=== PATIENT | male | born 1950 | race Caucasian/White ===

== ENCOUNTER → 2023-03-07 10:42 | Outpatient (REF) | payer MEDICARE, OTHER, SELFPAY ==
[2023-03-07 11:10] VITALS: BP 117/62; BP_SYST 74
[2023-03-07 13:12] LABS: Body Fluid Mononuclear 87.9 %; Body Fluid Polymorphonuclear 12.1 %; Body Fluid WBC 148 /CUMM
[2023-03-07 13:21] LABS: Body Fluid Second Tech AMA
== END ==
LOC: RADI 10:42
PROVIDERS: ATTENDING PHYSICIAN Internal Medicine Cardiovascular Disease; FAMILY PHYSICIAN Internal Medicine Geriatric Medicine
DX: R18.8 Other ascites (principal)
CPT/HCPCS: 49083; 87015; 87070; 87205; 89051

== ENCOUNTER → 2023-03-14 07:03 | Outpatient (REF) | payer MEDICARE, OTHER, SELFPAY ==
[2023-03-14 07:15] VITALS: BP 129/58; BP_SYST 76
[2023-03-14 07:50] VITALS: BP 127/63; BP_SYST 69
[2023-03-14 08:37] LABS: Body Fluid Polymorphonuclear 13.9 %; Body Fluid WBC 209 /CUMM
[2023-03-14 08:38] LABS: Body Fluid Mononuclear 86.1 %
[2023-03-14 08:40] LABS: Body Fluid Second Tech CF
== END ==
LOC: RADI 07:03
PROVIDERS: ATTENDING PHYSICIAN Internal Medicine Cardiovascular Disease
DX: R18.8 Other ascites (principal)
CPT/HCPCS: 49083; 89051

== ENCOUNTER → 2023-03-21 07:16 | Outpatient (REF) | payer MEDICARE, OTHER, SELFPAY ==
[2023-03-21 07:30] VITALS: BP 128/65; BP_SYST 75
[2023-03-21 08:00] VITALS: BP 117/61; BP_SYST 70
[2023-03-21 08:26] LABS: Body Fluid Mononuclear 85.9 %; Body Fluid Polymorphonuclear 14.1 %; Body Fluid WBC 241 /CUMM
[2023-03-21 08:28] LABS: Body Fluid Second Tech SS
== END ==
LOC: RADI 07:16
PROVIDERS: ATTENDING PHYSICIAN Internal Medicine Cardiovascular Disease; FAMILY PHYSICIAN Internal Medicine Geriatric Medicine
DX: R18.8 Other ascites (principal)
CPT/HCPCS: 49083; 89051

== ENCOUNTER → 2023-03-28 06:49 | Outpatient (REF) | payer MEDICARE, OTHER, SELFPAY ==
[2023-03-28 07:20] VITALS: BP 132/70; BP_SYST 82
[2023-03-28 08:25] VITALS: BP 119/70
[2023-03-28 09:07] LABS: Body Fluid Mononuclear 91.9 %; Body Fluid Polymorphonuclear 8.1 %; Body Fluid WBC 235 /CUMM
[2023-03-28 09:10] LABS: Body Fluid Second Tech SD
== END ==
LOC: RADI 06:49
PROVIDERS: ATTENDING PHYSICIAN Internal Medicine Cardiovascular Disease
DX: R18.8 Other ascites (principal)
CPT/HCPCS: 49083; 87015; 87070; 87205; 89051

== ENCOUNTER 2023-04-02 09:09 | Outpatient (RCR) | payer MEDICARE, OTHER, SELFPAY ==
[2023-03-09 09:24] VITALS: BP 122/52
[2023-03-09] MEDS: BUMEX 66 MG IV (09:31)
[2023-03-09 11:17] LABS: Blood Urea Nitrogen 55 mg/dl (9-20); Calcium 8.5 mg/dl (8.4-10.2); Carbon Dioxide 26 mmol/L (22-30); Chloride 106 mmol/L (98-107); Glucose 103 mg/dl (70-99); Magnesium 1.9 mg/dl (1.6-2.3); Sodium 135 mmol/L (135-145); eGFR 24.28
[2023-03-12 09:12] VITALS: BP 115/56
[2023-03-12] MEDS: BUMEX 66 MG IV (09:31)
[2023-03-12 11:57] LABS: Blood Urea Nitrogen 57 mg/dl (9-20); Calcium 8.9 mg/dl (8.4-10.2); Carbon Dioxide 24 mmol/L (22-30); Chloride 103 mmol/L (98-107); Glucose 118 mg/dl (70-99); Magnesium 1.8 mg/dl (1.6-2.3); Potassium 3.9 mmol/L (3.5-5.1); Sodium 137 mmol/L (135-145); eGFR 24.28
[2023-03-16] MEDS: BUMEX 66 MG IV (09:25)
[2023-03-16 09:28] VITALS: BP 103/47
[2023-03-16 10:25] VITALS: BP 115/46
[2023-03-16 11:53] LABS: TSH Reflex To Free T4 3.01 uIU/ml (0.47-4.68)
[2023-03-16 15:52] LABS: NT-proBNP 5490 pg/ml
[2023-03-19 09:14] VITALS: BP 117/53
[2023-03-19] MEDS: BUMEX 66 MG IV (09:29)
[2023-03-19 11:26] LABS: Blood Urea Nitrogen 57 mg/dl (9-20); Calcium 8.6 mg/dl (8.4-10.2); Carbon Dioxide 28 mmol/L (22-30); Chloride 105 mmol/L (98-107); Glucose 164 mg/dl (70-99); Magnesium 1.9 mg/dl (1.6-2.3); Sodium 136 mmol/L (135-145)
[2023-03-23] MEDS: BUMEX 66 MG IV (09:23)
[2023-03-23 09:41] VITALS: BP 144/61
[2023-03-23 10:31] VITALS: BP 142/62
[2023-03-23 11:09] LABS: Blood Urea Nitrogen 63 mg/dl (9-20); Carbon Dioxide 23 mmol/L (22-30); Chloride 103 mmol/L (98-107); Glucose 207 mg/dl (70-99); Magnesium 1.8 mg/dl (1.6-2.3); Potassium 4.3 mmol/L (3.5-5.1); Sodium 135 mmol/L (135-145); eGFR 25.41
[2023-03-26 09:15] VITALS: BP 117/57
[2023-03-26] MEDS: BUMEX 66 MG IV (09:33)
[2023-03-26 10:10] VITALS: BP 149/59
[2023-03-26 11:08] LABS: Blood Urea Nitrogen 61 mg/dl (9-20); Calcium 9.2 mg/dl (8.4-10.2); Carbon Dioxide 27 mmol/L (22-30); Chloride 102 mmol/L (98-107); Glucose 147 mg/dl (70-99); Magnesium 2.1 mg/dl (1.6-2.3); Potassium 3.9 mmol/L (3.5-5.1); Sodium 137 mmol/L (135-145); eGFR 23.24
[2023-03-30 09:00] VITALS: BP 115/50
[2023-03-30] MEDS: BUMEX 66 MG IV (09:19)
[2023-03-30 11:08] LABS: Blood Urea Nitrogen 57 mg/dl (9-20); Calcium 8.8 mg/dl (8.4-10.2); Carbon Dioxide 27 mmol/L (22-30); Chloride 104 mmol/L (98-107); Glucose 128 mg/dl (70-99); Potassium 3.9 mmol/L (3.5-5.1); Sodium 136 mmol/L (135-145); eGFR 25.41
[2023-04-02 09:20] VITALS: BP 119/58
[2023-04-02] MEDS: BUMEX 66 MG IV (09:29)
[2023-04-02 10:43] LABS: % Basophils 0.4 % (0-2); % Eosinophils 7.7 % (0-6); % Immature Granulocytes 0.3 % (0-0.5); % Lymphocytes 7.7 % (20.5-51.1); % Monocytes 7.8 % (1.7-9.3); % Neutrophils 76.1 % (42.2-75.2); Absolute Eosinophils 0.5 10^3/uL (0-0.7); Absolute Lymphocytes 0.5 10^3/uL (1.2-3.4); Absolute Monocytes 0.5 10^3/uL (0.1-0.6); Absolute Neutrophils 5.2 10^3/uL (1.4-6.5); Hematocrit 27.8 % (39.0-52.0); Hemoglobin 9.4 g/dL (13.0-18.0); Mean Corp Hgb Conc. 33.8 g/dL (33.0-37.0); Mean Corpuscular Hgb 29.7 pg (27.0-31.0); Mean Platelet Volume 9.9 fL (7.4-10.4); Nucleated Red Blood Cells % 0 % (-); Platelet Count 196 10^3/uL (130-400); Red Blood Cell Count 3.16 10^6/uL (4.70-6.10); Red Cell Dist. Width 17.9 % (11.5-14.5); White Blood Cell Count 6.8 10^3/uL (4.8-10.8)
[2023-04-02 11:04] LABS: Blood Urea Nitrogen 59 mg/dl (9-20); Calcium 8.9 mg/dl (8.4-10.2); Carbon Dioxide 25 mmol/L (22-30); Chloride 103 mmol/L (98-107); Glucose 126 mg/dl (70-99); Magnesium 2.1 mg/dl (1.6-2.3); Potassium 4.6 mmol/L (3.5-5.1); Sodium 134 mmol/L (135-145); eGFR 20.57
== END 2023-04-03 08:54 | disposition home or self-care (01) ==
LOC: OID 09:09
PROVIDERS: ATTENDING PHYSICIAN Internal Medicine Cardiovascular Disease; FAMILY PHYSICIAN Internal Medicine Geriatric Medicine; PRIMARYCARE PHYSICIAN Internal Medicine Cardiovascular Disease
DX: R18.8 Other ascites (principal); I50.22 Chronic systolic (congestive) heart failure; Z92.89 Personal history of other medical treatment
CPT/HCPCS: 36415; 49083; 80048; 83735; 83880; 84443; 85025; 89051; 96365

== ENCOUNTER → 2023-04-04 06:53 | Outpatient (REF) | payer MEDICARE, OTHER, SELFPAY ==
[2023-04-04 07:30] VITALS: BP 121/64; BP_SYST 89
[2023-04-04 08:10] VITALS: BP 102/60; BP_SYST 70
[2023-04-04 08:47] LABS: Body Fluid Mononuclear 87.3 %; Body Fluid Polymorphonuclear 12.7 %; Body Fluid WBC 142 /CUMM
[2023-04-04 08:49] LABS: Body Fluid Second Tech AMA
== END ==
LOC: RADI 06:53
PROVIDERS: ATTENDING PHYSICIAN Internal Medicine Cardiovascular Disease
DX: R18.8 Other ascites (principal)
CPT/HCPCS: 49083; 89051

== ENCOUNTER → 2023-04-11 07:21 | Outpatient (REF) | payer MEDICARE, OTHER, SELFPAY ==
[2023-04-11 07:50] VITALS: BP 118/69; BP_SYST 71
[2023-04-11 08:30] VITALS: BP 112/64
[2023-04-11 09:12] LABS: Body Fluid Mononuclear 92.5 %; Body Fluid Polymorphonuclear 7.5 %; Body Fluid WBC 185 /CUMM
[2023-04-11 09:14] LABS: Body Fluid Second Tech SD
== END ==
LOC: RADI 07:21
PROVIDERS: ATTENDING PHYSICIAN Internal Medicine Cardiovascular Disease; FAMILY PHYSICIAN Internal Medicine Geriatric Medicine
DX: R18.8 Other ascites (principal)
CPT/HCPCS: 49083; 87015; 87070; 87205; 89051

== ENCOUNTER → 2023-04-18 07:12 | Outpatient (REF) | payer MEDICARE, OTHER, SELFPAY ==
[2023-04-18 07:25] VITALS: BP 132/66; BP_SYST 81
[2023-04-18 09:02] LABS: Body Fluid Mononuclear 88.1 %; Body Fluid Polymorphonuclear 11.9 %; Body Fluid WBC 143 /CUMM
[2023-04-18 09:46] LABS: Body Fluid Second Tech CMB
== END ==
LOC: RADI 07:12
PROVIDERS: ATTENDING PHYSICIAN Internal Medicine Cardiovascular Disease; FAMILY PHYSICIAN Internal Medicine Geriatric Medicine
DX: R18.8 Other ascites (principal)
CPT/HCPCS: 49083; 87015; 87070; 87205; 89051

== ENCOUNTER → 2023-04-25 07:23 | Outpatient (REF) | payer MEDICARE, OTHER, SELFPAY ==
[2023-04-25 07:45] VITALS: BP 111/56; BP_SYST 83
[2023-04-25 08:51] VITALS: BP 115/59
[2023-04-25 09:12] LABS: Body Fluid Mononuclear 90.8 %; Body Fluid Polymorphonuclear 9.2 %; Body Fluid WBC 163 /CUMM
[2023-04-25 09:14] LABS: Body Fluid Second Tech HB
== END ==
LOC: RADI 07:23
PROVIDERS: ATTENDING PHYSICIAN Internal Medicine Cardiovascular Disease; FAMILY PHYSICIAN Internal Medicine Geriatric Medicine
DX: R18.8 Other ascites (principal)
CPT/HCPCS: 49083; 89051

== ENCOUNTER → 2023-05-04 08:06 | Outpatient (REF) | payer MEDICARE, OTHER, SELFPAY ==
[2023-05-04 08:10] VITALS: BP 131/71; BP_SYST 76
[2023-05-04 09:04] VITALS: BP 114/67
[2023-05-04 09:36] LABS: Body Fluid Mononuclear 92.1 %; Body Fluid Polymorphonuclear 7.9 %; Body Fluid WBC 165 /CUMM
[2023-05-04 09:45] LABS: Body Fluid Second Tech CF
== END ==
LOC: RADI 08:06
PROVIDERS: ATTENDING PHYSICIAN Internal Medicine Cardiovascular Disease
DX: R18.8 Other ascites (principal)
CPT/HCPCS: 49083; 89051

== ENCOUNTER 2023-05-04 09:07 | Outpatient (RCR) | payer MEDICARE, OTHER, SELFPAY ==
[2023-04-06 09:20] VITALS: BP 119/54
[2023-04-06] MEDS: BUMEX 66 MG IV (09:36)
[2023-04-06 11:40] LABS: Blood Urea Nitrogen 51 mg/dl (9-20); Calcium 8.6 mg/dl (8.4-10.2); Carbon Dioxide 25 mmol/L (22-30); Chloride 102 mmol/L (98-107); Glucose 138 mg/dl (70-99); Magnesium 2.2 mg/dl (1.6-2.3); Potassium 3.7 mmol/L (3.5-5.1); Sodium 134 mmol/L (135-145); eGFR 22.29
[2023-04-09 09:10] VITALS: BP 113/61
[2023-04-09] MEDS: BUMEX 66 MG IV (09:47)
[2023-04-09 12:32] LABS: Blood Urea Nitrogen 54 mg/dl (9-20); Calcium 8.7 mg/dl (8.4-10.2); Carbon Dioxide 25 mmol/L (22-30); Chloride 106 mmol/L (98-107); Glucose 126 mg/dl (70-99); Magnesium 2.2 mg/dl (1.6-2.3); Sodium 137 mmol/L (135-145); eGFR 27.97
[2023-04-13 09:31] VITALS: BP 121/55
[2023-04-13] MEDS: BUMEX 66 MG IV (09:36)
[2023-04-13 11:09] LABS: Blood Urea Nitrogen 46 mg/dl (9-20); Calcium 8.1 mg/dl (8.4-10.2); Carbon Dioxide 23 mmol/L (22-30); Chloride 106 mmol/L (98-107); Glucose 150 mg/dl (70-99); Magnesium 2.1 mg/dl (1.6-2.3); Potassium 3.9 mmol/L (3.5-5.1); Sodium 133 mmol/L (135-145); eGFR 29.43
[2023-04-16] MEDS: BUMEX 66 MG IV (09:42)
[2023-04-16 09:44] VITALS: BP 122/59
[2023-04-16 11:33] LABS: Blood Urea Nitrogen 57 mg/dl (9-20); Calcium 8.8 mg/dl (8.4-10.2); Carbon Dioxide 25 mmol/L (22-30); Chloride 106 mmol/L (98-107); Glucose 133 mg/dl (70-99); Magnesium 2.2 mg/dl (1.6-2.3); Potassium 3.8 mmol/L (3.5-5.1); Sodium 135 mmol/L (135-145); eGFR 24.28
[2023-04-20 09:18] VITALS: BP 110/62
[2023-04-20] MEDS: BUMEX 66 MG IV (09:41)
[2023-04-20 11:06] LABS: Blood Urea Nitrogen 52 mg/dl (9-20); Calcium 8.7 mg/dl (8.4-10.2); Carbon Dioxide 24 mmol/L (22-30); Chloride 102 mmol/L (98-107); Glucose 164 mg/dl (70-99); Potassium 3.8 mmol/L (3.5-5.1); Sodium 135 mmol/L (135-145); eGFR 27.97
[2023-04-23 09:19] VITALS: BP 118/61
[2023-04-23] MEDS: BUMEX 66 MG IV (09:33)
[2023-04-23 11:28] LABS: Blood Urea Nitrogen 46 mg/dl (9-20); Calcium 8.6 mg/dl (8.4-10.2); Carbon Dioxide 25 mmol/L (22-30); Chloride 104 mmol/L (98-107); Glucose 118 mg/dl (70-99); Magnesium 1.9 mg/dl (1.6-2.3); Potassium 3.9 mmol/L (3.5-5.1); Sodium 133 mmol/L (135-145); eGFR 26.63
[2023-04-27] MEDS: BUMEX 66 MG IV (09:31)
[2023-04-27 09:37] VITALS: BP 127/1
[2023-04-27 11:44] LABS: Blood Urea Nitrogen 44 mg/dl (9-20); Calcium 8.8 mg/dl (8.4-10.2); Carbon Dioxide 25 mmol/L (22-30); Chloride 106 mmol/L (98-107); Glucose 114 mg/dl (70-99); Magnesium 1.9 mg/dl (1.6-2.3); Potassium 3.8 mmol/L (3.5-5.1); Sodium 136 mmol/L (135-145); eGFR 25.41
[2023-04-30] MEDS: BUMEX 66 MG IV (09:42)
[2023-04-30 09:50] VITALS: BP 122/65
[2023-04-30 11:39] LABS: % Basophils 0.7 % (0-2); % Eosinophils 5.9 % (0-6); % Immature Granulocytes 0.3 % (0-0.5); % Lymphocytes 8.3 % (20.5-51.1); % Monocytes 8.8 % (1.7-9.3); Absolute Eosinophils 0.4 10^3/uL (0-0.7); Absolute Lymphocytes 0.5 10^3/uL (1.2-3.4); Absolute Monocytes 0.5 10^3/uL (0.1-0.6); Absolute Neutrophils 4.5 10^3/uL (1.4-6.5); Hemoglobin 10.1 g/dL (13.0-18.0); Mean Corp Hgb Conc. 32.6 g/dL (33.0-37.0); Mean Corpuscular Hgb 29.4 pg (27.0-31.0); Mean Corpuscular Volume 90.4 fL (80.0-94.0); Mean Platelet Volume 9.6 fL (7.4-10.4); Nucleated Red Blood Cells % 0 % (-); Platelet Count 212 10^3/uL (130-400); Red Blood Cell Count 3.43 10^6/uL (4.70-6.10); Red Cell Dist. Width 16.9 % (11.5-14.5); White Blood Cell Count 5.9 10^3/uL (4.8-10.8)
[2023-04-30 11:49] LABS: Blood Urea Nitrogen 42 mg/dl (9-20); Calcium 9.4 mg/dl (8.4-10.2); Carbon Dioxide 25 mmol/L (22-30); Chloride 106 mmol/L (98-107); Glucose 110 mg/dl (70-99); Magnesium 1.8 mg/dl (1.6-2.3); Potassium 4.2 mmol/L (3.5-5.1); Sodium 136 mmol/L (135-145); eGFR 27.97
[2023-05-04] MEDS: BUMEX 66 MG IV (09:42)
[2023-05-04 09:48] VITALS: BP 120/63
[2023-05-04 11:24] LABS: Blood Urea Nitrogen 53 mg/dl (9-20); Calcium 8.9 mg/dl (8.4-10.2); Carbon Dioxide 23 mmol/L (22-30); Chloride 106 mmol/L (98-107); Glucose 122 mg/dl (70-99); Magnesium 1.9 mg/dl (1.6-2.3); Potassium 3.9 mmol/L (3.5-5.1); Sodium 135 mmol/L (135-145); Uric Acid 8.3 mg/dl (3.5-8.5); eGFR 26.63
[2023-05-04 12:19] LABS: Microalbumin, Random Urine <0.6 mg/dl (0.6-1.7)
[2023-05-04 13:38] LABS: Glycohemoglobin (HgbA1c) 7.3 % (4.0-5.6)
== END 2023-05-04 12:06 | disposition home or self-care (01) ==
LOC: OID 09:07
PROVIDERS: Internal Medicine Rheumatology; ATTENDING PHYSICIAN Internal Medicine Cardiovascular Disease; FAMILY PHYSICIAN Internal Medicine Geriatric Medicine; PRIMARYCARE PHYSICIAN Internal Medicine Cardiovascular Disease
DX: R18.8 Other ascites (principal); I50.22 Chronic systolic (congestive) heart failure; Z92.89 Personal history of other medical treatment
CPT/HCPCS: 36415; 49083; 80048; 82043; 82570; 83036; 83735; 84550; 85025; 87015; 87070; 87205; 89051; 96365

== ENCOUNTER → 2023-05-09 07:37 | Outpatient (REF) | payer MEDICARE, OTHER, SELFPAY ==
[2023-05-09 08:00] VITALS: BP 142/71; BP_SYST 70; BMI 32.8
[2023-05-09 08:40] VITALS: BP 120/54
[2023-05-09 09:09] LABS: Body Fluid Mononuclear 70.1 %; Body Fluid Polymorphonuclear 29.9 %; Body Fluid WBC 134 /CUMM
[2023-05-09 09:10] LABS: Body Fluid Second Tech RLT
== END ==
LOC: RADI 07:37
PROVIDERS: ATTENDING PHYSICIAN Internal Medicine Cardiovascular Disease; FAMILY PHYSICIAN Internal Medicine Geriatric Medicine
DX: R18.8 Other ascites (principal)
CPT/HCPCS: 49083; 87015; 87070; 87205; 89051

== ENCOUNTER → 2023-05-16 07:49 | Outpatient (REF) | payer MEDICARE, OTHER, SELFPAY ==
[2023-05-16 08:00] VITALS: BP 125/58; BP_SYST 71
[2023-05-16 08:45] VITALS: BP 123/60; BP_SYST 71
[2023-05-16 08:59] VITALS: BP 123/66
[2023-05-16 09:19] LABS: Body Fluid Mononuclear 86.8 %; Body Fluid Polymorphonuclear 13.2 %; Body Fluid WBC 136 /CUMM
[2023-05-16 09:57] LABS: Body Fluid Second Tech EF
== END ==
LOC: RADI 07:49
PROVIDERS: ATTENDING PHYSICIAN Internal Medicine Cardiovascular Disease
DX: R18.8 Other ascites (principal)
CPT/HCPCS: 49083; 87015; 87070; 87205; 89051

== ENCOUNTER → 2023-05-23 07:39 | Outpatient (REF) | payer MEDICARE, OTHER, SELFPAY ==
[2023-05-23 08:40] VITALS: BP 130/68; BP_SYST 71
[2023-05-23 08:59] VITALS: BP 130/72
[2023-05-23 09:48] LABS: Body Fluid Mononuclear 88.8 %; Body Fluid Polymorphonuclear 11.2 %; Body Fluid WBC 151 /CUMM
[2023-05-23 10:19] LABS: Body Fluid Second Tech AMA
== END ==
LOC: RADI 07:39
PROVIDERS: ATTENDING PHYSICIAN Internal Medicine Cardiovascular Disease
DX: R18.8 Other ascites (principal)
CPT/HCPCS: 36415; 49083; 89051; 96365

== ENCOUNTER → 2023-05-30 07:38 | Outpatient (REF) | payer MEDICARE, OTHER, SELFPAY ==
[2023-05-30 07:50] VITALS: BP 122/57; BP_SYST 71
[2023-05-30 08:30] VITALS: BP 117/61
[2023-05-30 11:32] LABS: Body Fluid Mononuclear 92.3 %; Body Fluid Polymorphonuclear 7.7 %; Body Fluid WBC 144 /CUMM
[2023-05-30 11:35] LABS: Body Fluid Second Tech EF
== END ==
LOC: RADI 07:38
PROVIDERS: ATTENDING PHYSICIAN Internal Medicine Cardiovascular Disease
DX: R18.8 Other ascites (principal)
CPT/HCPCS: 49083; 87015; 87070; 87205; 89051

== ENCOUNTER 2023-06-04 08:52 | Outpatient (RCR) | payer MEDICARE, OTHER, SELFPAY ==
[2023-05-07] MEDS: BUMEX 66 MG IV (09:30)
[2023-05-07 09:45] VITALS: BP 122/53
[2023-05-07 11:10] LABS: Blood Urea Nitrogen 69 mg/dl (9-20); Calcium 9.1 mg/dl (8.4-10.2); Carbon Dioxide 24 mmol/L (22-30); Chloride 107 mmol/L (98-107); Glucose 244 mg/dl (70-99); Magnesium 1.7 mg/dl (1.6-2.3); Potassium 4.2 mmol/L (3.5-5.1); Sodium 136 mmol/L (135-145); eGFR 24.28
[2023-05-11 09:15] VITALS: BP 126/63
[2023-05-11] MEDS: BUMEX 66 MG IV (09:28)
[2023-05-11 11:26] LABS: Blood Urea Nitrogen 72 mg/dl (9-20); Calcium 9.2 mg/dl (8.4-10.2); Carbon Dioxide 23 mmol/L (22-30); Chloride 102 mmol/L (98-107); Glucose 230 mg/dl (70-99); Magnesium 1.7 mg/dl (1.6-2.3); Sodium 133 mmol/L (135-145); eGFR 23.24
[2023-05-11 12:08] LABS: Potassium 3.9 mmol/L (3.5-5.1)
[2023-05-14 09:30] VITALS: BP 130/64
[2023-05-14] MEDS: BUMEX 66 MG IV (10:00)
[2023-05-14 11:59] LABS: Blood Urea Nitrogen 65 mg/dl (9-20); Carbon Dioxide 23 mmol/L (22-30); Chloride 102 mmol/L (98-107); Glucose 191 mg/dl (70-99); Magnesium 1.8 mg/dl (1.6-2.3); Potassium 4.1 mmol/L (3.5-5.1); Sodium 135 mmol/L (135-145)
[2023-05-18] MEDS: BUMEX 66 MG IV (09:00)
[2023-05-18 09:05] VITALS: BP 113/63
[2023-05-18 10:32] LABS: Blood Urea Nitrogen 64 mg/dl (9-20); Carbon Dioxide 24 mmol/L (22-30); Chloride 105 mmol/L (98-107); Glucose 167 mg/dl (70-99); Sodium 134 mmol/L (135-145); eGFR 26.63
[2023-05-21] MEDS: BUMEX 66 MG IV (09:30)
[2023-05-21 09:50] VITALS: BP 128/65
[2023-05-21 11:02] LABS: Blood Urea Nitrogen 58 mg/dl (9-20); Calcium 9.1 mg/dl (8.4-10.2); Carbon Dioxide 26 mmol/L (22-30); Chloride 106 mmol/L (98-107); Glucose 122 mg/dl (70-99); Potassium 3.7 mmol/L (3.5-5.1); Sodium 136 mmol/L (135-145); eGFR 24.28
[2023-05-25 09:00] VITALS: BP 129/61
[2023-05-25] MEDS: BUMEX 66 MG IV (09:42)
[2023-05-25 11:29] LABS: Blood Urea Nitrogen 63 mg/dl (9-20); Calcium 8.9 mg/dl (8.4-10.2); Carbon Dioxide 26 mmol/L (22-30); Chloride 104 mmol/L (98-107); Glucose 117 mg/dl (70-99); Sodium 135 mmol/L (135-145); eGFR 23.24
[2023-05-28 09:17] VITALS: BP 131/61
[2023-05-28] MEDS: BUMEX 66 MG IV (09:31)
[2023-05-28 10:43] LABS: % Basophils 0.3 % (0-2); % Eosinophils 5.6 % (0-6); % Immature Granulocytes 0.5 % (0-0.5); % Lymphocytes 7.3 % (20.5-51.1); % Monocytes 9.2 % (1.7-9.3); % Neutrophils 77.1 % (42.2-75.2); Absolute Eosinophils 0.3 10^3/uL (0-0.7); Absolute Lymphocytes 0.4 10^3/uL (1.2-3.4); Absolute Monocytes 0.5 10^3/uL (0.1-0.6); Absolute Neutrophils 4.5 10^3/uL (1.4-6.5); Hematocrit 28.9 % (39.0-52.0); Hemoglobin 9.7 g/dL (13.0-18.0); Mean Corp Hgb Conc. 33.6 g/dL (33.0-37.0); Mean Corpuscular Hgb 30.1 pg (27.0-31.0); Mean Corpuscular Volume 89.8 fL (80.0-94.0); Mean Platelet Volume 9.4 fL (7.4-10.4); Nucleated Red Blood Cells % 0 % (-); Platelet Count 169 10^3/uL (130-400); Red Blood Cell Count 3.22 10^6/uL (4.70-6.10); White Blood Cell Count 5.9 10^3/uL (4.8-10.8)
[2023-05-28 13:29] LABS: Blood Urea Nitrogen 70 mg/dl (9-20); Calcium 9.2 mg/dl (8.4-10.2); Carbon Dioxide 24 mmol/L (22-30); Chloride 104 mmol/L (98-107); Glucose 150 mg/dl (70-99); Potassium 4.1 mmol/L (3.5-5.1); Sodium 135 mmol/L (135-145); eGFR 23.24
[2023-06-01 09:15] VITALS: BP 115/58
[2023-06-01] MEDS: BUMEX 66 MG IV (09:34)
[2023-06-01 11:10] LABS: Blood Urea Nitrogen 69 mg/dl (9-20); Calcium 8.8 mg/dl (8.4-10.2); Carbon Dioxide 27 mmol/L (22-30); Chloride 100 mmol/L (98-107); Glucose 176 mg/dl (70-99); Magnesium 2.1 mg/dl (1.6-2.3); Potassium 3.8 mmol/L (3.5-5.1); Sodium 130 mmol/L (135-145); eGFR 25.41
[2023-06-04 09:10] VITALS: BP 118/58
[2023-06-04] MEDS: BUMEX 66 MG IV (09:37)
[2023-06-04 11:39] LABS: % Basophils 0.3 % (0-2); % Eosinophils 7.6 % (0-6); % Immature Granulocytes 0.3 % (0-0.5); % Lymphocytes 7.6 % (20.5-51.1); % Monocytes 12.5 % (1.7-9.3); % Neutrophils 71.7 % (42.2-75.2); Absolute Eosinophils 0.5 10^3/uL (0-0.7); Absolute Lymphocytes 0.5 10^3/uL (1.2-3.4); Absolute Monocytes 0.8 10^3/uL (0.1-0.6); Absolute Neutrophils 4.4 10^3/uL (1.4-6.5); Hematocrit 26.7 % (39.0-52.0); Hemoglobin 9.2 g/dL (13.0-18.0); Mean Corp Hgb Conc. 34.5 g/dL (33.0-37.0); Mean Corpuscular Hgb 30.2 pg (27.0-31.0); Mean Corpuscular Volume 87.5 fL (80.0-94.0); Mean Platelet Volume 9.9 fL (7.4-10.4); Nucleated Red Blood Cells % 0 % (-); Platelet Count 214 10^3/uL (130-400); Red Blood Cell Count 3.05 10^6/uL (4.70-6.10); Red Cell Dist. Width 15.9 % (11.5-14.5); White Blood Cell Count 6.2 10^3/uL (4.8-10.8)
[2023-06-04 11:58] LABS: Blood Urea Nitrogen 76 mg/dl (9-20); Carbon Dioxide 27 mmol/L (22-30); Chloride 99 mmol/L (98-107); Glucose 115 mg/dl (70-99); Magnesium 2.2 mg/dl (1.6-2.3); Potassium 3.1 mmol/L (3.5-5.1); Sodium 135 mmol/L (135-145); eGFR 24.28
== END 2023-06-05 11:45 | disposition home or self-care (01) ==
LOC: OID 08:52
PROVIDERS: ATTENDING PHYSICIAN Internal Medicine Cardiovascular Disease; FAMILY PHYSICIAN Internal Medicine Geriatric Medicine; PRIMARYCARE PHYSICIAN Internal Medicine Cardiovascular Disease
DX: R18.8 Other ascites (principal); I50.22 Chronic systolic (congestive) heart failure; Z92.89 Personal history of other medical treatment
CPT/HCPCS: 36415; 80048; 83735; 85025; 96365

== ENCOUNTER → 2023-06-06 07:22 | Outpatient (REF) | payer MEDICARE, OTHER, SELFPAY ==
[2023-06-06 07:56] VITALS: BP 122/63; BP_SYST 88
[2023-06-06 08:30] VITALS: BP 123/56
[2023-06-06 09:02] LABS: Body Fluid Mononuclear 88.5 %; Body Fluid Polymorphonuclear 11.5 %; Body Fluid WBC 131 /CUMM
[2023-06-06 09:17] LABS: Body Fluid Second Tech SS
== END ==
LOC: RADI 07:22
PROVIDERS: ATTENDING PHYSICIAN Internal Medicine Cardiovascular Disease; FAMILY PHYSICIAN Internal Medicine Geriatric Medicine
DX: R18.8 Other ascites (principal)
CPT/HCPCS: 49083; 89051

== ENCOUNTER → 2023-06-18 11:17 | Outpatient (REF) | payer MEDICARE, OTHER, SELFPAY | LOC: RAD 11:17 | PROVIDERS: ATTENDING PHYSICIAN Nurse Practitioner Family; FAMILY PHYSICIAN Internal Medicine Geriatric Medicine | DX: J06.9 Acute upper respiratory infection, unspecified (principal) | CPT/HCPCS: 71046 ==

== ENCOUNTER → 2023-06-19 09:17 | Outpatient (REF) | payer MEDICARE, OTHER, SELFPAY | LOC: MRI 09:17 | PROVIDERS: ATTENDING PHYSICIAN Specialist; FAMILY PHYSICIAN Internal Medicine Geriatric Medicine | DX: C49.A3 Gastrointestinal stromal tumor of small intestine (principal); N15.9 Renal tubulo-interstitial disease, unspecified; D64.9 Anemia, unspecified | CPT/HCPCS: 72195; 74181 ==

== ENCOUNTER → 2023-06-20 06:59 | Outpatient (REF) | payer MEDICARE, OTHER, SELFPAY ==
[2023-06-20 07:15] VITALS: BP 137/71; BP_SYST 87
[2023-06-20 07:55] VITALS: BP 122/66; BP_SYST 72
[2023-06-20 08:04] VITALS: BP 122/66
[2023-06-20 08:46] LABS: Body Fluid Mononuclear 84.3 %; Body Fluid Polymorphonuclear 15.7 %; Body Fluid WBC 108 /CUMM
[2023-06-20 08:47] LABS: Body Fluid Second Tech ASW
== END ==
LOC: RADI 06:59
PROVIDERS: ATTENDING PHYSICIAN Internal Medicine Cardiovascular Disease; FAMILY PHYSICIAN Internal Medicine Geriatric Medicine
DX: R18.8 Other ascites (principal)
CPT/HCPCS: 49083; 89051

== ENCOUNTER → 2023-07-04 07:07 | Outpatient (REF) | payer MEDICARE, OTHER, SELFPAY ==
[2023-07-04 07:40] VITALS: BP 124/64; BP_SYST 72
[2023-07-04 08:42] VITALS: BP 114/67
[2023-07-04 10:43] LABS: Body Fluid Mononuclear 79.2 %; Body Fluid Polymorphonuclear 20.8 %; Body Fluid WBC 115 /CUMM
[2023-07-04 10:49] LABS: Body Fluid Second Tech SS
== END ==
LOC: RADI 07:07
PROVIDERS: ATTENDING PHYSICIAN Internal Medicine Cardiovascular Disease
DX: R18.8 Other ascites (principal)
CPT/HCPCS: 49083; 89051

== ENCOUNTER 2023-07-06 09:18 | Outpatient (RCR) | payer MEDICARE, OTHER, SELFPAY ==
[2023-06-08] MEDS: BUMEX 66 MG IV (09:45)
[2023-06-08 09:54] VITALS: BP 124/70
[2023-06-08 11:14] LABS: Blood Urea Nitrogen 97 mg/dl (9-20); Calcium 8.3 mg/dl (8.4-10.2); Carbon Dioxide 25 mmol/L (22-30); Chloride 97 mmol/L (98-107); Glucose 127 mg/dl (70-99); Magnesium 2.1 mg/dl (1.6-2.3); Potassium 3.3 mmol/L (3.5-5.1); Sodium 130 mmol/L (135-145)
[2023-06-13 09:20] VITALS: BP 125/68
[2023-06-13] MEDS: BUMEX 66 MG IV (09:31)
[2023-06-13 11:42] LABS: Blood Urea Nitrogen 106 mg/dl (9-20); Calcium 8.6 mg/dl (8.4-10.2); Carbon Dioxide 27 mmol/L (22-30); Chloride 99 mmol/L (98-107); Glucose 120 mg/dl (70-99); Magnesium 2.1 mg/dl (1.6-2.3); Potassium 3.6 mmol/L (3.5-5.1); Sodium 133 mmol/L (135-145); eGFR 23.24
[2023-06-15 09:35] VITALS: BP 124/63
[2023-06-15] MEDS: BUMEX 66 MG IV (09:41)
[2023-06-15 11:14] LABS: Blood Urea Nitrogen 107 mg/dl (9-20); Calcium 8.8 mg/dl (8.4-10.2); Carbon Dioxide 26 mmol/L (22-30); Chloride 98 mmol/L (98-107); Glucose 164 mg/dl (70-99); Magnesium 2.1 mg/dl (1.6-2.3); Potassium 4.5 mmol/L (3.5-5.1); Sodium 129 mmol/L (135-145); eGFR 24.28
[2023-06-20 08:45] VITALS: BP 123/54
[2023-06-20] MEDS: BUMEX 66 MG IV (08:57)
[2023-06-20 09:41] LABS: % Basophils 0.1 % (0-2); % Eosinophils 1.8 % (0-6); % Immature Granulocytes 0.3 % (0-0.5); % Lymphocytes 2.2 % (20.5-51.1); % Monocytes 6.9 % (1.7-9.3); % Neutrophils 88.7 % (42.2-75.2); Absolute Eosinophils 0.3 10^3/uL (0-0.7); Absolute Lymphocytes 0.3 10^3/uL (1.2-3.4); Absolute Monocytes 0.9 10^3/uL (0.1-0.6); Hematocrit 31.4 % (39.0-52.0); Hemoglobin 10.6 g/dL (13.0-18.0); Mean Corp Hgb Conc. 33.8 g/dL (33.0-37.0); Mean Corpuscular Hgb 30.2 pg (27.0-31.0); Mean Corpuscular Volume 89.5 fL (80.0-94.0); Mean Platelet Volume 10.4 fL (7.4-10.4); Platelet Count 206 10^3/uL (130-400); Red Blood Cell Count 3.51 10^6/uL (4.70-6.10); Red Cell Dist. Width 15.6 % (11.5-14.5); White Blood Cell Count 13.6 10^3/uL (4.8-10.8)
[2023-06-20 11:03] LABS: Blood Urea Nitrogen 90 mg/dl (9-20); Calcium 8.9 mg/dl (8.4-10.2); Carbon Dioxide 25 mmol/L (22-30); Chloride 102 mmol/L (98-107); Glucose 159 mg/dl (70-99); Magnesium 1.9 mg/dl (1.6-2.3); Potassium 4.1 mmol/L (3.5-5.1); Sodium 135 mmol/L (135-145); eGFR 32.83
[2023-06-22 09:20] VITALS: BP 119/68
[2023-06-22] MEDS: BUMEX 66 MG IV (09:33)
[2023-06-22 11:20] LABS: Blood Urea Nitrogen 76 mg/dl (9-20); Carbon Dioxide 27 mmol/L (22-30); Chloride 102 mmol/L (98-107); Glucose 226 mg/dl (70-99); Magnesium 1.5 mg/dl (1.6-2.3); Potassium 3.8 mmol/L (3.5-5.1); Sodium 136 mmol/L (135-145); eGFR 37.02
[2023-06-22 11:33] LABS: NT-proBNP 6790 pg/ml
[2023-06-27 08:54] VITALS: BP 120/59
[2023-06-27] MEDS: BUMEX 66 MG IV (09:18)
[2023-06-27 10:59] LABS: Blood Urea Nitrogen 84 mg/dl (9-20); Calcium 9.2 mg/dl (8.4-10.2); Carbon Dioxide 24 mmol/L (22-30); Chloride 100 mmol/L (98-107); Glucose 163 mg/dl (70-99); Magnesium 1.5 mg/dl (1.6-2.3); Potassium 4.3 mmol/L (3.5-5.1); Sodium 133 mmol/L (135-145); eGFR 25.41
[2023-06-29] MEDS: BUMEX 66 MG IV (08:58)
[2023-06-29 09:10] VITALS: BP 118/58
[2023-06-29 11:01] LABS: Blood Urea Nitrogen 82 mg/dl (9-20); Carbon Dioxide 24 mmol/L (22-30); Chloride 104 mmol/L (98-107); Glucose 111 mg/dl (70-99); Magnesium 1.7 mg/dl (1.6-2.3); Sodium 136 mmol/L (135-145); eGFR 27.97
[2023-06-29 11:07] LABS: Potassium 3.8 mmol/L (3.5-5.1)
[2023-07-04 08:52] VITALS: BP 119/61
[2023-07-04] MEDS: BUMEX 66 MG IV (09:05)
[2023-07-04 09:55] LABS: % Basophils 0.4 % (0-2); % Eosinophils 2.6 % (0-6); % Immature Granulocytes 0.3 % (0-0.5); % Lymphocytes 4.3 % (20.5-51.1); % Monocytes 7.1 % (1.7-9.3); % Neutrophils 85.3 % (42.2-75.2); Absolute Eosinophils 0.2 10^3/uL (0-0.7); Absolute Lymphocytes 0.3 10^3/uL (1.2-3.4); Absolute Monocytes 0.5 10^3/uL (0.1-0.6); Hematocrit 30.4 % (39.0-52.0); Hemoglobin 10.1 g/dL (13.0-18.0); Mean Corp Hgb Conc. 33.2 g/dL (33.0-37.0); Mean Corpuscular Hgb 30.2 pg (27.0-31.0); Mean Platelet Volume 10.3 fL (7.4-10.4); Platelet Count 149 10^3/uL (130-400); Red Blood Cell Count 3.34 10^6/uL (4.70-6.10); Red Cell Dist. Width 16.1 % (11.5-14.5)
[2023-07-04 11:03] LABS: ALT (SGPT) 43 U/L (0-50); AST (SGOT) 42 U/L (17-59); Alkaline Phosphatase 69 U/L (38-126); Blood Urea Nitrogen 76 mg/dl (9-20); Calcium 8.8 mg/dl (8.4-10.2); Carbon Dioxide 25 mmol/L (22-30); Chloride 101 mmol/L (98-107); Glucose 269 mg/dl (70-99); Magnesium 2.2 mg/dl (1.6-2.3); Potassium 4.2 mmol/L (3.5-5.1); Sodium 133 mmol/L (135-145); Total Bilirubin 0.4 mg/dl (0.2-1.3); Total Protein 4.9 g/dl (6.3-8.2); eGFR 29.43
[2023-07-06 09:32] VITALS: BP 111/88
[2023-07-06] MEDS: BUMEX 66 MG IV (09:51)
[2023-07-06 12:21] LABS: Blood Urea Nitrogen 65 mg/dl (9-20); Carbon Dioxide 30 mmol/L (22-30); Chloride 99 mmol/L (98-107); Glucose 160 mg/dl (70-99); Magnesium 2.3 mg/dl (1.6-2.3); Potassium 4.3 mmol/L (3.5-5.1); Sodium 135 mmol/L (135-145); eGFR 32.83
== END 2023-07-06 23:59 | disposition home or self-care (01) ==
LOC: OID 09:18
PROVIDERS: Specialist; ATTENDING PHYSICIAN Internal Medicine Cardiovascular Disease; FAMILY PHYSICIAN Internal Medicine Geriatric Medicine; PRIMARYCARE PHYSICIAN Internal Medicine Cardiovascular Disease
DX: R18.8 Other ascites (principal); I50.22 Chronic systolic (congestive) heart failure; Z92.89 Personal history of other medical treatment
CPT/HCPCS: 36415; 49083; 80048; 80053; 83735; 83880; 85025; 89051; 96365

== ENCOUNTER → 2023-07-18 07:02 | Outpatient (REF) | payer MEDICARE, OTHER, SELFPAY ==
[2023-07-18 07:20] VITALS: BP 132/60; BP_SYST 71
[2023-07-18 08:02] VITALS: BP 109/55
[2023-07-18 09:37] LABS: Body Fluid Mononuclear 74.1 %; Body Fluid Polymorphonuclear 25.9 %; Body Fluid WBC 81 /CUMM
[2023-07-18 09:52] LABS: Body Fluid Second Tech AMA
== END ==
LOC: RADI 07:02
PROVIDERS: ATTENDING PHYSICIAN Internal Medicine Cardiovascular Disease
DX: R18.8 Other ascites (principal)
CPT/HCPCS: 49083; 89051

== ENCOUNTER → 2023-07-25 07:51 | Outpatient (REF) | payer MEDICARE, OTHER, SELFPAY ==
[2023-07-25 08:00] VITALS: BP 113/57; BP_SYST 70
[2023-07-25 08:50] VITALS: BP 110/65
[2023-07-25 09:36] LABS: Body Fluid WBC 59 /CUMM
[2023-07-25 09:58] LABS: Body Fluid Second Tech CMB
== END ==
LOC: RADI 07:51
PROVIDERS: ATTENDING PHYSICIAN Internal Medicine Cardiovascular Disease; FAMILY PHYSICIAN Internal Medicine Geriatric Medicine
DX: R18.8 Other ascites (principal); J18.9 Pneumonia, unspecified organism
CPT/HCPCS: 49083; 71046; 89051

== ENCOUNTER → 2023-08-01 07:11 | Outpatient (REF) | payer MEDICARE, OTHER, SELFPAY ==
[2023-08-01 07:35] VITALS: BP 130/64; BP_SYST 76
[2023-08-01 08:40] VITALS: BP 115/62
[2023-08-01 09:18] LABS: Body Fluid Mononuclear 80.4 %; Body Fluid Polymorphonuclear 19.6 %; Body Fluid WBC 123 /CUMM
[2023-08-01 10:49] LABS: Body Fluid Second Tech CMB
== END ==
LOC: RADI 07:11
PROVIDERS: ATTENDING PHYSICIAN Internal Medicine Cardiovascular Disease; FAMILY PHYSICIAN Internal Medicine Geriatric Medicine
DX: R18.8 Other ascites (principal)
CPT/HCPCS: 49083; 89051

== ENCOUNTER 2023-08-03 09:12 | Outpatient (RCR) | payer MEDICARE, OTHER, SELFPAY ==
[2023-07-11 09:38] VITALS: BP 122/68
[2023-07-11] MEDS: BUMEX 66 MG IV (09:43)
[2023-07-11 12:27] LABS: Blood Urea Nitrogen 89 mg/dl (9-20); Calcium 9.2 mg/dl (8.4-10.2); Carbon Dioxide 24 mmol/L (22-30); Chloride 95 mmol/L (98-107); Glucose 345 mg/dl (70-99); Magnesium 2.6 mg/dl (1.6-2.3); Sodium 129 mmol/L (135-145); eGFR 25.25
[2023-07-13 09:19] VITALS: BP 117/68
[2023-07-13] MEDS: BUMEX 66 MG IV (09:42)
[2023-07-13 11:18] LABS: Blood Urea Nitrogen 90 mg/dl (9-20); Calcium 8.7 mg/dl (8.4-10.2); Carbon Dioxide 27 mmol/L (22-30); Chloride 94 mmol/L (98-107); Glucose 357 mg/dl (70-99); Magnesium 2.5 mg/dl (1.6-2.3); Sodium 130 mmol/L (135-145); eGFR 29.25
[2023-07-18 09:14] VITALS: BP 127/68
[2023-07-18] MEDS: BUMEX 66 MG IV (09:19)
[2023-07-18 10:58] LABS: % Basophils 0.1 % (0-2); % Eosinophils 0.1 % (0-6); % Immature Granulocytes 1.7 % (0-0.5); % Lymphocytes 1.7 % (20.5-51.1); % Monocytes 4.5 % (1.7-9.3); % Neutrophils 91.9 % (42.2-75.2); Absolute Immature Granulocytes 0.2 10^3/uL (0-0.05); Absolute Lymphocytes 0.2 10^3/uL (1.2-3.4); Absolute Monocytes 0.5 10^3/uL (0.1-0.6); Absolute Neutrophils 10.5 10^3/uL (1.4-6.5); Hematocrit 31.4 % (39.0-52.0); Hemoglobin 10.7 g/dL (13.0-18.0); Mean Corp Hgb Conc. 34.1 g/dL (33.0-37.0); Mean Corpuscular Hgb 30.6 pg (27.0-31.0); Mean Corpuscular Volume 89.7 fL (80.0-94.0); Mean Platelet Volume 10.7 fL (7.4-10.4); Nucleated Red Blood Cells % 0.2 % (-); Platelet Count 153 10^3/uL (130-400); Red Cell Dist. Width 15.9 % (11.5-14.5); White Blood Cell Count 11.5 10^3/uL (4.8-10.8)
[2023-07-18 11:18] LABS: Blood Urea Nitrogen 100 mg/dl (9-20); Calcium 8.8 mg/dl (8.4-10.2); Carbon Dioxide 29 mmol/L (22-30); Chloride 92 mmol/L (98-107); Glucose 448 mg/dl (70-99); Magnesium 2.3 mg/dl (1.6-2.3); Potassium 4.6 mmol/L (3.5-5.1); Sodium 131 mmol/L (135-145); eGFR 34.59
[2023-07-20 09:24] VITALS: BP 122/54
[2023-07-20] MEDS: BUMEX 66 MG IV (09:37)
[2023-07-20 11:22] LABS: Blood Urea Nitrogen 114 mg/dl (9-20); Calcium 8.5 mg/dl (8.4-10.2); Carbon Dioxide 28 mmol/L (22-30); Chloride 93 mmol/L (98-107); Glucose 391 mg/dl (70-99); Magnesium 2.2 mg/dl (1.6-2.3); Potassium 4.1 mmol/L (3.5-5.1); Sodium 130 mmol/L (135-145); eGFR 29.25
[2023-07-25] MEDS: BUMEX 66 MG IV (09:34)
[2023-07-25 09:44] VITALS: BP 117/53
[2023-07-25 11:30] LABS: Blood Urea Nitrogen 91 mg/dl (9-20); Calcium 8.3 mg/dl (8.4-10.2); Carbon Dioxide 25 mmol/L (22-30); Chloride 96 mmol/L (98-107); Glucose 319 mg/dl (70-99); Magnesium 2.1 mg/dl (1.6-2.3); Potassium 3.6 mmol/L (3.5-5.1); Sodium 130 mmol/L (135-145); eGFR 27.79
[2023-07-27] MEDS: BUMEX 66 MG IV (09:46)
[2023-07-27 10:01] VITALS: BP 115/73
[2023-07-27 11:45] LABS: Blood Urea Nitrogen 88 mg/dl (9-20); Calcium 8.4 mg/dl (8.4-10.2); Carbon Dioxide 25 mmol/L (22-30); Chloride 101 mmol/L (98-107); Glucose 230 mg/dl (70-99); Magnesium 2.1 mg/dl (1.6-2.3); Potassium 4.5 mmol/L (3.5-5.1); Sodium 132 mmol/L (135-145); eGFR 26.47
[2023-08-01 09:27] VITALS: BP 125/58
[2023-08-01] MEDS: BUMEX 66 MG IV (09:51)
[2023-08-01 12:37] LABS: Blood Urea Nitrogen 76 mg/dl (9-20); Calcium 8.7 mg/dl (8.4-10.2); Carbon Dioxide 28 mmol/L (22-30); Chloride 99 mmol/L (98-107); Glucose 224 mg/dl (70-99); Magnesium 2.1 mg/dl (1.6-2.3); Potassium 4.1 mmol/L (3.5-5.1); Sodium 135 mmol/L (135-145); eGFR 24.13
[2023-08-01 12:53] LABS: Microalbumin, Random Urine <0.6 mg/dl (0.6-1.7)
[2023-08-03 09:25] VITALS: BP 118/60
[2023-08-03] MEDS: BUMEX 66 MG IV (09:46)
== END 2023-08-03 14:41 | disposition home or self-care (01) ==
LOC: OID 09:12
PROVIDERS: ATTENDING PHYSICIAN Internal Medicine Cardiovascular Disease; FAMILY PHYSICIAN Internal Medicine Geriatric Medicine; PRIMARYCARE PHYSICIAN Internal Medicine Cardiovascular Disease
DX: R18.8 Other ascites (principal); I50.22 Chronic systolic (congestive) heart failure; Z92.89 Personal history of other medical treatment; Z98.890 Other specified postprocedural states
CPT/HCPCS: 36415; 49083; 71046; 80048; 82043; 82570; 83735; 85025; 89051; 96365

== ENCOUNTER → 2023-08-06 07:02 | Outpatient (REF) | payer MEDICARE, OTHER, SELFPAY ==
[2023-08-06 07:25] VITALS: BP 117/59; BP_SYST 74
[2023-08-06 08:20] VITALS: BP 117/63; BP_SYST 73
[2023-08-06 08:30] VITALS: BP 117/63
[2023-08-06 09:16] LABS: Body Fluid WBC 863 /CUMM
[2023-08-06 09:40] LABS: Body Fluid Second Tech EF
== END ==
LOC: RADI 07:02
PROVIDERS: ATTENDING PHYSICIAN Internal Medicine Cardiovascular Disease
DX: R18.8 Other ascites (principal)
CPT/HCPCS: 49083; 89051

== ENCOUNTER → 2023-08-15 07:08 | Outpatient (REF) | payer MEDICARE, OTHER, SELFPAY ==
[2023-08-15 07:20] VITALS: BP 123/63; BP_SYST 73
[2023-08-15 08:20] VITALS: BP 118/61; BP_SYST 76
[2023-08-15 08:26] VITALS: BP 118/61
[2023-08-15 09:00] LABS: Body Fluid Mononuclear 91.6 %; Body Fluid Polymorphonuclear 8.4 %; Body Fluid WBC 250 /CUMM
[2023-08-15 09:13] LABS: Body Fluid Second Tech CMB
== END ==
LOC: RADI 07:08
PROVIDERS: ATTENDING PHYSICIAN Internal Medicine Cardiovascular Disease; FAMILY PHYSICIAN Internal Medicine Geriatric Medicine
DX: R18.8 Other ascites (principal)
CPT/HCPCS: 49083; 89051

== ENCOUNTER → 2023-08-21 07:20 | Outpatient (REF) | payer MEDICARE, OTHER, SELFPAY ==
[2023-08-21 07:29] VITALS: BP 131/61; BP_SYST 79
[2023-08-21 08:15] VITALS: BP 130/66; BP_SYST 76
[2023-08-21 08:25] VITALS: BP 130/66
[2023-08-21 10:07] LABS: Body Fluid Mononuclear 73.7 %; Body Fluid Polymorphonuclear 26.3 %; Body Fluid WBC 247 /CUMM
[2023-08-21 10:26] LABS: Body Fluid Second Tech ASW
== END ==
LOC: RADI 07:20
PROVIDERS: ATTENDING PHYSICIAN Internal Medicine Cardiovascular Disease; FAMILY PHYSICIAN Internal Medicine Geriatric Medicine
DX: R18.8 Other ascites (principal)
CPT/HCPCS: 49083; 89051

== ENCOUNTER → 2023-08-29 07:04 | Outpatient (REF) | payer MEDICARE, OTHER, SELFPAY ==
[2023-08-29 07:56] VITALS: BP 124/76; BP_SYST 70
[2023-08-29 08:20] VITALS: BP 128/64; BP_SYST 77
[2023-08-29 11:16] LABS: Body Fluid Mononuclear 17.8 %; Body Fluid Polymorphonuclear 82.2 %; Body Fluid WBC 8501 /CUMM
[2023-08-29 11:36] LABS: Body Fluid Second Tech SS
== END ==
LOC: RADI 07:04
PROVIDERS: ATTENDING PHYSICIAN Internal Medicine Cardiovascular Disease; FAMILY PHYSICIAN Internal Medicine Geriatric Medicine
DX: R18.8 Other ascites (principal)
CPT/HCPCS: 49083; 89051

== ENCOUNTER → 2023-09-05 06:57 | Outpatient (REF) | payer MEDICARE, OTHER, SELFPAY ==
[2023-09-05 07:20] VITALS: BP 129/56; BP_SYST 73
[2023-09-05 08:01] VITALS: BP 121/62
[2023-09-05 08:54] LABS: Body Fluid WBC 570 /CUMM
[2023-09-05 08:57] LABS: Body Fluid Second Tech AMA
== END ==
LOC: RADI 06:57
PROVIDERS: ATTENDING PHYSICIAN Internal Medicine Cardiovascular Disease; FAMILY PHYSICIAN Internal Medicine Geriatric Medicine
DX: R18.8 Other ascites (principal)
CPT/HCPCS: 49083; 89051

== ENCOUNTER 2023-09-05 08:27 | Outpatient (RCR) | payer MEDICARE, OTHER, SELFPAY ==
[2023-08-06 08:49] VITALS: BP 119/57
[2023-08-06] MEDS: BUMEX 66 MG IV (09:02)
[2023-08-06 11:03] LABS: Blood Urea Nitrogen 80 mg/dl (9-20); Calcium 8.8 mg/dl (8.4-10.2); Carbon Dioxide 23 mmol/L (22-30); Chloride 102 mmol/L (98-107); Glucose 186 mg/dl (70-99); Magnesium 2.1 mg/dl (1.6-2.3); Potassium 4.2 mmol/L (3.5-5.1); Sodium 132 mmol/L (135-145); eGFR 25.25
[2023-08-10] MEDS: BUMEX 66 MG IV (09:44)
[2023-08-10 09:51] VITALS: BP 126/52
[2023-08-15 09:11] VITALS: BP 135/59
[2023-08-15] MEDS: BUMEX 66 MG IV (09:20)
[2023-08-15 10:09] LABS: % Basophils 0.1 % (0-2); % Eosinophils 2.5 % (0-6); % Immature Granulocytes 1.3 % (0-0.5); % Lymphocytes 4.2 % (20.5-51.1); % Monocytes 7.7 % (1.7-9.3); % Neutrophils 84.2 % (42.2-75.2); Absolute Eosinophils 0.2 10^3/uL (0-0.7); Absolute Immature Granulocytes 0.1 10^3/uL (0-0.05); Absolute Lymphocytes 0.4 10^3/uL (1.2-3.4); Absolute Monocytes 0.7 10^3/uL (0.1-0.6); Absolute Neutrophils 7.6 10^3/uL (1.4-6.5); Hemoglobin 9.7 g/dL (13.0-18.0); Mean Corp Hgb Conc. 33.4 g/dL (33.0-37.0); Mean Corpuscular Hgb 30.6 pg (27.0-31.0); Mean Corpuscular Volume 91.5 fL (80.0-94.0); Mean Platelet Volume 8.7 fL (7.4-10.4); Platelet Count 263 10^3/uL (130-400); Red Blood Cell Count 3.17 10^6/uL (4.70-6.10); Red Cell Dist. Width 16.2 % (11.5-14.5); White Blood Cell Count 9.1 10^3/uL (4.8-10.8)
[2023-08-15 10:49] LABS: Blood Urea Nitrogen 72 mg/dl (9-20); Calcium 8.9 mg/dl (8.4-10.2); Carbon Dioxide 27 mmol/L (22-30); Chloride 99 mmol/L (98-107); Glucose 308 mg/dl (70-99); Magnesium 2.2 mg/dl (1.6-2.3); Potassium 4.5 mmol/L (3.5-5.1); Sodium 135 mmol/L (135-145); eGFR 27.79
[2023-08-17 09:43] VITALS: BP 127/55
[2023-08-17] MEDS: BUMEX 66 MG IV (09:57)
[2023-08-21 09:19] VITALS: BP 115/93
[2023-08-21] MEDS: BUMEX 66 MG IV (09:41)
[2023-08-21 11:53] LABS: Blood Urea Nitrogen 63 mg/dl (9-20); Calcium 8.7 mg/dl (8.4-10.2); Carbon Dioxide 26 mmol/L (22-30); Chloride 101 mmol/L (98-107); Glucose 214 mg/dl (70-99); Magnesium 2.2 mg/dl (1.6-2.3); Potassium 4.6 mmol/L (3.5-5.1); Sodium 134 mmol/L (135-145); eGFR 27.79
[2023-08-24 09:15] VITALS: BP 122/60
[2023-08-24] MEDS: BUMEX 66 MG IV (09:30)
[2023-08-29] MEDS: BUMEX 66 MG IV (09:19)
[2023-08-29 09:37] VITALS: BP 134/61
[2023-08-29 12:17] LABS: Blood Urea Nitrogen 114 mg/dl (9-20); Carbon Dioxide 25 mmol/L (22-30); Chloride 94 mmol/L (98-107); Glucose 259 mg/dl (70-99); Magnesium 2.1 mg/dl (1.6-2.3); Sodium 130 mmol/L (135-145); eGFR 22.15
[2023-08-31 09:00] VITALS: BP 148/55
[2023-08-31] MEDS: BUMEX 66 MG IV (09:12)
[2023-09-05 08:55] VITALS: BP 120/65
[2023-09-05] MEDS: BUMEX 66 MG IV (09:13)
[2023-09-05 12:32] LABS: Blood Urea Nitrogen 106 mg/dl (9-20); Calcium 8.9 mg/dl (8.4-10.2); Carbon Dioxide 28 mmol/L (22-30); Chloride 96 mmol/L (98-107); Glucose 283 mg/dl (70-99); Sodium 131 mmol/L (135-145); eGFR 24.13
== END 2023-09-05 14:35 | disposition home or self-care (01) ==
LOC: OID 08:27
PROVIDERS: ATTENDING PHYSICIAN Internal Medicine Cardiovascular Disease; FAMILY PHYSICIAN Internal Medicine Geriatric Medicine; PRIMARYCARE PHYSICIAN Internal Medicine Cardiovascular Disease
DX: R18.8 Other ascites (principal); I50.22 Chronic systolic (congestive) heart failure; Z92.89 Personal history of other medical treatment; Z98.890 Other specified postprocedural states
CPT/HCPCS: 36415; 49083; 80048; 83735; 85025; 89051; 96365

== ENCOUNTER → 2023-09-13 09:01 | Outpatient (REF) | payer MEDICARE, OTHER, SELFPAY ==
[2023-09-13 09:15] VITALS: BP 136/66; BP_SYST 81
[2023-09-13 09:55] VITALS: BP 124/63
[2023-09-13 12:07] LABS: Body Fluid Mononuclear 14.7 %; Body Fluid Polymorphonuclear 85.3 %; Body Fluid WBC 7586 /CUMM
[2023-09-13 12:11] LABS: Body Fluid Second Tech ASW
== END ==
LOC: RADI 09:01
PROVIDERS: ATTENDING PHYSICIAN Internal Medicine Cardiovascular Disease; FAMILY PHYSICIAN Internal Medicine Geriatric Medicine
DX: R18.8 Other ascites (principal)
CPT/HCPCS: 49083; 89051

== ENCOUNTER → 2023-09-19 07:05 | Outpatient (REF) | payer MEDICARE, OTHER, SELFPAY ==
[2023-09-19 07:23] VITALS: BP 134/66; BP_SYST 72
[2023-09-19 08:10] VITALS: BP 126/61; BP_SYST 71
[2023-09-19 08:25] VITALS: BP 126/61
[2023-09-19 09:17] LABS: Body Fluid Mononuclear 54.1 %; Body Fluid Polymorphonuclear 45.9 %
[2023-09-19 09:18] LABS: Body Fluid WBC 1363 /CUMM
[2023-09-19 09:41] LABS: Body Fluid Second Tech EM
== END ==
LOC: RADI 07:05
PROVIDERS: ATTENDING PHYSICIAN Internal Medicine Cardiovascular Disease; FAMILY PHYSICIAN Internal Medicine Geriatric Medicine
DX: R18.8 Other ascites (principal)
CPT/HCPCS: 49083; 89051

== ENCOUNTER → 2023-09-26 06:53 | Outpatient (REF) | payer MEDICARE, OTHER, SELFPAY ==
[2023-09-26 07:15] VITALS: BP 135/66; BP_SYST 74
[2023-09-26 08:15] VITALS: BP 122/57; BP_SYST 70
[2023-09-26 08:38] VITALS: BP 122/57
[2023-09-26 09:24] LABS: Body Fluid Mononuclear 75.7 %; Body Fluid Polymorphonuclear 24.3 %; Body Fluid WBC 508 /CUMM
[2023-09-26 09:29] LABS: Body Fluid Second Tech AMA
== END ==
LOC: RADI 06:53
PROVIDERS: ATTENDING PHYSICIAN Internal Medicine Cardiovascular Disease; FAMILY PHYSICIAN Internal Medicine Geriatric Medicine
DX: R18.8 Other ascites (principal)
CPT/HCPCS: 49083; 89051

== ENCOUNTER 2023-09-28 09:00 | Outpatient (RCR) | payer MEDICARE, OTHER, SELFPAY ==
[2023-09-07 09:16] VITALS: BP 122/58
[2023-09-07] MEDS: BUMEX 66 MG IV (09:30)
[2023-09-12 09:35] VITALS: BP 145/53
[2023-09-12] MEDS: BUMEX 66 MG IV (09:38)
[2023-09-13 11:10] VITALS: BP 131/1
[2023-09-13] MEDS: BUMEX 66 MG IV (11:21)
[2023-09-13 12:06] LABS: % Basophils 0.1 % (0-2); % Eosinophils 0.2 % (0-6); % Immature Granulocytes 0.5 % (0-0.5); % Lymphocytes 1.6 % (20.5-51.1); % Monocytes 5.5 % (1.7-9.3); % Neutrophils 92.1 % (42.2-75.2); Absolute Immature Granulocytes 0.1 10^3/uL (0-0.05); Absolute Lymphocytes 0.2 10^3/uL (1.2-3.4); Absolute Monocytes 0.7 10^3/uL (0.1-0.6); Absolute Neutrophils 11.9 10^3/uL (1.4-6.5); Hematocrit 25.3 % (39.0-52.0); Hemoglobin 8.3 g/dL (13.0-18.0); Mean Corp Hgb Conc. 32.8 g/dL (33.0-37.0); Mean Corpuscular Hgb 29.2 pg (27.0-31.0); Mean Corpuscular Volume 89.1 fL (80.0-94.0); Mean Platelet Volume 8.6 fL (7.4-10.4); Platelet Count 295 10^3/uL (130-400); Red Blood Cell Count 2.84 10^6/uL (4.70-6.10); Red Cell Dist. Width 16.7 % (11.5-14.5); White Blood Cell Count 12.9 10^3/uL (4.8-10.8)
[2023-09-13 12:15] VITALS: BP 128/48
[2023-09-13 14:13] LABS: Glycohemoglobin (HgbA1c) 9.4 % (4.0-5.6)
[2023-09-13 14:16] LABS: ALT (SGPT) 35 U/L (0-50); AST (SGOT) 28 U/L (17-59); Albumin 2.9 g/dl (3.5-5.0); Alkaline Phosphatase 89 U/L (38-126); Blood Urea Nitrogen 107 mg/dl (9-20); Calcium 8.5 mg/dl (8.4-10.2); Carbon Dioxide 23 mmol/L (22-30); Chloride 95 mmol/L (98-107); Glucose 127 mg/dl (70-99); HDL Cholesterol 29 mg/dl; LDL Cholesterol, Calculated 22 mg/dl; Magnesium 2.7 mg/dl (1.6-2.3); Potassium 4.2 mmol/L (3.5-5.1); Sodium 128 mmol/L (135-145); Total Bilirubin 0.6 mg/dl (0.2-1.3); Total Cholesterol 64 mg/dl (50-199); Triglyceride 69 mg/dl (10-149); Uric Acid 9.2 mg/dl (3.5-8.5); Very Low Density Lipoprotein 13 mg/dl (0-30); eGFR 20.44
[2023-09-13 14:28] LABS: Free T4 2.32 ng/dl (0.78-2.19)
[2023-09-13 14:42] LABS: TSH 2.87 uIU/ml (0.47-4.68)
[2023-09-19 09:15] VITALS: BP 140/60
[2023-09-19] MEDS: BUMEX 66 MG IV (09:27)
[2023-09-21] MEDS: BUMEX 66 MG IV (09:43)
[2023-09-21 09:50] VITALS: BP 126/63
[2023-09-21 11:19] LABS: % Basophils 0.2 % (0-2); % Eosinophils 1.1 % (0-6); % Immature Granulocytes 0.8 % (0-0.5); % Lymphocytes 2.9 % (20.5-51.1); % Monocytes 7.6 % (1.7-9.3); % Neutrophils 87.4 % (42.2-75.2); Absolute Eosinophils 0.1 10^3/uL (0-0.7); Absolute Immature Granulocytes 0.1 10^3/uL (0-0.05); Absolute Lymphocytes 0.3 10^3/uL (1.2-3.4); Absolute Monocytes 0.7 10^3/uL (0.1-0.6); Absolute Neutrophils 7.6 10^3/uL (1.4-6.5); Hematocrit 25.6 % (39.0-52.0); Hemoglobin 8.5 g/dL (13.0-18.0); Mean Corp Hgb Conc. 33.2 g/dL (33.0-37.0); Mean Corpuscular Volume 87.4 fL (80.0-94.0); Mean Platelet Volume 8.8 fL (7.4-10.4); Nucleated Red Blood Cells % 0 % (-); Platelet Count 356 10^3/uL (130-400); Red Blood Cell Count 2.93 10^6/uL (4.70-6.10); White Blood Cell Count 8.7 10^3/uL (4.8-10.8)
[2023-09-21 11:32] LABS: ALT (SGPT) 33 U/L (0-50); AST (SGOT) 42 U/L (17-59); Albumin 2.7 g/dl (3.5-5.0); Alkaline Phosphatase 80 U/L (38-126); Blood Urea Nitrogen 87 mg/dl (9-20); Calcium 8.2 mg/dl (8.4-10.2); Carbon Dioxide 26 mmol/L (22-30); Chloride 98 mmol/L (98-107); Glucose 116 mg/dl (70-99); Magnesium 2.1 mg/dl (1.6-2.3); Sodium 132 mmol/L (135-145); Total Bilirubin 0.4 mg/dl (0.2-1.3); Total Protein 4.8 g/dl (6.3-8.2); eGFR 25.25
[2023-09-26 09:15] VITALS: BP 131/54
[2023-09-26] MEDS: BUMEX 66 MG IV (09:35)
[2023-09-28 09:05] VITALS: BP 126/52
[2023-09-28] MEDS: BUMEX 66 MG IV (09:32)
[2023-09-28 12:06] LABS: Blood Urea Nitrogen 90 mg/dl (9-20); Calcium 8.5 mg/dl (8.4-10.2); Carbon Dioxide 24 mmol/L (22-30); Chloride 96 mmol/L (98-107); Glucose 174 mg/dl (70-99); Magnesium 2.1 mg/dl (1.6-2.3); Potassium 3.3 mmol/L (3.5-5.1); Sodium 132 mmol/L (135-145)
== END 2023-10-06 23:59 | disposition home or self-care (01) ==
LOC: OID 09:00
PROVIDERS: ATTENDING PHYSICIAN Internal Medicine Cardiovascular Disease; OTHER PHYSICIAN Internal Medicine Geriatric Medicine; PRIMARYCARE PHYSICIAN Internal Medicine Cardiovascular Disease
DX: R18.8 Other ascites (principal); I50.22 Chronic systolic (congestive) heart failure; D72.829 Elevated white blood cell count, unspecified; Z92.89 Personal history of other medical treatment; R73.01 Impaired fasting glucose; Z98.890 Other specified postprocedural states; Z79.899 Other long term (current) drug therapy
CPT/HCPCS: 36415; 49083; 80048; 80053; 80061; 83036; 83735; 84439; 84443; 84550; 85025; 89051; 96365

== ENCOUNTER 2023-10-02 18:59 | Inpatient (IN) | payer MEDICARE, OTHER, SELFPAY ==
[2023-10-02] VITALS (8 sets, daily range): BP systolic 112–131; BP diastolic 58–69; BMI 35.1; BMI 32.2
[2023-10-02 11:55] LABS: % Basophils 0.3 % (0-2); % Eosinophils 1.9 % (0-6); % Immature Granulocytes 0.8 % (0-0.5); % Lymphocytes 1.7 % (20.5-51.1); % Monocytes 5.5 % (1.7-9.3); % Neutrophils 89.8 % (42.2-75.2); Absolute Eosinophils 0.3 10^3/uL (0-0.7); Absolute Immature Granulocytes 0.1 10^3/uL (0-0.05); Absolute Lymphocytes 0.3 10^3/uL (1.2-3.4); Absolute Monocytes 0.8 10^3/uL (0.1-0.6); Absolute Neutrophils 13.1 10^3/uL (1.4-6.5); Hematocrit 25.2 % (39.0-52.0); Hemoglobin 8.4 g/dL (13.0-18.0); Mean Corp Hgb Conc. 33.3 g/dL (33.0-37.0); Mean Corpuscular Hgb 27.5 pg (27.0-31.0); Mean Corpuscular Volume 82.4 fL (80.0-94.0); Mean Platelet Volume 9.1 fL (7.4-10.4); Nucleated Red Blood Cells % 0 % (-); Platelet Count 369 10^3/uL (130-400); Red Blood Cell Count 3.06 10^6/uL (4.70-6.10); Red Cell Dist. Width 16.9 % (11.5-14.5); White Blood Cell Count 14.6 10^3/uL (4.8-10.8)
[2023-10-02 12:15] LABS: Lactic Acid 0.9 mmol/L (0.7-2.0)
[2023-10-02 12:18] LABS: NT-proBNP 8850 pg/ml
[2023-10-02 12:39] LABS: ALT (SGPT) 70 U/L (0-50); AST (SGOT) 51 U/L (17-59); Albumin 2.7 g/dl (3.5-5.0); Alkaline Phosphatase 152 U/L (38-126); Blood Urea Nitrogen 116 mg/dl (9-20); Calcium 8.6 mg/dl (8.4-10.2); Carbon Dioxide 26 mmol/L (22-30); Chloride 91 mmol/L (98-107); Estimated Creatinine Clearance 21 ml/min; Glucose 241 mg/dl (70-99); Potassium 3.5 mmol/L (3.5-5.1); Sodium 129 mmol/L (135-145); Total Bilirubin 0.5 mg/dl (0.2-1.3); eGFR 17.67
--- NOTE | 2023-10-02 14:23 | ED.GENMED ---
History of Present Illness
General
Chief Complaint: Swelling
Source: patient
Exam Limitations: none
Time Seen by Provider: 10/02/23 10:20
Nursing documentation reviewed up to this point in time: agreed with
History of Present Illness
History of Present Illness:
73-year-old male past medical history of A-fib CHF CAD asthma COPD diabetes CKD liver disease presenting to the emergency department today with concerns of leg swelling bilaterally left side worse than the right. Has noticed increasing redness to
the left side as well. Worsening over the past few days.
Past History
Past History
ED Past Medical History: Arrthythmia, Asthma, Cancer, CHF, HTN, Hypercholesterolemia and NIDDM
ED Past Surgical History: Cardiac and Other (GIST)
Social History
Tobacco: Former smoker
Alcohol: None
Drug: None
Personal:
Living: with family
Family History
Family History: Diabetes
Review of Systems
Review of Systems
Allergies reviewed?: Yes
All Other Systems: ROS reviewed and negative except as documented in HPI and ROS
Phy Exam
Physical Exam
Physical Exam:
GENERAL: Alert , in no apparent distress
EYE: pupils equal and reactive
NECK: Supple, no significant adenopathy.
ENT: o/p clr, mmm.
CARDIAC: Regular rate and rhythm .
LUNGS: Clear breath sounds bilaterally, no acute respiratory distress, no wheezes/rales/rhonchi
ABDOMEN: Soft, without focal tenderness, no r/g, no cvat
NEUROLOGICAL: Alert and oriented, no focal neuro deficits
SKIN: Warm and dry, skin intact.
MUSCULOSKELETAL: Swelling to the legs bilaterally left-sided worse than right +[address] way to the groin on the left side +1 on the right redness extending to the knee on the left side.
PSYCH: Normal and appropriate interaction.
Scores
Heart Failure Risk
Heart Failure Risk Score: Not Applicable
Course
Orders/Labs/Results
Orders:
Orders
10/02/23 11:37
Venous Doppler Lwr Ext Left [US Periph Venous LOWER Ext LT] Urgent
Comment:
Reason For Exam: leg swelling pain
10/02/23 11:44
CBC/With Diff [Complete Blood Count/With Diff] Urgent
CMP [Comprehensive Metabolic Panel] Urgent
Lactic Acid Urgent
Pro-BNP [NT-proBNP] Urgent
10/02/23 17:17
Vancomycin [Vancocin] 1,500 mg 0.9% Sodium Chloride [Nss] 20 ml 0.9% Sodium Chloride 250 ml [Nss] 250 ml IV NOW
10/02/23 17:19
CR Knee - Left 4 Or More View* Urgent
Comment:
Reason For Exam: knee pain
10/02/23 17:29
HYDROmorphone [Dilaudid] 0.5 mg IV NOW STA
Abnormal Lab Results
10/02/23
11:44
WBC 14.6 H 10^3/uL
(4.8-10.8)
RBC 3.06 L 10^6/uL
(4.70-6.10)
Hgb 8.4 L g/dL
(13.0-18.0)
Hct 25.2 L %
(39.0-52.0)
RDW 16.9 H %
(11.5-14.5)
Abs Immat Gran (auto) 0.1 H 10^3/uL
(0-0.05)
Absolute Neuts (auto) 13.1 H 10^3/uL
(1.4-6.5)
Absolute Lymphs (auto) 0.3 L 10^3/uL
(1.2-3.4)
Absolute Monos (auto) 0.8 H 10^3/uL
(0.1-0.6)
Immature Gran % 0.8 H %
(0-0.5)
Neutrophils % 89.8 H %
(42.2-75.2)
Lymphocytes % 1.7 L %
(20.5-51.1)
Sodium 129 L mmol/L
(135-145)
Chloride 91 L mmol/L
(98-107)
BUN 116 H* mg/dl
(9-20)
Creatinine 3.5 H mg/dL
(0.7-1.3)
Glucose 241 H mg/dl
(70-99)
ALT 70 H U/L
(0-50)
Alkaline Phosphatase 152 H U/L
(38-126)
Total Protein 5.0 L g/dl
(6.3-8.2)
Albumin 2.7 L g/dl
(3.5-5.0)
10/02/23 11:44
10/02/23 11:44
Vital Signs
Initial and Last Documented VS:
Initial Vital Signs
Temp Pulse Resp BP Pulse Ox
98.8 F 69 18 114/58 98
10/02/23 10:03 10/02/23 10:03 10/02/23 10:03 10/02/23 10:03 10/02/23 10:03
Last Documented Vital Signs
Temp Pulse Resp BP Pulse Ox
98.8 F 70 17 129/69 99
10/02/23 10:03 10/02/23 16:00 10/02/23 16:00 10/02/23 16:57 10/02/23 17:00
MDM/Problems Addressed
MDM/Problems Addressed:
73-year-old male presenting to the emergency department today with concerns of lower extremity swelling left side worse than worsening over the past few days history of swelling but worsening more recently no chest pain nausea vomiting fevers.
Patient's ultrasound without signs of DVT. Patient leg on the left side with significant redness and warmth which has worsened rapidly over the past few days. Could possibly represent cellulitis considering this was started on IV antibiotics with
plans of monitoring overnight. Stable throughout ER stay otherwise.
*Critical Care Note
Total Time (30-74mins, 75-104mins- exclusive of procedures): Not Applicable
ED Attending Note
-
Portions of this chart may have been created with voice recognition software.� Occasional wrong word or��sound alike� substitutions may have occurred due to the inherent limitations of voice recognition software.
Discharge Plan
Departure
Patient Disposition: Admit
Date of Disposition: 10/02/23
Time of Disposition: 17:36
Admit to: Med/Surg
Admit to doctor: Dmitriy
Presentation/result/management discussed w/ accepting MD/DO: Hospitalist
Patient with high blood pressure during this ER visit?: No
Condition: Good
Covid-19: Not Applicable
Discharge Problem:
Leg swelling, Cellulitis
Prescriptions:
No Action
albuterol sulfate 1 PUFF HFA aerosol inhaler
2 puff inhalation R Q6HPRN PRN (Reason: sob)
atorvastatin 40 MG tablet
40 mg PO HS
potassium chloride [Klor-Con M20] 20 MEQ tablet,ER particles/crystals
20 meq PO DAILY
torsemide 20 MG tablet
100 mg PO BID
multivitamin 1 EACH tablet
1 ea PO DAILY
Patient Comments:
TAKES AT NOON
glimepiride 1 mg Tablet
4 mg PO HS
amiodarone 200 mg tablet
200 mg PO DAILY
isosorbide dinitrate 20 mg tablet
10 mg PO TID
hydralazine 50 mg tablet
50 mg PO TID
pantoprazole 40 mg tablet,delayed release (DR/EC)
40 mg PO DAILY
amlodipine [Norvasc] 2.5 mg Tablet
2.5 mg PO TID
allopurinol 100 mg Tablet
100 mg PO DAILY
aspirin [Aspir-Low] 81 mg Tablet,Delayed Release (Dr/Ec)
81 mg PO DAILY
vitamin B complex Tablet
2 tab PO DAILY
prednisone 10 mg Tablet
5 mg PO DAILY
cephalexin [Keflex] 500 mg Capsule
500 mg PO BID
polyethylene glycol 3350 [Miralax] 17 gram Powder In Packet
17 g PO DAILY
docusate sodium [Colace] 100 mg Capsule
200 mg PO DAILY
Trelegy Ellipta 200-62.5-25 mcg Blister With Device
1 inh INHALATION R DAILY
Bumex Infusion
4 mg IV WEFR
Referrals:
oCle Garnre MD [Family Provider] -
Interventions
Interventions:
*Risk Screen - Suicide Last Done: 10/02/23 10:03
*General Assessment Last Done: 10/02/23 10:03
*Neglect/Abuse Screening Last Done: 10/02/23 10:03
ED- Fall Risk Assessment Last Done: 10/02/23 11:34
ED- Cardiac Assessment Last Done: 10/02/23 11:34
ED-Musculoskeletal Assessment Last Done: 10/02/23 11:34
ED- Pulmonary Assessment Last Done: 10/02/23 11:34
ED-Skin Assessment Last Done: 10/02/23 11:34
Discharge Date and Time
Print Language: TAIWANESE
[2023-10-02] MEDS: DILAUDID 0.5 MG IV (17:55)
[2023-10-02] MEDS: VANCOCIN 300 MG IV (18:29)
[2023-10-02] MEDS: VANCOCIN 300 ML IV (18:29)
--- NOTE | 2023-10-02 18:47 | HPS.HSE ---
Family Physician
-
Family Physician: Cole Garner
Chief Complaint
-
swelling legs
History of Present Illness
73-year-old male with past medical history of paroxysmal atrial fibrillation status post watchman, history of pacemaker, CAD status post stent, chronic HFrEF, CKD 4, hypertension, asthma/COPD, gastrointestinal stromal tumor s/p resection in 2021,
liver scarring, chronic anemia, type 2 diabetes, gout, presenting with leg swelling bilaterally worse on the left side associated redness of the left lower extremity.
He states that he has gained 15 pounds in the past 2 weeks due to fluid retention from his heart disease/liver scarring. He was given 2 doses of metolazone by his rock singer in the past week. He had already been on antibiotics with Keflex for a
wound on his second left toe and under his first big toe. He sees podiatry for this who has been recommending Santyl. The redness of his leg had gotten worse despite antibiotics. He denies any fevers or chills.
He denies any chest pain or shortness of breath.
He drank alcohol in the past and was a former smoker.
Medical History
Past Medical History
Past Medical History: Reports Other (paroxysmal atrial fibrillation status post watchman, history of pacemaker, CAD status post stent, chronic HFrEF, CKD 4, hypertension, asthma/COPD, gastrointestinal stromal tumor s/p resection in 2021, liver
scarring, chronic anemia, type 2 diabetes, gout)
Past Surgical History: Reports None
Social History
Tobacco: Former Smoker
Alcohol: Former
Drug: None
Family History
Family History: Not pertinent
Allergies / Home Medications
Allergies reflects when Allergies were last updated in [facility].
Home Medications with original date entered in [facility]
Allergy/Medication List:
Allergies
Allergy/AdvReac Type Severity Reaction Status Date / Time
baclofen Allergy comatose Verified 10/02/23 10:02
and
sleepwalking
strawberry Allergy swelling Verified 10/02/23 10:02
from head
to toe
blood thinners Allergy Unknown Uncoded 09/28/23 09:39
Home Medications
albuterol sulfate 90 mcg/actuation aerosol inhaler 2 puff inhalation R Q6HPRN PRN sob 11/18/19
atorvastatin 40 mg tablet 40 mg PO HS High cholesterol 01/12/20
potassium chloride 20 mEq tablet,extended release(part/cryst) (Klor-Con M) 20 meq PO DAILY Supplement 05/10/20
torsemide 20 mg tablet 100 mg PO BID Fluid retention/Swelling 10/25/20
multivitamin 1 ea PO DAILY Supplement 07/05/21
glimepiride 1 mg tablet 4 mg PO HS Diabetes 09/26/21
amiodarone 200 mg tablet 200 mg PO DAILY Arrhythmia 08/15/22
hydralazine 50 mg tablet 50 mg PO TID Blood Pressure 08/15/22
isosorbide dinitrate 20 mg tablet 10 mg PO TID angina 08/15/22
pantoprazole 40 mg tablet,delayed release 40 mg PO DAILY Gastrointestinal Issue 08/15/22
amlodipine 2.5 mg tablet (Norvasc) 2.5 mg PO TID 11/03/22
allopurinol 100 mg tablet 100 mg PO DAILY 05/04/23
vitamin B complex 2 tab PO DAILY 05/16/23
aspirin 81 mg tablet,delayed release 81 mg PO DAILY 05/25/23
prednisone 10 mg tablet 5 mg PO DAILY 07/13/23
cephalexin 500 mg capsule 500 mg PO BID 09/19/23
Bumex Infusion 4 mg IV WEFR 10/02/23
docusate sodium 100 mg capsule (Colace) 200 mg PO DAILY 10/02/23
fluticasone fur. 200 mcg-umeclid 62.5 mcg-vilant 25 mcg inhalat.powder (Trelegy Ellipta) 1 inh inhalation R DAILY 10/02/23
polyethylene glycol 3350 17 gram oral powder packet (Miralax) 17 g PO DAILY 10/02/23
Review of Systems
-
History Source: Patient
A 12 point ROS was completed and negative except as noted: Yes
Constitutional: Reports No Symptoms
EENT: Reports No Symptoms
Respiratory: Reports No Symptoms
Cardiac: Reports No Symptoms
Abdomen/GI: Reports No Symptoms
: Reports No Symptoms
Musculoskeletal: Reports No Symptoms
Skin: Reports See HPI
Neurological: Reports No Symptoms
Endocrine: Reports No Symptoms
Hematologic/Lymphatic: Reports No Symptoms
Psych: Reports No Symptoms
Physical Exam
Vital Signs
Vital Signs
Temp Pulse Resp BP Pulse Ox
98.8 F 70 17 129/69 99
10/02/23 10:03 10/02/23 16:00 10/02/23 16:00 10/02/23 16:57 10/02/23 17:00
Physical Exam
General: Well Developed, Well Nourished and No Apparent Distress
HEENT: NormoCephalic, Moist mucous membranes and Atraumatic
Respiratory: Clear
Cardiac: S1/S2 and Regular Rhythm; No Murmur or Rub
GI: Soft, Non Tender, Non Distended and Normal Bowel Sounds; No Organomegaly
Rectal: Deferred by Provider
Musculoskeletal: No Clubbing, No Cyanosis and No Edema
Skin: Other (edema bilaterally, redness left leg ); No Rash
Neuro: Nonfocal/grossly intact
Laboratory Results
-
10/02/23 11:44
10/02/23 11:44
Laboratory Results
Lactic Acid 0.9 mmol/L (0.7-2.0) 10/02/23 11:44
Total Bilirubin 0.5 mg/dl (0.2-1.3) 10/02/23 11:44
AST 51 U/L (17-59) 10/02/23 11:44
ALT 70 U/L (0-50) H 10/02/23 11:44
Alkaline Phosphatase 152 U/L (38-126) H 10/02/23 11:44
Data Reviewed
-
Lab Data: Labs Reviewed by me
Old Records: Reviewed
Impression/Plan
-
IMPRESSION:
PLAN:
# Cellulitis of left lower extremity exacerbated by bilateral lower extremity lymphedema
-Venous ultrasound negative for DVT
-Vancomycin given history of MRSA
# Left second toe wound, plantar wound under first big toe
-Appears superficial
-Wound care
# JEFFERSON on CKD 4 secondary to chronic diuretics/addition of metolazone in the past week
-Creatinine of 3.5 from baseline of 2.4 to 3.1
-Continue to monitor with usual dose of diuretics
Paroxysmal atrial fibrillation status post Watchman
-Continue amiodarone
-Not on anticoagulation
History of pacemaker
CAD status post stent
-Continue aspirin, statin
-Continue isosorbide dinitrate
Chronic HFrEF
-Continue torsemide, Bumex
Lymphedema secondary to heart failure
History of liver scar
Former alcohol use
Essential hypertension
-Continue amlodipine, hydralazine,
Gastrointestinal stromal tumor s/p resection in 2021
Asthma/COPD
-Continue inhalers
Chronic anemia
-Hemoglobin at baseline 8.4
Type 2 diabetes
-Continue glimepiride
Gout
-Continue allopurinol
-Continue torsemide
Former smoker
Full code
DVT prophylaxis�heparin
Renal diet
--- NOTE | 2023-10-02 20:20 | PTCARENOTE ---
Received pt from ED via stretcher. Pt ambulated to bed x1 with RW. AAOx3. Pt complained of 7/10 pain throughout L knee, pain medication provided, see MAR. Assessed and oriented to room. Pt verbalized understanding of call keating. Call keating within
close reach. Will continue to monitor.
--- NOTE | 2023-10-02 21:07 | PHA.VAN.IN ---
Assessment
- Assessment
Renal Function: Appears elevated from baseline (08/21/23 BASELINE SCR: 2.4)
Concomitant Antimicrobials: NONE
- Previous Dosing Experience
Previous Regimen: DOSING BY RANDOM LEVELS
Date of Regimen: 08/07/20
Provided Trough of: UNKNOWN
Provided AUC of: UNKNOWN
Patient's SCR is: Similar to previous dosing experience (08/07/20 SCR = 3.3)
Patient's weight is: Elevated compared to previous dosing experience (08/08/23 WT = 81 KG)
Plan
- Plan
Initial / Loading Dose: 1500MG
Maintenance Regimen: DOSING BY RANDOM LEVELS
Monitoring: RANDOM VANCOMYCIN LEVEL 10/03/23 AM
Pharmacokinetics Vancomycin I
- -
Patient Age: 73
Patient Sex: Male
Vancomycin Day #: 1
Indication: Skin And Soft Tissue (CELLULITIS )
Requesting Provider: BARB
Height / Weight:
Height 5 ft 6 in
Actual Weight 90.322 kg
Pertinent Past Medical History: DM; HX MRSA; FAILED OUTPT [place] - KEFLEX
- Vital Signs / Lab Results
Temp Pulse Resp BP Pulse Ox
98.2 F 81 18 124/61 99
10/02/23 20:20 10/02/23 20:20 10/02/23 20:20 10/02/23 20:20 10/02/23 20:20
Lab Results - Hematology
10/02/23
11:44
WBC 14.6 H
Lab Results - Chemistry
10/02/23
11:44
BUN 116 H*
Creatinine 3.5 H
Estimated Creat Clear 21
Albumin 2.7 L
10/02/23
11:44
Lactic Acid 0.9
[2023-10-02] MEDS: DEMADEX 100 MG PO (22:46)
[2023-10-02] MEDS: APRESOLINE 50 MG PO (22:47)
[2023-10-02] MEDS: HEPARIN 5000 UNITS SC (22:47)
[2023-10-02] MEDS: LIPITOR 40 MG PO (22:47)
[2023-10-02] MEDS: NORVASC 2.5 MG PO (22:47)
[2023-10-02] MEDS: AMARYL 4 MG PO (22:48)
[2023-10-02] MEDS: ISORDIL 10 MG PO (22:48)
[2023-10-02] MEDS: TYLENOL 650 MG PO (22:51)
[2023-10-02] MEDS: DESENEX/MITRAZOL/ZEASORB 1 APPLIC TOPICAL (23:57)
[2023-10-03 01:46] LABS: Glucose - Point of Care 78 mg/dl (70-99)
[2023-10-03 06:12] VITALS: BMI 32.2
[2023-10-03 06:59] LABS: % Basophils 0.3 % (0-2); % Eosinophils 2.6 % (0-6); % Immature Granulocytes 0.9 % (0-0.5); % Lymphocytes 2.2 % (20.5-51.1); % Monocytes 5.3 % (1.7-9.3); % Neutrophils 88.7 % (42.2-75.2); Absolute Eosinophils 0.4 10^3/uL (0-0.7); Absolute Immature Granulocytes 0.1 10^3/uL (0-0.05); Absolute Lymphocytes 0.3 10^3/uL (1.2-3.4); Absolute Monocytes 0.7 10^3/uL (0.1-0.6); Absolute Neutrophils 11.8 10^3/uL (1.4-6.5); Hematocrit 24.7 % (39.0-52.0); Hemoglobin 8.3 g/dL (13.0-18.0); Mean Corp Hgb Conc. 33.6 g/dL (33.0-37.0); Mean Corpuscular Hgb 28.2 pg (27.0-31.0); Mean Platelet Volume 9.2 fL (7.4-10.4); Nucleated Red Blood Cells % 0 % (-); Platelet Count 361 10^3/uL (130-400); Red Blood Cell Count 2.94 10^6/uL (4.70-6.10); Red Cell Dist. Width 16.9 % (11.5-14.5); White Blood Cell Count 13.3 10^3/uL (4.8-10.8)
[2023-10-03 07:17] LABS: Vancomycin Random 15.2 ug/ml
[2023-10-03] MEDS: SYMBICORT 160/4.5 MCG INHALER 2 PUFF INH ×2 (07:20→20:14)
[2023-10-03] MEDS: SPIRIVA RESPIMAT 2.5 MCG 2 PUFF INH (07:20)
[2023-10-03 07:24] LABS: ALT (SGPT) 51 U/L (0-50); AST (SGOT) 34 U/L (17-59); Albumin 2.6 g/dl (3.5-5.0); Alkaline Phosphatase 130 U/L (38-126); Blood Urea Nitrogen 119 mg/dl (9-20); Calcium 8.7 mg/dl (8.4-10.2); Carbon Dioxide 27 mmol/L (22-30); Chloride 94 mmol/L (98-107); Estimated Creatinine Clearance 19 ml/min; Glucose 96 mg/dl (70-99); Potassium 3.4 mmol/L (3.5-5.1); Sodium 132 mmol/L (135-145); Total Bilirubin 0.4 mg/dl (0.2-1.3); eGFR 17.09
[2023-10-03 08:20] VITALS: BP 128/57
[2023-10-03 08:49] LABS: Glucose - Point of Care 94 mg/dl (70-99)
[2023-10-03] MEDS: NOVOLOG FLEXPEN-MODERATE RESISTANCE SC (08:50)
[2023-10-03] MEDS: KCL 40 MEQ PO (08:51)
[2023-10-03] MEDS: PROTONIX 40 MG PO (08:51)
[2023-10-03] MEDS: DESENEX/MITRAZOL/ZEASORB 1 APPLIC TOPICAL ×2 (08:51→21:46)
[2023-10-03] MEDS: ISORDIL 10 MG PO ×3 (08:51→22:04)
[2023-10-03] MEDS: DEMADEX 100 MG PO ×2 (08:52→16:54)
[2023-10-03] MEDS: APRESOLINE 50 MG PO ×3 (08:52→21:56)
[2023-10-03] MEDS: THERAGRAN 1 TABLET PO (08:52)
[2023-10-03] MEDS: ASPIR LOW (ENTERIC COATED) 81 MG PO (08:53)
[2023-10-03] MEDS: PACERONE 200 MG PO (08:53)
[2023-10-03] MEDS: B COMPLEX w/VITAMIN C 2 CAPLET PO (08:53)
[2023-10-03] MEDS: NORVASC 2.5 MG PO ×3 (08:53→22:05)
[2023-10-03] MEDS: MIRALAX 17 GRAMS PO (08:54)
[2023-10-03] MEDS: KCL 20 MEQ PO (08:54)
[2023-10-03] MEDS: COLACE 200 MG PO (08:54)
[2023-10-03] MEDS: ZYLOPRIM 100 MG PO (08:54)
[2023-10-03] MEDS: HEPARIN 5000 UNITS SC ×2 (08:55→21:54)
[2023-10-03] MEDS: DELTASONE 5 MG PO (08:55)
[2023-10-03] MEDS: TYLENOL 650 MG PO (09:08)
--- NOTE | 2023-10-03 10:13 | PHA.VAN.FU ---
Addendum entered and electronically signed by Ginny Barrett Arben 10/03/23 10:58:
Agree with resident's assessment and plan. SCR & BUN elevated from baseline
Original Note:
Vancomycin Assessment / Plan
- Assessment
Renal Function: Stable (Similar to previous dosing experience)
In the past 24 hrs, patient has been: Afebrile
- Assessment - Therapeutic Drug Monitoring
Random Level: 15.2 ~10.5hrs after end of infusion of 1500mg loading dose
- Dosing Plan
Dosing by Level: Hold off on dosing today
- Monitoring Plan
Random Level: 8/29 AM
- Follow Up
Pharmacy will continue to follow.
Vancomycin Follow UP
- -
Patient Age: 73
Patient Sex: Male
Vancomycin Day #: 2
Indication: Skin And Soft Tissue (CELLULITIS )
Requesting Provider: BARB
Height / Weight:
Height 5 ft 6 in
Actual Weight 90.492 kg
Pertinent Past Medical History: BMI ~32; DM; HX MRSA; FAILED OUTPT [place] - KEFLEX
- Vital Signs / Lab Results
Temp Pulse Resp BP Pulse Ox
98.2 F 71 16 128/57 98
10/03/23 08:20 10/03/23 08:53 10/03/23 08:20 10/03/23 08:53 10/03/23 08:20
Lab Results - Hematology
10/02/23 10/03/23
11:44 06:30
WBC 14.6 H 13.3 H
Lab Results - Chemistry
10/02/23 10/03/23
11:44 06:30
BUN 116 H* 119 H*
Creatinine 3.5 H 3.6 H
Estimated Creat Clear 21 19
Albumin 2.7 L 2.6 L
10/02/23
11:44
Lactic Acid 0.9
Therapeutic Drug Monitoring
Random Vancomycin 15.2 ug/ml 10/03/23 06:30
--- NOTE | 2023-10-03 10:42 | WOUNDNOTE ---
L PLANTAR FOOT AND 2ND TOE
--- NOTE | 2023-10-03 10:42 | WOUNDNOTE ---
L LATERAL POSTERIOR KNEE WITH FLASH
--- NOTE | 2023-10-03 10:43 | WOUNDNOTE ---
SACRUM AND BUTTOCKS
--- NOTE | 2023-10-03 10:44 | WOUNDNOTE ---
R JUAN RECTAL/BUTTOCKS
--- NOTE | 2023-10-03 10:45 | WOUNDNOTE ---
WON RN note: Patient admitted with leg swelling and cellulitis.
See H&P for complete history. Lives with .
PMH: Paroxysmal atrial fibrillation status post watchman, history of pacemaker, CAD status post stent, chronic HFrEF, CKD 4, hypertension, asthma/COPD, gastrointestinal stromal tumor s/p resection in 2021, liver scarring, chronic anemia, type 2
diabetes, gout
Wound Location and type/assessment: Patient assessed with Dr. Cheney at bedside. Admitted with: Cate rectal/R buttock excoriation, patient states he has had diarrhea recently causing ulcers. Groin skin folds with mild MASD, fungal powder in use.
legs with 2+ edema, palpable pedal pulses, heels intact. L knee with pain reports patient, x ray negative for fracture or effusion. Vascular ultrasound of legs negative for DVT. L 2nd toe and foot plantar with old chronic diabetic callus's that are
flat and dry, no signs of infection and no drainage. L plantar heel with patch of intact dry skin. Patient reports he goes to a [employer] named Dr. Lu regularly and plans to follow up upon discharge.
Appetite: Good.
Pressure redistribution devices in place: On Accumax, can turn self with minimal assist of L leg lifting.
Pillow placed under calves. Leg elevation when sitting encouraged.
Plan: Dry dressing with foams to L foot and 2nd toe. Applied skin prep and Exuderm thin to R buttock, barrier cream to be used on surrounding intact red blanchable skin. Confirmed orders with hospitalist and updated nurse Sarah.
Updated care plan and will follow as needed.
Note to case management of equipment requested for discharge: None.
Recommend follow up with [employer] as scheduled upon discharge.
--- NOTE | 2023-10-03 11:45 | W.PN.HOSP.TC ---
Today's Communication/Plan
-
IV antibiotics. Paracentesis. Nephrology consult
Assessment / Plan
Assessment / Plan
Physical exam:
General: Acute on chronically ill
HEENT: Normocephalic, Atraumatic and Moist Mucous Membranes
Respiratory: Clear to Auscultation; Negative Wheezes, Rales or Rhonchi
Cardiac: Regular Rhythm and S1/S2
GI: Soft, Nontender and Distended, fluid wave sign positive
Musculoskeletal: Bilateral lower extremity edema. Left lower extremity erythema. Decreased range of motion on left knee but no erythema or warmth. Superficial wound plantar aspect left foot. No Clubbing, No Cyanosis
Neuro: Awake, Alert and Oriented, no gross neurological deficits.
Psych: Calm
A/P:
Cellulitis of left lower extremity:
Change vancomycin to IV cefazolin, renally dosed
Monitor erythema, WBC, and temperature curve
Wound care for wound on his left foot
WBC 14.6-->13.3
PT OT
Left knee pain:
Likely osteoarthritis related
Doubt septic arthritis nevertheless we will request orthopedic to evaluate
Add pain medications such as tramadol renally dose
JEFFERSON on CKD:
Suspect cardiorenal syndrome component
Avoid nephrotoxic
Nephrology consult
Unsure if needs further diuresis or hold off on diuretics so will wait for nephrology input
If worsens may require hemodialysis
Abdominal ascites/likely underlying cirrhosis:
Consulted IR for therapeutic paracentesis today
Continue diuretics
Paroxysmal atrial fibrillation:
Continue antiarrhythmics, amiodarone
Not on rate control agent, inherently rate controlled
Not on anticoagulation, status post watchman in the past.
Chronic systolic CHF:
Continue diuretics
Continue GDMT
Reviewed last echocardiogram, EF 30%
Elevated LFTs:
Monitor trend
CAD:
Continue current anti-ischemic regimen
Hypertension:
Continue current antihypertensive
Gastrointestinal stromal tumor:
s/p resection in 2021
Asthma/COPD:
Continue inhalers
Chronic anemia
Hemoglobin at baseline
Continue to monitor
Type 2 diabetes
Add insulin sliding scale and check Accu-Cheks
Continue oral hypoglycemics
Gout
Continue allopurinol
DVT prophylaxis-heparin subcu
CODE STATUS-full code
Total time spent on today's encounter was 52 minutes which included time spent in counseling the patient/family regarding diagnosis and treatment plan as listed above, goals of care, and symptom management. Case was discussed with nursing staff,
specialists, and care coordinators/case management. All labs and imaging personally reviewed by me. Remainder the time spent in detailed review of previous records, lab data, imaging, and other medical provider documentation.
Anticipated Discharge: > 48 hours
Subjective/Interval History
-
Date of Service: October 03, 2023
Patient complains of breath lower extremity discomfort and redness. He also complains of increased abdominal distention. He tells me he typically has paracentesis every week. Alert. Afebrile
Objective Data
-
Labs:
Laboratory Results
10/03/23
06:30
WBC 13.3 H
Hgb 8.3 L
Hct 24.7 L
Plt Count 361
Sodium 132 L
Potassium 3.4 L
Chloride 94 L
Carbon Dioxide 27
BUN 119 H*
Creatinine 3.6 H
Glucose 96
Calcium 8.7
Total Bilirubin 0.4
AST 34
ALT 51 H
Alkaline Phosphatase 130 H
Vital Signs:
Vital Signs
Temp Pulse Resp BP Pulse Ox
98.2 F 71 16 128/57 98
10/03/23 08:20 10/03/23 08:53 10/03/23 08:20 10/03/23 08:53 10/03/23 08:20
I&O
10/02/23 10/03/23 10/04/23
06:59 06:59 06:59
Intake Total 240 / 240
Balance 240 / 240
[2023-10-03 12:38] LABS: Glucose - Point of Care 180 mg/dl (70-99)
[2023-10-03 12:40] VITALS: BP 129/60
[2023-10-03] MEDS: NOVOLOG FLEXPEN-MODERATE RESISTANCE 1 UNITS SC (12:46)
[2023-10-03] MEDS: ULTRAM 50 MG PO (13:15)
--- NOTE | 2023-10-03 13:36 | W.CON.NEPH ---
Addendum entered and electronically signed by Billie Lui MD 10/03/23 17:34:
called and left VM on [facility]
consider cards eval if no improvement
follow PVR if possible
Original Note:
Consultation
-
Date/Time Consultation Requested: 10/03/23 1317
Date/Time Consultation Performed: 10/03/23 1420
Requesting Provider: reynaldo Hendrickson
Performing Provider: Billie Navarro
Reason for Consultation: Harvey with CKD
Medical History
-
Chief Complaint: leg edema and wt gain
History of Present Illness:
73-year-old male with past medical history of paroxysmal atrial fibrillation status post watchman on Amiodarone, recent cardioversion in August, history of pacemaker, CAD status post stent, chronic HFrEF 30% on large dose of Torsemide 100mg BID and
bumex 4mg IV BID, chr LE lymphedema, CKD 4 baseline cr 2 range, hypertension on hydralazine and low dose Amlodipine, asthma/COPD, gastrointestinal stromal tumor s/p resection in 2021, liver scarring, Ascites on weekly paracentesis, chronic anemia,
type 2 diabetes on oral meds, gout on allopurinol, presented with leg swelling bilaterally worse on the left side associated redness of the left lower extremity on 10/01. He reportedly gained 15lbs in 2weeks. His dry wt was 180-185lbs and after he
underwent C scope and EGD his wt started increase specially with constipation. His laxatives were increased as well as has metolazone last week, last dose on Wednesday 09/27. His cr on that day was 2.8. He had already been on antibiotics with Keflex for
a wound on his second left toe and under his first big toe and followed by podiatry. The redness of his leg had gotten worse despite antibiotics. He denies any fevers or chills. He denies any chest pain or shortness of breath. He mostly non
ambulatory. Normally sleeps reclining and uses CPAP. No n/v. c/o left knee pain with out swelling. no dysuria reports has good volume of urine. Today her had paracentesis of over 2lit which is average vol per pt. Note last 2weeks had more fluid
removed in paracentesis over 4lit. He currently treated for cellulitis. His cr noted to be high this admit at 3.6 hence nephrology consulted. BUN is also high at 119. His most of the care is at [facility] who are managing his diuretics and
Nephrology Dr Pettit at [facility] too.
Past Medical History
paroxysmal atrial fibrillation status post watchman, history of pacemaker, CAD status post stent, chronic HFrEF, CKD 4, hypertension, asthma/COPD, gastrointestinal stromal tumor s/p resection in 2021, liver scarring, chronic anemia, type 2 diabetes,
gout, ascites weekly paracentesis
Social History
Tobacco: Former Smoker
Alcohol: Former
Drug: None
Personal:
Living: With Family
Family History
mother ESRD from ?HTN
Family History: Not Pertinent
Allergies / Home Medications
Allergy/AdvReac Type Severity Reaction Status Date / Time
baclofen Allergy comatose Verified 10/02/23 10:02
and
sleepwalking
strawberry Allergy swelling Verified 10/02/23 10:02
from head
to toe
blood thinners Allergy Unknown Uncoded 09/28/23 09:39
�Medication �Instructions �Recorded �Confirmed �Type
albuterol sulfate 90 mcg/actuation 2 puff inhalation R Q6HPRN PRN sob 11/18/19 10/02/23 History
aerosol inhaler
atorvastatin 40 mg tablet 40 mg PO HS High cholesterol 01/12/20 10/02/23 History
potassium chloride 20 mEq 20 meq PO DAILY Electrolyte 05/10/20 10/02/23 History
tablet,extended Repletion
release(part/cryst) (Klor-Con M)
torsemide 20 mg tablet 100 mg PO BID Fluid 10/25/20 10/02/23 History
retention/Swelling
multivitamin 1 ea PO DAILY Supplement 07/05/21 10/02/23 History
glimepiride 1 mg tablet 4 mg PO HS Diabetes 09/26/21 10/02/23 History
amiodarone 200 mg tablet 200 mg PO DAILY Arrhythmia 08/15/22 10/02/23 History
hydralazine 50 mg tablet 50 mg PO TID Blood Pressure 08/15/22 10/02/23 History
isosorbide dinitrate 20 mg tablet 10 mg PO TID angina 08/15/22 10/02/23 History
pantoprazole 40 mg tablet,delayed 40 mg PO DAILY Gastrointestinal 08/15/22 10/02/23 History
release Issue
amlodipine 2.5 mg tablet (Norvasc) 2.5 mg PO TID Blood Pressure 11/03/22 10/02/23 History
allopurinol 100 mg tablet 100 mg PO DAILY Gout 05/04/23 10/02/23 History
vitamin B complex 2 tab PO DAILY Supplement 05/16/23 10/02/23 History
aspirin 81 mg tablet,delayed 81 mg PO DAILY Blood Clot 05/25/23 10/02/23 History
release Prevention/Tx
prednisone 10 mg tablet 5 mg PO DAILY Anti-Inflammatory 07/13/23 10/02/23 History
cephalexin 500 mg capsule 500 mg PO BID Infection 09/19/23 10/02/23 History
Bumex Infusion 4 mg IV WEFR Fluid 10/02/23 10/02/23 History
Retention/Swelling
docusate sodium 100 mg capsule 200 mg PO DAILY Constipation 10/02/23 10/02/23 History
(Colace)
fluticasone fur. 200 mcg-umeclid 1 inh inhalation R DAILY 10/02/23 10/02/23 History
62.5 mcg-vilant 25 mcg Lung/Breathing Issues
inhalat.powder (Trelegy Ellipta)
polyethylene glycol 3350 17 gram 17 g PO DAILY Constipation 10/02/23 10/02/23 History
oral powder packet (Miralax)
Review of Systems
-
all complete 12 point ROS have been inquired and found negative other than stated in HPI
All other systems: Negative unless noted
Physical Exam
Vital Signs
Vital Signs
Temp Pulse Resp BP Pulse Ox
98.1 F 73 16 129/60 96
10/03/23 12:40 10/03/23 12:40 10/03/23 12:40 10/03/23 12:40 10/03/23 12:40
Lab Results
WBC 13.3 10^3/uL (4.8-10.8) H 10/03/23 06:30
RBC 2.94 10^6/uL (4.70-6.10) L 10/03/23 06:30
Hgb 8.3 g/dL (13.0-18.0) L 10/03/23 06:30
Hct 24.7 % (39.0-52.0) L 10/03/23 06:30
Plt Count 361 10^3/uL (130-400) 10/03/23 06:30
Sodium 132 mmol/L (135-145) L 10/03/23 06:30
Potassium 3.4 mmol/L (3.5-5.1) L 10/03/23 06:30
Chloride 94 mmol/L (98-107) L 10/03/23 06:30
Carbon Dioxide 27 mmol/L (22-30) 10/03/23 06:30
BUN 119 mg/dl (9-20) H* 10/03/23 06:30
Creatinine 3.6 mg/dL (0.7-1.3) H 10/03/23 06:30
eGFR 17.09 10/03/23 06:30
Glucose 96 mg/dl (70-99) 10/03/23 06:30
Calcium 8.7 mg/dl (8.4-10.2) 10/03/23 06:30
Kyp-Y-Chtsimcquss Pept 8850 pg/ml 10/02/23 11:44
Albumin 2.6 g/dl (3.5-5.0) L 10/03/23 06:30
Knee Xray:
IMPRESSION:
No acute osseous abnormality.
Mild degenerative changes within the medial compartment.
Soft tissue edema throughout the leg.
LE duplex:
IMPRESSION: No evidence of deep venous thrombosis of the left lower extremity.
Physical Exam
General: Awake, Alert, Oriented, AOx3, No Distress and Nontoxic
HEENT: EOMI, Anicteric, Neck Supple and Other (difficult to assess JVD while sitting as normally can not lay flat)
Respiratory: Clear, Normal Excursion and Nonlabored Respirations
Cardiac: S1/S2 and Regular Rate/Rhythm
Breast: Deferred by me
Abdomen: Soft, Nontender and Other (distended)
Musculoskeletal: No Cyanosis and Edema (3+)
Skin: Other (mild erythema bilat LEs)
Neuro: Nonfocal/Grossly Intact
Psych: Mood/afflect pleasant, Insight/judgement good and Appropriate
Data Reviewed
-
Radiology: Report Reviewed by me and Discussed with Patient
Labs: Labs Reviewed by me, Discussed with Nurse and Discussed with Patient
Assessment/Plan
-
IMP:
Cellulitis of left lower extremity exacerbated by bilateral lower extremity lymphedema
Left second toe wound, plantar wound under first big toe
HARVEY on CKD 4 -baseline cr 2 range, nephro at [facility] Dr Pettit
Paroxysmal atrial fibrillation status post Watchman
History of pacemaker
CAD status post stent
Chronic HFrEF 30%
Hyponatremia
hypokalemia
Azotemia
Lymphedema secondary to heart failure
History of liver scar
Former alcohol use
Essential hypertension
Gastrointestinal stromal tumor s/p resection in 2021
Asthma/COPD
Chronic anemia
Type 2 diabetes
Gout
Former smoker
Elevated LFts
Plan:
A/w LE edema and treated for cellulitis
HARVEY with CKD-cardiorenal and diuretics specially addition of Metolazone last week
he is on large doses of Torsemide and bumex 4mg IB BID as out pt
would cont to hold Metolazone and bumex currently with elevated cr , cont Torsemide
BP stable on Amlodipine(TID), hydralazine
cont to replace k, check mg level
DW seem around 180-185lbs
improving LFTs
Pt aware of risk of FIRER GLOST KILN if renal function worsens from previous discussion with folder taper operator at [facility]
hb low but stable, was followed with heme in out pt
follow labs and wts
d/w pt and nursing
will try to contact nephro at [facility] once contact details are available
--- NOTE | 2023-10-03 14:16 | CON.ORTHO ---
Consultation
-
Date/Time Consultation Requested: 10/03/23
Date/Time Consultation Performed: 10/03/23 2:00pm
Requesting Provider: Shravan
Performing Provider: Marisol Carvajal PA-C, Gómez Stack MD
Reason for Consultation: left knee pain
Consultation - Orthopedics
History
HPI: 73yo male admitted to [facility] for bilateral leg swelling. He reports that about six days ago, he had increased swelling to both legs, left greater than right. He does get ascites and states that he does not normally get swelling in
his leg. Two days ago, he had left knee pain and swelling that made it hard to walk. Today, he states that the swelling and the pain of the knee have improved compared to two days ago. He was able to ambulate to the bathroom without significant pain
however he does have pain in the knee when he is trying to get out of bed and with range of motion of the knee. He was started on IV antibiotics last night and does report mild improvement in his symptoms. He was also recently on a course of keflex.
He denies any recent injuries. No fever or chills
PAST MEDICAL HISTORY: Afib, CHF, CAD, asthma, COPD, type 2 diabetes, CKD, liver disease, gastrointestinal stromal tumor s/p resection in 2021, gout
PAST SURGICAL HISTORY: watchman, cardiac stent, pacemaker
SOCIAL HISTORY: former smoker, former alcohol. ambulates without assistive device at baseline
FAMILY HISTORY: Noncontributory
REVIEW OF SYSTEMS: 12 point review of systems obtained and negative except those mentioned in the HPI
Allergies / Home Medications
Allergy/AdvReac Type Severity Reaction Status Date / Time
baclofen Allergy comatose Verified 10/02/23 10:02
and
sleepwalking
strawberry Allergy swelling Verified 10/02/23 10:02
from head
to toe
blood thinners Allergy Unknown Uncoded 09/28/23 09:39
�Medication �Instructions �Recorded
albuterol sulfate 90 mcg/actuation 2 puff inhalation R Q6HPRN PRN sob 11/18/19
aerosol inhaler
atorvastatin 40 mg tablet 40 mg PO HS High cholesterol 01/12/20
potassium chloride 20 mEq 20 meq PO DAILY Electrolyte 05/10/20
tablet,extended Repletion
release(part/cryst) (Klor-Con M)
torsemide 20 mg tablet 100 mg PO BID Fluid 10/25/20
retention/Swelling
multivitamin 1 ea PO DAILY Supplement 07/05/21
glimepiride 1 mg tablet 4 mg PO HS Diabetes 09/26/21
amiodarone 200 mg tablet 200 mg PO DAILY Arrhythmia 08/15/22
hydralazine 50 mg tablet 50 mg PO TID Blood Pressure 08/15/22
isosorbide dinitrate 20 mg tablet 10 mg PO TID angina 08/15/22
pantoprazole 40 mg tablet,delayed 40 mg PO DAILY Gastrointestinal 08/15/22
release Issue
amlodipine 2.5 mg tablet (Norvasc) 2.5 mg PO TID Blood Pressure 11/03/22
allopurinol 100 mg tablet 100 mg PO DAILY Gout 05/04/23
vitamin B complex 2 tab PO DAILY Supplement 05/16/23
aspirin 81 mg tablet,delayed 81 mg PO DAILY Blood Clot 05/25/23
release Prevention/Tx
prednisone 10 mg tablet 5 mg PO DAILY Anti-Inflammatory 07/13/23
cephalexin 500 mg capsule 500 mg PO BID Infection 09/19/23
Bumex Infusion 4 mg IV WEFR Fluid 10/02/23
Retention/Swelling
docusate sodium 100 mg capsule 200 mg PO DAILY Constipation 10/02/23
(Colace)
fluticasone fur. 200 mcg-umeclid 1 inh inhalation R DAILY 10/02/23
62.5 mcg-vilant 25 mcg Lung/Breathing Issues
inhalat.powder (Trelegy Ellipta)
polyethylene glycol 3350 17 gram 17 g PO DAILY Constipation 10/02/23
oral powder packet (Miralax)
Vital Signs / Lab Results
Temp Pulse Resp BP Pulse Ox
98.1 F 73 16 129/60 96
10/03/23 12:40 10/03/23 12:40 10/03/23 12:40 10/03/23 12:40 10/03/23 12:40
10/03/23 06:30
10/03/23 06:30
RADIOGRAPHIC FINDINGS:
Xray left knee reveals no acute fractures. Mild degenerative changes within the medial compartment. Soft tissue edema throughout the leg.
Duplex ultrasound LLE negative for DVT
PHYSCIAL EXAM:
General: no acute distress
HEENT: NCAT, sclera anicteric, normal hearing
Heart: No JVD
Lungs: normal work of breathing on room air
Abdomen: distended
MSK: Directed exam of bilateral lower extremities reveals +2 pitting edema of bilateral lower legs, left greater than right. there is milder edema from the knee to the groin bilaterally. there is erythema to the lower leg from the mid barbosa to the
foot. skin intact. left knee small effusion. mild tenderness over patellar tendon, no joint line tenderness. ROM 0-90. calf soft and nontender. NVI distally
Assessment / Plan
ASSESSMENT: 73yo male with bilateral lower extremity edema and cellulitis
PLAN: Mr. Scruggs was admitted to [facility] for bilateral lower extremity edema and concern for cellulitis. He has had left knee pain for the past 6 days that has slightly improved over the past few days, however he does have pain with
range of motion of the knee. Left knee was aspirated for 10cc clear synovial fluid. Will send for cell count, crystals, gram stain and culture. Will follow up results. He may be weight bearing as tolerated and perform range of motion to tolerance.
Continue with pain control as needed. Will follow along. Please reach out with any questions or concerns.
[2023-10-03] MEDS: ANCEF 5 IV (14:21)
[2023-10-03] MEDS: FLUSH (NSS) 1 FLUSH IV (14:21)
[2023-10-03 14:52] LABS: Body Fluid Mononuclear 15 %; Body Fluid Polymorphonuclear 85 %; Body Fluid WBC 4330 /CUMM
[2023-10-03 14:55] LABS: Body Fluid Second Tech CF
--- NOTE | 2023-10-03 15:05 | CM ---
Reviewed chart, met with patient to obtain information for assessment. Patient's was at bedside. Patient stated that he lives in a single home with four steps to enter with his . He described himself as independent with his ADLs, personal
care, bathing and dressing. He ambulates independently. 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 He was able to drive and could get to his appointments and do his own shopping.
He denied any DME in his home.
He never had VN services.
He has not been to a SNF.
Patient has a prescription plan and uses, [facility] in [place] for all of his medications.
His PCP is, Cole Garner.
Patient stated that he was supposed to go to outpatient therapy and he is hopeful that he won't need to go to a SNF and can return home when stable.
Plan: Case management will continue to follow and assist with discharge planning. Patient would like to return home when medically cleared if he is able.
[2023-10-03 15:38] LABS: Magnesium 2.2 mg/dl (1.6-2.3)
[2023-10-03 15:46] VITALS: BP 123/60
[2023-10-03 15:53] LABS: Body Fluid WBC 5 /CUMM
[2023-10-03 16:16] LABS: Body Fluid Second Tech FB
[2023-10-03 16:36] LABS: Glucose - Point of Care 282 mg/dl (70-99)
[2023-10-03] MEDS: NOVOLOG FLEXPEN-MODERATE RESISTANCE 5 UNITS SC (17:49)
[2023-10-03 21:46] LABS: Glucose - Point of Care 275 mg/dl (70-99)
[2023-10-03] MEDS: AMARYL 4 MG PO (21:56)
[2023-10-03] MEDS: LIPITOR 40 MG PO (22:06)
[2023-10-03 23:06] VITALS: BP 118/61
[2023-10-04] MEDS: ULTRAM 50 MG PO ×2 (01:23→13:52)
[2023-10-04] MEDS: ANCEF 5 IV ×2 (02:19→13:57)
[2023-10-04 06:00] VITALS: BMI 31.0
[2023-10-04 06:42] LABS: % Basophils 0.2 % (0-2); % Eosinophils 3.1 % (0-6); % Immature Granulocytes 1.1 % (0-0.5); % Lymphocytes 3.1 % (20.5-51.1); % Neutrophils 86.5 % (42.2-75.2); Absolute Eosinophils 0.3 10^3/uL (0-0.7); Absolute Immature Granulocytes 0.1 10^3/uL (0-0.05); Absolute Lymphocytes 0.3 10^3/uL (1.2-3.4); Absolute Monocytes 0.7 10^3/uL (0.1-0.6); Absolute Neutrophils 9.3 10^3/uL (1.4-6.5); Hematocrit 23.7 % (39.0-52.0); Hemoglobin 7.9 g/dL (13.0-18.0); Mean Corp Hgb Conc. 33.3 g/dL (33.0-37.0); Mean Corpuscular Hgb 27.4 pg (27.0-31.0); Mean Corpuscular Volume 82.3 fL (80.0-94.0); Mean Platelet Volume 9.3 fL (7.4-10.4); Nucleated Red Blood Cells % 0 % (-); Platelet Count 375 10^3/uL (130-400); Red Blood Cell Count 2.88 10^6/uL (4.70-6.10); Red Cell Dist. Width 16.9 % (11.5-14.5); White Blood Cell Count 10.8 10^3/uL (4.8-10.8)
[2023-10-04 06:47] LABS: INR 1.25; PT 15.8 Sec (11.4-14.6)
[2023-10-04 06:56] LABS: Glucose - Point of Care 102 mg/dl (70-99)
[2023-10-04 07:24] VITALS: BP 126/62
--- NOTE | 2023-10-04 07:33 | W.PN.UPDATE ---
Update Note
Progress Note Update
Patient thinks that his knee feels slightly better this morning. He is afebrile. Minimal warmth and no erythema about the left knee. Small effusion noted. Range of motion 0 to 90 degrees without significant pain. Distal neurovascular was
intact. Fluid cell count showed WBCs 5, PMN 20 and positive monosodium urate crystals were present. Cultures pending. Patient does have gout in the left knee and likely not infectious process. Suggest he continue with allopurinol and tapering
steroid. Consider cortisone injection a couple weeks down the road once his medical issues settle down.
[2023-10-04] MEDS: SYMBICORT 160/4.5 MCG INHALER 2 PUFF INH ×2 (07:37→19:32)
[2023-10-04] MEDS: SPIRIVA RESPIMAT 2.5 MCG 2 PUFF INH (07:37)
[2023-10-04 07:39] LABS: ALT (SGPT) 38 U/L (0-50); AST (SGOT) 30 U/L (17-59); Albumin 2.6 g/dl (3.5-5.0); Alkaline Phosphatase 126 U/L (38-126); Blood Urea Nitrogen 125 mg/dl (9-20); Calcium 8.7 mg/dl (8.4-10.2); Carbon Dioxide 26 mmol/L (22-30); Chloride 96 mmol/L (98-107); Estimated Creatinine Clearance 18 ml/min; Glucose 96 mg/dl (70-99); Potassium 3.4 mmol/L (3.5-5.1); Sodium 135 mmol/L (135-145); Total Bilirubin 0.3 mg/dl (0.2-1.3); eGFR 16.01
--- NOTE | 2023-10-04 08:34 | W.PN.HOSP.TC ---
Today's Communication/Plan
-
IV antibiotics. Adjusting diuretics. Cardiology eval.
Assessment / Plan
Assessment / Plan
Physical exam:
General: Acute on chronically ill
HEENT: Normocephalic, Atraumatic and Moist Mucous Membranes
Respiratory: Clear to Auscultation; Negative Wheezes, Rales or Rhonchi
Cardiac: Regular Rhythm and S1/S2
GI: Soft, Nontender and Distended, fluid wave sign positive
Musculoskeletal: Bilateral lower extremity edema. Left lower extremity erythema. Decreased range of motion on left knee but no erythema or warmth. Superficial wound plantar aspect left foot. No Clubbing, No Cyanosis
Neuro: Awake, Alert and Oriented, no gross neurological deficits.
Psych: Calm
A/P:
Cellulitis of left lower extremity:
Improving
Continue IV cefazolin, renally dosed
Monitor erythema, WBC, and temperature curve
Wound care for wound on his left foot
WBC 14.6-->13.3-->10.8
PT OT
JEFFERSON on CKD:
Suspect cardiorenal syndrome component. Cr 3.8 today
Avoid nephrotoxic
Nephrology consult appreciated-discussed with nephrology today on 10/03
If worsens may require hemodialysis but patient does not want HD
Chronic systolic CHF, ?acute component:
Nephrology holding this evening diuretic and adjusting doses
Continue GDMT
Reviewed last echocardiogram, EF 30%
We will request cardiology consult today-[place] texted cardiology today on 10/03
Left knee pain due to gouty arthritis:
No active infection
Ortho consult appreciated
s/p aspirated on 10/02 came back with crystals
Not many options in terms of treatment-ideally local steroid injection in the joint would be preferable-will discuss with orthopedic. Alternatively, we can increase oral steroids/use already take but also will lead to increased volume, increased
pressure, increased blood sugars, and some other undesirable effects nevertheless he is not a candidate for colchicine or NSAIDs.
Continue Ultram renally dose as needed.
Abdominal ascites/likely underlying cirrhosis:
Consulted IR for therapeutic paracentesis s/p done on 10/02
Continue diuretics
Paroxysmal atrial fibrillation:
Continue antiarrhythmics, amiodarone
Not on rate control agent, inherently rate controlled
Not on anticoagulation, status post watchman in the past.
Elevated LFTs:
Back to normal today 10/03
CAD:
Continue current anti-ischemic regimen
Hypertension:
Continue current antihypertensive
Gastrointestinal stromal tumor:
s/p resection in 2021
Asthma/COPD:
Continue inhalers
Chronic anemia
Hemoglobin close to baseline with mild drift. Today 7.9
Continue to monitor
Type 2 diabetes
Add insulin sliding scale and check Accu-Cheks
Continue oral hypoglycemics
Gout
Continue allopurinol
DVT prophylaxis-heparin subcu
CODE STATUS-full code
Total time spent on today's encounter was 52 minutes which included time spent in counseling the patient/family regarding diagnosis and treatment plan as listed above, goals of care, and symptom management. Case was discussed with nursing staff,
specialists, and care coordinators/case management. All labs and imaging personally reviewed by me. Remainder the time spent in detailed review of previous records, lab data, imaging, and other medical provider documentation.
Anticipated Discharge: > 48 hours
Subjective/Interval History
-
Date of Service: October 04, 2023
Patient left knee pain more tolerable, still anasarca present. No worsening shortness of breath. No chest pain. Afebrile
Objective Data
-
Labs:
Laboratory Results
10/04/23
05:51
WBC 10.8
Hgb 7.9 L
Hct 23.7 L
Plt Count 375
PT 15.8 H
INR 1.25
Sodium 135
Potassium 3.4 L
Chloride 96 L
Carbon Dioxide 26
BUN 125 H*
Creatinine 3.8 H
Glucose 96
Calcium 8.7
Total Bilirubin 0.3
AST 30
ALT 38
Alkaline Phosphatase 126
Vital Signs:
Vital Signs
Temp Pulse Resp BP Pulse Ox
98.4 F 70 16 126/62 99
10/04/23 07:24 10/04/23 07:47 10/04/23 07:47 10/04/23 07:24 10/04/23 07:47
I&O
10/03/23 10/04/23 10/05/23
06:59 06:59 06:59
Intake Total 240 / 240 540 / 540
Balance 240 / 240 540 / 540
[2023-10-04] MEDS: DEMADEX 100 MG PO (08:42)
[2023-10-04] MEDS: ISORDIL 10 MG PO ×3 (08:47→21:41)
[2023-10-04] MEDS: THERAGRAN 1 TABLET PO (08:47)
[2023-10-04] MEDS: PACERONE 200 MG PO (08:48)
[2023-10-04] MEDS: PROTONIX 40 MG PO (08:48)
[2023-10-04] MEDS: APRESOLINE 50 MG PO ×3 (08:48→21:41)
[2023-10-04] MEDS: B COMPLEX w/VITAMIN C 2 CAPLET PO (08:48)
[2023-10-04] MEDS: ZYLOPRIM 100 MG PO (08:48)
[2023-10-04] MEDS: HEPARIN 5000 UNITS SC ×2 (08:49→21:39)
[2023-10-04] MEDS: DELTASONE 5 MG PO (08:49)
[2023-10-04] MEDS: NORVASC 2.5 MG PO ×3 (08:49→21:42)
[2023-10-04] MEDS: COLACE 200 MG PO (08:49)
[2023-10-04] MEDS: ASPIR LOW (ENTERIC COATED) 81 MG PO (08:49)
[2023-10-04] MEDS: KCL 20 MEQ PO (08:49)
[2023-10-04] MEDS: DESENEX/MITRAZOL/ZEASORB 1 APPLIC TOPICAL ×2 (08:50→21:38)
[2023-10-04] MEDS: NOVOLOG FLEXPEN-MODERATE RESISTANCE SC (08:57)
[2023-10-04] MEDS: MIRALAX 17 GRAMS PO (09:07)
[2023-10-04] MEDS: KCL 40 MEQ PO (10:50)
[2023-10-04 11:59] LABS: Glucose - Point of Care 200 mg/dl (70-99)
--- NOTE | 2023-10-04 12:40 | PN.CDI ---
CDI
- -
CDI:
Physician Documentation Request
Admit Date: 10/02/23 18:59
Dear Doctor Shravan,
Please review the following and provide your response in the progress notes.
Clinical Indicators:
Pt admitted with Cellulitis of left lower extremity /HX of diabetes
Documented in H&P, ' Cellulitis of left lower extremity exacerbated by bilateral lower extremity lymphedema....'
Documented progress note 10/03,' Cellulitis of left lower extremity...Continue IV cefazolin..Type 2 diabetesAdd insulin sliding scale and check Accu-Cheks Continue oral hypoglycemics....'
10/03/23 10/03/23 10/03/23
12:37 16:34 21:45
POC Glucose 180 H 282 H 275 H
10/04/23
11:58
POC Glucose 200 H
Please provide the suspected etiology of the documented LLE Cellulitis:
Multifactorial due to Diabetes /Lymphedema
Due to Diabetes
Other ( please specify)
Use of terms such as suspected, likely, concern for, or probable (associated with a specific diagnosis that is being evaluated, monitored, or treated as if it exists) are acceptable and can be coded in the inpatient setting, when documented at the
time of discharge.
Thank you,
Janette Jacob RN
CDI Specialist
[place] [facility]
Please use your independent medical judgment in providing your response.
--- NOTE | 2023-10-04 12:47 | W.PN.NEPH.PH ---
Today's Communication / Plan
-
see plan
hold diuretics
Assessment/Plan
-
IMP:
Cellulitis of left lower extremity exacerbated by bilateral lower extremity lymphedema
Left second toe wound, plantar wound under first big toe
JEFFERSON on CKD 4 -baseline cr 2 range, nephro at [facility] Dr Pettit
Paroxysmal atrial fibrillation status post Watchman
History of pacemaker
CAD status post stent
Chronic HFrEF 30%
Hyponatremia
hypokalemia
Azotemia
Lymphedema secondary to heart failure
History of liver scar
Former alcohol use
Essential hypertension
Gastrointestinal stromal tumor s/p resection in 2021
Asthma/COPD
Chronic anemia
Type 2 diabetes
Gout
Former smoker
Elevated LFts
Left knee gout
Plan:
A/w worsening LE edema and treated for cellulitis
JEFFERSON with CKD-cardiorenal and diuretics specially addition of Metolazone last week
he is on large doses of Torsemide 100mg BID and bumex 4mg IV BID as out pt
given increasing cr and BUN will hold diuretics Torsemide, bumex already on hold
I had left [facility] on 10/02 waiting for call back
he seem to have advanced CKD baseline , follow pVR
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
He reports already noted in his living will
await cards input
BP stable on Amlodipine(TID), hydralazine
cont to replace k
DW seem around 180-185lbs, reports still 4-5 lbs over his DW
improved LFTs
hb decreasing, check fe panel
left knee gout -ortho follows, if steroids increased need very close monitoring of wt and edema
would prefer intra articular steroid as opposed to systemic
follow labs and wts
d/w pt and nursing
high risk encounter
d/w primary
-
-
Date of Service: October 04, 2023
CC / HPI / ROS
-
Chief Complaint:
JEFFERSON with CKD
History of Present Illness:
cr is up at 3.8, BUN 125
k is low 3.4, wt decreasing
WBC better, hbh decreasing 7.9
Review of Systems:
no cp or sob at rest
left knee still pain full-aspirate shows gout
Labs
-
Labs:
WBC 10.8 10^3/uL (4.8-10.8) 10/04/23 05:51
RBC 2.88 10^6/uL (4.70-6.10) L 10/04/23 05:51
Hgb 7.9 g/dL (13.0-18.0) L 10/04/23 05:51
Hct 23.7 % (39.0-52.0) L 10/04/23 05:51
Plt Count 375 10^3/uL (130-400) 10/04/23 05:51
Sodium 135 mmol/L (135-145) 10/04/23 05:51
Potassium 3.4 mmol/L (3.5-5.1) L 10/04/23 05:51
Chloride 96 mmol/L (98-107) L 10/04/23 05:51
Carbon Dioxide 26 mmol/L (22-30) 10/04/23 05:51
BUN 125 mg/dl (9-20) H* 10/04/23 05:51
Creatinine 3.8 mg/dL (0.7-1.3) H 10/04/23 05:51
eGFR 16.01 10/04/23 05:51
Glucose 96 mg/dl (70-99) 10/04/23 05:51
Calcium 8.7 mg/dl (8.4-10.2) 10/04/23 05:51
Him-R-Eplpibdspjr Pept 8850 pg/ml 10/02/23 11:44
Albumin 2.6 g/dl (3.5-5.0) L 10/04/23 05:51
Physical Exam
-
Vital Signs:
Vital Signs
Temp Pulse Resp BP Pulse Ox
98.4 F 70 16 126/62 99
10/04/23 07:24 10/04/23 07:47 10/04/23 07:47 10/04/23 07:24 10/04/23 07:47
Cardiovascular:: Regular rate and rhythm
Respiratory:: Bilateral: CTA
Lung Excursion:: Normal
Abdomen:: Distended, Nontender and Soft
Extremity Edema:: +1: Bilateral: (left>right)
Hamilton Catheter: No
--- NOTE | 2023-10-04 12:50 | CON.CAR ---
Addendum entered and electronically signed by Frank Valdes MD 10/04/23 15:41:
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 He is on high dose diuretic as
outpatient, and also gets outpatient IV bumex at infusion center. Exam with RRR, II/ systolic murmur at apex, 1+ LE edema. BUN 125, Cr 3.8.
He appears volume overloaded. But his BUN/Cr rising. Discussed with nephrology. Will hold diuretic pending RHC tomorrow to guide diuretic plan.
Original Note:
Consultation
Consultation Request
Date/Time Consultation Requested: 10/04/23921
Date/Time Consultation Performed: 10/04/23 1220
Requesting Provider: Dr. Cheney
Performing Provider: Belia SANTOYO for Dr. Valdes
Reason for Consultation: CHF
Medical History
-
Chief Complaint: LE edema, redness, weight gain
History of Present Illness:
73 y/o male with complex medical history, which includes HFrEF EF around 30% (OP records 2022), per chart NICM/suspected restrictive CM, pulmonary hypertension, CKD, AFIB on amiodarone with watchman (not on OAC with recurrent GIB), CAD with hx
stenting, DM2, VIRGILIO on CPAP, HTN, anemia, GIST with recurrent ascites hx surgery gets routine paracenteses, hx GIB, pacemaker. 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 Basilia Delacruz). He is here
because he has increased LE edema L > R. He has also reported a 25 lb weight gain since September 13. He is on torsemide 100 mg PO BID as OP and is on Bumex 4 mg IV twice weekly. He also uses PRN metolazone. He takes those medicines and has had normal
to increased urine output at home. No DVT on u/s. He denies any SOB. He is s/p paracentesis yesterday for 2600 ml. Nephrology is managing his diuretics with his very elevated BUN/creatinine. He is in no distress at the time of my assessment. His
LE's are less swollen, but not back to baseline. He denies any fever or chills. He is being treated for cellulitis with IV abx.
Past Medical History
Past Medical History: Arrhythmias, CAD, CHF, HTN, NIDDM, Renal Failure and Other (as above)
Social History
Tobacco: Former Smoker
Alcohol: Former
Personal:
Family History
Family History: Reviewed & Not Pertinent
Allergies / Home Medications
Allergy/AdvReac Type Severity Reaction Status Date / Time
baclofen Allergy comatose Verified 10/02/23 10:02
and
sleepwalking
strawberry Allergy swelling Verified 10/02/23 10:02
from head
to toe
blood thinners Allergy Unknown Uncoded 09/28/23 09:39
�Medication �Instructions �Recorded �Confirmed �Type
albuterol sulfate 90 mcg/actuation 2 puff inhalation R Q6HPRN PRN sob 11/18/19 10/02/23 History
aerosol inhaler
atorvastatin 40 mg tablet 40 mg PO HS High cholesterol 01/12/20 10/02/23 History
potassium chloride 20 mEq 20 meq PO DAILY Electrolyte 05/10/20 10/02/23 History
tablet,extended Repletion
release(part/cryst) (Klor-Con M)
torsemide 20 mg tablet 100 mg PO BID Fluid 10/25/20 10/02/23 History
retention/Swelling
multivitamin 1 ea PO DAILY Supplement 07/05/21 10/02/23 History
glimepiride 1 mg tablet 4 mg PO HS Diabetes 09/26/21 10/02/23 History
amiodarone 200 mg tablet 200 mg PO DAILY Arrhythmia 08/15/22 10/02/23 History
hydralazine 50 mg tablet 50 mg PO TID Blood Pressure 08/15/22 10/02/23 History
isosorbide dinitrate 20 mg tablet 10 mg PO TID angina 08/15/22 10/02/23 History
pantoprazole 40 mg tablet,delayed 40 mg PO DAILY Gastrointestinal 08/15/22 10/02/23 History
release Issue
amlodipine 2.5 mg tablet (Norvasc) 2.5 mg PO TID Blood Pressure 11/03/22 10/02/23 History
allopurinol 100 mg tablet 100 mg PO DAILY Gout 05/04/23 10/02/23 History
vitamin B complex 2 tab PO DAILY Supplement 05/16/23 10/02/23 History
aspirin 81 mg tablet,delayed 81 mg PO DAILY Blood Clot 05/25/23 10/02/23 History
release Prevention/Tx
prednisone 10 mg tablet 5 mg PO DAILY Anti-Inflammatory 07/13/23 10/02/23 History
cephalexin 500 mg capsule 500 mg PO BID Infection 09/19/23 10/02/23 History
Bumex Infusion 4 mg IV WEFR Fluid 10/02/23 10/02/23 History
Retention/Swelling
docusate sodium 100 mg capsule 200 mg PO DAILY Constipation 10/02/23 10/02/23 History
(Colace)
fluticasone fur. 200 mcg-umeclid 1 inh inhalation R DAILY 10/02/23 10/02/23 History
62.5 mcg-vilant 25 mcg Lung/Breathing Issues
inhalat.powder (Trelegy Ellipta)
polyethylene glycol 3350 17 gram 17 g PO DAILY Constipation 10/02/23 10/02/23 History
oral powder packet (Miralax)
Review of Systems
-
History Source: Patient
All other systems: Negative unless noted
Constitutional: Weight Gain
Musculoskeletal: Edema
Skin: Other (redness LLE)
Physical Exam
Vital Signs
Temp Pulse Resp BP Pulse Ox
98.4 F 70 16 126/62 99
10/04/23 07:24 10/04/23 07:47 10/04/23 07:47 10/04/23 07:24 10/04/23 07:47
Lab Results
10/04/23 05:51
10/04/23 05:51
Hua-W-Myouwwerrfc Pept 8850 pg/ml 10/02/23 11:44
Physical Exam
General: Well Developed, Well Nourished and No Apparent Distress
HEENT: Normocephalic and Anicteric
Respiratory: Clear and Non Labored Respirations
Cardiac: Regular Rhythm
GI: Distended
Skin: Warm and Dry
Neuro: AO x 3
Psych: Calm
Impression / Plan
-
LE edema:
-improving
-he is being treated for cellulitis
-he is on his OP torsemide and diuretics are being managed by nephrology
NICM:
-per OP notes from his at [facility], there is suspicion for restrictive CM
-he is on advanced HF therapy managed by Dr. Delacruz and we will continue
-has conduction system pacemaker
-on hydralazine and Imdur, GDMT limited by renal disease
HFrEF:
-weight is up- dry weight 185 lbs per patient and currently 191 lbs
-perhaps some [id number] with cardiorenal component as below
-he is on torsemide 100 mg PO BID and IV Bumex 4 mg twice weekly. Nephrology is managing diuretics due to severe kidney issues.
-obtain baseline EKG, environmental monitoring technician, echo
-complex case will discuss with Dr. Valdes
-update echo
JEFFERSON on CKD:
-severe
-nephrology is following
Ascites:
-s/p paracenteses (-2600 ml yesterday), which he gets regularly
CAD with hx stenting:
-stable
-continue ASA, statin
PAF:
-check EKG
-on amiodarone
-hx watchman
Data Reviewed
-
EKG: Other (ordered EKG)
Ultrasound: Report Reviewed by me (No evidence of deep venous thrombosis of the left lower extremity. )
Medical Tests (Nuc Med, Echo etc): Report Reviewed by me ([facility] report from 05/31/22 EF 25-30%)
Labs: Labs Reviewed by me
[2023-10-04] MEDS: NOVOLOG FLEXPEN-MODERATE RESISTANCE 3 UNITS SC (13:56)
[2023-10-04 15:22] VITALS: BP 140/89
[2023-10-04 16:02] VITALS: BP 129/63; PULSE 72; O2SAT 98
[2023-10-04 16:33] LABS: Glucose - Point of Care 404 mg/dl (70-99)
[2023-10-04 17:04] LABS: Glucose 345 mg/dl (70-99)
[2023-10-04] MEDS: NOVOLOG FLEXPEN-MODERATE RESISTANCE 9 UNITS SC (17:52)
[2023-10-04 19:05] VITALS: BP 134/66
[2023-10-04 19:36] LABS: Glucose - Point of Care 384 mg/dl (70-99)
[2023-10-04 21:21] LABS: Glucose - Point of Care 287 mg/dl (70-99)
[2023-10-04] MEDS: LIPITOR 40 MG PO (21:42)
[2023-10-04] MEDS: MELATONIN 5 MG PO (21:42)
[2023-10-04] MEDS: AMARYL 4 MG PO (21:43)
[2023-10-04 23:00] VITALS: BP 123/62
[2023-10-05] VITALS (14 sets, daily range): BP systolic 113–139; BP diastolic 53–67; BMI 30.9
[2023-10-05] MEDS: ANCEF 5 IV ×2 (01:01→14:06)
[2023-10-05] MEDS: ULTRAM 50 MG PO ×2 (01:03→18:26)
[2023-10-05 06:42] LABS: Hematocrit 24.9 % (39.0-52.0); Hemoglobin 8.2 g/dL (13.0-18.0)
[2023-10-05 07:00] LABS: Glucose - Point of Care 123 mg/dl (70-99)
[2023-10-05 07:13] LABS: Calcium 8.9 mg/dl (8.4-10.2); Carbon Dioxide 28 mmol/L (22-30); Chloride 98 mmol/L (98-107); Estimated Creatinine Clearance 21 ml/min; Glucose 113 mg/dl (70-99); Potassium 3.8 mmol/L (3.5-5.1); Sodium 136 mmol/L (135-145); eGFR 19.68
[2023-10-05 07:31] LABS: Blood Urea Nitrogen 124 mg/dl (9-20)
[2023-10-05] MEDS: NOVOLOG FLEXPEN-MODERATE RESISTANCE SC (07:35)
[2023-10-05] MEDS: SYMBICORT 160/4.5 MCG INHALER 2 PUFF INH ×2 (08:03→18:25)
[2023-10-05] MEDS: SPIRIVA RESPIMAT 2.5 MCG 2 PUFF INH (08:03)
[2023-10-05] MEDS: B COMPLEX w/VITAMIN C PO (08:08)
[2023-10-05] MEDS: COLACE PO (08:08)
[2023-10-05] MEDS: MIRALAX PO (08:09)
[2023-10-05] MEDS: THERAGRAN PO (08:09)
[2023-10-05] MEDS: HEPARIN SC (08:09)
[2023-10-05] MEDS: PROTONIX PO (08:09)
[2023-10-05] MEDS: ZYLOPRIM 100 MG PO (08:10)
[2023-10-05] MEDS: ISORDIL 10 MG PO ×3 (08:10→21:17)
[2023-10-05] MEDS: ASPIR LOW (ENTERIC COATED) 81 MG PO (08:11)
[2023-10-05] MEDS: APRESOLINE 50 MG PO ×3 (08:11→21:16)
[2023-10-05] MEDS: PACERONE 200 MG PO (08:11)
[2023-10-05] MEDS: NORVASC 2.5 MG PO ×3 (08:11→21:18)
[2023-10-05] MEDS: DESENEX/MITRAZOL/ZEASORB 1 APPLIC TOPICAL ×2 (08:12→20:55)
[2023-10-05] MEDS: DELTASONE 5 MG PO (08:12)
--- NOTE | 2023-10-05 08:20 | W.PN.UPDATE ---
Update Note
Progress Note Update
Cultures continue to be negative from aspirate; consistent with inflammatory arthropathy
-treatment as per medicine/rheumatology for noninfectious inflammatory arthropathy; no surgical indication.
-orthopedics will follow peripherally at this time.
--- NOTE | 2023-10-05 09:23 | PTOTSP ---
Pt currently at mod I level with basic self care, transfers and functional mobility in room and bathroom. Skilled OT intervention not indicated at this time. Will sign off.
--- NOTE | 2023-10-05 09:31 | W.PN.HOSP.TC ---
Today's Communication/Plan
-
Plan for right heart cath. Diuresis
Assessment / Plan
Assessment / Plan
Physical exam:
General: Acute on chronically ill
HEENT: Normocephalic, Atraumatic and Moist Mucous Membranes
Respiratory: Clear to Auscultation; Negative Wheezes, Rales or Rhonchi
Cardiac: Regular Rhythm and S1/S2
GI: Soft, Nontender and Distended, fluid wave sign positive
Musculoskeletal: Bilateral lower extremity edema. Left lower extremity erythema. Decreased range of motion on left knee but no erythema or warmth. Superficial wound plantar aspect left foot. No Clubbing, No Cyanosis
Neuro: Awake, Alert and Oriented, no gross neurological deficits.
Psych: Calm
A/P:
Acute on chronic systolic CHF:
Plan for right heart cath today
Nephrology adjusting doses diuretics
He might need higher doses of diuretic but we will wait for cath results
Continue GDMT
Reviewed last echocardiogram, EF 30%
PT OT eval
Discussed with daughter, who is RN, at bedside
JEFFERSON on CKD:
Suspect cardiorenal syndrome component. Cr 3.2 today
Avoid nephrotoxic
Nephrology consult and follow-up appreciated
If worsens may require hemodialysis but patient does not want HD
Anasarca:
Arms and legs swollen related to heart failure and underlying CKD. He is already on anticoagulation but given concerns we will go ahead and check ultrasound of extremities
Left knee pain due to gouty arthritis:
No active infection
Ortho consult appreciated
s/p aspirated on 10/02 came back with crystals
Not many options in terms of treatment-ideally local steroid injection in the joint would be preferable-will discuss with orthopedic. Alternatively, we can increase oral steroids/use already take but also will lead to increased volume, increased
pressure, increased blood sugars, and some other undesirable effects nevertheless he is not a candidate for colchicine or NSAIDs.
Continue Ultram renally dose as needed.
Discussed with orthopedic yesterday on 10/03 and relayed that we would prefer steroid joint injection rather than using systemic steroids for reasons stated above. Orthopedics said that he they will reevaluate today for possible steroid injection.
Cellulitis of left lower extremity:
Improving
Continue IV cefazolin, renally dosed
Monitor erythema, WBC, and temperature curve
Wound care for wound on his left foot
WBC 14.6-->13.3-->10.8
PT OT
Abdominal ascites/likely underlying cirrhosis:
Consulted IR for therapeutic paracentesis s/p done on 10/02
Continue diuretics
Paroxysmal atrial fibrillation:
Continue antiarrhythmics, amiodarone
Not on rate control agent, inherently rate controlled
Not on anticoagulation, status post watchman in the past.
Elevated LFTs:
Back to normal today 10/03
CAD:
Continue current anti-ischemic regimen
Hypertension:
Continue current antihypertensive
Gastrointestinal stromal tumor:
s/p resection in 2021
Asthma/COPD:
Continue inhalers
Chronic anemia
Hemoglobin close to baseline. Today Hb 8.2
Continue to monitor
Type 2 diabetes
Add insulin sliding scale and check Accu-Cheks
Continue oral hypoglycemics
Gout
Continue allopurinol
DVT prophylaxis-heparin subcu
CODE STATUS-full code
Total time spent on today's encounter was 52 minutes which included time spent in counseling the patient/family regarding diagnosis and treatment plan as listed above, goals of care, and symptom management. Case was discussed with nursing staff,
specialists, and care coordinators/case management. All labs and imaging personally reviewed by me. Remainder the time spent in detailed review of previous records, lab data, imaging, and other medical provider documentation.
Anticipated Discharge: > 48 hours
Subjective/Interval History
-
Date of Service: October 05, 2023
Patient with significant anasarca. Still having knee pain. Afebrile.
Objective Data
-
Labs:
Laboratory Results
10/05/23
06:19
Hgb 8.2 L
Hct 24.9 L
Sodium 136
Potassium 3.8
Chloride 98
Carbon Dioxide 28
BUN 124 H*
Creatinine 3.2 H
Glucose 113 H
Calcium 8.9
Vital Signs:
Vital Signs
Temp Pulse Resp BP Pulse Ox
98.0 F 71 16 128/67 98
10/05/23 07:15 10/05/23 08:08 10/05/23 08:08 10/05/23 07:15 10/05/23 08:08
I&O
10/04/23 10/05/23 10/06/23
06:59 06:59 06:59
Intake Total 540 / 540
Balance 540 / 540
[2023-10-05 11:55] LABS: Glucose - Point of Care 130 mg/dl (70-99)
--- NOTE | 2023-10-05 12:13 | W.PN.NEPH.PH ---
Today's Communication / Plan
-
RHC
Assessment/Plan
-
IMP:
Cellulitis of left lower extremity exacerbated by bilateral lower extremity lymphedema
Left second toe wound, plantar wound under first big toe
JEFFERSON on CKD 4 -baseline cr 2 range, nephro at [place] Dr Pettit
Paroxysmal atrial fibrillation status post Watchman
History of pacemaker
CAD status post stent
Chronic HFrEF 30%
Hyponatremia
hypokalemia
Azotemia
Lymphedema secondary to heart failure
History of liver scar
Former alcohol use
Essential hypertension
Gastrointestinal stromal tumor s/p resection in 2021
Asthma/COPD
Chronic anemia
Type 2 diabetes
Gout
Former smoker
Elevated LFts
Left knee gout
Plan:
await RHC, expect high wedge
paracentesis prn
He will likely return to similar regimen of torsemide 100mg BID with bumex 4mg IV 2-3x/week
He has used metolazone previously and this will likely need to be used more often since more frequent bumex IV is impractical
We discussed that perhaps he has a higher 'true' Cr which we see when his volume status is improved, as opposed to seeing a prerenal elevated Cr.
-
-
Date of Service: October 05, 2023
CC / HPI / ROS
-
Chief Complaint:
JEFFERSON with CKD
History of Present Illness:
JEFFERSON/Cr down to 3.2
BUN stable 124
k normal
diuretics on hold. for RHC today
Review of Systems:
no cp or sob at rest
left knee still pain full-aspirate shows gout
Labs
-
Labs:
WBC 10.8 10^3/uL (4.8-10.8) 10/04/23 05:51
RBC 2.88 10^6/uL (4.70-6.10) L 10/04/23 05:51
Hgb 8.2 g/dL (13.0-18.0) L 10/05/23 06:19
Hct 24.9 % (39.0-52.0) L 10/05/23 06:19
Plt Count 375 10^3/uL (130-400) 10/04/23 05:51
Sodium 136 mmol/L (135-145) 10/05/23 06:19
Potassium 3.8 mmol/L (3.5-5.1) 10/05/23 06:19
Chloride 98 mmol/L (98-107) 10/05/23 06:19
Carbon Dioxide 28 mmol/L (22-30) 10/05/23 06:19
BUN 124 mg/dl (9-20) H* 10/05/23 06:19
Creatinine 3.2 mg/dL (0.7-1.3) H 10/05/23 06:19
eGFR 19.68 10/05/23 06:19
Glucose 113 mg/dl (70-99) H 10/05/23 06:19
Calcium 8.9 mg/dl (8.4-10.2) 10/05/23 06:19
Ufk-O-Yuothnihuen Pept 8850 pg/ml 10/02/23 11:44
Albumin 2.6 g/dl (3.5-5.0) L 10/04/23 05:51
Physical Exam
-
Vital Signs:
Vital Signs
Temp Pulse Resp BP Pulse Ox
98.0 F 71 18 130/60 99
10/05/23 11:25 10/05/23 11:25 10/05/23 11:25 10/05/23 11:25 10/05/23 11:25
Cardiovascular:: Regular rate and rhythm
Lung Excursion:: Normal
Abdomen:: Nontender and Soft
Bowel Sounds:: Normal
Extremity Edema:: +2: Bilateral:
--- NOTE | 2023-10-05 12:14 | CM ---
Reviewed chart, patient functioning at baseline level of care.
Plan: Case management will continue to follow and assist with discharge planning. Home when medically cleared.
--- NOTE | 2023-10-05 13:01 | ITS.CL.CATH ---
Lithographed Plate Inspector - Catheterization
Cardiac Catheterization
Procedure Report:
CARDIAC CATHETERIZATION REPORT
Date of Procedure: 10/05/23
Referring: Dr. Valdes
Indication: heart failure
PROCEDURE: Right heart catheterization.
ACCESS: 6 [place] right antecubital vein.
CATHETERS: 6 [place].
HEMODYNAMIC DATA
RA 20
RV 77/11 (mean 22)
PA 74/29 (mean 47)
PCWP 30 (v-waves to 46)
CO/CI 5.4/2.8
PVR 3.1
RADIATION DATA
Dose (mGy): 33.3
DAP (cm2.Gy): 4.3
Fluoroscopy time (minutes): 2.7
CONCLUSIONS:
1. Severely elevated biventricular filling pressures (RA 20, PCWP 30 w/ v-waves to 46)
2. Severe, predominantly post-capillary pulmonary hypertension
3. Preserved cardiac output and index.
RECOMMENDATIONS:
1. Expectant management after cardiac catheterization via right brachial approach
2. Continued management of acute on chronic systolic heart failure
Copy to: Dr. Basilia Delacruz DO ([place])
Jameson Nunez MD, PhD
[2023-10-05 14:11] LABS: Glucose - Point of Care 162 mg/dl (70-99)
[2023-10-05 16:54] LABS: Glucose - Point of Care 235 mg/dl (70-99)
[2023-10-05] MEDS: NOVOLOG FLEXPEN-MODERATE RESISTANCE 3 UNITS SC (17:17)
[2023-10-05] MEDS: HEPARIN 5000 UNITS SC (20:55)
[2023-10-05] MEDS: AMARYL 4 MG PO (21:14)
[2023-10-05] MEDS: LIPITOR 40 MG PO (21:18)
[2023-10-05] MEDS: MELATONIN 5 MG PO (21:18)
[2023-10-05 21:30] LABS: Glucose - Point of Care 299 mg/dl (70-99)
--- NOTE | 2023-10-05 23:32 | W.PN.UPDATE ---
Update Note
Progress Note Update
SVT
warm compress and arm elevation
--- NOTE | 2023-10-05 23:56 | PTCARENOTE ---
Patient taken for U/S of right lower extremity and b/l upper extremities.
Report for B/L upper extremities notable for nonocclusive venous thrombus in the right cephalic vein at and just above the elbow. Limb alert placed on right upper extremity.
House provider notified, use warm compress and elevate the arm. Patient states he has no pain in the right arm and that arm is not swollen. Left arm is swollen.
[2023-10-06] VITALS (7 sets, daily range): BP systolic 113–135; BP diastolic 59–78; BMI 30.7
[2023-10-06] MEDS: ANCEF 5 IV ×2 (02:12→13:45)
[2023-10-06] MEDS: SYMBICORT 160/4.5 MCG INHALER 2 PUFF INH ×2 (07:42→19:48)
[2023-10-06] MEDS: SPIRIVA RESPIMAT 2.5 MCG 2 PUFF INH (07:42)
[2023-10-06 07:57] LABS: Glucose - Point of Care 136 mg/dl (70-99)
[2023-10-06] MEDS: NOVOLOG FLEXPEN-MODERATE RESISTANCE SC (08:03)
[2023-10-06] MEDS: ASPIR LOW (ENTERIC COATED) 81 MG PO (08:12)
[2023-10-06] MEDS: B COMPLEX w/VITAMIN C 2 CAPLET PO (08:12)
[2023-10-06] MEDS: COLACE 200 MG PO (08:12)
[2023-10-06] MEDS: PACERONE 200 MG PO (08:13)
[2023-10-06] MEDS: HEPARIN 5000 UNITS SC ×2 (08:16→21:09)
[2023-10-06] MEDS: THERAGRAN 1 TABLET PO (08:16)
[2023-10-06] MEDS: ISORDIL 10 MG PO ×3 (08:16→21:07)
[2023-10-06] MEDS: PROTONIX 40 MG PO (08:16)
[2023-10-06] MEDS: APRESOLINE 50 MG PO ×3 (08:16→21:08)
[2023-10-06] MEDS: NORVASC 2.5 MG PO ×3 (08:16→21:04)
[2023-10-06] MEDS: ZYLOPRIM 100 MG PO (08:17)
[2023-10-06] MEDS: DELTASONE 5 MG PO (08:17)
[2023-10-06] MEDS: MIRALAX 17 GRAMS PO (08:18)
[2023-10-06 08:22] LABS: Hematocrit 26.1 % (39.0-52.0); Hemoglobin 8.7 g/dL (13.0-18.0)
[2023-10-06 08:47] LABS: Blood Urea Nitrogen 118 mg/dl (9-20); Calcium 9.1 mg/dl (8.4-10.2); Carbon Dioxide 27 mmol/L (22-30); Chloride 99 mmol/L (98-107); Estimated Creatinine Clearance 23 ml/min; Glucose 120 mg/dl (70-99); Potassium 4.2 mmol/L (3.5-5.1); Sodium 138 mmol/L (135-145); eGFR 22.15
--- NOTE | 2023-10-06 09:07 | W.PN.HOSP.TC ---
Addendum entered and electronically signed by Oswald Cheney MD 10/06/23 17:06:
Discussed with cardio and nephrology and if further diuresis will be entertained is still being discussed vs d/c planning so will reeval tomorrow with cardio and nephro.
Original Note:
Today's Communication/Plan
-
Diuretics. Antibiotics.
Assessment / Plan
Assessment / Plan
Physical exam:
General: Acute on chronically ill
HEENT: Normocephalic, Atraumatic and Moist Mucous Membranes
Respiratory: Clear to Auscultation; Negative Wheezes, Rales or Rhonchi
Cardiac: Regular Rhythm and S1/S2
GI: Soft, Nontender and Distended, fluid wave sign positive
Musculoskeletal: Bilateral lower extremity edema. Left lower extremity erythema. Decreased range of motion on left knee but no erythema or warmth. Superficial wound plantar aspect left foot. No Clubbing, No Cyanosis
Neuro: Awake, Alert and Oriented, no gross neurological deficits.
Psych: Calm
A/P:
Acute on chronic systolic CHF:
Status post right heart cath
Nephrology adjusting doses diuretics
He might need higher doses of diuretic but we will wait for cath results
Continue GDMT
Reviewed last echocardiogram, EF 30%
PT OT eval
Discussed with daughter, who is RN, at bedside yesterday.
Discussed with at bedside today on 10/05.
Will follow-up further cardiology and nephrology recommendations.
JEFFERSON on CKD:
Suspect cardiorenal syndrome component. Cr 2.9 today (peak 3.8)
Avoid nephrotoxic
Nephrology consult and follow-up appreciated
If worsens may require hemodialysis but patient does not want HD
Follow-up further nephrology recommendation
Cellulitis of left lower extremity:
Improving
Continue IV cefazolin, renally dosed-->Will switch IV antibiotics to oral tomorrow
Monitor erythema, WBC, and temperature curve
Wound care for wound on his left foot
WBC 14.6-->13.3-->10.8
PT OT
Right cephalic vein thrombosis:
Discussed with patient and at bedside that this is superficial thrombosis and options are low-dose Eliquis or conservative treatment with warm compresses and follow-up images a couple weeks down the road as outpatient. Patient prefers
conservative treatment without anticoagulation at this point and that seems reasonable.
Anasarca:
Arms and legs swollen related to heart failure and underlying CKD. Checked ultrasound of extremities--> shows findings as above.
Left knee pain due to gouty arthritis:
No active infection
Ortho consult appreciated
s/p aspirated on 10/02 came back with crystals
Not many options in terms of treatment-ideally local steroid injection in the joint would be preferable-will discuss with orthopedic. Alternatively, we can increase oral steroids/use already take but also will lead to increased volume, increased
pressure, increased blood sugars, and some other undesirable effects nevertheless he is not a candidate for colchicine or NSAIDs.
Continue Ultram renally dose as needed.
Discussed with orthopedic on 10/03 and relayed that we would prefer steroid joint injection rather than using systemic steroids for reasons stated above. Orthopedics said that he they will reevaluate on 10/04 for possible steroid injection but it did
not happen. In any event, patient is doing better without any intervention--> with the peripheral edema coming down he is also improving on his gout.
Abdominal ascites/likely underlying cirrhosis:
Consulted IR for therapeutic paracentesis s/p done on 10/02
Continue diuretics
Paroxysmal atrial fibrillation:
Continue antiarrhythmics, amiodarone
Not on rate control agent, inherently rate controlled
Not on anticoagulation, status post watchman in the past.
Elevated LFTs:
Back to normal today 10/03
CAD:
Continue current anti-ischemic regimen
Hypertension:
Continue current antihypertensive
Gastrointestinal stromal tumor:
s/p resection in 2021
Asthma/COPD:
Continue inhalers
Chronic anemia
Hemoglobin close to baseline. Today Hb 8.2
Continue to monitor
Type 2 diabetes
Add insulin sliding scale and check Accu-Cheks
Continue oral hypoglycemics
Gout
Continue allopurinol
DVT prophylaxis-heparin subcu
CODE STATUS-full code
Anticipated Discharge: 24 - 48 hours
Subjective/Interval History
-
Date of Service: October 06, 2023
Patient swelling is coming down, patient erythema is improving, afebrile. No chest pain. Knee pain is much improved.
Objective Data
-
Labs:
Laboratory Results
10/06/23
06:04
Hgb 8.7 L
Hct 26.1 L
Sodium 138
Potassium 4.2
Chloride 99
Carbon Dioxide 27
BUN 118 H*
Creatinine 2.9 H
Glucose 120 H
Calcium 9.1
Vital Signs:
Vital Signs
Temp Pulse Resp BP Pulse Ox
98.4 F 71 19 113/67 98
10/06/23 08:00 10/06/23 08:13 10/06/23 08:00 10/06/23 08:13 10/06/23 08:00
I&O
10/05/23 10/06/23 10/07/23
06:59 06:59 06:59
Intake Total 760 / 760
Balance 760 / 760
--- NOTE | 2023-10-06 09:11 | W.PN.NEPH.PH ---
Today's Communication / Plan
-
Metolazone
Assessment/Plan
-
IMP:
Cellulitis of left lower extremity exacerbated by bilateral lower extremity lymphedema
Left second toe wound, plantar wound under first big toe
JEFFERSON on CKD 4 -baseline cr 2 range, nephro at [place] Dr Pettit
Paroxysmal atrial fibrillation status post Watchman
History of pacemaker
CAD status post stent
Chronic HFrEF 30%
Hyponatremia
hypokalemia
Azotemia
Lymphedema secondary to heart failure
History of liver scar
Former alcohol use
Essential hypertension
Gastrointestinal stromal tumor s/p resection in 2021
Asthma/COPD
Chronic anemia
Type 2 diabetes
Gout
Former smoker
Elevated LFts
Left knee gout
Plan:
paracentesis prn
He can return to outpatient regimen of torsemide 100mg BID with bumex 4mg IV 2x/week
Will give metolazone 2.5 mg today
He has used metolazone previously and this will likely need to be used more often since more frequent bumex IV is impractical
We discussed that perhaps he has a higher 'true' Cr which we see when his volume status is improved, as opposed to seeing a prerenal elevated Cr.
DC planning
-
-
Date of Service: October 06, 2023
CC / HPI / ROS
-
Chief Complaint:
JEFFERSON with CKD
History of Present Illness:
JEFFERSON/Cr down to 2.9
BUN stable 118
k normal
diuretics on hold. s/p RHC yesterday with wedge 30
Review of Systems:
no cp or sob at rest
left knee-aspirate shows gout
Labs
-
Labs:
WBC 10.8 10^3/uL (4.8-10.8) 10/04/23 05:51
RBC 2.88 10^6/uL (4.70-6.10) L 10/04/23 05:51
Hgb 8.7 g/dL (13.0-18.0) L 10/06/23 06:04
Hct 26.1 % (39.0-52.0) L 10/06/23 06:04
Plt Count 375 10^3/uL (130-400) 10/04/23 05:51
Sodium 138 mmol/L (135-145) 10/06/23 06:04
Potassium 4.2 mmol/L (3.5-5.1) 10/06/23 06:04
Chloride 99 mmol/L (98-107) 10/06/23 06:04
Carbon Dioxide 27 mmol/L (22-30) 10/06/23 06:04
BUN 118 mg/dl (9-20) H* 10/06/23 06:04
Creatinine 2.9 mg/dL (0.7-1.3) H 10/06/23 06:04
eGFR 22.15 10/06/23 06:04
Glucose 120 mg/dl (70-99) H 10/06/23 06:04
Calcium 9.1 mg/dl (8.4-10.2) 10/06/23 06:04
Tnf-Q-Legcjbmdehh Pept 8850 pg/ml 10/02/23 11:44
Albumin 2.6 g/dl (3.5-5.0) L 10/04/23 05:51
Physical Exam
-
Vital Signs:
Vital Signs
Temp Pulse Resp BP Pulse Ox
98.4 F 71 19 113/67 98
10/06/23 08:00 10/06/23 08:13 10/06/23 08:00 10/06/23 08:13 10/06/23 08:00
Cardiovascular:: Regular rate and rhythm
Respiratory:: Bilateral: Coarse
Lung Excursion:: Normal
Abdomen:: Nontender and Soft
Bowel Sounds:: Normal
Extremity Edema:: +1: Bilateral:
[2023-10-06] MEDS: ZAROXOLYN 2.5 MG PO (09:12)
[2023-10-06] MEDS: DESENEX/MITRAZOL/ZEASORB 1 APPLIC TOPICAL ×2 (09:13→21:09)
[2023-10-06 12:38] LABS: Glucose - Point of Care 262 mg/dl (70-99)
[2023-10-06] MEDS: NOVOLOG FLEXPEN-MODERATE RESISTANCE 5 UNITS SC (13:30)
--- NOTE | 2023-10-06 13:30 | W.PN.CD ---
Today's Communication / Plan
-
Right heart cath yesterday showed shows elevated filling pressures with a wedge pressure of 30. Also with pulmonary hypertension with PA pressure 74/29
-Recommend continue diuresis and close monitoring renal function. Will review with both nephrology and primary team
Impression / Plan
-
LE edema:
-improving
-he is being treated for cellulitis
-he is on his OP torsemide and diuretics are being managed by nephrology. Right heart cath on 10/05/2023 shows elevated filling pressures with PCWP 30. Would recommend continue diuresis.
NICM:
-per OP notes from his at [facility], there is suspicion for restrictive CM
-he is on advanced HF therapy managed by Dr. Delacruz and we will continue
-has conduction system pacemaker
-on hydralazine and Imdur, GDMT limited by renal disease
HFrEF:
-weight is up- dry weight 185 lbs per patient and currently 191 lbs
-perhaps some [id number] with cardiorenal component as below
-he is on torsemide 100 mg PO BID and IV Bumex 4 mg twice weekly. Nephrology is managing diuretics due to severe kidney issues.
-obtain baseline EKG, hospital monitor, echo
-Echocardiogram 10/04/2023 with global hypokinesis ejection fraction 30-35 severe pulmonary hypertension with PA pressure of 60 to 65 mmHg.
-Cath 10/05/23 1. Severely elevated biventricular filling pressures (RA 20, PCWP 30 w/ v-waves to 46)
2. Severe, predominantly post-capillary pulmonary hypertension
3. Preserved cardiac output and index.
JEFFERSON on CKD: Improving with diuresis.
-severe
-nephrology is following
Ascites:
-s/p paracenteses (-2600 ml yesterday), which he gets regularly
CAD with hx stenting:
-stable
-continue ASA, statin
PAF:
-check EKG
-on amiodarone
-hx watchman
Physical Exam
Vital Signs/Labs
Vital Signs
Temp Pulse Resp BP Pulse Ox
98.5 F 73 19 135/68 97
10/06/23 11:00 10/06/23 11:00 10/06/23 11:00 10/06/23 11:00 10/06/23 11:00
10/05/23 10/06/23 10/07/23
06:59 06:59 06:59
Actual Weight 86.806 kg 86.228 kg
10/06/23 06:04
10/06/23 06:04
PT 15.8 Sec (11.4-14.6) H 10/04/23 05:51
INR 1.25 10/04/23 05:51
Magnesium 2.2 mg/dl (1.6-2.3) 10/03/23 06:30
10/02/23
11:44
Bnz-S-Gkwkbomywlb Pept 8850
Physical Exam
Constitutional: No acute distress
Cardiovascular: Rhythm & rate is regular
Respiratory: Respiratory effort normal
GI: Other (Abdominal distention limits exam. Nontender.)
Neuro/Psych: Alert and Oriented
Other: Other (Bilateral lower extremity edema)
Data Reviewed
-
Date of Service: October 06, 2023
Medical Decision Making: Reviewed Test Results
X-Ray/CT/US/MRI/NUC/PET: Report Reviewed by me
Labs: Labs Reviewed by me
[2023-10-06] MEDS: DEMADEX 100 MG PO (16:23)
[2023-10-06] MEDS: NOVOLOG FLEXPEN-MODERATE RESISTANCE 9 UNITS SC (17:16)
[2023-10-06 17:18] LABS: Glucose - Point of Care 359 mg/dl (70-99)
[2023-10-06 21:03] LABS: Glucose - Point of Care 197 mg/dl (70-99)
[2023-10-06] MEDS: ULTRAM 50 MG PO (21:04)
[2023-10-06] MEDS: MELATONIN 5 MG PO (21:04)
[2023-10-06] MEDS: AMARYL 4 MG PO (21:07)
[2023-10-06] MEDS: LIPITOR 40 MG PO (21:08)
[2023-10-07] MEDS: ANCEF 5 IV (03:31)
[2023-10-07 03:56] VITALS: BP 121/58
[2023-10-07 05:54] VITALS: BMI 30.7
[2023-10-07 07:27] LABS: Hematocrit 24.7 % (39.0-52.0); Hemoglobin 8.1 g/dL (13.0-18.0)
[2023-10-07] MEDS: SYMBICORT 160/4.5 MCG INHALER 2 PUFF INH (07:30)
[2023-10-07] MEDS: SPIRIVA RESPIMAT 2.5 MCG 2 PUFF INH (07:31)
[2023-10-07 07:46] LABS: Glucose - Point of Care 83 mg/dl (70-99)
[2023-10-07] MEDS: MIRALAX 17 GRAMS PO (08:08)
[2023-10-07] MEDS: NOVOLOG FLEXPEN-MODERATE RESISTANCE SC (08:08)
[2023-10-07] MEDS: HEPARIN 5000 UNITS SC (08:09)
[2023-10-07] MEDS: DEMADEX 100 MG PO (08:09)
[2023-10-07] MEDS: DELTASONE 5 MG PO (08:10)
[2023-10-07] MEDS: APRESOLINE 50 MG PO (08:10)
[2023-10-07] MEDS: ISORDIL 10 MG PO (08:10)
[2023-10-07] MEDS: PROTONIX 40 MG PO (08:10)
[2023-10-07] MEDS: ASPIR LOW (ENTERIC COATED) 81 MG PO (08:10)
[2023-10-07] MEDS: COLACE 200 MG PO (08:10)
[2023-10-07] MEDS: PACERONE 200 MG PO (08:10)
[2023-10-07] MEDS: THERAGRAN 1 TABLET PO (08:10)
[2023-10-07] MEDS: NORVASC 2.5 MG PO (08:11)
[2023-10-07 08:18] LABS: Blood Urea Nitrogen 122 mg/dl (9-20); Calcium 8.9 mg/dl (8.4-10.2); Carbon Dioxide 29 mmol/L (22-30); Chloride 97 mmol/L (98-107); Estimated Creatinine Clearance 26 ml/min; Glucose 72 mg/dl (70-99); Potassium 3.7 mmol/L (3.5-5.1); Sodium 138 mmol/L (135-145); eGFR 25.25
[2023-10-07] MEDS: DESENEX/MITRAZOL/ZEASORB 1 APPLIC TOPICAL (08:19)
[2023-10-07 08:32] VITALS: BP 134/62
[2023-10-07] MEDS: ZYLOPRIM 100 MG PO (08:32)
[2023-10-07] MEDS: B COMPLEX w/VITAMIN C 2 CAPLET PO (08:32)
--- NOTE | 2023-10-07 10:10 | W.PN.HOSP.TC ---
Addendum entered and electronically signed by Oswald Cheney MD 10/07/23 14:11:
Left lower extremity cellulitis multifactorial etiology due to diabetes mellitus and lymphedema.
Original Note:
Today's Communication/Plan
-
Discharge planning today.
Assessment / Plan
Assessment / Plan
Physical exam:
General: Chronically ill. No acute distress
HEENT: Normocephalic, Atraumatic and Moist Mucous Membranes
Respiratory: Clear to Auscultation; Negative Wheezes, Rales or Rhonchi
Cardiac: Regular Rhythm and S1/S2
GI: Soft, Nontender and Distended, fluid wave sign positive
Musculoskeletal: Bilateral lower extremity edema much less. Left lower extremity erythema much less. Nontender left knee.
Neuro: Awake, Alert and Oriented, no gross neurological deficits.
Psych: Calm
A/P:
Acute on chronic systolic CHF:
Status post right heart cath
Nephrology adjusting doses diuretics
Continue GDMT
Reviewed last echocardiogram, EF 30%
PT OT eval
Discussed with daughter, who is RN, at bedside day before yesterday.
Discussed with at bedside yesterday on 10/05.
Will follow-up further cardiology and nephrology recommendations--> discussed with cardiology today and they will defer to nephrology. Discussed with nephrology and they cleared him for discharge today.
JEFFERSON on CKD:
Suspect cardiorenal syndrome component. Cr 2.6 today (peak 3.8)
Avoid nephrotoxic
Nephrology consult and follow-up appreciated
If worsens may require hemodialysis but patient does not want HD
Follow-up further nephrology recommendation
Cellulitis of left lower extremity:
Improving
Change IV antibiotics to oral Keflex renally dosed to 250 mg 3 times daily. Plan to finish a short course.
Monitor erythema, WBC, and temperature curve
Wound care for wound on his left foot
WBC 14.6-->13.3-->10.8
PT OT
Right cephalic vein thrombosis:
Discussed with patient and at bedside that this is superficial thrombosis and options are low-dose Eliquis or conservative treatment with warm compresses and follow-up images a couple weeks down the road as outpatient. Patient prefers
conservative treatment without anticoagulation at this point and that seems reasonable.
Anasarca:
Arms and legs swollen related to heart failure and underlying CKD. Checked ultrasound of extremities--> shows findings as above.
Left knee pain due to gouty arthritis:
No active infection
Ortho consult appreciated
s/p aspirated on 10/02 came back with crystals
Not many options in terms of treatment-ideally local steroid injection in the joint would be preferable-will discuss with orthopedic. Alternatively, we can increase oral steroids/use already take but also will lead to increased volume, increased
pressure, increased blood sugars, and some other undesirable effects nevertheless he is not a candidate for colchicine or NSAIDs.
Continue Ultram renally dose as needed.
Discussed with orthopedic on 10/03 and relayed that we would prefer steroid joint injection rather than using systemic steroids for reasons stated above. Orthopedics said that he they will reevaluate on 10/04 for possible steroid injection but it did
not happen. In any event, patient is doing better without any intervention--> with the peripheral edema coming down he is also improving on his gout.
Abdominal ascites/likely underlying cirrhosis:
Consulted IR for therapeutic paracentesis s/p done on 10/02
Continue diuretics
Paroxysmal atrial fibrillation:
Continue antiarrhythmics, amiodarone
Not on rate control agent, inherently rate controlled
Not on anticoagulation, status post watchman in the past.
Elevated LFTs:
Back to normal today 10/03
CAD:
Continue current anti-ischemic regimen
Hypertension:
Continue current antihypertensive
Gastrointestinal stromal tumor:
s/p resection in 2021
Asthma/COPD:
Continue inhalers
Chronic anemia
Hemoglobin close to baseline. Today Hb 8.2
Continue to monitor
Type 2 diabetes
Add insulin sliding scale and check Accu-Cheks
Continue oral hypoglycemics
Gout
Continue allopurinol
DVT prophylaxis-heparin subcu
CODE STATUS-full code
Anticipated Discharge: Today
Subjective/Interval History
-
Date of Service: October 07, 2023
Patient with no new complaints.
Objective Data
-
Labs:
Laboratory Results
10/07/23
06:25
Hgb 8.1 L
Hct 24.7 L
Sodium 138
Potassium 3.7
Chloride 97 L
Carbon Dioxide 29
BUN 122 H*
Creatinine 2.6 H
Glucose 72
Calcium 8.9
Vital Signs:
Vital Signs
Temp Pulse Resp BP Pulse Ox
97.5 F 71 20 134/62 97
10/07/23 08:32 10/07/23 08:32 10/07/23 08:32 10/07/23 08:32 10/07/23 08:32
I&O
10/06/23 10/07/23 10/08/23
06:59 06:59 06:59
Intake Total 760 / 760 600 / 600
Balance 760 / 760 600 / 600
[2023-10-07 11:00] VITALS: BP 124/61
[2023-10-07] MEDS: KEFLEX 250 MG PO (11:31)
--- NOTE | 2023-10-07 12:34 | W.PN.NEPH.PH ---
Today's Communication / Plan
-
For discharge
Will need BMP early next week to [facility] publisher at [facility] who manages his diuretic
Assessment/Plan
-
IMP:
Cellulitis of left lower extremity exacerbated by bilateral lower extremity lymphedema
Left second toe wound, plantar wound under first big toe
JEFFERSON on CKD 4 -baseline cr 2 range, nephro at [facility] Dr Pettit
Paroxysmal atrial fibrillation status post Watchman
History of pacemaker
CAD status post stent
Chronic HFrEF 30%
Hyponatremia
hypokalemia
Azotemia
Lymphedema secondary to heart failure
History of liver scar
Former alcohol use
Essential hypertension
Gastrointestinal stromal tumor s/p resection in 2021
Asthma/COPD
Chronic anemia
Type 2 diabetes
Gout
Former smoker
Elevated LFts
Left knee gout
Plan:
paracentesis prn
He can return to outpatient regimen of torsemide 100mg BID with bumex 4mg IV 2x/week
No further metolazone
Creatinine improved although azotemia is quite profound at 122
He has used metolazone previously and this will likely need to be used more often since more frequent bumex IV is impractical
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
He has advanced cardiorenal syndrome. There is nothing left that I have to offer other than eventual dialysis
He can be discharged on home diuretic regimen, his outpatient desk top publisher will manage his diuretics
-
-
Date of Service: October 07, 2023
CC / HPI / ROS
-
Chief Complaint:
JEFFERSON with CKD
History of Present Illness:
JEFFERSON/Cr down to 2.6
BUN stable 122
k normal
diuretics on hold. s/p RHC yesterday with wedge 30
Review of Systems:
no cp or sob at rest
left knee-aspirate shows gout
Weight is unchanged
Labs
-
Labs:
WBC 10.8 10^3/uL (4.8-10.8) 10/04/23 05:51
RBC 2.88 10^6/uL (4.70-6.10) L 10/04/23 05:51
Hgb 8.1 g/dL (13.0-18.0) L 10/07/23 06:25
Hct 24.7 % (39.0-52.0) L 10/07/23 06:25
Plt Count 375 10^3/uL (130-400) 10/04/23 05:51
Sodium 138 mmol/L (135-145) 10/07/23 06:25
Potassium 3.7 mmol/L (3.5-5.1) 10/07/23 06:25
Chloride 97 mmol/L (98-107) L 10/07/23 06:25
Carbon Dioxide 29 mmol/L (22-30) 10/07/23 06:25
BUN 122 mg/dl (9-20) H* 10/07/23 06:25
Creatinine 2.6 mg/dL (0.7-1.3) H 10/07/23 06:25
eGFR 25.25 10/07/23 06:25
Glucose 72 mg/dl (70-99) 10/07/23 06:25
Calcium 8.9 mg/dl (8.4-10.2) 10/07/23 06:25
Zrt-X-Yngokjriyaj Pept 8850 pg/ml 10/02/23 11:44
Albumin 2.6 g/dl (3.5-5.0) L 10/04/23 05:51
Physical Exam
-
Vital Signs:
Vital Signs
Temp Pulse Resp BP Pulse Ox
97.5 F 71 20 134/62 96
10/07/23 08:32 10/07/23 08:32 10/07/23 08:32 10/07/23 08:32 10/07/23 10:21
Cardiovascular:: Regular rate and rhythm
Respiratory:: Bilateral: Coarse
Lung Excursion:: Normal
Abdomen:: Nontender and Soft
Bowel Sounds:: Normal
Extremity Edema:: +1: Bilateral:
--- NOTE | 2023-10-07 13:02 | W.DCSUMMARY ---
Discharge Summary
Discharge Data
Date of Admission: 10/02/23
Date of Discharge: 10/07/23
-
Pending Results: No
Hospital Course
Patient is 73 years old man with complex medical history including CHF, EF around 30%, nonischemic cardiomyopathy, possible restrictive cardiomyopathy, pulmonary hypertension, CKD, A-fib, CAD, diabetes mellitus, VIRGILIO, hypertension, dyslipidemia,
anemia, GIST, recurrent ascites, GI bleed, pacemaker, came into the hospital with increased lower extremity edema and erythema on the left lower extremity. He typically follows up at [facility] with advanced heart failure team. He was started on IV
antibiotics. Nephrology and cardiology were consulted. Patient had a paracentesis done. He also had a right heart cath that revealed right heart pressures increased. Nephrology managed his diuretics throughout this hospital stay. Patient also
had worsening pain on the left knee and orthopedic consult and after knee arthrocentesis it was evident that it was related to gout. Patient improved with pain medications and his low dose of steroids were kept. He has improved substantially.
Cardiology and nephrology cleared him for discharge today. He will be discharged in relatively stable condition today although he does need close follow-up with his specialist outpatient.
Discharge duration: 36 minutes
Discharge Plan
-
Patient Disposition: Home (Routine Discharge)
Discharge Diagnosis/Procedures: Acute on chronic systolic congestive heart failure. Acute kidney injury on chronic kidney disease. Cardiorenal syndrome. Cellulitis of left lower extremity. Right cephalic vein thrombosis. Left knee gouty
arthritis. Abdominal ascites status post paracentesis. Paroxysmal atrial fibrillation. Elevated liver function tests.
Diet: Low Cholesterol and 2 Gram Sodium
Activity: As tolerated
Blood Work: Please PCP to order CBC, BMP within 1 week
Activity Restrictions/Additional Instructions:
Wound Care Instructions
L foot and 2nd toe: clean with soap and water, skin prep then silicone foam or coverlet change q 2-3 days and prn soilage.
R buttock/jenelle rectum: clean with soap and water, skin prep periwound, then 1/2 piece of Exuderm thin-Duoderm (press with hand for a few minutes to secure) change q 2-3 days and prn drainage.*if Exuderm thin not staying, then use barrier cream.
barrier cream to be used on surrounding intact red blanchable skin daily and prn soilage.
Leg elevation when sitting
air cushion when sitting, can take upon discharge.
Follow up with [facility] as scheduled.
Referrals:
Frank Valdes MD [Active] - in two to four weeks
Cole Garner MD [Family Provider] - in less than 1 week
Ambrose tSack MD [Active] - in two to four weeks
Billie Lui MD [Active] - in two to four weeks
Prescriptions:
New
cephalexin 250 mg Capsule
250 mg PO TID 5 Days Qty: 15 0RF
Continued
albuterol sulfate 1 PUFF HFA aerosol inhaler
2 puff inhalation R Q6HPRN PRN (Reason: sob)
atorvastatin 40 MG tablet
40 mg PO HS
potassium chloride [Klor-Con M20] 20 MEQ tablet,ER particles/crystals
20 meq PO DAILY
torsemide 20 MG tablet
100 mg PO BID
multivitamin 1 EACH tablet
1 ea PO DAILY
Patient Comments:
TAKES AT NOON
glimepiride 1 mg Tablet
4 mg PO HS
amiodarone 200 mg tablet
200 mg PO DAILY
isosorbide dinitrate 20 mg tablet
10 mg PO TID
hydralazine 50 mg tablet
50 mg PO TID
pantoprazole 40 mg tablet,delayed release (DR/EC)
40 mg PO DAILY
amlodipine [Norvasc] 2.5 mg Tablet
2.5 mg PO TID
allopurinol 100 mg Tablet
100 mg PO DAILY
aspirin 81 mg Tablet,Delayed Release (Dr/Ec)
81 mg PO DAILY
vitamin B complex Tablet
2 tab PO DAILY
prednisone 10 mg Tablet
5 mg PO DAILY
polyethylene glycol 3350 [Miralax] 17 gram Powder In Packet
17 g PO DAILY
docusate sodium [Colace] 100 mg Capsule
200 mg PO DAILY
Trelegy Ellipta 200-62.5-25 mcg Blister With Device
1 inh INHALATION R DAILY
Bumex Infusion
4 mg IV WEFR
Discontinued
cephalexin [Keflex] 500 mg Capsule
500 mg PO BID
Discharge Orders:
Discharge Patient (As Directed); Ordered 10/07/23
Ordered By: Oswald Cheney
Discharge Date and Time
Print Language: HAITIAN
[2023-10-07 13:03] LABS: Glucose - Point of Care 285 mg/dl (70-99)
[2023-10-07] MEDS: NOVOLOG FLEXPEN-MODERATE RESISTANCE 5 UNITS SC (13:08)
[2023-10-07 13:25] VITALS: BP 124/61
--- NOTE | 2023-10-07 15:11 | CM ---
MD entered order for discharge.
Spoke with pt in room he said he was ready for dc to home.
Offered Vn he declined need.
Shelbi drove him home.
IMM reviewed signed on chart .
PLAN Home no needs
== END 2023-10-07 14:52 | disposition home or self-care (01) | DRG 286 ==
LOC: 3 WEST ACU 18:59
PROVIDERS: Physician Assistant; Radiology Diagnostic Radiology; Student in an Organized Health Care Education/Training Program; ADMITTING PHYSICIAN Hospitalist; ATTENDING PHYSICIAN Hospitalist; CONSULT PHYSICIAN Internal Medicine; CONSULT PHYSICIAN Orthopaedic Surgery; EMERGENCY PHYSICIAN Emergency Medicine; FAMILY PHYSICIAN Internal Medicine Geriatric Medicine
PROC: 0W9G3ZX Drainage of Peritoneal Cavity, Percutaneous Approach, Diagnostic (ICD-10-PCS; 2023-10-03)
PROC: 0S9D3ZX Drainage of Left Knee Joint, Percutaneous Approach, Diagnostic (ICD-10-PCS; 2023-10-03)
PROC: 4A023N6 Measurement of Cardiac Sampling and Pressure, Right Heart, Percutaneous Approach (ICD-10-PCS; 2023-10-05)
DX: I13.0 Hypertensive heart and chronic kidney disease with heart failure and stage 1 through stage 4 chronic kidney disease, or unspecified chronic kidney disease (principal); I50.23 Acute on chronic systolic (congestive) heart failure; L03.116 Cellulitis of left lower limb; N17.9 Acute kidney failure, unspecified; N18.4 Chronic kidney disease, stage 4 (severe); E87.1 Hypo-osmolality and hyponatremia; I82.611 Acute embolism and thrombosis of superficial veins of right upper extremity; L03.115 Cellulitis of right lower limb; R18.8 Other ascites; I27.29 Other secondary pulmonary hypertension; D63.1 Anemia in chronic kidney disease; E11.22 Type 2 diabetes mellitus with diabetic chronic kidney disease; E11.628 Type 2 diabetes mellitus with other skin complications; J44.89 Other specified chronic obstructive pulmonary disease; K76.9 Liver disease, unspecified; I42.8 Other cardiomyopathies; I89.0 Lymphedema, not elsewhere classified; I48.0 Paroxysmal atrial fibrillation; I25.10 Atherosclerotic heart disease of native coronary artery without angina pectoris; E87.6 Hypokalemia; Z95.5 Presence of coronary angioplasty implant and graft; E78.00 Pure hypercholesterolemia, unspecified; K59.00 Constipation, unspecified; M1A.9XX1 Chronic gout, unspecified, with tophus (tophi); M25.462 Effusion, left knee; M25.562 Pain in left knee; Z79.82 Long term (current) use of aspirin; Z79.84 Long term (current) use of oral hypoglycemic drugs; Z79.899 Other long term (current) drug therapy; Z86.14 Personal history of Methicillin resistant Staphylococcus aureus infection; Z87.891 Personal history of nicotine dependence; Z95.818 Presence of other cardiac implants and grafts; Z95.0 Presence of cardiac pacemaker; Z85.09 Personal history of malignant neoplasm of other digestive organs
CPT/HCPCS: 49083; 73564; 80048; 80053; 80202; 82947; 82962; 83605; 83735; 83880; 85014; 85018; 85025; 85610; 87015; 87070; 87205; 89051; 89060; 93005; 93306; 93451; 93970; 93971; 94640; 96365; 96366; 96375; 97162; 99285; C1894

== ENCOUNTER → 2023-10-10 07:04 | Outpatient (REF) | payer MEDICARE, OTHER, SELFPAY ==
[2023-10-10 07:25] VITALS: BP 129/71; BP_SYST 73
[2023-10-10 08:05] VITALS: BP 125/64; BP_SYST 70
[2023-10-10 08:21] VITALS: BP 125/64
[2023-10-10 09:14] LABS: Body Fluid WBC 417 /CUMM
[2023-10-10 09:15] LABS: Body Fluid Mononuclear 80.9 %; Body Fluid Polymorphonuclear 19.1 %
[2023-10-10 09:38] LABS: Body Fluid Second Tech AMA
== END ==
LOC: RADI 07:04
PROVIDERS: ATTENDING PHYSICIAN Internal Medicine Cardiovascular Disease
DX: R18.8 Other ascites (principal)
CPT/HCPCS: 49083; 89051

== ENCOUNTER → 2023-10-17 06:57 | Outpatient (REF) | payer MEDICARE, OTHER, SELFPAY ==
[2023-10-17 07:25] VITALS: BP 111/65; BP_SYST 70
[2023-10-17 07:59] VITALS: BP 118/60; BP_SYST 70
[2023-10-17 08:16] VITALS: BP 118/60
[2023-10-17 08:48] LABS: Body Fluid Mononuclear 88.9 %; Body Fluid Polymorphonuclear 11.1 %; Body Fluid WBC 270 /CUMM
[2023-10-17 08:50] LABS: Body Fluid Second Tech ASW
== END ==
LOC: RADI 06:57
PROVIDERS: ATTENDING PHYSICIAN Internal Medicine Cardiovascular Disease; FAMILY PHYSICIAN Internal Medicine Geriatric Medicine
DX: R18.8 Other ascites (principal)
CPT/HCPCS: 49083; 89051

== ENCOUNTER → 2023-10-22 08:34 | Outpatient (REF) | payer MEDICARE, OTHER, SELFPAY ==
[2023-10-22 09:42] LABS: % Basophils 0.1 % (0-2); % Eosinophils 1.4 % (0-6); % Immature Granulocytes 0.7 % (0-0.5); % Lymphocytes 3.6 % (20.5-51.1); % Monocytes 8.4 % (1.7-9.3); % Neutrophils 85.8 % (42.2-75.2); Absolute Eosinophils 0.1 10^3/uL (0-0.7); Absolute Immature Granulocytes 0.1 10^3/uL (0-0.05); Absolute Lymphocytes 0.4 10^3/uL (1.2-3.4); Absolute Monocytes 0.9 10^3/uL (0.1-0.6); Absolute Neutrophils 8.7 10^3/uL (1.4-6.5); Hematocrit 30.9 % (39.0-52.0); Hemoglobin 9.8 g/dL (13.0-18.0); Mean Corp Hgb Conc. 31.7 g/dL (33.0-37.0); Mean Corpuscular Hgb 28.3 pg (27.0-31.0); Mean Corpuscular Volume 89.3 fL (80.0-94.0); Nucleated Red Blood Cells % 0 % (-); Platelet Count 250 10^3/uL (130-400); Red Blood Cell Count 3.46 10^6/uL (4.70-6.10); Red Cell Dist. Width 19.4 % (11.5-14.5); White Blood Cell Count 10.1 10^3/uL (4.8-10.8)
[2023-10-22 10:03] LABS: ALT (SGPT) 31 U/L (0-50); AST (SGOT) 46 U/L (17-59); Albumin 3.3 g/dl (3.5-5.0); Alkaline Phosphatase 85 U/L (38-126); Blood Urea Nitrogen 85 mg/dl (9-20); Calcium 9.4 mg/dl (8.4-10.2); Carbon Dioxide 27 mmol/L (22-30); Chloride 99 mmol/L (98-107); Glucose 61 mg/dl (70-99); Sodium 138 mmol/L (135-145); Total Bilirubin 0.3 mg/dl (0.2-1.3); Total Protein 5.6 g/dl (6.3-8.2)
[2023-10-22 10:41] LABS: Free T4 1.94 ng/dl (0.78-2.19)
[2023-10-22 10:54] LABS: TSH 8.34 uIU/ml (0.47-4.68)
[2023-10-23 18:32] LABS: Erythropoietin (EPO) 18 mU/mL (4-27)
== END ==
LOC: REG 08:34
PROVIDERS: ATTENDING PHYSICIAN Internal Medicine Geriatric Medicine; REFERRING PHYSICIAN Internal Medicine Cardiovascular Disease
DX: E11.9 Type 2 diabetes mellitus without complications (principal); N18.31 Chronic kidney disease, stage 3a; E78.2 Mixed hyperlipidemia; I48.0 Paroxysmal atrial fibrillation; N18.30 Chronic kidney disease, stage 3 unspecified; D50.9 Iron deficiency anemia, unspecified; R60.9 Edema, unspecified; I50.30 Unspecified diastolic (congestive) heart failure; E66.8 Other obesity; J30.2 Other seasonal allergic rhinitis; Z13.89 Encounter for screening for other disorder; J45.30 Mild persistent asthma, uncomplicated; K21.9 Gastro-esophageal reflux disease without esophagitis; Z79.899 Other long term (current) drug therapy
CPT/HCPCS: 36415; 80053; 82668; 84439; 84443; 85025

== ENCOUNTER → 2023-10-24 06:58 | Outpatient (REF) | payer MEDICARE, OTHER, SELFPAY ==
[2023-10-24 07:40] VITALS: BP 121/61; BP_SYST 73
[2023-10-24 09:22] LABS: Body Fluid Polymorphonuclear 11.1 %; Body Fluid WBC 163 /CUMM
[2023-10-24 09:23] LABS: Body Fluid Mononuclear 88.9 %
[2023-10-24 09:24] LABS: Body Fluid Second Tech HB
== END ==
LOC: RADI 06:58
PROVIDERS: ATTENDING PHYSICIAN Internal Medicine Cardiovascular Disease; FAMILY PHYSICIAN Internal Medicine Geriatric Medicine
DX: R18.8 Other ascites (principal)
CPT/HCPCS: 49083; 89051

== ENCOUNTER → 2023-10-31 06:54 | Outpatient (REF) | payer MEDICARE, OTHER, SELFPAY ==
[2023-10-31 07:21] VITALS: BP 121/55; BP_SYST 74
[2023-10-31 09:36] LABS: Body Fluid Mononuclear 90.1 %; Body Fluid Polymorphonuclear 9.9 %; Body Fluid WBC 181 /CUMM
[2023-10-31 09:39] LABS: Body Fluid Second Tech EF
== END ==
LOC: RADI 06:54
PROVIDERS: ATTENDING PHYSICIAN Internal Medicine Cardiovascular Disease; FAMILY PHYSICIAN Internal Medicine Geriatric Medicine
DX: R18.8 Other ascites (principal)
CPT/HCPCS: 49083; 89051

== ENCOUNTER 2023-11-02 08:51 | Outpatient (RCR) | payer MEDICARE, OTHER, SELFPAY ==
[2023-10-10] MEDS: BUMEX 66 MG IV (09:18)
[2023-10-10 09:24] VITALS: BP 124/64
[2023-10-12] MEDS: BUMEX 66 MG IV (09:23)
[2023-10-12 11:00] LABS: Blood Urea Nitrogen 104 mg/dl (9-20); Calcium 8.8 mg/dl (8.4-10.2); Carbon Dioxide 28 mmol/L (22-30); Chloride 91 mmol/L (98-107); Glucose 98 mg/dl (70-99); Magnesium 1.9 mg/dl (1.6-2.3); Potassium 3.5 mmol/L (3.5-5.1); Sodium 131 mmol/L (135-145); eGFR 26.47
[2023-10-17 08:47] VITALS: BP 117/58
[2023-10-17] MEDS: BUMEX 66 MG IV (09:00)
[2023-10-19 09:44] VITALS: BP 104/54
[2023-10-19] MEDS: BUMEX 66 MG IV (09:44)
[2023-10-19 10:48] LABS: % Basophils 0.2 % (0-2); % Eosinophils 2.1 % (0-6); % Immature Granulocytes 0.8 % (0-0.5); % Lymphocytes 3.1 % (20.5-51.1); % Monocytes 5.1 % (1.7-9.3); % Neutrophils 88.7 % (42.2-75.2); Absolute Eosinophils 0.2 10^3/uL (0-0.7); Absolute Immature Granulocytes 0.1 10^3/uL (0-0.05); Absolute Lymphocytes 0.3 10^3/uL (1.2-3.4); Absolute Monocytes 0.5 10^3/uL (0.1-0.6); Absolute Neutrophils 8.7 10^3/uL (1.4-6.5); Hematocrit 27.7 % (39.0-52.0); Hemoglobin 8.7 g/dL (13.0-18.0); Mean Corp Hgb Conc. 31.4 g/dL (33.0-37.0); Mean Corpuscular Hgb 27.1 pg (27.0-31.0); Mean Corpuscular Volume 86.3 fL (80.0-94.0); Mean Platelet Volume 9.2 fL (7.4-10.4); Nucleated Red Blood Cells % 0 % (-); Platelet Count 250 10^3/uL (130-400); Red Blood Cell Count 3.21 10^6/uL (4.70-6.10); White Blood Cell Count 9.8 10^3/uL (4.8-10.8)
[2023-10-19 10:57] LABS: Blood Urea Nitrogen 79 mg/dl (9-20); Calcium 9.1 mg/dl (8.4-10.2); Carbon Dioxide 26 mmol/L (22-30); Chloride 98 mmol/L (98-107); Glucose 100 mg/dl (70-99); Potassium 4.4 mmol/L (3.5-5.1); Sodium 135 mmol/L (135-145)
[2023-10-24 09:22] VITALS: BP 121/53
[2023-10-24] MEDS: BUMEX 66 MG IV (09:30)
[2023-10-26] MEDS: BUMEX 66 MG IV (09:25)
[2023-10-26 09:29] VITALS: BP 116/57
[2023-10-26 11:31] LABS: Blood Urea Nitrogen 76 mg/dl (9-20); Calcium 8.9 mg/dl (8.4-10.2); Carbon Dioxide 22 mmol/L (22-30); Chloride 99 mmol/L (98-107); Glucose 70 mg/dl (70-99); Magnesium 1.9 mg/dl (1.6-2.3); Sodium 134 mmol/L (135-145); eGFR 26.47
[2023-10-31 09:10] VITALS: BP 131/59
[2023-10-31] MEDS: BUMEX 66 MG IV (09:22)
[2023-11-02 09:25] VITALS: BP 117/66
[2023-11-02] MEDS: BUMEX 66 MG IV (09:38)
[2023-11-02 12:50] LABS: Blood Urea Nitrogen 99 mg/dl (9-20); Carbon Dioxide 21 mmol/L (22-30); Chloride 98 mmol/L (98-107); Glucose 203 mg/dl (70-99); Potassium 4.1 mmol/L (3.5-5.1); Sodium 133 mmol/L (135-145); eGFR 29.25
== END 2023-11-05 08:02 | disposition home or self-care (01) ==
LOC: OID 08:51
PROVIDERS: ATTENDING PHYSICIAN Internal Medicine Cardiovascular Disease; FAMILY PHYSICIAN Internal Medicine Geriatric Medicine
DX: R18.8 Other ascites (principal); I50.22 Chronic systolic (congestive) heart failure; Z92.89 Personal history of other medical treatment
CPT/HCPCS: 36415; 49083; 80048; 83735; 85025; 89051; 96365

== ENCOUNTER → 2023-11-02 13:54 | Outpatient (REF) | payer MEDICARE, OTHER, SELFPAY | LOC: RAD 13:54 | PROVIDERS: ATTENDING PHYSICIAN Internal Medicine Geriatric Medicine; REFERRING PHYSICIAN Internal Medicine Cardiovascular Disease | DX: I82.623 Acute embolism and thrombosis of deep veins of upper extremity, bilateral (principal) | CPT/HCPCS: 93971 ==

== ENCOUNTER 2023-11-04 04:27 | Emergency (ER) | payer MEDICARE, OTHER, SELFPAY ==
[2023-11-04 04:32] VITALS: BP 119/65
--- NOTE | 2023-11-04 05:05 | ED.GENMED ---
History of Present Illness
<ELIGIO Ramey - Last Filed: 11/04/23 06:57>
General
Chief Complaint: Musculo-Skeletal Complaint
Source: patient and spouse
Exam Limitations: none
Time Seen by Provider: 11/04/23 04:46
Nursing documentation reviewed up to this point in time: agreed with
History of Present Illness
History of Present Illness:
Pt is a 73 y/o M with complex pmhx including gastrointestinal stromal tumor, CKD, CHF, gout, diabetic neuropathy, nonischemic cardiomyopathy, pulmonary hypertension, afib, CAD, VIRGILIO, dyslipidemia, recurrent ascites, GI bleed, and pacemaker presents
with complaints of right ankle pain x2 days. The pt reported that at 5pm on Sunday, he attempted to step into his car with his left foot and his right foot slid out of shoe. He twisted his right ankle and struck his right lower leg onto his car.
There is a 2 inch hematoma on the medial aspect of the distal right lower leg and pitting edema on the medial right ankle. The pain is described as a constant throbbing sensation rated 6/10 in severity. There is no radiation of ankle pain. He has
tried ice and Tylenol without relief. He is able to weightbear on the right lower extremity but he is unable to ambulate without his walker. Denies fever, chills, fatigue, body aches, numbness, tingling.
The pt has a pmhx of GIST and had his last round of chemotherapy 1 year ago, CKD and CHF with associated ascites which he undergoes paracentesis for weekly, and diabetic neuropathy and is scheduled to see a avionics repair technician for a non-healing ulcer on the
left forefoot. He also has a pmhx of gout in his left knee that is being treated with Colchicine. Since his episode of gout, he has been ambulating with a walker. He was last seen in the ED 1 month ago for cellulitis.
Past History
<ELIGIO Ramey - Last Filed: 11/04/23 06:57>
Past History
ED Past Medical History: Arrthythmia, Asthma, Cancer, CHF, HTN, Hypercholesterolemia and NIDDM
ED Past Surgical History: Cardiac and Other (GIST)
Social History
Tobacco: Former smoker
Alcohol: None
Drug: None
Personal:
Living: with family
Family History
Family History: Diabetes
Review of Systems
<ELIGIO Ramey - Last Filed: 11/04/23 06:57>
Review of Systems
Constitutional: Reports no symptoms
EENT: Reports no symptoms
Respiratory: Reports no symptoms
Cardiac: Reports no symptoms
ABD/GI: Reports no symptoms
: Reports no symptoms
Musculoskeletal: Reports joint pain (right ankle), joint swelling and edema
Skin: Reports other (hematoma right lower leg)
Neurological: Reports no symptoms
Endocrine: Reports no symptoms
Hematologic/Lymphatic: Reports bruising
Psychiatric: Reports no symptoms
Phy Exam
<ELIGIO Ramey - Last Filed: 11/04/23 06:57>
General Physical Exam
General Presentation: well appearing and no apparent distress
General age: appears stated age
General Skin: warm and dry
General Habitus: normal
General Mental: alert
ENT Exam
ENT Exam: EOMI and neck supple
Eye Exam
Eye Exam: PERRL, EOMI, cornea clear and conjunctiva normal
Cardiovascular Exam
Cardiovascular Exam: regular rate/rhythm and normal peripheral pulses
Pulmonary Exam
Pulmonary Exam: no respiratory distress
Gastrointestinal Exam
Gastrointestinal Exam: normal bowel sounds, soft and non distended
Neurological Exam
Neurological Exam: alert, oriented x3 and speech normal
Musculoskeletal Exam
Musculoskeletal Exam: edema, joint swelling and other (TTP over medial right ankle and distal lateral right lower leg. Medial and lateral malleoli nontender. Achilles nontender. Calcaneus nontender. Metatarsals nontender. Positive pitting edema over
the medial right ankle. Positive PT and DP pulses. Brisk cap refill. No altered sensation.)
Skin Exam
Skin Exam: other (2 inch hematoma over the medial distal right lower leg)
Psychiatric Exam
Psychiatric Exam: normal mood/affect
Course
<ST TanvirPA - Last Filed: 11/04/23 06:57>
Orders/Labs/Results
Orders:
Orders
11/04/23 05:21
CR Ankle - Right Min 3 Views * Urgent
Comment:
Reason For Exam: injury, pain
11/04/23 06:40
Oxycodone/Acetaminophen [Percocet 5/325] 1 tablet .ROUTE .STK-MED ONE
11/04/23 06:42
Oxycodone/Acetaminophen [Percocet 5/325] 1 tablet PO NOW STA
Vital Signs
Initial and Last Documented VS:
Initial Vital Signs
Temp Pulse Resp BP Pulse Ox
97.8 F 70 16 119/65 100
11/04/23 04:32 11/04/23 04:32 11/04/23 04:32 11/04/23 04:32 11/04/23 04:32
Last Documented Vital Signs
Temp Pulse Resp BP Pulse Ox
97.8 F 89 16 124/75 97
11/04/23 04:32 11/04/23 06:23 11/04/23 06:23 11/04/23 06:23 11/04/23 06:23
<Anmol Pearl DO - Last Filed: 11/04/23 07:01>
Orders/Labs/Results
Orders:
Orders
11/04/23 05:21
CR Ankle - Right Min 3 Views * Urgent
Comment:
Reason For Exam: injury, pain
11/04/23 06:40
Oxycodone/Acetaminophen [Percocet 5/325] 1 tablet .ROUTE .STK-MED ONE
11/04/23 06:42
Oxycodone/Acetaminophen [Percocet 5/325] 1 tablet PO NOW STA
Vital Signs
Initial and Last Documented VS:
Initial Vital Signs
Temp Pulse Resp BP Pulse Ox
97.8 F 70 16 119/65 100
11/04/23 04:32 11/04/23 04:32 11/04/23 04:32 11/04/23 04:32 11/04/23 04:32
Last Documented Vital Signs
Temp Pulse Resp BP Pulse Ox
97.8 F 89 16 124/75 97
11/04/23 04:32 11/04/23 06:23 11/04/23 06:23 11/04/23 06:23 11/04/23 06:23
Procedures
<ELIGIO Ramey - Last Filed: 11/04/23 06:57>
Splinting/Sling Placement
Right Ankle:
Procedure completed by: ELIGIO Ramey
Pre-splint extermity exam: neurovascular intact
Type of splint: posterior short leg and other ([place])
Splint material: fiberglass
Splint checked by provider?: Yes
Normal distal neurovascular exam?: Yes
Additional information:
Pt is able to ambulate NWB on right lower extremity with walker for assistance. Has a stair chair at home.
<ELIGIO Ramey - Last Filed: 11/04/23 06:57>
MDM/Problems Addressed
Differential Diagnosis Includes:
Right ankle sprain
Non-healing hematoma
Right ankle fracture
<ELIGIO Ramey - Last Filed: 11/04/23 06:57>
*Critical Care Note
Total Time (30-74mins, 75-104mins- exclusive of procedures): Not Applicable
ED Attending Note
<ELIGIO Ramey - Last Filed: 11/04/23 06:57>
-
Portions of this chart may have been created with voice recognition software.� Occasional wrong word or��sound alike� substitutions may have occurred due to the inherent limitations of voice recognition software.
<Anmol Pearl DO - Last Filed: 11/04/23 07:01>
ED Attending Note
Patient seen and examined by attending physician: Yes
I performed the substantive portion of visit, reviewed & personally made and approve the management plan that is documented in note by myself or GIANA.: Yes
ED Attending Note:
Pleasant 73-year-old male presents the emergency department with right ankle pain. Patient has been able to ambulate with the support of a walker. He is able to bear weight. He states that he was transferring to a car when he went to lift his leg
up and missed, twisting his ankle. Denies any other injury. Patient has chronic diabetic foot ulcers for which she is under the care of of podiatric medicine. He does have fluid overload and wound weeping for which he takes Lasix. Patient was
seen in conjunction with the PA student. I have reviewed and agree with the history and treatment plan presented. On my independent physical exam, patient is awake, alert, and oriented x3 minimal acute distress. Bilateral lower extremities have
diabetic foot ulcers in various stages of healing. Weeping on some of them. He does see podiatric medicine but will recommend wound care for these. No respiratory distress.
Patient has a distal fibula fracture that is slightly comminuted and displaced. It is a closed fracture. He will get a posterior splint and will use the walker.
Patient was able to ambulate using a walker. His states that he will not be ambulatory at home. They have a walker for transferring and a stair chair to get up and down the steps.
Patient has most recently seen Dr. Ambrose Whitten orthopedics and prefers to follow-up with his office.
Patient to receive a prescription for Percocet.
Discharge Plan
Departure
Patient Disposition: Home (Routine Discharge)
Date of Disposition: 11/04/23
Time of Disposition: 06:57
Patient with high blood pressure during this ER visit?: Yes
Discharge Problem:
Closed fibular fracture, Diabetic foot ulcers
Instructions: Lower leg fracture, Ankle Fracture (DC), BLOOD PRESSURE
Prescriptions:
New
oxycodone-acetaminophen [Percocet] 5-325 mg tablet
1 tab PO Q6HPRN PRN (Reason: pain) Qty: 14 0RF
No Action
albuterol sulfate 1 PUFF HFA aerosol inhaler
2 puff inhalation R Q6HPRN PRN (Reason: sob)
atorvastatin 40 MG tablet
40 mg PO HS
potassium chloride [Klor-Con M20] 20 MEQ tablet,ER particles/crystals
10 meq PO DAILY
torsemide 20 MG tablet
100 mg PO BID
multivitamin 1 EACH tablet
1 ea PO DAILY
Patient Comments:
TAKES AT NOON
glimepiride 1 mg Tablet
4 mg PO HS
amiodarone 200 mg tablet
200 mg PO DAILY
isosorbide dinitrate 20 mg tablet
10 mg PO TID
hydralazine 50 mg tablet
75 mg PO TID
pantoprazole 40 mg tablet,delayed release (DR/EC)
40 mg PO DAILY
amlodipine [Norvasc] 2.5 mg Tablet
2.5 mg PO TID
allopurinol 100 mg Tablet
100 mg PO DAILY
aspirin 81 mg Tablet,Delayed Release (Dr/Ec)
81 mg PO HS
vitamin B complex Tablet
2 tab PO DAILY
prednisone 10 mg Tablet
5 mg PO DAILY
polyethylene glycol 3350 [Miralax] 17 gram Powder In Packet
17 g PO DAILY
docusate sodium [Colace] 100 mg Capsule
200 mg PO DAILY
Trelegy Ellipta 200-62.5-25 mcg Blister With Device
1 inh INHALATION R DAILY
Bumex Infusion
4 mg IV WEFR
propranolol 10 mg Tablet
10 mg PO BID
amoxicillin 250 mg Capsule
250 mg PO BID
metolazone 2.5 mg Tablet
2.5 mg PO DIRECTED PRN (Reason: weight gain)
Referrals:
Cole Garner MD [Family Provider] -
Ambrose Stack MD [Active] - Next open appointment
Activity Restrictions/Additional Instructions:
Your prescriptions were sent electronically to the pharmacy that you specified.
It was a pleasure meeting you and taking part in your care. We hope for your continued healing and wellness.
Please read discharge instructions in their entirety. However, they are for general education and may not describe your exact diagnosis at discharge. Information on your ER visit and medical conditions were discussed with you along with appropriate
follow up information...
If indicated, please take your medications as instructed and indicated on discharge paperwork.
Please schedule a follow up appointment as directed. Call to schedule an appointment
Please return to the emergency department with ANY change in, persisting, or worsening of symptoms. If any of your symptoms do not improve, or persist, or become more severe within 6-12 hours, please return to the emergency department for further
care.
Please return to the emergency department if you develop a headache, neck pain/stiffness, fever greater than 100.4F, chest pain, shortness of breath, persistent nausea, vomiting, slurred speech, difficulty walking, numbness/tingling, weakness, signs
of infection or any other symptoms that are worrisome to you.
If you have any questions or concerns please do not hesitate to call the Hospital at or E-mail me directly at [email or web address]
Interventions
Interventions:
*Risk Screen - Suicide Last Done: 11/04/23 04:32
*General Assessment Last Done: 11/04/23 04:32
*Neglect/Abuse Screening Last Done: 11/04/23 04:32
ED- Fall Risk Assessment Last Done: 11/04/23 04:32
*ED COVID-19 Vaccine History Last Done: 11/04/23 04:32
ED-Musculoskeletal Assessment Last Done: 11/04/23 05:51
Discharge Date and Time
Print Language: INDIAN
[2023-11-04 06:23] VITALS: BP 124/75
[2023-11-04] MEDS: PERCOCET 5/325 1 TABLET PO (06:42)
== END 2023-11-04 07:09 | disposition home or self-care (01) ==
LOC: EMR 04:27
PROVIDERS: EMERGENCY PHYSICIAN Student in an Organized Health Care Education/Training Program; FAMILY PHYSICIAN Internal Medicine Geriatric Medicine
DX: E11.621 Type 2 diabetes mellitus with foot ulcer (principal); S82.831A Other fracture of upper and lower end of right fibula, initial encounter for closed fracture; S80.11XA Contusion of right lower leg, initial encounter; M25.471 Effusion, right ankle; V48.4XXA Person boarding or alighting a car injured in noncollision transport accident, initial encounter; X50.1XXA Overexertion from prolonged static or awkward postures, initial encounter; C49.A2 Gastrointestinal stromal tumor of stomach; I13.0 Hypertensive heart and chronic kidney disease with heart failure and stage 1 through stage 4 chronic kidney disease, or unspecified chronic kidney disease; N18.9 Chronic kidney disease, unspecified; I50.9 Heart failure, unspecified; M10.9 Gout, unspecified; E11.40 Type 2 diabetes mellitus with diabetic neuropathy, unspecified; I42.8 Other cardiomyopathies; I27.20 Pulmonary hypertension, unspecified; I48.91 Unspecified atrial fibrillation; G47.33 Obstructive sleep apnea (adult) (pediatric); E78.00 Pure hypercholesterolemia, unspecified; E11.22 Type 2 diabetes mellitus with diabetic chronic kidney disease; I25.10 Atherosclerotic heart disease of native coronary artery without angina pectoris; J45.909 Unspecified asthma, uncomplicated; Z87.891 Personal history of nicotine dependence; Z95.0 Presence of cardiac pacemaker; Z92.21 Personal history of antineoplastic chemotherapy; Z79.82 Long term (current) use of aspirin; Z88.8 Allergy status to other drugs, medicaments and biological substances; Z91.018 Allergy to other foods
CPT/HCPCS: 99283; 29515; 73610

== ENCOUNTER → 2023-11-06 06:51 | Outpatient (REF) | payer MEDICARE, OTHER, SELFPAY ==
[2023-11-06 07:10] VITALS: BP 126/67; BP_SYST 71
[2023-11-06 08:05] VITALS: BP 117/63; BP_SYST 73
[2023-11-06 08:25] VITALS: BP 117/63
[2023-11-06 09:23] LABS: Body Fluid Mononuclear 90.3 %; Body Fluid Polymorphonuclear 9.7 %; Body Fluid WBC 164 /CUMM
[2023-11-06 09:28] LABS: Body Fluid Second Tech RLT
== END ==
LOC: RADI 06:51
PROVIDERS: ATTENDING PHYSICIAN Internal Medicine Cardiovascular Disease; FAMILY PHYSICIAN Internal Medicine Geriatric Medicine
DX: R18.8 Other ascites (principal)
CPT/HCPCS: 49083; 89051

== ENCOUNTER 2023-11-14 04:53 | Inpatient (IN) | payer MEDICARE, OTHER, SELFPAY ==
[2023-11-13 22:19] VITALS: BP 102/52
[2023-11-13 22:47] LABS: % Basophils 0.1 % (0-2); % Eosinophils 0.6 % (0-6); % Immature Granulocytes 0.4 % (0-0.5); % Lymphocytes 8.9 % (20.5-51.1); % Monocytes 7.3 % (1.7-9.3); % Neutrophils 82.7 % (42.2-75.2); Absolute Eosinophils 0.1 10^3/uL (0-0.7); Absolute Lymphocytes 0.9 10^3/uL (1.2-3.4); Absolute Monocytes 0.8 10^3/uL (0.1-0.6); Absolute Neutrophils 8.5 10^3/uL (1.4-6.5); Hematocrit 29.1 % (39.0-52.0); Hemoglobin 9.7 g/dL (13.0-18.0); Mean Corp Hgb Conc. 33.3 g/dL (33.0-37.0); Mean Corpuscular Hgb 27.6 pg (27.0-31.0); Mean Corpuscular Volume 82.9 fL (80.0-94.0); Nucleated Red Blood Cells % 0 % (-); Platelet Count 369 10^3/uL (130-400); Red Blood Cell Count 3.51 10^6/uL (4.70-6.10); Red Cell Dist. Width 19.9 % (11.5-14.5); White Blood Cell Count 10.3 10^3/uL (4.8-10.8)
[2023-11-13 23:05] LABS: ALT (SGPT) 53 U/L (0-50); AST (SGOT) 42 U/L (17-59); Albumin 3.4 g/dl (3.5-5.0); Alkaline Phosphatase 127 U/L (38-126); Blood Urea Nitrogen 108 mg/dl (9-20); Calcium 8.9 mg/dl (8.4-10.2); Carbon Dioxide 22 mmol/L (22-30); Chloride 96 mmol/L (98-107); Glucose 308 mg/dl (70-99); Potassium 6.7 mmol/L (3.5-5.1); Sodium 128 mmol/L (135-145); Total Bilirubin 0.3 mg/dl (0.2-1.3); Total Protein 5.5 g/dl (6.3-8.2); eGFR 15.06
[2023-11-13 23:12] LABS: NT-proBNP 16900 pg/ml
[2023-11-14] VITALS (18 sets, daily range): BP systolic 70–123; BP diastolic 55–92; BMI 31.3; BMI 33.8
--- NOTE | 2023-11-14 01:29 | ED.GENMED ---
History of Present Illness
General
Chief Complaint: Weakness
Source: patient and family
Exam Limitations: none
Time Seen by Provider: 11/14/23 01:28
History of Present Illness
History of Present Illness:
Progressive weakness several weeks but much worse the last 2 days. No abdominal pain. Mild shortness of breath with exertion. No fever or chills. Weakness has become significant and generalized
Past History
Past History
ED Past Medical History: Arrthythmia, Asthma, Cancer, CHF, HTN, Hypercholesterolemia and NIDDM
ED Past Surgical History: Cardiac and Other
Social History
Tobacco: Former smoker
Alcohol: None
Drug: None
Personal:
Living: with family
Family History
Family History: Diabetes
Review of Systems
Review of Systems
All Other Systems: Not applicable
Constitutional: Denies fever or chills
Cardiac: Denies chest pain or syncope
Phy Exam
Physical Exam
Physical Exam:
GENERAL: Alert and oriented in no apparent distress
EYE: Orbits normal.
NECK: Supple
CARDIAC: Regular rate and rhythm without any obvious murmurs.
LUNGS: Slightly decreased breath sounds. No respiratory distress.
ABDOMEN: Distended. Nontender. Positive fluid wave
NEUROLOGICAL: Alert and oriented , grossly non-focal
SKIN: Warm and dry, no rash or lesion, no discoloration, skin intact.
MUSCULOSKELETAL: Bilateral pitting edema with a small wound to the right lower leg. Justin wrap to the right lower leg
PSYCH: Normal and appropriate interaction.
Course
Orders/Labs/Results
Orders:
Orders
11/13/23 22:25
EKG [Electrocardiogram (*1)] Urgent
Reason for Study: Fatigue / Weakness
EKG- Treatment ONCE
11/13/23 22:41
BNP [NT-proBNP] Urgent
CBC/With Diff [Complete Blood Count/With Diff] Urgent
CMP [Comprehensive Metabolic Panel] Urgent
11/14/23 01:37
Cardiac Monitoring- Treatment ONCE
Sodium Zirconium Cyclosilicate [Lokelma] 10 gram PO NOW STA
11/14/23 01:41
Sodium Bicarbonate 50 meq IV NOW STA
CXR Port [CR Chest Portable - 1 View] Urgent
Comment:
Reason For Exam: sob. fluid retention
Reason Study Needs to be Portable: Unable to Transport
11/14/23 01:46
Dextrose 50%-Water [Dextrose 50% Syringe] 12.5 grams IV [id number] PRN
Insulin Human Regular [Novolin R] 5 units IV NOW STA
11/14/23 01:47
Bedside Glucose PRE IV Insulin- HyperK+ NOW
11/14/23 03:17
Bedside Glucose POST IV Insulin- HyperK+ Q1HX2,Q2HX2
11/14/23 04:17
Potassium Urgent
Comment: draw 2 hours after regular insulin IV administration
Abnormal Lab Results
11/13/23
22:41
RBC 3.51 L 10^6/uL
(4.70-6.10)
Hgb 9.7 L g/dL
(13.0-18.0)
Hct 29.1 L %
(39.0-52.0)
RDW 19.9 H %
(11.5-14.5)
Absolute Neuts (auto) 8.5 H 10^3/uL
(1.4-6.5)
Absolute Lymphs (auto) 0.9 L 10^3/uL
(1.2-3.4)
Absolute Monos (auto) 0.8 H 10^3/uL
(0.1-0.6)
Neutrophils % 82.7 H %
(42.2-75.2)
Lymphocytes % 8.9 L %
(20.5-51.1)
Sodium 128 L mmol/L
(135-145)
Potassium 6.7 H* mmol/L
(3.5-5.1)
Chloride 96 L mmol/L
(98-107)
BUN 108 H* mg/dl
(9-20)
Creatinine 4.0 H mg/dL
(0.7-1.3)
Glucose 308 H mg/dl
(70-99)
ALT 53 H U/L
(0-50)
Alkaline Phosphatase 127 H U/L
(38-126)
Total Protein 5.5 L g/dl
(6.3-8.2)
Albumin 3.4 L g/dl
(3.5-5.0)
11/13/23 22:41
Vital Signs
Initial and Last Documented VS:
Initial Vital Signs
Temp Pulse Resp BP
98.3 F 88 15 102/52
11/13/23 22:19 11/13/23 22:19 11/13/23 22:19 11/13/23 22:19
Last Documented Vital Signs
Temp Pulse Resp BP Pulse Ox
98.3 F 75 12 113/71 98
11/13/23 22:19 11/14/23 01:08 11/14/23 01:08 11/14/23 01:08 11/14/23 01:08
*EKG
Interpreted by ED Provider?: Yes
Interpretation: abnormal
Comparison EKG: no changes
Rate: normal
Rhythm: ventricular paced
*Critical Care Note
Total Time (30-74mins, 75-104mins- exclusive of procedures): Not Applicable
ED Attending Note
-
Portions of this chart may have been created with voice recognition software.� Occasional wrong word or��sound alike� substitutions may have occurred due to the inherent limitations of voice recognition software.
Discharge Plan
Departure
Prescriptions:
No Action
albuterol sulfate 1 PUFF HFA aerosol inhaler
2 puff inhalation R Q6HPRN PRN (Reason: sob)
atorvastatin 40 MG tablet
40 mg PO HS
potassium chloride [Klor-Con M20] 20 MEQ tablet,ER particles/crystals
20 meq PO DAILY
torsemide 20 MG tablet
100 mg PO DAILY
multivitamin 1 EACH tablet
1 ea PO DAILY
Patient Comments:
TAKES AT NOON
glimepiride 1 mg Tablet
4 mg PO HS
amiodarone 200 mg tablet
200 mg PO DAILY
isosorbide dinitrate 20 mg tablet
10 mg PO TID
hydralazine 50 mg tablet
75 mg PO TID
pantoprazole 40 mg tablet,delayed release (DR/EC)
40 mg PO DAILY
amlodipine [Norvasc] 2.5 mg Tablet
2.5 mg PO TID
allopurinol 100 mg Tablet
100 mg PO DAILY
aspirin 81 mg Tablet,Delayed Release (Dr/Ec)
81 mg PO HS
vitamin B complex Tablet
2 tab PO DAILY
prednisone 10 mg Tablet
5 mg PO DAILY
polyethylene glycol 3350 [Miralax] 17 gram Powder In Packet
17 g PO DAILY
docusate sodium [Colace] 100 mg Capsule
200 mg PO DAILY
Trelegy Ellipta 200-62.5-25 mcg Blister With Device
1 inh INHALATION R DAILY
Bumex Infusion
4 mg IV WEFR
propranolol 10 mg Tablet
10 mg PO BID
Patient Comments:
Patient states that he stopped taking this.
metolazone 2.5 mg Tablet
2.5 mg PO DIRECTED PRN (Reason: weight gain)
oxycodone-acetaminophen [Percocet] 5-325 mg tablet
1 tab PO Q6HPRN PRN (Reason: pain) Qty: 14 0RF
sulfamethoxazole-trimethoprim [Bactrim] 400-80 mg Tablet
1 tab PO DAILY
Patient Comments:
plan to start today
Referrals:
Cole Garner MD [Family Provider] -
Interventions
Interventions:
*Risk Screen - Suicide Last Done: 11/13/23 22:19
*General Assessment Last Done: 11/13/23 22:19
*Neglect/Abuse Screening Last Done: 11/13/23 22:19
*ED COVID-19 Vaccine History Last Done: 11/13/23 22:19
Discharge Date and Time
Print Language: GERMAN
[2023-11-14] MEDS: NOVOLIN R 5 UNITS IV (02:21)
[2023-11-14 02:22] LABS: Glucose - Point of Care 284 mg/dl (70-99)
[2023-11-14] MEDS: SODIUM BICARBONATE 50 MEQ IV (02:22)
[2023-11-14] MEDS: LOKELMA 10 GRAM PO (02:22)
[2023-11-14 03:40] LABS: Glucose - Point of Care 171 mg/dl (70-99)
--- NOTE | 2023-11-14 04:24 | HPS.HSE ---
Family Physician
-
Family Physician: Cole Garner
Chief Complaint
-
Weakness
History of Present Illness
Patient is a 73y M with PMH significant for nonischemic cardiomyopathy with chronic HFrEF, ascites, advanced CKD and DM-II who presents to ED complaining of generalized weakness and fatigue. Patient has complex medical history of advanced CHF and
CKD. He has chronic / recurrent ascites and has paracentesis done once weekly (last 11/05). He received IV Bumex 4mg twice weekly. He is followed at [facility] by advanced heart failure team.
Patient states that he has been becoming progressively more weak / having difficulty with ambulation.
About 10 days ago, he slipped and fell while trying to charla into his car and suffered a fracture of his R distal fibula. He was seen by Ortho and has an air cast / walking boot in place at present.
Patient has had worsening issues with weakness and ambulation since that time. He becomes SOB and fatigued while trying to ambulate to the bathroom.
Patient notes that his recent outpatient labs showed increased SCr and potassium. He was instructed to decrease his doses of torsemide (100mg bid to 100mg daily) and potassium.
However, he states that he mixed up his instructions and instead took double-doses of potassium (40mEq daily) for the past 3 days or so.
In the ED today, patient has SCr = 4 and potassium = 6.7.
Medical History
Past Medical History
Past Medical History: Reports Other
Additional Past Medical History:
Nonischemic Cardiomyopathy
Chronic HFrEF
Chronic / Recurrent Ascites - Cardiac Cirrhosis
CKD V
ASCVD
Paroxysmal Atrial Fibrillation
DM-II
Hypertension
VIRGILIO
Anemia of CKD
GERD
Obesity
Past Surgical History: Reports Other
Additional Past Surgical History:
PPM
Watchman Device
PTCA with Stent
GIST Resection
Weekly Paracenteses
Social History
Tobacco: Former Smoker
Alcohol: Former
Drug: None
Personal:
Family History
Family History: Other (Mother: ESRD Uncle: ESRD)
Allergies / Home Medications
Allergies reflects when Allergies were last updated in [facility].
Home Medications with original date entered in [facility]
Allergy/Medication List:
Allergies
Allergy/AdvReac Type Severity Reaction Status Date / Time
baclofen Allergy comatose Verified 11/06/23 14:08
and
sleepwalking
strawberry Allergy swelling Verified 11/06/23 14:08
from head
to toe
Home Medications
albuterol sulfate 90 mcg/actuation aerosol inhaler 2 puff inhalation R Q6HPRN PRN sob 11/18/19
atorvastatin 40 mg tablet 40 mg PO HS High cholesterol 01/12/20
potassium chloride 20 mEq tablet,extended release(part/cryst) (Klor-Con M) 20 meq PO DAILY Electrolyte Repletion 05/10/20
torsemide 20 mg tablet 100 mg PO DAILY Fluid retention/Swelling 10/25/20
multivitamin 1 ea PO DAILY Supplement 07/05/21
glimepiride 1 mg tablet 4 mg PO HS Diabetes 09/26/21
amiodarone 200 mg tablet 200 mg PO DAILY Arrhythmia 08/15/22
hydralazine 50 mg tablet 75 mg PO TID Blood Pressure 08/15/22
isosorbide dinitrate 20 mg tablet 10 mg PO TID angina 08/15/22
pantoprazole 40 mg tablet,delayed release 40 mg PO DAILY Gastrointestinal Issue 08/15/22
amlodipine 2.5 mg tablet (Norvasc) 2.5 mg PO TID Blood Pressure 11/03/22
allopurinol 100 mg tablet 100 mg PO DAILY Gout 05/04/23
vitamin B complex 2 tab PO DAILY Supplement 05/16/23
aspirin 81 mg tablet,delayed release 81 mg PO HS Blood Clot Prevention/Tx 05/25/23
prednisone 10 mg tablet 5 mg PO DAILY Anti-Inflammatory 07/13/23
Bumex Infusion 4 mg IV WEFR Fluid Retention/Swelling 10/02/23
docusate sodium 100 mg capsule (Colace) 200 mg PO DAILY Constipation 10/02/23
fluticasone fur. 200 mcg-umeclid 62.5 mcg-vilant 25 mcg inhalat.powder (Trelegy Ellipta) 1 inh inhalation R DAILY Lung/Breathing Issues 10/02/23
polyethylene glycol 3350 17 gram oral powder packet (Miralax) 17 g PO DAILY Constipation 10/02/23
metolazone 2.5 mg tablet 2.5 mg PO DIRECTED PRN weight gain 10/31/23
propranolol 10 mg tablet 10 mg PO BID 11/02/23
oxycodone-acetaminophen 5 mg-325 mg tablet (Percocet) 1 tab PO Q6HPRN PRN pain #14 tabs 11/04/23
sulfamethoxazole 400 mg-trimethoprim 80 mg tablet (Bactrim) 1 tab PO DAILY 11/06/23
Review of Systems
-
History Source: Patient
A 12 point ROS was completed and negative except as noted: Yes
Constitutional: Reports Weight Gain and Fatigue; Denies Fever or Chills
EENT: Denies Sore Throat
Respiratory: Reports Trouble Breathing; Denies Cough
Cardiac: Denies Chest Pain or Palpitations
Abdomen/GI: Reports Other (Abdominal distention); Denies Abdominal Pain, Nausea, Vomiting or Diarrhea
: Reports Difficulty Voiding; Denies Dysuria or Frequency
Musculoskeletal: Reports Edema; Denies Joint Pain
Neurological: Reports Weakness; Denies Dizzy or Headache
Psych: Denies Depression or Anxiety
Physical Exam
Vital Signs
Vital Signs
Temp Pulse Resp BP Pulse Ox
98.3 F 72 19 107/67 95
11/13/23 22:19 11/14/23 02:45 11/14/23 02:45 11/14/23 02:00 11/14/23 02:45
Physical Exam
General: Other (73y M in no acute distress.)
HEENT: Moist mucous membranes, PERRLA and Other (Thick neck.)
Respiratory: Other (Decreased at bases - otherwise clear.)
Cardiac: S1/S2, Regular Rhythm and Murmur (II/ JUNAID)
GI: Other (Significantly distended abdomen. Not tender. Pos BS.)
Musculoskeletal: No Clubbing, No Cyanosis and Other (3+ pitting edema to the midthigh bilaterally.)
Neuro: AO x 3 and Nonfocal/grossly intact
Laboratory Results
-
11/13/23 22:41
Laboratory Results
Total Bilirubin 0.3 mg/dl (0.2-1.3) 11/13/23 22:41
AST 42 U/L (17-59) 11/13/23 22:41
ALT 53 U/L (0-50) H 11/13/23 22:41
Alkaline Phosphatase 127 U/L (38-126) H 11/13/23 22:41
Impression/Plan
-
A/P: Patient is a 73y M with PMH significant for CHF, CKD, DM and ASCVD who presents to ED complaining of worsening weakness and is noted to have JEFFERSON and hyperkalemia.
Hyperkalemia
- Admit to monitored bed for further evaluation and treatment.
- Hamilton to be placed now given JEFFERSON and hyperkalemia in this 73 yo gentleman.
- Likely due to combination of advanced renal disease and accidental increase in KCl dosing over the past few days.
- Hold supplemental potassium.
- Continue usual loop diuretic dosing.
- Lokelma given in the ED - follow for effects.
- Nephrology evaluation for additional recommendations.
- Patient has repeatedly made clear that he would not be interested in 'regular' dialysis.
JEFFERSON on CKD V
- SCr = 4 compared to usual baseline of 2.5.
- Received most recent dose of bumetanide on 11/08.
- Recent decrease in torsemide from 100mg BID to 100mg daily based on rising SCr (> 3 on last OP labs).
- Clearly volume overloaded on exam.
- Continue usual torsemide for now.
- Hamilton as noted above.
- Follow for changes in renal function.
- Nephrology evaluation as noted.
Nonischemic Cardiomyopathy
Chronic HFrEF
Chronic / Recurrent Ascites
- Acute volume overload based on exam, BNP, etc.
- Continue / resume torsemide BID.
- Consider IV Bumex dosing if needed for effective diuresis.
- Nephrology eval as noted above for diuretic management.
- IR evaluation for repeat paracentesis (due today).
ASCVD
- Stable. No chest pain. Continue usual med regimen.
DM-II
- Stable. Hold PO medications.
- Follow glucose and cover with SSI as needed.
- Update A1C.
Benign Hypertension
- Holding parameters for BP medications to allow for effective diuresis.
Morbid Obesity due to excess calories
- Affects all aspects of care.
- Encourage healthy diet and activity as tolerated for goal of weight reduction.
DVT Prophylaxis: Subcut Heparin
Code Status: Full
[2023-11-14 06:43] LABS: Hematocrit 27.9 % (39.0-52.0); Hemoglobin 9.2 g/dL (13.0-18.0); Mean Corpuscular Hgb 28.4 pg (27.0-31.0); Mean Corpuscular Volume 86.1 fL (80.0-94.0); Mean Platelet Volume 9.3 fL (7.4-10.4); Platelet Count 305 10^3/uL (130-400); Red Blood Cell Count 3.24 10^6/uL (4.70-6.10); Red Cell Dist. Width 19.9 % (11.5-14.5); White Blood Cell Count 8.3 10^3/uL (4.8-10.8)
[2023-11-14 06:51] LABS: Potassium 5.3 mmol/L (3.5-5.1)
[2023-11-14 07:08] LABS: Blood Urea Nitrogen 106 mg/dl (9-20); Calcium 8.9 mg/dl (8.4-10.2); Carbon Dioxide 26 mmol/L (22-30); Chloride 99 mmol/L (98-107); Estimated Creatinine Clearance 17 ml/min; Glucose 105 mg/dl (70-99); Magnesium 2.7 mg/dl (1.6-2.3); Phosphorus 3.8 mg/dl (2.5-4.5); Potassium 5.2 mmol/L (3.5-5.1); Sodium 135 mmol/L (135-145); eGFR 15.06
--- NOTE | 2023-11-14 07:10 | PTCARENOTE ---
Received patient from the ED 0600. Patient oriented to room. EKG, labs, admission completed.
[2023-11-14 07:32] LABS: TSH Reflex To Free T4 3.98 uIU/ml (0.47-4.68)
[2023-11-14] MEDS: SYMBICORT 160/4.5 MCG INHALER INH (08:00)
[2023-11-14 08:15] LABS: Glycohemoglobin (HgbA1c) 7.8 % (4.0-5.6)
[2023-11-14] MEDS: PACERONE 200 MG PO (08:52)
[2023-11-14] MEDS: ISORDIL 10 MG PO ×3 (08:53→20:04)
[2023-11-14] MEDS: INDERAL 10 MG PO ×2 (08:53→20:04)
[2023-11-14] MEDS: ZYLOPRIM 100 MG PO (08:54)
[2023-11-14] MEDS: DEMADEX 100 MG PO (08:54)
[2023-11-14] MEDS: COLACE 200 MG PO (08:54)
[2023-11-14] MEDS: DELTASONE 5 MG PO (08:54)
[2023-11-14] MEDS: HEPARIN 5000 UNITS SC ×2 (08:54→20:03)
[2023-11-14] MEDS: NOVOLOG FLEXPEN-LOW RESISTANCE SC (08:54)
[2023-11-14 08:58] LABS: Body Fluid Mononuclear 94.1 %; Body Fluid Polymorphonuclear 5.9 %; Body Fluid WBC 101 /CUMM
[2023-11-14 09:01] LABS: Glucose - Point of Care 118 mg/dl (70-99)
[2023-11-14 09:01] LABS: Body Fluid Second Tech AMA
[2023-11-14 12:11] LABS: Glucose - Point of Care 195 mg/dl (70-99)
--- NOTE | 2023-11-14 12:44 | CM ---
Addendum entered by Ene Almonte RN 11/14/23 14:36:
Per Dr Black, plan transfer to [facility] with Cardiac Monitoring enroute, by ALS ambulance. On-call heart failure physician Dr. Marina Benson from [facility] accepted patient for transfer.
Plan transfer to [facility] by ALS ambulance when bed available.
Addendum entered by Ene Almonte RN 11/14/23 14:04:
Per nephrology notes; recent fracture of his R distal fibula with air cast / walking boot in place.
Original Note:
Patient with Dx Hyperkalemia, JEFFERSON, HF. Room air.
Met with patient and daughter Britni;
the patient resides with his in a 2 story house, with 1 step and ramp at garage entrance.
Patient has been staying on first floor in bedroom with bathroom/no shower due to weakness.
He had been ambulatory with his RW and for the past 3-4 days he has been unable to walk.
Patient reports left leg weakness and right leg in brace.
He fell 2x in the past few days.
DME - RW, w/c, transport w/c, right leg brace
No prior VN or SNF.
PCP - Cole Garner
Pharmacy - [facility]
Patient would benefit from PT/OT Evals---> message sent to Dr Black.
Patient says his breaker mechanic at [place] Dr Basilia Delacruz contacted him and wants him transferred to [facility]. Patient & daughter asked me to let MD know. He says he appreciates our good care here however he feels his case is very complex. Message
sent to Dr Nichols.
Plan follow up after seen by PT/OT.
[2023-11-14] MEDS: NOVOLOG FLEXPEN-LOW RESISTANCE 1 UNITS SC (12:55)
--- NOTE | 2023-11-14 12:56 | W.CON.NEPH ---
Addendum entered and electronically signed by Billie Lui MD 11/14/23 13:55:
Note med list shows bactrim for foot infection could also be the source of JEFFERSON too
Original Note:
Consultation
-
Date/Time Consultation Requested: 11/14/23 0550
Date/Time Consultation Performed: 11/14/23 1110
Requesting Provider: Richard Noriega
Performing Provider: Billie Navarro
Reason for Consultation: JEFFERSON with CKD
Medical History
-
Chief Complaint: Gen weakness
History of Present Illness:
73-year-old male with past medical history of paroxysmal atrial fibrillation status post watchman on Amiodarone, recent cardioversion , history of pacemaker, CAD status post stent, VIRGILIO on CPAP, CKD 4 baseline cr mid 2 range, hypertension on
hydralazine and low dose Amlodipine, asthma/COPD, gastrointestinal stromal tumor s/p resection in 2021, liver scarring, Ascites on weekly paracentesis, chronic anemia, type 2 diabetes on oral meds, gout on allopurinol, chronic HFrEF 30% on large
dose of Torsemide 100mg BID and bumex 4mg IV twice weekly prn metolazone, chr LE lymphedema managed by advanced heart failure team at [place] who also get slabs weekly presented with progressive weakness and having difficulty with ambulation. About
10 days ago, he slipped and fell while trying to get into his car and suffered a fracture of his R distal fibula. He was seen by Ortho and has an air cast / walking boot in place at present.
Patient has had worsening issues with weakness and ambulation since that time. He becomes SOB and fatigued while trying to ambulate to the bathroom.
Patient notes that his recent outpatient labs showed increased SCr 3.4 and potassium 5. He was instructed to decrease his doses of torsemide (100mg bid to 100mg daily) and lower potassium pills.
However, he states that he mixed up his instructions and instead took double-doses of potassium (40mEq daily) for the past 3 days or so.
In the ED today, patient has SCr = 4 and potassium = 6.7. He received Lokelma k better at 5.2. He also underwent paracentesis of 3.6lit which is more than his usual 2lit.
He was recently at for gout flare up, cellulitis, JEFFERSON and diuresis were lowered briefly and off metolazone, cr peak was 3.8 and improved to 2.6 at discharge, RHC on 10/04 shows PCWP of 30mmhg at wt of 86.6kg.
He offers no cp or abd pain. no n/v. No fever. No sob at rest, he sleeps reclined.
Past Medical History
paroxysmal atrial fibrillation status post watchman, history of pacemaker, CAD status post stent, chronic HFrEF, CKD 4, hypertension, asthma/COPD, gastrointestinal stromal tumor s/p resection in 2021, cardiac cirrhosis, chronic anemia, type 2
diabetes, gout, ascites weekly paracentesis
Nonischemic Cardiomyopathy
VIRGILIO
Anemia of CKD
GERD
Obesity
Past Surgical History: Other (PPM Watchman Device PTCA with Stent GIST Resection Weekly Paracenteses)
Social History
Tobacco: Former Smoker
Alcohol: Former
Drug: None
Personal:
Living: With Family
Family History
mother ESRD from ?HTN
Family History: Not Pertinent
Allergies / Home Medications
Allergy/AdvReac Type Severity Reaction Status Date / Time
baclofen Allergy comatose Verified 11/06/23 14:08
and
sleepwalking
strawberry Allergy swelling Verified 11/06/23 14:08
from head
to toe
�Medication �Instructions �Recorded �Confirmed �Type
albuterol sulfate 90 mcg/actuation 2 puff inhalation R Q6HPRN PRN sob 11/18/19 11/14/23 History
aerosol inhaler
atorvastatin 40 mg tablet 40 mg PO HS High cholesterol 01/12/20 11/14/23 History
potassium chloride 20 mEq 20 meq PO DAILY Electrolyte 05/10/20 11/14/23 History
tablet,extended Repletion
release(part/cryst) (Klor-Con M)
torsemide 20 mg tablet 100 mg PO DAILY Fluid 10/25/20 11/14/23 History
retention/Swelling
multivitamin 1 ea PO DAILY Supplement 07/05/21 11/14/23 History
glimepiride 1 mg tablet 4 mg PO HS Diabetes 09/26/21 11/14/23 History
amiodarone 200 mg tablet 200 mg PO DAILY Arrhythmia 08/15/22 11/14/23 History
hydralazine 50 mg tablet 75 mg PO TID Blood Pressure 08/15/22 11/14/23 History
isosorbide dinitrate 20 mg tablet 10 mg PO TID angina 08/15/22 11/14/23 History
pantoprazole 40 mg tablet,delayed 40 mg PO DAILY Gastrointestinal 08/15/22 11/14/23 History
release Issue
amlodipine 2.5 mg tablet (Norvasc) 2.5 mg PO TID Blood Pressure 11/03/22 11/14/23 History
allopurinol 100 mg tablet 100 mg PO DAILY Gout 05/04/23 11/14/23 History
vitamin B complex 2 tab PO DAILY Supplement 05/16/23 11/14/23 History
aspirin 81 mg tablet,delayed 81 mg PO HS Blood Clot 05/25/23 11/14/23 History
release Prevention/Tx
prednisone 10 mg tablet 5 mg PO DAILY Anti-Inflammatory 07/13/23 11/14/23 History
Bumex Infusion 4 mg IV WEFR Fluid 10/02/23 11/14/23 History
Retention/Swelling
docusate sodium 100 mg capsule 200 mg PO DAILY Constipation 10/02/23 11/14/23 History
(Colace)
fluticasone fur. 200 mcg-umeclid 1 inh inhalation R DAILY 10/02/23 11/14/23 History
62.5 mcg-vilant 25 mcg Lung/Breathing Issues
inhalat.powder (Trelegy Ellipta)
polyethylene glycol 3350 17 gram 17 g PO DAILY Constipation 10/02/23 11/14/23 History
oral powder packet (Miralax)
metolazone 2.5 mg tablet 2.5 mg PO DIRECTED PRN weight 10/31/23 11/14/23 History
gain
propranolol 10 mg tablet 10 mg PO BID 11/02/23 11/14/23 History
oxycodone-acetaminophen 5 mg-325 1 tab PO Q6HPRN PRN pain #14 tabs 11/04/23 11/14/23 Rx
mg tablet (Percocet)
sulfamethoxazole 400 1 tab PO DAILY 11/06/23 11/14/23 History
mg-trimethoprim 80 mg tablet
(Bactrim)
Review of Systems
-
all complete 12 point ROS have been inquired and found negative other than stated in HPI
All other systems: Negative unless noted
Physical Exam
Vital Signs
Vital Signs
Temp Pulse Resp BP Pulse Ox
97.8 F 70 17 112/59 96
11/14/23 07:45 11/14/23 09:45 11/14/23 09:45 11/14/23 08:52 11/14/23 09:45
Lab Results
WBC 8.3 10^3/uL (4.8-10.8) 11/14/23 06:16
RBC 3.24 10^6/uL (4.70-6.10) L 11/14/23 06:16
Hgb 9.2 g/dL (13.0-18.0) L 11/14/23 06:16
Hct 27.9 % (39.0-52.0) L 11/14/23 06:16
Plt Count 305 10^3/uL (130-400) 11/14/23 06:16
Sodium 135 mmol/L (135-145) 11/14/23 06:16
Potassium 5.2 mmol/L (3.5-5.1) H 11/14/23 06:16
Potassium 5.3 mmol/L (3.5-5.1) H 11/14/23 06:16
Chloride 99 mmol/L (98-107) 11/14/23 06:16
Carbon Dioxide 26 mmol/L (22-30) 11/14/23 06:16
BUN 106 mg/dl (9-20) H* 11/14/23 06:16
Creatinine 4.0 mg/dL (0.7-1.3) H 11/14/23 06:16
eGFR 15.06 11/14/23 06:16
Glucose 105 mg/dl (70-99) H 11/14/23 06:16
Calcium 8.9 mg/dl (8.4-10.2) 11/14/23 06:16
Phosphorus 3.8 mg/dl (2.5-4.5) 11/14/23 06:16
Vcf-J-Idgdqzgyexx Pept 06387 pg/ml 11/13/23 22:41
Albumin 3.4 g/dl (3.5-5.0) L 11/13/23 22:41
CXR:
FINDINGS:
Lines and tubes: Stable left chest wall cardiac device with intact leads.
Lungs: No convincing focal infiltrates. No significant pleural effusions. No visualized pneumothorax.
Heart: Stable enlargement of the cardiomediastinal silhouette. No overt pulmonary vascular congestion.
Osseous structures: No acute abnormalities.
IMPRESSION:
No acute cardiopulmonary process.
Physical Exam
General: Awake, Alert, Oriented, AOx3, No Distress and Nontoxic
HEENT: EOMI, Anicteric, Conjunctivae Clear and Facial Symmetry
Respiratory: Clear, Normal Excursion and Nonlabored Respirations
Cardiac: S1/S2 and Regular Rate/Rhythm
Breast: Deferred by me
Abdomen: Soft, Nontender and Other (distension )
Musculoskeletal: No Cyanosis and Edema (2+, some in lat thighs too)
Skin: No Rash
Neuro: Nonfocal/Grossly Intact
Psych: Mood/afflect pleasant, Insight/judgement good and Appropriate
Data Reviewed
-
Labs: Labs Reviewed by me, Discussed with Patient and Discussed with Family
Assessment/Plan
-
IMP:
Hyperkalemia
JEFFERSON on CKD 4 -baseline cr mid 2 range, nephro at [place] Dr Boucher
Paroxysmal atrial fibrillation status post Watchman
History of pacemaker
CAD status post stent
Chronic HFrEF 30%
Hyponatremia
Azotemia
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
Lymphedema secondary to heart failure
History of liver scar
Former alcohol use
Essential hypertension
Gastrointestinal stromal tumor s/p resection in 2021
Asthma/COPD
Chronic anemia
Type 2 diabetes
Gout
Former smoker
Morbid Obesity due to excess calories
elevated LFTs
Plan:
A/w progressive gen weakness and Amb dysfunction
Severe hyperkalemia-with high kcl intake and JEFFERSON
k is improving, monitor and low k diet
JEFFERSON-cardiorenal chronically , non oliguric with garza
will keep diuresis Torsemide daily and hold bumex IV
s/p paracentesis today 3.6lit
eventually would increase back diuretics
last RHC on 10/04 PCWP of 30 at wt of 86.8kg
BP are soft, hold AMlodipine
no emergent indication of HD
Previous discussions He has refused DIABETES SPECIALIST even if needed and understands the poor prognosis with out HD
he has cards appointment later this month at [place]
d/w
--- NOTE | 2023-11-14 13:11 | PTCARENOTE ---
Assumed care of pt from internet ecommerce specialist RN. Pt AAOx3. V/AV paced on telemetry monitor. SpO2 98% on room air. VSS. Hamilton draining clear, yellow urine. Brace on RLE. Assessment documented. Pt sent to IR for paracentesis this morning. 3600mL cloudy, yellow
fluid drained. Pt now resting in bed with daughter at bedside. Per pt and daughter, pt follows with mixing machine operator at [facility] and they wish for him to be transferred there when able. adult manager aware.
--- NOTE | 2023-11-14 14:00 | W.PN.UPDATE ---
Addendum entered and electronically signed by Brian Lord MD 11/15/23 12:45:
Time of discharge 38 minutes
Original Note:
Update Note
Progress Note Update
nonbillable note.
72-year-old male with past med history of nonischemic cardiomyopathy, chronic CHF with reduced EF, ascites, advanced CKD, advanced heart failure, diabetes mellitus 2 came to the hospital with generalized weakness and fatigue. Patient follows up
with advanced heart failure team at [facility]. Follows up with Dr. Basilia Smith. Patient creatinine is currently 4. Seen by nephrology here. Continue with p.o. torsemide. Also was taking p.o. Bactrim which could be responsible for his JFEFERSON.
proBNP elevated. Patient spoke with his outpatient jewelry sales coordinator who agrees with patient being transferred to [facility] for further management due to his advanced heart failure.
Spoke with on-call heart failure physician Dr. Marina Benson from [facility] and he accepted patient for transfer. Transfer form done.
General: Other (73y M in no acute distress.)
HEENT: Moist mucous membranes, PERRLA and Other (Thick neck.)
Respiratory: Other (Decreased at bases - otherwise clear.)
Cardiac: S1/S2, Regular Rhythm and Murmur (II/ JUNAID)
GI: Other (Significantly distended abdomen. Not tender. Pos BS.)
Musculoskeletal: No Clubbing, No Cyanosis and Other (3+ pitting edema to the midthigh bilaterally.)
Neuro: AO x 3 and Nonfocal/grossly intact
--- NOTE | 2023-11-14 14:26 | W.DCSUMMARY ---
Discharge Summary
Discharge Data
Date of Admission: 11/14/23
Date of Discharge: 11/14/23
-
Pending Results: No
Hospital Course
Discharge diagnosis:
Acute on chronic congestive heart failure with reduced ejection fraction exacerbation
Acute kidney injury on chronic kidney disease
Hyperkalemia
Hospital course:
73-year-old male with past medical history of CHF, CKD, diabetes mellitus, nonischemic cardiomyopathy, hypertension came to the hospital with weakness was noted to have acute kidney injury and hyperkalemia along with CHF exacerbation. Patient was
seen by nephrology on this hospitalization and instructed to continue torsemide. Patient was also on Bactrim which was likely thought could be contributing to some of his acute kidney injury. His proBNP was very elevated on this hospitalization.
Given his advanced heart failure and advanced kidney disease and he follows up with [facility] and nephrology, his outpatient extras casting director agreed to have patient be transferred to [facility] for further management. Patient was then
transferred on 11/14/2023 to [facility] for further management under care of Dr. Marina Benson.
Discharge Plan
-
Patient Disposition: Acute Care Hospital
Discharge Orders:
Discharge Patient (As Directed); Ordered 11/14/23
Ordered By: Brian Lord
Discharge Date and Time
Discharge Date/Time: 11/14/23 21:35
Print Language: ETHIOPIAN
[2023-11-14] MEDS: NOVOLOG FLEXPEN-LOW RESISTANCE 5 UNITS SC (17:01)
[2023-11-14 17:10] LABS: Glucose - Point of Care 354 mg/dl (70-99)
[2023-11-14] MEDS: SYMBICORT 160/4.5 MCG INHALER 2 PUFF INH (19:25)
[2023-11-14] MEDS: LIPITOR 40 MG PO (20:14)
[2023-11-14] MEDS: ASPIR LOW (ENTERIC COATED) 81 MG PO (20:14)
--- NOTE | 2023-11-14 21:29 | PTCARENOTE ---
Pt transfer to [facility] via stretcher. Called and gave report to Evelina YARBROUGH via phone. Education given and receptive. Pt transported with single bag of belongings.
== END 2023-11-14 21:35 | disposition short-term general hospital (02) | DRG 641 ==
LOC: IMU 04:53
PROVIDERS: Radiology Diagnostic Radiology; Student in an Organized Health Care Education/Training Program; ADMITTING PHYSICIAN Hospitalist; ATTENDING PHYSICIAN Internal Medicine; EMERGENCY PHYSICIAN Emergency Medicine; FAMILY PHYSICIAN Internal Medicine Geriatric Medicine; OTHER PHYSICIAN Internal Medicine
PROC: 0W9G3ZX Drainage of Peritoneal Cavity, Percutaneous Approach, Diagnostic (ICD-10-PCS; 2023-11-14)
DX: E87.5 Hyperkalemia (principal); I13.2 Hypertensive heart and chronic kidney disease with heart failure and with stage 5 chronic kidney disease, or end stage renal disease; I42.8 Other cardiomyopathies; I50.22 Chronic systolic (congestive) heart failure; N17.9 Acute kidney failure, unspecified; N18.5 Chronic kidney disease, stage 5; R18.8 Other ascites; K76.1 Chronic passive congestion of liver; E66.01 Morbid (severe) obesity due to excess calories; Z68.33 Body mass index [BMI] 33.0-33.9, adult; E11.22 Type 2 diabetes mellitus with diabetic chronic kidney disease; J44.89 Other specified chronic obstructive pulmonary disease; D63.1 Anemia in chronic kidney disease; E87.1 Hypo-osmolality and hyponatremia; E78.00 Pure hypercholesterolemia, unspecified; I48.0 Paroxysmal atrial fibrillation; I89.0 Lymphedema, not elsewhere classified; K21.9 Gastro-esophageal reflux disease without esophagitis; K59.00 Constipation, unspecified; M10.9 Gout, unspecified; G47.33 Obstructive sleep apnea (adult) (pediatric); I25.10 Atherosclerotic heart disease of native coronary artery without angina pectoris; S82.401D Unspecified fracture of shaft of right fibula, subsequent encounter for closed fracture with routine healing; W01.0XXD Fall on same level from slipping, tripping and stumbling without subsequent striking against object, subsequent encounter; Z79.4 Long term (current) use of insulin; Z79.84 Long term (current) use of oral hypoglycemic drugs; Z79.899 Other long term (current) drug therapy; Z85.09 Personal history of malignant neoplasm of other digestive organs; Z87.891 Personal history of nicotine dependence; Z95.818 Presence of other cardiac implants and grafts; Z95.0 Presence of cardiac pacemaker; Z95.5 Presence of coronary angioplasty implant and graft; Z88.1 Allergy status to other antibiotic agents
CPT/HCPCS: 49083; 71045; 80048; 80053; 82962; 83036; 83735; 83880; 84100; 84132; 84443; 85025; 85027; 89051; 93005; 94640

== ENCOUNTER → 2023-11-27 07:04 | Outpatient (REF) | payer MEDICARE, OTHER, SELFPAY ==
[2023-11-27 07:18] VITALS: BP 110/60; BP_SYST 65
[2023-11-27 08:06] VITALS: BP 116/59; BP_SYST 72
[2023-11-27 08:21] VITALS: BP 116/59
[2023-11-27 09:16] LABS: Body Fluid Polymorphonuclear 4.9 %; Body Fluid WBC 302 /CUMM
[2023-11-27 09:17] LABS: Body Fluid Mononuclear 95.1 %
[2023-11-27 12:38] LABS: Body Fluid Second Tech AMA
== END ==
LOC: RADI 07:04
PROVIDERS: ATTENDING PHYSICIAN Internal Medicine Cardiovascular Disease; FAMILY PHYSICIAN Internal Medicine Geriatric Medicine
DX: R18.8 Other ascites (principal)
CPT/HCPCS: 49083; 89051

== ENCOUNTER → 2023-12-05 06:53 | Outpatient (REF) | payer MEDICARE, OTHER, SELFPAY ==
[2023-12-05 07:38] VITALS: BP 123/72; BP_SYST 71
[2023-12-05 08:23] VITALS: BP 107/60
[2023-12-05 10:33] LABS: Body Fluid Mononuclear 96.4 %; Body Fluid Polymorphonuclear 3.6 %; Body Fluid WBC 252 /CUMM
[2023-12-05 10:41] LABS: Body Fluid Second Tech AMA
== END ==
LOC: RADI 06:53
PROVIDERS: ATTENDING PHYSICIAN Internal Medicine Cardiovascular Disease; FAMILY PHYSICIAN Internal Medicine Geriatric Medicine
DX: R18.8 Other ascites (principal)
CPT/HCPCS: 49083; 89051

== ENCOUNTER 2023-12-05 08:26 | Outpatient (RCR) | payer MEDICARE, OTHER, SELFPAY ==
[2023-11-06 14:04] VITALS: BP 104/52
[2023-11-06] MEDS: BUMEX 66 MG IV (14:04)
[2023-11-09] MEDS: BUMEX 66 MG IV (09:27)
[2023-11-09 12:31] LABS: Blood Urea Nitrogen 115 mg/dl (9-20); Calcium 8.7 mg/dl (8.4-10.2); Carbon Dioxide 21 mmol/L (22-30); Chloride 98 mmol/L (98-107); Glucose 200 mg/dl (70-99); Magnesium 2.2 mg/dl (1.6-2.3); Sodium 131 mmol/L (135-145)
[2023-11-23] MEDS: BUMEX 66 MG IV (09:30)
[2023-11-23 09:39] VITALS: BP 107/54
[2023-11-23 11:14] LABS: Carbon Dioxide 26 mmol/L (22-30); Chloride 96 mmol/L (98-107); Glucose 109 mg/dl (70-99); Magnesium 1.7 mg/dl (1.6-2.3); Potassium 3.7 mmol/L (3.5-5.1); Sodium 134 mmol/L (135-145)
[2023-11-23 11:44] LABS: Blood Urea Nitrogen 122 mg/dl (9-20)
[2023-11-27 09:16] VITALS: BP 115/58
[2023-11-27] MEDS: BUMEX 66 MG IV (09:28)
[2023-11-30] MEDS: BUMEX 66 MG IV (09:37)
[2023-11-30 09:40] VITALS: BP 105/50
[2023-11-30 10:55] VITALS: BP 122/61
[2023-11-30 11:12] LABS: % Basophils 0.5 % (0-2); % Eosinophils 2.9 % (0-6); % Immature Granulocytes 0.7 % (0-0.5); % Lymphocytes 6.7 % (20.5-51.1); % Monocytes 4.6 % (1.7-9.3); % Neutrophils 84.6 % (42.2-75.2); Absolute Eosinophils 0.3 10^3/uL (0-0.7); Absolute Immature Granulocytes 0.1 10^3/uL (0-0.05); Absolute Lymphocytes 0.6 10^3/uL (1.2-3.4); Absolute Monocytes 0.4 10^3/uL (0.1-0.6); Absolute Neutrophils 7.5 10^3/uL (1.4-6.5); Hematocrit 26.9 % (39.0-52.0); Hemoglobin 8.9 g/dL (13.0-18.0); Mean Corp Hgb Conc. 33.1 g/dL (33.0-37.0); Mean Corpuscular Hgb 28.3 pg (27.0-31.0); Mean Corpuscular Volume 85.4 fL (80.0-94.0); Mean Platelet Volume 9.9 fL (7.4-10.4); Nucleated Red Blood Cells % 0 % (-); Platelet Count 257 10^3/uL (130-400); Red Blood Cell Count 3.15 10^6/uL (4.70-6.10); White Blood Cell Count 8.9 10^3/uL (4.8-10.8)
[2023-11-30 11:22] LABS: ALT (SGPT) 26 U/L (0-50); AST (SGOT) 23 U/L (17-59); Albumin 2.9 g/dl (3.5-5.0); Alkaline Phosphatase 91 U/L (38-126); Calcium 8.9 mg/dl (8.4-10.2); Carbon Dioxide 27 mmol/L (22-30); Chloride 96 mmol/L (98-107); Glucose 127 mg/dl (70-99); Iron 39 ug/dl (49-181); Magnesium 1.8 mg/dl (1.6-2.3); Potassium 3.8 mmol/L (3.5-5.1); Sodium 134 mmol/L (135-145); Total Bilirubin 0.3 mg/dl (0.2-1.3); Total Protein 5.1 g/dl (6.3-8.2); Uric Acid 8.4 mg/dl (3.5-8.5)
[2023-11-30 11:30] LABS: Percent Saturation 14 % (20-50); Total Iron Binding Capacity 265 ug/dl (261-462)
[2023-11-30 11:36] LABS: Blood Urea Nitrogen 129 mg/dl (9-20)
[2023-11-30 11:42] LABS: NT-proBNP 9060 pg/ml
[2023-11-30 11:44] LABS: Free T4 1.39 ng/dl (0.78-2.19)
[2023-12-01 23:23] LABS: C-Peptide 7.9 ng/mL (0.5-3.3)
[2023-12-05 08:55] VITALS: BP 105/65
[2023-12-05] MEDS: BUMEX 66 MG IV (09:01)
[2023-12-05 11:49] LABS: Calcium 8.8 mg/dl (8.4-10.2); Carbon Dioxide 23 mmol/L (22-30); Chloride 97 mmol/L (98-107); Glucose 86 mg/dl (70-99); Potassium 4.6 mmol/L (3.5-5.1); Sodium 135 mmol/L (135-145); eGFR 20.44
[2023-12-05 12:23] LABS: Blood Urea Nitrogen 133 mg/dl (9-20)
[2023-12-05 13:07] LABS: Magnesium 2.2 mg/dl (1.6-2.3)
== END 2023-12-06 09:37 | disposition home or self-care (01) ==
LOC: OID 08:26
PROVIDERS: ATTENDING PHYSICIAN Internal Medicine Cardiovascular Disease; FAMILY PHYSICIAN Internal Medicine Geriatric Medicine
DX: R18.8 Other ascites (principal); I50.22 Chronic systolic (congestive) heart failure; Z92.89 Personal history of other medical treatment
CPT/HCPCS: 36415; 49083; 80048; 80053; 82728; 83540; 83550; 83735; 83880; 84439; 84550; 84681; 85025; 89051; 96365

== ENCOUNTER → 2023-12-12 06:51 | Outpatient (REF) | payer MEDICARE, OTHER, SELFPAY ==
[2023-12-12 07:18] VITALS: BP 120/68; BP_SYST 81
[2023-12-12 07:58] VITALS: BP 124/68; BP_SYST 71
[2023-12-12 08:10] VITALS: BP 124/68
[2023-12-12 10:43] LABS: Body Fluid Mononuclear 93.7 %; Body Fluid Polymorphonuclear 6.3 %; Body Fluid WBC 267 /CUMM
[2023-12-12 10:49] LABS: Body Fluid Second Tech ASW
== END ==
LOC: RADI 06:51
PROVIDERS: ATTENDING PHYSICIAN Internal Medicine Cardiovascular Disease; FAMILY PHYSICIAN Internal Medicine Geriatric Medicine
DX: R18.8 Other ascites (principal)
CPT/HCPCS: 49083; 89051

== ENCOUNTER 2023-12-19 11:15 | Inpatient (IN) | payer MEDICARE, OTHER, SELFPAY ==
[2023-12-19] VITALS (14 sets, daily range): BP systolic 67–137; BP diastolic 47–68; BMI 32.1; BMI 30.2
--- NOTE | 2023-12-19 07:35 | ED.GENMED ---
History of Present Illness
General
Chief Complaint: Weakness
Exam Limitations: none
Time Seen by Provider: 12/19/23 07:06
Nursing documentation reviewed up to this point in time: agreed with
History of Present Illness
History of Present Illness:
73 yr old male past medical history of CHF CKD diabetes nonischemic cardiomyopathy hypertension A-fib pacemaker presents to the ER for evaluation of weakness. Patient was getting ready at 5 AM as he was scheduled to get a paracentesis here this
morning when he felt very weak. He had the sensation that sugar might have been low so he lowered himself to the ground. called EMS and her sugar was 102. Patient does note that he has been mildly short of breath. On exam patient has
obvious redness to his left lower leg that and patient report was not there yesterday. He has a history of cellulitis as per .
Past History
Past History
ED Past Medical History: Arrthythmia, Asthma, Cancer, CHF, HTN, Hypercholesterolemia and NIDDM
ED Past Surgical History: Cardiac and Other
Social History
Tobacco: Former smoker
Alcohol: None
Drug: None
Personal:
Living: with family
Family History
Family History: Diabetes
Review of Systems
Review of Systems
Allergies reviewed?: Yes
Other source history: family
All Other Systems: ROS reviewed and negative except as documented in HPI and ROS
Constitutional: Reports fatigue; Denies fever
Respiratory: Reports trouble breathing
Cardiac: Reports no symptoms
ABD/GI: Reports other (abdominal distention )
: Reports no symptoms
Musculoskeletal: Reports other (redness to left lower leg)
Skin: Reports no symptoms
Neurological: Reports no symptoms
Psychiatric: Reports no symptoms
Phy Exam
General Physical Exam
General Presentation: no apparent distress
General age: appears stated age
General Skin: warm and dry
General Habitus: normal
General Mental: alert
General Hydration: dry mucous membranes
Cardiovascular Exam
Cardiovascular Exam: regular rate/rhythm, no murmur and normal peripheral pulses
Pulmonary Exam
Pulmonary Exam: lungs clear and no respiratory distress
Gastrointestinal Exam
Gastrointestinal Exam: ascites
Neurological Exam
Neurological Exam: alert and oriented x3
Musculoskeletal Exam
Musculoskeletal Exam: other (Strong pulses to bilateral lower extremities left lower leg with circumferential erythema warm to touch;)
Skin Exam
Skin Exam: normal color and warm/dry
Psychiatric Exam
Psychiatric Exam: normal mood/affect
Course
Orders/Labs/Results
Orders:
Orders
12/19/23 07:05
Electrocardiogram (*1) Urgent
Reason for Study: Fatigue / Weakness
EKG- Treatment ONCE
12/19/23 07:13
Complete Blood Count/With Diff Urgent
Comprehensive Metabolic Panel Urgent
12/19/23 07:36
IRAD CONSULT Urgent
Consulting Provider: Prasad Lee
Was physician already notified: Yes
Reason for Consult/Procedure: paracentesis
Acknowledgement that appropriate orders are entered: Yes
12/19/23 07:38
Chest [CR Chest - 2 Views ] Urgent
Comment:
Reason For Exam: sob
12/19/23 07:39
Add On- LAB Urgent
Tests Added?: bnp
12/19/23 07:52
Lactic Acid Urgent
NT-proBNP Urgent
12/19/23 08:22
Body Fluid Cell Count Routine
What is the Body Fluid: ascites
Date Specimen was Collected: 12/19/23
Time Specimen was Collected: 08:20
Fluid Culture with Gram Stain Routine
AWAIS Source: Peritoneal Fluid
Specimen Description:
Date Specimen was Collected: 12/19/23
Time Specimen was Collected: 08:20
12/19/23 09:18
Venous Doppler Lwr Ext Left [US Periph Venous LOWER Ext LT] Urgent
Comment:
Reason For Exam: swelling
12/19/23 09:19
Acetaminophen [Tylenol] 650 mg PO NOW STA
12/19/23 09:34
CeFAZolin 1 GRAM [Ancef] 1 gram in 5 ml IV NOW
12/19/23 10:09
Admit/Transfer Patient As Directed
Co-Sign Provider:
Level of Care: Inpatient admission
Assign to:: Medical/Surgical
Physician / Group: Hospitalist
Diagnosis: cellulitis
Reason for Hospitalization: .
Expected length of stay greater than two midnights?: Yes
ELOS- Estimated Length of Stay in days: 3
I certify the patient meets the requirements for IP care: Yes
12/19/23 10:10
PRN Pain Medication Management As Directed
May give lesser potent ordered pain med per pt: Yes
preference::
Protocol:: Medication orders for pain may be administered in a
manner that supports deferring to patient preference
when the pt is:
- Requesting an ordered lesser potent pain medication.
Least to most potent pain medications are defined
as: acetaminophen < NSAID < tramadol < opioids
(morphine, oxycodone, hydromorphone).
- Requesting a lesser dose of the same medication IF
ORDERED.
- Requesting a less intrusive route of administration
if both routes are prescribed by the provider (PO <
IV).
12/19/23 10:12
Code Status As Directed
Resuscitation Status: Full Code
12/19/23 10:26
COVID-19 Antigen Urgent
Source: Nasal Swab
Influenza A+B Rapid Molecular Urgent
AWAIS Source: Nasal Swab
Specimen Description:
Abnormal Lab Results
12/19/23 12/19/23
07:13 09:29
WBC 15.8 H 10^3/uL
(4.8-10.8)
RBC 3.59 L 10^6/uL
(4.70-6.10)
Hgb 10.5 L g/dL
(13.0-18.0)
Hct 31.7 L %
(39.0-52.0)
RDW 19.7 H %
(11.5-14.5)
Abs Immat Gran (auto) 0.1 H 10^3/uL
(0-0.05)
Absolute Neuts (auto) 14.2 H 10^3/uL
(1.4-6.5)
Absolute Lymphs (auto) 0.5 L 10^3/uL
(1.2-3.4)
Absolute Monos (auto) 0.9 H 10^3/uL
(0.1-0.6)
Immature Gran % 0.7 H %
(0-0.5)
Neutrophils % 89.4 H %
(42.2-75.2)
Lymphocytes % 3.2 L %
(20.5-51.1)
BUN 109 H* mg/dl
(9-20)
Creatinine 2.8 H mg/dL
(0.7-1.3)
Glucose 68 L mg/dl
(70-99)
Total Protein 5.9 L g/dl
(6.3-8.2)
POC Glucose 61 L mg/dl
(70-99)
12/19/23 07:13
12/19/23 07:13
Vital Signs
Initial and Last Documented VS:
Initial Vital Signs
BP
126/59
12/19/23 06:50
Last Documented Vital Signs
Temp Pulse Resp BP Pulse Ox
100.7 F H 72 18 112/52 95
12/19/23 08:55 12/19/23 10:22 12/19/23 10:22 12/19/23 10:22 12/19/23 10:22
MDM/Problems Addressed
Differential Diagnosis Includes:
not limited to: dehydration , cellulitis chff
MDM/Problems Addressed:
Patient is a 73-year-old male with significant medical history as documented above presents to the ER for weakness. On exam patient has an obvious cellulitis to the left left lower extremity with elevated white count normal lactic. Patient's
hemoglobin stable kidney function to baseline. He does have a history of chronic kidney disease and does get paracentesis. He in fact was scheduled for paracentesis today I did go here in the ER. He complains of mild shortness of breath. Chest
x-ray clear lungs clear not hypoxic. No complaints of chest pain. Patient did develop a low-grade fever here in the ER. IV Ancef ordered.
PM interrogation shows afib no other acute findings V paced
*Pulse Oximetry
Patient hypoxic: no
*Critical Care Note
Total Time (30-74mins, 75-104mins- exclusive of procedures): Not Applicable
Data Reviewed
Review of Other/Old Records Reveals: Discharge Summary and Other
Source: patient and spouse
ED Attending Note
-
Portions of this chart may have been created with voice recognition software.� Occasional wrong word or��sound alike� substitutions may have occurred due to the inherent limitations of voice recognition software.
Discharge Plan
Departure
Patient Disposition: Admit
Date of Disposition: 12/19/23
Time of Disposition: 09:37
Admit to: Med/Surg
Admit to doctor: hospitalist
Presentation/result/management discussed w/ accepting MD/DO: Hospitalist
Patient with high blood pressure during this ER visit?: No
Condition: Fair
Covid-19: Not Applicable
Discharge Problem:
cellulitis left lower extremity
Prescriptions:
No Action
atorvastatin 40 MG tablet
40 mg PO HS
potassium chloride [Klor-Con M20] 20 MEQ tablet,ER particles/crystals
40 meq PO DAILY
torsemide 20 MG tablet
100 mg PO BID
glimepiride 1 mg Tablet
1 mg PO DAILY
amiodarone 200 mg tablet
200 mg PO DAILY
hydralazine 50 mg tablet
50 mg PO TID
pantoprazole 40 mg tablet,delayed release (DR/EC)
40 mg PO DAILY
amlodipine [Norvasc] 2.5 mg Tablet
2.5 mg PO DAILY
allopurinol 100 mg Tablet
100 mg PO DAILY
aspirin 81 mg Tablet,Delayed Release (Dr/Ec)
81 mg PO DAILY
vitamin B complex Tablet
2 tab PO DAILY
polyethylene glycol 3350 [Miralax] 17 gram Powder In Packet
17 g PO DAILYPRN PRN (Reason: constipation )
Trelegy Ellipta 200-62.5-25 mcg Blister With Device
1 inh INHALATION R DAILYPRN PRN (Reason: SOB)
Bumex Infusion
4 mg IV WEFR
propranolol 10 mg Tablet
10 mg PO BID
insulin glargine [Lantus U-100 Insulin] 100 unit/mL Solution
18 unit SC HS
insulin glargine [Lantus U-100 Insulin] 100 unit/mL Solution
10 unit SC NOON
isosorbide dinitrate 10 mg Tablet
10 mg PO TID
Theragen Tablet
1 tab PO DAILY
zolpidem 5 mg Tablet
5 mg PO HS PRN (Reason: sleep )
potassium chloride 20 mEq Tablet Extended Release
20 meq PO NOON
Referrals:
Cole Garner MD [Family Provider] -
Interventions
Interventions:
*Risk Screen - Suicide Last Done: 12/19/23 06:53
*General Assessment Last Done: 12/19/23 07:00
*Neglect/Abuse Screening Last Done: 12/19/23 07:00
*ED COVID-19 Vaccine History Last Done: 12/19/23 07:01
ED- Cardiac Assessment Last Done: 12/19/23 08:00
ED- Neurological Assessment Last Done: 12/19/23 08:00
ED- Pulmonary Assessment Last Done: 12/19/23 08:00
Discharge Date and Time
Print Language: YORUBA
[2023-12-19 07:36] LABS: % Basophils 0.3 % (0-2); % Eosinophils 0.6 % (0-6); % Immature Granulocytes 0.7 % (0-0.5); % Lymphocytes 3.2 % (20.5-51.1); % Monocytes 5.8 % (1.7-9.3); % Neutrophils 89.4 % (42.2-75.2); Absolute Eosinophils 0.1 10^3/uL (0-0.7); Absolute Immature Granulocytes 0.1 10^3/uL (0-0.05); Absolute Lymphocytes 0.5 10^3/uL (1.2-3.4); Absolute Monocytes 0.9 10^3/uL (0.1-0.6); Absolute Neutrophils 14.2 10^3/uL (1.4-6.5); Hematocrit 31.7 % (39.0-52.0); Hemoglobin 10.5 g/dL (13.0-18.0); Mean Corp Hgb Conc. 33.1 g/dL (33.0-37.0); Mean Corpuscular Hgb 29.2 pg (27.0-31.0); Mean Corpuscular Volume 88.3 fL (80.0-94.0); Mean Platelet Volume 9.2 fL (7.4-10.4); Nucleated Red Blood Cells % 0 % (-); Platelet Count 249 10^3/uL (130-400); Red Blood Cell Count 3.59 10^6/uL (4.70-6.10); Red Cell Dist. Width 19.7 % (11.5-14.5); White Blood Cell Count 15.8 10^3/uL (4.8-10.8)
[2023-12-19 07:47] LABS: ALT (SGPT) 33 U/L (0-50); AST (SGOT) 37 U/L (17-59); Albumin 3.7 g/dl (3.5-5.0); Alkaline Phosphatase 89 U/L (38-126); Blood Urea Nitrogen 109 mg/dl (9-20); Calcium 9.4 mg/dl (8.4-10.2); Carbon Dioxide 22 mmol/L (22-30); Chloride 100 mmol/L (98-107); Estimated Creatinine Clearance 24 ml/min; Glucose 68 mg/dl (70-99); Potassium 4.6 mmol/L (3.5-5.1); Sodium 136 mmol/L (135-145); Total Bilirubin 0.6 mg/dl (0.2-1.3); Total Protein 5.9 g/dl (6.3-8.2)
[2023-12-19 08:14] LABS: Lactic Acid 0.9 mmol/L (0.7-2.0)
[2023-12-19 08:23] LABS: NT-proBNP 12500 pg/ml
[2023-12-19 09:30] LABS: Glucose - Point of Care 61 mg/dl (70-99)
[2023-12-19] MEDS: TYLENOL 650 MG PO (09:31)
--- NOTE | 2023-12-19 10:07 | HPS.HSE ---
Family Physician
-
Family Physician: Cole Garner
Chief Complaint
-
Weakness at home
History of Present Illness
73-year-old male woke up today early and felt weak. Patient was getting ready to go for his weekly paracentesis when he felt weak and thought he had low glucose. Upon arrival on EMT, his blood sugar was normal. also reported mild shortness
of breath the last few days. In the ER, he had low-grade temperature 100.7. Patient was given Tylenol. He underwent his usual paracentesis and recovered 2.6 L of fluid. Patient and reported worsening erythema/redness of left lower
extremity. Ultrasound did not show deep venous thrombosis. Patient has history of recurrent cellulitis same leg. Patient was started empirically on IV Ancef. Patient denied fever or chills at home. Denied coughing. No chest pain
Medical History
Past Medical History
Past Medical History: Reports Other (Hypertension, hyperlipidemia, type 2 diabetes, GI bleeding, gastroesophageal reflux disease, cardiomyopathy, CAD, paroxysmal atrial fibrillation, liver cirrhosis, history of SBP, chronic kidney disease stage IV)
Past Surgical History: Reports Other (No recent major surgery)
Social History
Tobacco: Non-smoker
Drug: None
Personal:
Living: With Family
Employment: Retired
Family History
Family History: Other (Father had heart disease, diabetes and colon cancer. Mother had kidney disease, diabetes)
Allergies / Home Medications
Allergies reflects when Allergies were last updated in [facility].
Home Medications with original date entered in [facility]
Allergy/Medication List:
Allergies
Allergy/AdvReac Type Severity Reaction Status Date / Time
baclofen Allergy comatose Verified 12/14/23 09:31
and
sleepwalking
colchicine Allergy Unknown Verified 12/19/23 06:53
strawberry Allergy swelling Verified 12/14/23 09:31
from head
to toe
Home Medications
atorvastatin 40 mg tablet 40 mg PO HS High cholesterol 01/12/20
potassium chloride 20 mEq tablet,extended release(part/cryst) (Klor-Con M) 40 meq PO DAILY Electrolyte Repletion 05/10/20
torsemide 20 mg tablet 100 mg PO BID Fluid retention/Swelling 10/25/20
glimepiride 1 mg tablet 1 mg PO DAILY Diabetes 09/26/21
amiodarone 200 mg tablet 200 mg PO DAILY Arrhythmia 08/15/22
hydralazine 50 mg tablet 50 mg PO TID Blood Pressure 08/15/22
pantoprazole 40 mg tablet,delayed release 40 mg PO DAILY Gastrointestinal Issue 08/15/22
amlodipine 2.5 mg tablet (Norvasc) 2.5 mg PO DAILY Blood Pressure 11/03/22
allopurinol 100 mg tablet 100 mg PO DAILY Gout 05/04/23
vitamin B complex 2 tab PO DAILY Supplement 05/16/23
aspirin 81 mg tablet,delayed release 81 mg PO DAILY Blood Clot Prevention/Tx 05/25/23
Bumex Infusion 4 mg IV WEFR Fluid Retention/Swelling 10/02/23
fluticasone fur. 200 mcg-umeclid 62.5 mcg-vilant 25 mcg inhalat.powder (Trelegy Ellipta) 1 inh inhalation R DAILYPRN PRN SOB 10/02/23
polyethylene glycol 3350 17 gram oral powder packet (Miralax) 17 g PO DAILYPRN PRN constipation 10/02/23
propranolol 10 mg tablet 10 mg PO BID Heart Disease/Condition 11/02/23
insulin glargine 100 unit/mL subcutaneous solution (Lantus U-100 Insulin) 18 unit SC HS diabetes 11/27/23
insulin glargine 100 unit/mL subcutaneous solution (Lantus U-100 Insulin) 10 unit SC NOON diabetes 11/30/23
isosorbide dinitrate 10 mg tablet 10 mg PO TID Heart Disease/Condition 12/19/23
potassium chloride 20 mEq tablet,extended release 20 meq PO NOON Electrolyte Repletion 12/19/23
therapeutic multivitamin 1 tab PO DAILY Supplement 12/19/23
zolpidem 5 mg tablet 5 mg PO HS PRN sleep 12/19/23
Review of Systems
-
History Source: Patient
A 12 point ROS was completed and negative except as noted: Yes
Constitutional: Reports Fatigue
EENT: Denies Sore Throat
Respiratory: Denies Cough
Cardiac: Denies Chest Pain
Abdomen/GI: Denies Abdominal Pain
: Denies Dysuria
Musculoskeletal: Denies Joint Pain
Skin: Reports Other (Erythema of the left lower extremity, no tenderness)
Neurological: Denies Dizzy
Endocrine: Denies Temp Intolerance
Hematologic/Lymphatic: Denies Bruising
Psych: Denies Panic Disorder
Physical Exam
Vital Signs
Vital Signs
Temp Pulse Resp BP Pulse Ox
100.7 F H 70 18 109/51 96
12/19/23 08:55 12/19/23 09:15 12/19/23 09:15 12/19/23 09:00 12/19/23 09:15
Physical Exam
General: No Apparent Distress and Comfortable
HEENT: Moist mucous membranes and Atraumatic
Respiratory: Clear
Cardiac: S1/S2 and Regular Rhythm
GI: Soft and Non Tender
Rectal: No Maroon Stools
Genito-urinary: No costovertebral tender; No Hamilton
Musculoskeletal: Edema, Left Lower Extremity and Edema, Right Lower Extremity
Skin: Other (Redness of the left lower extremity from below the knee to the ankle, nontender. A small blister on the anterior surface of the left knee)
Neuro: AO x 3 and Nonfocal/grossly intact; No Slurred Speech, Facial Droop or Tremors
Psych: Calm and Intact Judgment/Insight
Laboratory Results
-
12/19/23 07:13
12/19/23 07:13
Laboratory Results
Lactic Acid 0.9 mmol/L (0.7-2.0) 12/19/23 07:52
Total Bilirubin 0.6 mg/dl (0.2-1.3) 12/19/23 07:13
AST 37 U/L (17-59) 12/19/23 07:13
ALT 33 U/L (0-50) 12/19/23 07:13
Alkaline Phosphatase 89 U/L (38-126) 12/19/23 07:13
Impression/Plan
-
73 male presented with weakness and was found to have low grade fever in red with new onset of erythema in LLE
# Fever, suspect Acute evolving Cellulitis of left lower extremity:
Known to have recurrent cellulitis in same leg
LLE looks red, chronic edema but not tender, positive leukocytosis
Will do blood culture
Order IV Ancef for now
Negative COVID & Flu screen. US no DVT
Monitor erythema, WBC, and temperature curve
# CKD V
- SCr = 2.8 seems close to baseline
Will continue home regimen of Bumex
c/w Torsemide
# history of fracture of the distal fibular diaphysis and metaphysis at and above the level of the tibiotalar joint with 4 mm lateral displacement of the distal fracture fragment
Currently using boot and a walker, partial weight bearing status.
# chronic systolic heart failure
Nonischemic Cardiomyopathy
Chronic HFrEF
Chronic / Recurrent Ascites
s/p paracentesis 2.6 liters 12/18. He gets weekly therapeutic paracentesis
- Continue torsemide BID.
- Will give his usual biweekly dose of Bumex
# Paroxysmal atrial fibrillation status post Watchman
History of pacemaker
Continue amiodarone
# DM-II
- mild hypoglycemia Hold PO medications.
- Follow glucose and cover with SSI as needed.
- Reduce dose of Lantus
# Benign Hypertension
- Holding parameters for BP medications to allow for effective diuresis.
# Obesity due to excess calories
#CAD:
No chest pain
Continue current anti-ischemic regimen
#Gastrointestinal stromal tumor:
s/p resection in 2021
#Asthma/COPD:
No wheezes on exam
Continue inhalers
# Chronic anemia
Hemoglobin close to baseline. Hb 10
Continue to monitor
#Gout
Continue allopurinol
Check uric acid
#DVT Prophylaxis: Subcut Heparin
Code Status: Full
Total time spent to see the patient, examine the patient, review data and lab results, discuss treatment plan with patient, ER doctor, nursing staff around 75 minutes
[2023-12-19] MEDS: ANCEF 5 IV ×2 (10:24→21:50)
[2023-12-19 10:26] LABS: Body Fluid Mononuclear 83.5 %; Body Fluid Polymorphonuclear 16.5 %; Body Fluid WBC 188 /CUMM
[2023-12-19 11:01] LABS: COVID-19 Antigen Negative (Negative)
[2023-12-19 11:22] LABS: Body Fluid Second Tech AMA
[2023-12-19] MEDS: BUMEX 2 MG IV (12:48)
[2023-12-19 14:05] LABS: Glucose - Point of Care 188 mg/dl (70-99)
[2023-12-19] MEDS: KCL 20 MEQ PO (14:46)
[2023-12-19 16:15] LABS: Glucose - Point of Care 151 mg/dl (70-99)
[2023-12-19] MEDS: APRESOLINE 50 MG PO ×2 (16:34→21:53)
[2023-12-19] MEDS: ISORDIL 10 MG PO ×2 (16:34→21:51)
[2023-12-19] MEDS: DEMADEX 60 MG PO (16:35)
[2023-12-19] MEDS: NOVOLOG FLEXPEN-MODERATE RESISTANCE 1 UNITS SC (17:08)
[2023-12-19] MEDS: HEPARIN 5000 UNITS SC (20:55)
[2023-12-19] MEDS: INDERAL 10 MG PO (20:58)
[2023-12-19 21:07] LABS: Glucose - Point of Care 115 mg/dl (70-99)
[2023-12-19] MEDS: LANTUS 0.1 UNITS SC (21:51)
[2023-12-19] MEDS: LIPITOR 40 MG PO (21:51)
[2023-12-20 03:58] LABS: Glucose - Point of Care 57 mg/dl (70-99)
[2023-12-20 04:19] LABS: Glucose - Point of Care 58 mg/dl (70-99)
[2023-12-20 04:36] LABS: Glucose - Point of Care 77 mg/dl (70-99)
[2023-12-20 06:00] VITALS: BMI 30.3
[2023-12-20 07:13] LABS: Glucose - Point of Care 94 mg/dl (70-99)
[2023-12-20] MEDS: NOVOLOG FLEXPEN-MODERATE RESISTANCE SC ×3 (07:44→17:04)
[2023-12-20 08:11] VITALS: BP 129/73
--- NOTE | 2023-12-20 09:29 | CON.ID ---
Addendum entered and electronically signed by Anmol Reyes DO 12/20/23 13:44:
I personally performed a history and physical exam of the patient and discussed management with the resident. I reviewed the resident's note and agree with the documented findings and plan of care HPI/CC.
Assessment / Plan
Left lower extremity dependent erythroderma
CKD
Insulin-dependent diabetes mellitus
Paroxysmal A-fib s/p Watchman
Chronic ascites/liver cirrhosis
Chronic HFrEF
Leukocytosis
History of fracture of the distal fibular diaphysis and metaphysis at and above the level of the tibiotalar joint- currently wearing boot on RLE
Recommendations:
Patient without fevers or chills. Notes no significant pain or tenderness and left leg. No significant warmth. Erythema resolves with elevation.
Leukocytosis noted, but suspect may be reactive.
Discontinue antibiotics and observe.
Original Note:
Consultation
-
Date/Time Consultation Performed: 12/20/23
Requesting Provider:
Performing Provider: /
Chief Complaint / Past History
Chief Complaint
SOB, weakness
History of Present Illness
This is a 73-year-old male patient with past medical history of liver cirrhosis with weekly paracentesis, paroxysmal atrial fibrillation, CKD, HTN and IDDM who presented to the ED with concerns of shortness of breath and weakness. He was at his
home in his living room when he suddenly felt very weak and had lowered himself to the ground. He also felt more short of breath more than his usual baseline. His was unable to get him off the floor and get him to his paracentesis appointment
which he had that day and this prompted him to come to the ED. Upon arrival to the hospital, he was noted to have a low-grade temperature 100.7. He and his had not noticed his left lower extremity had become red and swollen until they had
arrived to the ED. He describes having episodes of his left lower extremity becoming erythematous, swollen and nontender for few days before resolving by itself without antibiotics though he was told in the past that these episodes were cellulitis.
He denies any trauma to the left lower leg, chills, nausea, vomiting or palpitations.
Past History
Past Medical History: CAD, GERD, HTN, Hypercholesterolemia, IDDM and Other (paroxysmal atrial fibrillation, liver cirrhosis, history of SBP, chronic kidney disease stage IV, GI bleeding)
Past Surgical History: Other (Umbilical hernia repair, PTCA with cardiac stent, pacemaker, small bowel tumor removal, weekly paracentesis)
Allergy History:
baclofen Allergy (Verified 12/14/23 09:31)
comatose and sleepwalking
colchicine Allergy (Verified 12/19/23 06:53)
Unknown
strawberry Allergy (Verified 12/14/23 09:31)
swelling from head to toe
Social History
Tobacco: Former Smoker
Alcohol: Former (Chart reviewed the age of 18, quit 6 years ago)
Drug: None
Personal:
Living: With Family
Employment: Retired
Family History
Family History: Not Pertinent
Review of Systems
Review of Systems
General: Negative Fever or Chills
Gasteroenterology: Negative Nausea or Vomiting
Vital Signs
Temp Pulse Resp BP Pulse Ox
99.5 F 70 16 129/73 99
12/19/23 23:09 12/20/23 08:11 12/19/23 23:09 12/20/23 08:11 12/20/23 08:11
Physical Exam
Physical Exam
Constitutional: No Acute Distress
Head: Normocephalic
Cardiovascular: Regular Rate and S1/S2
Pulmonary: Clear
Gastrointestinal: Soft, Non Tender, Distended and Normal Bowel Sounds
Extremities: Edema and Other (Erythematous left lower extremity below the knee, nontender. )
Skin: Warm and Dry
Neurological: Awake, Alert and Oriented
Lab / Diagnostic Study Results
12/19/23 07:13
12/19/23 07:13
Abs Immat Gran (auto) 0.1 10^3/uL (0-0.05) H 12/19/23 07:13
Absolute Neuts (auto) 14.2 10^3/uL (1.4-6.5) H 12/19/23 07:13
Absolute Lymphs (auto) 0.5 10^3/uL (1.2-3.4) L 12/19/23 07:13
Absolute Monos (auto) 0.9 10^3/uL (0.1-0.6) H 12/19/23 07:13
Absolute Basos (auto) 0.0 10^3/uL (0-0.2) 12/19/23 07:13
Immature Gran % 0.7 % (0-0.5) H 12/19/23 07:13
Neutrophils % 89.4 % (42.2-75.2) H 12/19/23 07:13
Lymphocytes % 3.2 % (20.5-51.1) L 12/19/23 07:13
Monocytes % 5.8 % (1.7-9.3) 12/19/23 07:13
Eosinophils % 0.6 % (0-6) 12/19/23 07:13
Basophils % 0.3 % (0-2) 12/19/23 07:13
Lactic Acid 0.9 mmol/L (0.7-2.0) 12/19/23 07:52
Microbiology Results
Micro:
12/19/23 08:22 Body Fluid Culture - Preliminary
Peritoneal Fluid No Growth After 18-24 Hours
Gram Stain - Preliminary
12/19/23 12:41 Blood Culture - Pending
Blood/Venous
12/19/23 10:26 Influenza Types A & B (DIOMEDES) - Final
Nasal Swab Negative for Influenza A & B, NAAT
Negative results must be combined with clinical observations
and patient history.
Nucleic Acid Amplification test (NAAT)performed on the
[employer] ID NOW platform.
Assessment / Plan
Left lower extremity dependent erythroderma
CKD
Insulin-dependent diabetes mellitus
Paroxysmal A-fib s/p Watchman
Chronic ascites/liver cirrhosis
Chronic HFrEF
Leukocytosis
History of fracture of the distal fibular diaphysis and metaphysis at and above the level of the tibiotalar joint- currently wearing boot on RLE
Recommendations:
-Afebrile
-Ultrasound of left lower extremity negative
-WBC 15.8, creatinine 2.8 (baseline 2.5), lactic acid WNL
�Peritoneal fluid cultures negative, blood cultures pending
-Discontinue IV cefazolin as this is likely not cellulitis (nontender, not warm to touch, erythema decreasing on elevation of extremity)
[2023-12-20 10:15] VITALS: BP 119/70; PULSE 71; PULSE 72; O2SAT 100
[2023-12-20] MEDS: ASPIR LOW (ENTERIC COATED) 81 MG PO (10:42)
[2023-12-20] MEDS: PROTONIX 40 MG PO (10:47)
[2023-12-20] MEDS: APRESOLINE 50 MG PO ×3 (10:50→23:34)
[2023-12-20] MEDS: ZYLOPRIM 100 MG PO (10:53)
[2023-12-20] MEDS: PACERONE 200 MG PO (10:54)
[2023-12-20] MEDS: KCL 40 MEQ PO (10:56)
[2023-12-20] MEDS: INDERAL 10 MG PO ×2 (10:58→21:24)
[2023-12-20] MEDS: HEPARIN 5000 UNITS SC ×2 (10:59→21:23)
[2023-12-20] MEDS: ISORDIL 10 MG PO ×3 (11:01→23:34)
[2023-12-20] MEDS: DEMADEX 60 MG PO ×2 (11:04→17:19)
[2023-12-20] MEDS: ANCEF 5 IV (11:13)
--- NOTE | 2023-12-20 11:22 | W.PN.HOSP.TC ---
Today's Communication/Plan
-
Patient has unique diuretic regimen by [place] heart failure/ pulmonary HTN team. Continue same regimen for now and monitor weight/ renal function. BMP in AM.
c/w IV Abx
Consulted ID, f/w recommendations
Low blood glucose reading, hold Lantus tonight, c/w ISS
Assessment / Plan
Assessment / Plan
Physical Exam
General: No Apparent Distress and Comfortable
HEENT: Moist mucous membranes and Atraumatic
Respiratory: Clear
Cardiac: S1/S2 and Regular Rhythm
GI: Soft and Non Tender
Rectal: No Maroon Stools
Genito-urinary: No costovertebral tender; No Hamilton
Musculoskeletal: Edema, Left Lower Extremity and Edema, Right Lower Extremity
Skin: Other (less redness of the left lower extremity from below the knee to the ankle, nontender. A small blister on the anterior surface of the left knee)
Neuro: AO x 3 and Nonfocal/grossly intact; No Slurred Speech, Facial Droop or Tremors
Psych: Calm and Intact Judgment/Insight
73 male presented with weakness and was found to have low grade fever in red with new onset of erythema in LLE
# Fever, suspect Acute evolving Cellulitis of left lower extremity:
Known to have recurrent cellulitis in same leg
LLE looks red, chronic edema but not tender, positive leukocytosis
Will do blood culture
Order IV Ancef for now
Negative COVID & Flu screen. US no DVT
Monitor erythema, WBC, and temperature curve
# CKD V
- SCr = 2.8 seems close to baseline
Will continue home regimen of Bumex
c/w Torsemide
BMP in AM
# history of fracture of the distal fibular diaphysis and metaphysis at and above the level of the tibiotalar joint with 4 mm lateral displacement of the distal fracture fragment
Currently using boot and a walker, partial weight bearing status.
# Chronic systolic heart failure
Nonischemic Cardiomyopathy/ severe pulmonary HTN
Chronic HFrEF
Chronic / Recurrent Ascites
s/p paracentesis 2.6 liters 12/18. He gets weekly therapeutic paracentesis
- Continue torsemide BID at 60 mg BID
- Will give his usual biweekly dose of Bumex , 2 mg BUmex in AM
# Paroxysmal atrial fibrillation status post Watchman
History of pacemaker
Continue amiodarone
# DM-II
- Positive hypoglycemia Hold PO medications & Lantus.
- Follow glucose and cover with SSI as needed.
# Benign Hypertension
- Holding parameters for BP medications to allow for effective diuresis.
# Obesity due to excess calories
#CAD:
No chest pain
Continue current anti-ischemic regimen
#Gastrointestinal stromal tumor:
s/p resection in 2021
#Asthma/COPD:
No wheezes on exam
Continue inhalers
# Chronic anemia
Hemoglobin close to baseline. Hb 10
Continue to monitor
#Gout
Continue allopurinol
Normal uric acid
#DVT Prophylaxis: Subcut Heparin
Code Status: Full
Total time spent to see the patient, examine the patient, review data and lab results, discuss treatment plan with patient, nursing staff around 59 minutes
Anticipated Discharge: 24 - 48 hours
Subjective/Interval History
-
Date of Service: December 20, 2023
Objective Data
-
Vital Signs:
Vital Signs
Temp Pulse Resp BP Pulse Ox
99.5 F 70 16 129/73 99
12/19/23 23:09 12/20/23 08:11 12/19/23 23:09 12/20/23 08:11 12/20/23 08:11
I&O
12/19/23 12/20/23 12/21/23
06:59 06:59 06:59
Intake Total 480 / 480 720 / 720
Balance 480 / 480 720 / 720
[2023-12-20 11:42] LABS: Glucose - Point of Care 53 mg/dl (70-99)
[2023-12-20 11:46] VITALS: BP 134/68
[2023-12-20 12:11] LABS: Glucose - Point of Care 99 mg/dl (70-99)
--- NOTE | 2023-12-20 12:15 | CM ---
Met with patient and his at bedside; initial assessment completed
Pharmacy verified and updated on the chart: [email or web address] [facility], [place], [place]
Patient and live in a multilevel home; enters via the garage has a ramp; chair lift to the 2nd floor; powder room 1st floor; stall shower w/seat, grab bars in his bathroom
PLOF: ambulating with a rolling walker since September; wearing a walking boot on the RLE; currently not driving; sleeping in a recliner;
DME: CPAP but not using it recently; Continuous Glucose Monitor
No SNF utilization history
Currently has home health services (VN/PT) with [facility] and plans to resume those services when discharged
will transport home
Plan: Anticipate he will discharge to home when medically stable with resumption of home health services
[2023-12-20] MEDS: KCL 20 MEQ PO (14:12)
[2023-12-20 15:54] VITALS: BP 120/70
[2023-12-20 16:54] LABS: Glucose - Point of Care 92 mg/dl (70-99)
[2023-12-20 21:31] LABS: Glucose - Point of Care 67 mg/dl (70-99)
[2023-12-20 22:00] LABS: Glucose - Point of Care 90 mg/dl (70-99)
[2023-12-20 23:20] VITALS: BP 115/67
[2023-12-20] MEDS: LIPITOR 40 MG PO (23:34)
[2023-12-20 23:40] LABS: Glucose - Point of Care 79 mg/dl (70-99)
[2023-12-21 00:36] LABS: Glucose - Point of Care 84 mg/dl (70-99)
[2023-12-21 03:53] LABS: Glucose - Point of Care 70 mg/dl (70-99)
[2023-12-21 06:00] VITALS: BMI 30.7
[2023-12-21 07:08] LABS: Glucose - Point of Care 62 mg/dl (70-99)
[2023-12-21 07:33] LABS: Glucose - Point of Care 96 mg/dl (70-99)
[2023-12-21 07:43] VITALS: BP 118/62
[2023-12-21 08:24] LABS: Hematocrit 31.1 % (39.0-52.0); Hemoglobin 10.3 g/dL (13.0-18.0); Mean Corp Hgb Conc. 33.1 g/dL (33.0-37.0); Mean Corpuscular Hgb 30.4 pg (27.0-31.0); Mean Corpuscular Volume 91.7 fL (80.0-94.0); Mean Platelet Volume 9.6 fL (7.4-10.4); Platelet Count 275 10^3/uL (130-400); Red Blood Cell Count 3.39 10^6/uL (4.70-6.10); Red Cell Dist. Width 19.3 % (11.5-14.5); White Blood Cell Count 12.6 10^3/uL (4.8-10.8)
[2023-12-21] MEDS: HEPARIN 5000 UNITS SC (08:28)
[2023-12-21] MEDS: KCL 40 MEQ PO (08:29)
[2023-12-21] MEDS: INDERAL 10 MG PO (08:29)
[2023-12-21] MEDS: APRESOLINE 50 MG PO ×2 (08:30→15:32)
[2023-12-21] MEDS: ISORDIL 10 MG PO ×2 (08:30→15:32)
[2023-12-21] MEDS: ZYLOPRIM 100 MG PO (08:30)
[2023-12-21] MEDS: PROTONIX 40 MG PO (08:30)
[2023-12-21] MEDS: BUMEX 2 MG IV (08:31)
[2023-12-21] MEDS: PACERONE 200 MG PO (08:31)
[2023-12-21] MEDS: ASPIR LOW (ENTERIC COATED) 81 MG PO (08:31)
[2023-12-21] MEDS: NOVOLOG FLEXPEN-MODERATE RESISTANCE SC (08:45)
[2023-12-21 08:46] LABS: Blood Urea Nitrogen 107 mg/dl (9-20); Carbon Dioxide 20 mmol/L (22-30); Chloride 99 mmol/L (98-107); Estimated Creatinine Clearance 23 ml/min; Glucose 42 mg/dl (70-99); Potassium 5.4 mmol/L (3.5-5.1); Sodium 131 mmol/L (135-145)
[2023-12-21] MEDS: DEMADEX 100 MG PO (08:48)
--- NOTE | 2023-12-21 08:48 | W.PN.ID1 ---
Addendum entered and electronically signed by Anmol Reyes, 12/21/23 13:23:
I saw and evaluated the patient. I reviewed the resident�s note and agree with findings and plan as documented in the resident�s note.
No LLE tenderness to palpation.
Continue off abx.
Add LE tubigrip.
Continue LE elevations above level of the heart 1-2 hours out of 6.
Original Note:
Date of Service
Date of Service: December 21, 2023
Today's Communication
Continue to monitor off antibiotics
Assessment / Plan
Left lower extremity dependent erythroderma
CKD
Insulin-dependent diabetes mellitus
Paroxysmal A-fib s/p Watchman
Chronic ascites/liver cirrhosis
Chronic HFrEF
Leukocytosis
History of fracture of the distal fibular diaphysis and metaphysis at and above the level of the tibiotalar joint- currently wearing boot on RLE
Recommendations:
-Afebrile
-Ultrasound of left lower extremity negative
-WBC 15.8 (likely reactive), creatinine 2.8 (baseline 2.5)
�Peritoneal fluid cultures negative, blood cultures negative
-Discontinued IV cefazolin yesterday as this is likely not cellulitis
-Has been tolerating well off antibiotics, would not recommend further antibiotic treatment at the time of discharge
Subjective / Review of Systems
Patient feels over all and denies any fever, chills or abdominal pain.
Review of Systems: No Fever, No Chills and No Abdominal Pain
Vital Signs / Physical Exam
Vital Signs
Vital Signs
Temp Pulse Resp BP Pulse Ox
97.8 F 72 16 118/62 100
12/21/23 07:43 12/21/23 07:43 12/21/23 07:43 12/21/23 07:43 12/21/23 07:43
Physical Exam
Constitutional: No Acute Distress
Head: Normocephalic
Cardiovascular: Regular Rate and S1/S2
Pulmonary: Clear
Gastrointestinal: Soft, Non Tender and Distended
Skin: Warm, Dry and Other (very mild erythema of LLE below the knee)
Neurological: Awake, Alert and Oriented
Objective Data
Lab Data
Lab Results
12/21/23 07:13
12/21/23 07:03
Estimated Creat Clear 23 ml/min 12/21/23 07:03
Lactic Acid 0.9 mmol/L (0.7-2.0) 12/19/23 07:52
Total Bilirubin 0.6 mg/dl (0.2-1.3) 12/19/23 07:13
AST 37 U/L (17-59) 12/19/23 07:13
ALT 33 U/L (0-50) 12/19/23 07:13
Alkaline Phosphatase 89 U/L (38-126) 12/19/23 07:13
Most recent labs reviewed.
Micro Results:
12/19/23 12:41 Blood Culture - Preliminary
Blood/Venous No Growth in 24 hours- Final report to follow
12/19/23 08:22 Body Fluid Culture - Preliminary
Peritoneal Fluid No Growth After 18-24 Hours
Gram Stain - Preliminary
12/19/23 10:26 Influenza Types A & B (DIOMEDES) - Final
Nasal Swab Negative for Influenza A & B, NAAT
Negative results must be combined with clinical observations
and patient history.
Nucleic Acid Amplification test (NAAT)performed on the
[employer] platform.
--- NOTE | 2023-12-21 09:15 | W.PN.HOSP.TC ---
Addendum entered and electronically signed by Brooks Carson MD 12/21/23 17:10:
Addendum
repeat K is lower after Lokelma
Advised pt hold K supplement, repeat blood work in 2 days
Pt wanted to go home ,and felt better
Total discharge time spent to see the patient on the floor, examine the patient, review data and lab results, discuss discharge plan with patient, his , nursing staff around 65 minutes
Addendum entered and electronically signed by Brooks Carson MD 12/21/23 11:47:
Patient symptoms and signs, blood work was consistent with SIRS of noninfectious origin
Original Note:
Today's Communication/Plan
-
Possible discharge later today
Repeat BMP at noon, hold potassium supplement
Assessment / Plan
Assessment / Plan
Physical Exam
General: No Apparent Distress and Comfortable
HEENT: Moist mucous membranes and Atraumatic
Respiratory: Clear
Cardiac: S1/S2 and Regular Rhythm
GI: Soft and Non Tender
Rectal: No Maroon Stools
Genito-urinary: No costovertebral tender; No Hamilton
Musculoskeletal: Edema, Left Lower Extremity and Edema, Right Lower Extremity
Skin: Other (less redness of the left lower extremity from below the knee to the ankle, nontender. A small blister on the anterior surface of the left knee)
Neuro: AO x 3 and Nonfocal/grossly intact; No Slurred Speech, Facial Droop or Tremors
Psych: Calm and Intact Judgment/Insight
73 male presented with weakness and was found to have low grade fever in red with new onset of erythema in LLE
# Fever, resolved
Suspected evolving Cellulitis of left lower extremity, ID evaluated the pt, felt it was dependent erythema
Known to have recurrent cellulitis in same leg
LLE looks red, chronic edema but not tender, positive leukocytosis
Negative blood culture
Given IV Ancef
Negative COVID & Flu screen. US no DVT
Monitored erythema, WBC, and temperature curve
# Hyperkalemia, hold potassium
Give Bumex
# CKD V
- SCr = 2.8 seems close to baseline
Will continue home regimen of Bumex
c/w Torsemide, go up to 100 mg BID per his lasts cpa tax recommendations.
BMP in AM
# history of fracture of the distal fibular diaphysis and metaphysis at and above the level of the tibiotalar joint with 4 mm lateral displacement of the distal fracture fragment
Currently using boot and a walker, partial weight bearing status.
# Chronic systolic heart failure
Nonischemic Cardiomyopathy/ severe pulmonary HTN
Chronic HFrEF
Chronic / Recurrent Ascites
s/p paracentesis 2.6 liters 12/18. He gets weekly therapeutic paracentesis. Fluid culture no growth
- Continue torsemide BID at 100 mg BID
- given usual biweekly dose of Bumex , 2 mg Bumex now and 2 mg at noon
# Paroxysmal atrial fibrillation status post Watchman
History of pacemaker
Continue amiodarone
# DM-II
- Positive hypoglycemia despite using Lantus and Glimepiride
Pt has been eating healthy and lost weight. I do not think he needs this regimen, he should only continue with short acting insulin per sliding scale
- Follow glucose and cover with SSI as needed.
# Benign Hypertension
Well controlled
# Obesity due to excess calories
He lost weight, per pt, his dry weight now around 180
#CAD:
No chest pain
Continue current anti-ischemic regimen
#Gastrointestinal stromal tumor:
s/p resection in 2021
#Asthma/COPD:
No wheezes on exam
Continue inhalers
# Chronic anemia
Hemoglobin close to baseline. Hb 10
#Gout
Continue allopurinol
Normal uric acid
#DVT Prophylaxis: Subcut Heparin
Code Status: Full
Total time spent to see the patient, examine the patient, review data and lab results, discuss treatment plan with patient, nursing staff around 59 minutes
Anticipated Discharge: Within 24 hours
Subjective/Interval History
-
Date of Service: December 21, 2023
No chest pain
No sob
Objective Data
-
Labs:
Laboratory Results
12/21/23 12/21/23
07:03 07:13
WBC 12.6 H
Hgb 10.3 L
Hct 31.1 L
Plt Count 275
Sodium 131 L
Potassium 5.4 H
Chloride 99
Carbon Dioxide 20 L
BUN 107 H*
Creatinine 2.8 H
Glucose 42 L*
Calcium 9.0
Vital Signs:
Vital Signs
Temp Pulse Resp BP Pulse Ox
97.8 F 72 16 118/62 100
12/21/23 07:43 12/21/23 07:43 12/21/23 07:43 12/21/23 07:43 12/21/23 07:43
I&O
12/20/23 12/21/23 12/22/23
06:59 06:59 06:59
Intake Total 480 / 480 1680 / 1680
Balance 480 / 480 1680 / 1680
--- NOTE | 2023-12-21 10:32 | PN.CDI ---
Addendum entered and electronically signed by Brooks Carson MD 12/21/23 11:02:
will reach out to you directly
Original Note:
CDI
- -
CDI:
Physician Documentation Request
Admit Date: 12/19/23 11:15
Dear Doctor Alli,
Patient admitted for cellulitis.
12/20 Hospitalist PN: 'Fever, resolved, Suspected evolving Cellulitis of left lower extremity...LLE looks red, chronic edema but not tender, positive leukocytosis'
Laboratory Tests
12/19/23 12/21/23
07:13 07:13
WBC 15.8 H 12.6 H
12/19/23
08:55
Temp 100.7 F H
12/19/23
06:53 12/19/23
07:15 12/19/23
08:00
Resp Rate 20 21 21
Please clarify which of the following most accurately describes the status of the patient's infection:
Sepsis, POA
- Systemic manifestations of infection, with 2 or more SIRS criteria which include:
- Fever >100.4 degrees F or hypothermia < 96.8 degrees F
- Leukocytosis - WBC > 12,000 or leukopenia - WBC < 4,000 or > 10% bands
- Tachycardia > 90 beats per minute
- Tachypnea - RR > 20 breaths per minute or PaCO2 , 32mmHg
Source: Merck Manual 2013
Localized Infection Only, Without Systemic Illness
- indicate the site/source, such as cellulitis etc.
Other
Use of terms such as suspected, likely, concern for, or probable (associated with a specific diagnosis that is being evaluated, monitored, or treated as if it exists) are acceptable and can be coded in the inpatient setting, when documented at the
time of discharge.
Thank you,
Marine Richard RN, BSN
CDI Specialist
Available via [place] text
Please use your independent medical judgment in providing your response.
[2023-12-21] MEDS: LOKELMA 10 GRAM PO (11:03)
[2023-12-21 11:19] LABS: Glucose - Point of Care 163 mg/dl (70-99)
[2023-12-21] MEDS: NOVOLOG FLEXPEN-LOW RESISTANCE 1 UNITS SC (12:08)
[2023-12-21 13:30] LABS: Potassium 5.2 mmol/L (3.5-5.1)
--- NOTE | 2023-12-21 14:55 | CM ---
Addendum entered by Peggy Walker 12/21/23 14:57:
[facility]

Original Note:
Plan: Discharge to home today with resumption of home health with [facility]
will transport home
[2023-12-21 15:47] VITALS: BP 121/72
[2023-12-21 15:49] VITALS: BP 119/60
--- NOTE | 2023-12-21 15:52 | PTCARENOTE ---
Discharge instructions reviewed with patient and spouse. SSC range sent with patient per d/c orders. Tubi veterinary technician assistant sent with patient per ID.
--- NOTE | 2023-12-21 17:02 | W.DCSUMMARY ---
Discharge Summary
Discharge Data
Date of Admission: 12/19/23
Date of Discharge: 12/21/23
-
Pending Results: No
Hospital Course
73 years old male admitted with weakness. Patient experienced sudden onset of weakness and felt he had hypoglycemia. No documented hypoglycemia upon arrival.. Patient also complained of left lower extremity erythema but no tenderness. He had
mild leukocytosis. He had low-grade temperature in the emergency room. Patient was given empiric Ancef and was admitted for possible left lower extremity recurrent cellulitis. Patient was evaluated by infectious disease managed services consultant. Blood culture
showed no growth. Patient did not have recurrent fever and was diagnosed with left lower extremity dependent erythema. Patient was advised to use dressing and elevation of the lower extremity. Antibiotic was discontinued. Patient was noticed to
have hypoglycemia despite holding his Lantus treatment and glimepiride. Patient was advised to do short acting insulin with sliding scale until he follows with his outpatient doctors. Patient reported that he lost weight and was following healthy
diet. He was advised to continue diet control diabetes management. Patient was noticed to have hyperkalemia. Potassium supplement was held and was given Lokelma. Kidney function remained stable with Creatinine at 2.8. Patient was kept on his
diuretic treatment according to recommendations from his primary client service consultant at [facility]. patient underwent his usual paracentesis as scheduled and recovered 2.6 later on December 18. Fluid culture did not show growth. Patient remained
hemodynamically stable and was discharged home in a stable condition. He was given a script to repeat blood work.
Discharge Plan
-
Patient Disposition: Home with Home Care
Discharge Diagnosis/Procedures: Hypoglycemia, hold Lantus and Glimpiride. Continue with sliding scale, continue healthy diet.
Left lower extremity dependent erythroderma, continue to elevate the leg.
Hyperkalemia, hold potassium supplement, repeat blood work
You were seen by VICKY richardson.
Diet: As tolerated, Low Sodium, Diabetic, Carb Controlled and Restrict fluids to 64 oz
Blood Work: Bmp on Sunday
Referrals:
Cole Garner MD [Family Provider] -
Prescriptions:
New
insulin lispro 200 unit/mL (3 mL) insulin pen
1 sliding scale dose SC DIRECTED Qty: 6 0RF
Continued
atorvastatin 40 MG tablet
40 mg PO HS
torsemide 20 MG tablet
100 mg PO BID
Patient Comments:
increased dose 12/15/23. previously taking 60mg bid.
amiodarone 200 mg tablet
200 mg PO DAILY
hydralazine 50 mg tablet
50 mg PO TID
pantoprazole 40 mg tablet,delayed release (DR/EC)
40 mg PO DAILY
amlodipine [Norvasc] 2.5 mg Tablet
2.5 mg PO DAILY
allopurinol 100 mg Tablet
100 mg PO DAILY
aspirin 81 mg Tablet,Delayed Release (Dr/Ec)
81 mg PO DAILY
vitamin B complex Tablet
2 tab PO DAILY
polyethylene glycol 3350 [Miralax] 17 gram Powder In Packet
17 g PO DAILYPRN PRN (Reason: constipation )
Trelegy Ellipta 200-62.5-25 mcg Blister With Device
1 inh INHALATION R DAILYPRN PRN (Reason: SOB)
Bumex Infusion
4 mg IV WEFR
propranolol 10 mg Tablet
10 mg PO BID
isosorbide dinitrate 10 mg Tablet
10 mg PO TID
therapeutic multivitamin Tablet
1 tab PO DAILY
zolpidem 5 mg Tablet
5 mg PO HS PRN (Reason: sleep )
Discontinued
potassium chloride [Klor-Con M20] 20 MEQ tablet,ER particles/crystals
40 meq PO DAILY
glimepiride 1 mg Tablet
1 mg PO DAILY
insulin glargine [Lantus U-100 Insulin] 100 unit/mL Solution
18 unit SC HS
insulin glargine [Lantus U-100 Insulin] 100 unit/mL Solution
10 unit SC NOON
potassium chloride 20 mEq Tablet Extended Release
20 meq PO NOON
Discharge Orders:
Discharge Patient (As Directed); Ordered 12/21/23
Ordered By: Brooks Carson
Discharge Date and Time
Discharge Date/Time: 12/21/23 16:23
Print Language: PRYDEINIG
== END 2023-12-21 16:23 | disposition home health service (06) | DRG 607 ==
LOC: 3 WEST ACU 11:15
PROVIDERS: Emergency Medicine; Nurse Practitioner; Physician Assistant; Radiology Diagnostic Radiology; ADMITTING PHYSICIAN Internal Medicine; CONSULT PHYSICIAN Internal Medicine Infectious Disease; EMERGENCY PHYSICIAN Emergency Medicine; FAMILY PHYSICIAN Internal Medicine Geriatric Medicine
PROC: 0W9G3ZZ Drainage of Peritoneal Cavity, Percutaneous Approach (ICD-10-PCS; 2023-12-19)
DX: L53.8 Other specified erythematous conditions (principal); R65.10 Systemic inflammatory response syndrome (SIRS) of non-infectious origin without acute organ dysfunction; I13.2 Hypertensive heart and chronic kidney disease with heart failure and with stage 5 chronic kidney disease, or end stage renal disease; I50.22 Chronic systolic (congestive) heart failure; I42.8 Other cardiomyopathies; R18.8 Other ascites; N18.5 Chronic kidney disease, stage 5; E11.22 Type 2 diabetes mellitus with diabetic chronic kidney disease; I48.0 Paroxysmal atrial fibrillation; M10.9 Gout, unspecified; E78.00 Pure hypercholesterolemia, unspecified; J44.89 Other specified chronic obstructive pulmonary disease; D63.1 Anemia in chronic kidney disease; K74.60 Unspecified cirrhosis of liver; E87.5 Hyperkalemia; I25.10 Atherosclerotic heart disease of native coronary artery without angina pectoris; E11.649 Type 2 diabetes mellitus with hypoglycemia without coma; K21.9 Gastro-esophageal reflux disease without esophagitis; E66.09 Other obesity due to excess calories; Z68.30 Body mass index [BMI] 30.0-30.9, adult; Z11.52 Encounter for screening for COVID-19; Z87.891 Personal history of nicotine dependence; Z95.5 Presence of coronary angioplasty implant and graft; Z95.0 Presence of cardiac pacemaker; Z79.84 Long term (current) use of oral hypoglycemic drugs; Z79.82 Long term (current) use of aspirin; Z79.899 Other long term (current) drug therapy; Z88.8 Allergy status to other drugs, medicaments and biological substances
CPT/HCPCS: 49083; 71046; 80048; 80053; 82962; 83605; 83880; 84132; 84550; 85025; 85027; 87015; 87040; 87070; 87205; 87502; 87811; 89051; 93005; 93288; 93971; 96374; 97161; 97166; 99285

== ENCOUNTER → 2023-12-26 06:47 | Outpatient (REF) | payer MEDICARE, OTHER, SELFPAY ==
[2023-12-26 07:20] VITALS: BP 114/74; BP_SYST 76
[2023-12-26 08:04] VITALS: BP 117/64; BP_SYST 71
[2023-12-26 08:10] VITALS: BP 117/64
[2023-12-26 08:15] VITALS: BP 117/64
[2023-12-26 08:50] LABS: Body Fluid Mononuclear 88.7 %; Body Fluid Polymorphonuclear 11.3 %; Body Fluid WBC 213 /CUMM
[2023-12-26 08:57] LABS: Body Fluid Second Tech AMA
== END ==
LOC: RADI 06:47
PROVIDERS: ATTENDING PHYSICIAN Internal Medicine Cardiovascular Disease; FAMILY PHYSICIAN Internal Medicine Geriatric Medicine
DX: R18.8 Other ascites (principal)
CPT/HCPCS: 49083; 89051

== ENCOUNTER → 2024-01-02 06:53 | Outpatient (REF) | payer MEDICARE, OTHER, SELFPAY ==
[2024-01-02 07:20] VITALS: BP 106/56; BP_SYST 68
[2024-01-02 07:58] VITALS: BP 126/64; BP_SYST 71
[2024-01-02 08:17] VITALS: BP 126/64
[2024-01-02 10:37] LABS: Body Fluid WBC 201 /CUMM
[2024-01-02 10:51] LABS: Body Fluid Second Tech SS
== END ==
LOC: RADI 06:53
PROVIDERS: ATTENDING PHYSICIAN Internal Medicine Cardiovascular Disease
DX: R18.8 Other ascites (principal)
CPT/HCPCS: 49083; 89051

== ENCOUNTER 2024-01-04 08:42 | Outpatient (RCR) | payer MEDICARE, OTHER, SELFPAY ==
[2023-12-07] MEDS: BUMEX 66 MG IV (09:27)
[2023-12-07 09:30] VITALS: BP 107/57
[2023-12-12 08:50] VITALS: BP 101/57
[2023-12-12] MEDS: BUMEX 66 MG IV (09:06)
[2023-12-12 09:39] VITALS: BP 122/57
[2023-12-14] MEDS: BUMEX 66 MG IV (09:29)
[2023-12-14 09:43] VITALS: BP 118/57
[2023-12-14 10:55] LABS: % Basophils 0.6 % (0-2); % Eosinophils 7.2 % (0-6); % Immature Granulocytes 0.4 % (0-0.5); % Lymphocytes 13.8 % (20.5-51.1); % Monocytes 9.8 % (1.7-9.3); % Neutrophils 68.2 % (42.2-75.2); Absolute Basophils 0.1 10^3/uL (0-0.2); Absolute Eosinophils 0.7 10^3/uL (0-0.7); Absolute Lymphocytes 1.2 10^3/uL (1.2-3.4); Absolute Monocytes 0.9 10^3/uL (0.1-0.6); Absolute Neutrophils 6.1 10^3/uL (1.4-6.5); Hematocrit 26.8 % (39.0-52.0); Hemoglobin 8.8 g/dL (13.0-18.0); Mean Corp Hgb Conc. 32.8 g/dL (33.0-37.0); Mean Corpuscular Hgb 29.4 pg (27.0-31.0); Mean Corpuscular Volume 89.6 fL (80.0-94.0); Mean Platelet Volume 9.6 fL (7.4-10.4); Nucleated Red Blood Cells % 0 % (-); Platelet Count 209 10^3/uL (130-400); Red Blood Cell Count 2.99 10^6/uL (4.70-6.10); Red Cell Dist. Width 19.9 % (11.5-14.5)
[2023-12-14 12:31] LABS: Calcium 8.4 mg/dl (8.4-10.2); Carbon Dioxide 19 mmol/L (22-30); Chloride 104 mmol/L (98-107); Glucose 97 mg/dl (70-99); Magnesium 1.9 mg/dl (1.6-2.3); Potassium 4.5 mmol/L (3.5-5.1); Sodium 136 mmol/L (135-145); eGFR 26.47
[2023-12-14 12:58] LABS: Blood Urea Nitrogen 122 mg/dl (9-20)
[2023-12-26 08:50] VITALS: BP 124/68
[2023-12-26] MEDS: BUMEX 66 MG IV (09:03)
[2023-12-28 11:33] VITALS: BP 121/70
[2023-12-28] MEDS: BUMEX 66 MG IV (11:50)
[2023-12-28 13:17] LABS: Calcium 8.4 mg/dl (8.4-10.2); Carbon Dioxide 22 mmol/L (22-30); Chloride 96 mmol/L (98-107); Glucose 315 mg/dl (70-99); Magnesium 1.9 mg/dl (1.6-2.3); Potassium 4.5 mmol/L (3.5-5.1); Sodium 130 mmol/L (135-145)
[2023-12-28 13:32] LABS: Blood Urea Nitrogen 124 mg/dl (9-20)
[2024-01-02 08:52] VITALS: BP 119/54
[2024-01-02 08:54] LABS: % Basophils 0.5 % (0-2); % Eosinophils 5.7 % (0-6); % Immature Granulocytes 0.1 % (0-0.5); % Lymphocytes 14.8 % (20.5-51.1); % Monocytes 7.3 % (1.7-9.3); % Neutrophils 71.6 % (42.2-75.2); Absolute Eosinophils 0.4 10^3/uL (0-0.7); Absolute Lymphocytes 1.1 10^3/uL (1.2-3.4); Absolute Monocytes 0.6 10^3/uL (0.1-0.6); Absolute Neutrophils 5.4 10^3/uL (1.4-6.5); Hematocrit 29.4 % (39.0-52.0); Hemoglobin 9.6 g/dL (13.0-18.0); Mean Corp Hgb Conc. 32.7 g/dL (33.0-37.0); Mean Corpuscular Hgb 29.9 pg (27.0-31.0); Mean Corpuscular Volume 91.6 fL (80.0-94.0); Mean Platelet Volume 8.9 fL (7.4-10.4); Platelet Count 254 10^3/uL (130-400); Red Blood Cell Count 3.21 10^6/uL (4.70-6.10); Red Cell Dist. Width 18.5 % (11.5-14.5); White Blood Cell Count 7.6 10^3/uL (4.8-10.8)
[2024-01-02] MEDS: BUMEX 66 MG IV (09:07)
[2024-01-02 10:14] LABS: ALT (SGPT) 30 U/L (0-50); AST (SGOT) 32 U/L (17-59); Albumin 3.2 g/dl (3.5-5.0); Alkaline Phosphatase 81 U/L (38-126); Blood Urea Nitrogen 100 mg/dl (9-20); Carbon Dioxide 24 mmol/L (22-30); Chloride 100 mmol/L (98-107); Glucose 175 mg/dl (70-99); Potassium 3.6 mmol/L (3.5-5.1); Sodium 137 mmol/L (135-145); Total Bilirubin 0.4 mg/dl (0.2-1.3); Total Protein 5.5 g/dl (6.3-8.2); eGFR 25.25
[2024-01-04 08:50] VITALS: BP 127/45
[2024-01-04] MEDS: BUMEX 66 MG IV (09:07)
[2024-01-04 10:54] LABS: Blood Urea Nitrogen 88 mg/dl (9-20); Calcium 8.6 mg/dl (8.4-10.2); Carbon Dioxide 23 mmol/L (22-30); Chloride 103 mmol/L (98-107); Glucose 203 mg/dl (70-99); Magnesium 1.7 mg/dl (1.6-2.3); Potassium 3.2 mmol/L (3.5-5.1); Sodium 136 mmol/L (135-145); eGFR 27.79
== END 2024-01-04 13:18 | disposition home or self-care (01) ==
LOC: OID 08:42
PROVIDERS: Nurse Practitioner Primary Care; ATTENDING PHYSICIAN Internal Medicine Cardiovascular Disease; FAMILY PHYSICIAN Internal Medicine Geriatric Medicine
DX: R18.8 Other ascites (principal); I50.22 Chronic systolic (congestive) heart failure; Z92.89 Personal history of other medical treatment
CPT/HCPCS: 36415; 49083; 80048; 80053; 83735; 85025; 89051; 96365

== ENCOUNTER → 2024-01-09 06:54 | Outpatient (REF) | payer MEDICARE, OTHER, SELFPAY ==
[2024-01-09 07:40] VITALS: BP 126/69; BP_SYST 70
[2024-01-09 08:44] LABS: Body Fluid Mononuclear 89.6 %; Body Fluid Polymorphonuclear 10.4 %; Body Fluid WBC 172 /CUMM
[2024-01-09 08:47] VITALS: BP 122/67
[2024-01-09 08:49] LABS: Body Fluid Second Tech AMA
== END ==
LOC: RADI 06:54
PROVIDERS: ATTENDING PHYSICIAN Internal Medicine Cardiovascular Disease; FAMILY PHYSICIAN Internal Medicine Geriatric Medicine
DX: R18.8 Other ascites (principal)
CPT/HCPCS: 49083; 89051

== ENCOUNTER → 2024-01-18 10:57 | Outpatient (REF) | payer MEDICARE, OTHER, SELFPAY ==
[2024-01-18 11:18] VITALS: BP 139/77; BP_SYST 74
[2024-01-18 11:49] VITALS: BP 134/69
[2024-01-18 13:31] LABS: Body Fluid Mononuclear 89.1 %; Body Fluid Polymorphonuclear 10.9 %; Body Fluid WBC 201 /CUMM
[2024-01-18 13:39] LABS: Body Fluid Second Tech SS
== END ==
LOC: RADI 10:57
PROVIDERS: ATTENDING PHYSICIAN Internal Medicine Cardiovascular Disease; FAMILY PHYSICIAN Internal Medicine Geriatric Medicine
DX: R18.8 Other ascites (principal)
CPT/HCPCS: 49083; 89051

== ENCOUNTER → 2024-01-23 06:46 | Outpatient (REF) | payer MEDICARE, OTHER, SELFPAY ==
[2024-01-23 07:20] VITALS: BP 120/67; BP_SYST 76
[2024-01-23 07:56] VITALS: BP 121/63; BP_SYST 75
[2024-01-23 08:15] VITALS: BP 121/63
[2024-01-23 08:56] LABS: Body Fluid Mononuclear 89.4 %; Body Fluid Polymorphonuclear 10.6 %; Body Fluid WBC 189 /CUMM
[2024-01-23 09:31] LABS: Body Fluid Second Tech CMB
== END ==
LOC: RADI 06:46
PROVIDERS: ATTENDING PHYSICIAN Internal Medicine Cardiovascular Disease; FAMILY PHYSICIAN Internal Medicine Geriatric Medicine
DX: R18.8 Other ascites (principal)
CPT/HCPCS: 49083; 89051

== ENCOUNTER → 2024-01-29 06:51 | Outpatient (REF) | payer MEDICARE, OTHER, SELFPAY ==
[2024-01-29 07:30] VITALS: BP 119/65; BP_SYST 74
[2024-01-29 08:09] VITALS: BP 114/64
[2024-01-29 09:17] LABS: Body Fluid Mononuclear 96.5 %; Body Fluid Polymorphonuclear 3.5 %; Body Fluid WBC 264 /CUMM
[2024-01-29 09:37] LABS: Body Fluid Second Tech AMA
== END ==
LOC: RADI 06:51
PROVIDERS: ATTENDING PHYSICIAN Internal Medicine Cardiovascular Disease; FAMILY PHYSICIAN Internal Medicine Geriatric Medicine
DX: R18.8 Other ascites (principal)
CPT/HCPCS: 49083; 89051

== ENCOUNTER → 2024-02-05 07:25 | Outpatient (REF) | payer MEDICARE, OTHER, SELFPAY ==
[2024-02-05 07:38] VITALS: BP 125/68; BP_SYST 80
[2024-02-05 08:15] VITALS: BP 111/61; BP_SYST 69
[2024-02-05 08:18] VITALS: BP 111/61
[2024-02-05 08:58] LABS: Body Fluid Mononuclear 91.5 %; Body Fluid Polymorphonuclear 8.5 %; Body Fluid WBC 211 /CUMM
[2024-02-05 09:04] LABS: Body Fluid Second Tech AMA
== END ==
LOC: RADI 07:25
PROVIDERS: ATTENDING PHYSICIAN Internal Medicine Cardiovascular Disease
DX: R18.8 Other ascites (principal)
CPT/HCPCS: 49083; 89051

== ENCOUNTER 2024-02-05 08:42 | Outpatient (RCR) | payer MEDICARE, OTHER, SELFPAY ==
[2024-01-09 09:00] VITALS: BP 131/70
[2024-01-09] MEDS: BUMEX 66 MG IV (09:13)
[2024-01-11] MEDS: BUMEX 66 MG IV (09:43)
[2024-01-11 09:51] VITALS: BP 125/66
[2024-01-11 11:41] LABS: % Basophils 0.3 % (0-2); % Immature Granulocytes 0.5 % (0-0.5); % Lymphocytes 10.7 % (20.5-51.1); % Monocytes 6.2 % (1.7-9.3); % Neutrophils 78.3 % (42.2-75.2); Absolute Eosinophils 0.4 10^3/uL (0-0.7); Absolute Immature Granulocytes 0.1 10^3/uL (0-0.05); Absolute Lymphocytes 1.1 10^3/uL (1.2-3.4); Absolute Monocytes 0.6 10^3/uL (0.1-0.6); Absolute Neutrophils 7.8 10^3/uL (1.4-6.5); Hematocrit 27.4 % (39.0-52.0); Hemoglobin 9.3 g/dL (13.0-18.0); Mean Corp Hgb Conc. 33.9 g/dL (33.0-37.0); Mean Corpuscular Hgb 30.3 pg (27.0-31.0); Mean Corpuscular Volume 89.3 fL (80.0-94.0); Nucleated Red Blood Cells % 0 % (-); Platelet Count 218 10^3/uL (130-400); Red Blood Cell Count 3.07 10^6/uL (4.70-6.10); Red Cell Dist. Width 18.2 % (11.5-14.5)
[2024-01-11 11:53] LABS: Blood Urea Nitrogen 98 mg/dl (9-20); Calcium 8.6 mg/dl (8.4-10.2); Carbon Dioxide 21 mmol/L (22-30); Chloride 99 mmol/L (98-107); Glucose 185 mg/dl (70-99); Magnesium 1.8 mg/dl (1.6-2.3); Potassium 3.5 mmol/L (3.5-5.1); Sodium 134 mmol/L (135-145); eGFR 24.13
[2024-01-16 09:20] VITALS: BP 121/74
[2024-01-16] MEDS: BUMEX 66 MG IV (09:38)
[2024-01-18] MEDS: BUMEX 66 MG IV (09:15)
[2024-01-18 09:31] VITALS: BP 130/69
[2024-01-18 11:25] LABS: Blood Urea Nitrogen 91 mg/dl (9-20); Calcium 9.1 mg/dl (8.4-10.2); Carbon Dioxide 27 mmol/L (22-30); Chloride 101 mmol/L (98-107); Glucose 170 mg/dl (70-99); Potassium 4.1 mmol/L (3.5-5.1); Sodium 137 mmol/L (135-145); eGFR 27.79
[2024-01-23] MEDS: BUMEX 66 MG IV (09:29)
[2024-01-23 09:30] VITALS: BP 119/66
[2024-01-23 11:53] LABS: INR 1.06; PT 14.4 Sec (11.4-14.6)
[2024-01-23 12:02] LABS: Blood Urea Nitrogen 85 mg/dl (9-20); Calcium 9.1 mg/dl (8.4-10.2); Carbon Dioxide 27 mmol/L (22-30); Chloride 98 mmol/L (98-107); Glucose 227 mg/dl (70-99); Magnesium 2.1 mg/dl (1.6-2.3); Sodium 133 mmol/L (135-145); eGFR 30.85
[2024-01-25 09:21] VITALS: BP 114/67
[2024-01-25] MEDS: BUMEX 66 MG IV (09:36)
[2024-01-28 09:10] VITALS: BP 110/62
[2024-01-28] MEDS: BUMEX 66 MG IV (09:34)
[2024-01-31] MEDS: BUMEX 66 MG IV (09:29)
[2024-01-31 09:49] VITALS: BP 120/61
[2024-01-31 11:57] LABS: Blood Urea Nitrogen 112 mg/dl (9-20); Calcium 8.8 mg/dl (8.4-10.2); Carbon Dioxide 28 mmol/L (22-30); Chloride 97 mmol/L (98-107); Glucose 218 mg/dl (70-99); Potassium 3.6 mmol/L (3.5-5.1); Sodium 133 mmol/L (135-145); eGFR 26.47
[2024-02-05 09:13] VITALS: BP 124/68
[2024-02-05] MEDS: BUMEX 66 MG IV (09:34)
== END 2024-02-05 14:37 | disposition home or self-care (01) ==
LOC: OID 08:42
PROVIDERS: ATTENDING PHYSICIAN Internal Medicine Cardiovascular Disease; FAMILY PHYSICIAN Internal Medicine Geriatric Medicine
DX: R18.8 Other ascites (principal); I50.22 Chronic systolic (congestive) heart failure; Z92.89 Personal history of other medical treatment
CPT/HCPCS: 36415; 49083; 80048; 83735; 85025; 85610; 89051; 96365

== ENCOUNTER → 2024-02-13 06:53 | Outpatient (REF) | payer MEDICARE, OTHER, SELFPAY ==
[2024-02-13 07:20] VITALS: BP 112/59; BP_SYST 84
[2024-02-13 07:53] VITALS: BP 113/61; BP_SYST 70
[2024-02-13 07:59] VITALS: BP 113/61
[2024-02-13 09:08] LABS: Body Fluid Mononuclear 93.2 %; Body Fluid Polymorphonuclear 6.8 %; Body Fluid WBC 207 /CUMM
[2024-02-13 10:03] LABS: Body Fluid Second Tech EF
== END ==
LOC: RADI 06:53
PROVIDERS: ATTENDING PHYSICIAN Internal Medicine Cardiovascular Disease; FAMILY PHYSICIAN Internal Medicine Geriatric Medicine
DX: R18.8 Other ascites (principal)
CPT/HCPCS: 49083; 89051

== ENCOUNTER → 2024-02-20 06:44 | Outpatient (REF) | payer MEDICARE, OTHER, SELFPAY ==
[2024-02-20 07:25] VITALS: BP 125/81; BP_SYST 87
[2024-02-20 07:55] VITALS: BP 115/76; BP_SYST 74
[2024-02-20 08:05] VITALS: BP 115/76
[2024-02-20 10:36] LABS: Body Fluid Mononuclear 94.3 %; Body Fluid Polymorphonuclear 5.7 %; Body Fluid WBC 208 /CUMM
[2024-02-20 10:41] LABS: Body Fluid Second Tech ASW
== END ==
LOC: RADI 06:44
PROVIDERS: ATTENDING PHYSICIAN Internal Medicine Cardiovascular Disease; FAMILY PHYSICIAN Internal Medicine Geriatric Medicine
DX: R18.8 Other ascites (principal)
CPT/HCPCS: 49083; 89051

== ENCOUNTER → 2024-02-27 07:01 | Outpatient (REF) | payer MEDICARE, OTHER, SELFPAY ==
[2024-02-27 07:24] VITALS: BP 124/75; BP_SYST 71
[2024-02-27 07:58] VITALS: BP 120/67; BP_SYST 70
[2024-02-27 08:11] VITALS: BP 120/67
[2024-02-27 10:17] LABS: Body Fluid WBC 188 /CUMM
[2024-02-27 10:18] LABS: Body Fluid Mononuclear 91.5 %; Body Fluid Polymorphonuclear 8.5 %
[2024-02-27 10:20] LABS: Body Fluid Second Tech AMA
== END ==
LOC: RADI 07:01
PROVIDERS: ATTENDING PHYSICIAN Internal Medicine Cardiovascular Disease; FAMILY PHYSICIAN Internal Medicine Geriatric Medicine
DX: R18.8 Other ascites (principal)
CPT/HCPCS: 49083; 89051

== ENCOUNTER → 2024-03-05 06:57 | Outpatient (REF) | payer MEDICARE, OTHER, SELFPAY ==
[2024-03-05 07:17] VITALS: BP 121/74; BP_SYST 73
[2024-03-05 08:05] VITALS: BP 106/65; BP_SYST 70
[2024-03-05 08:15] VITALS: BP 106/65
[2024-03-05 09:00] LABS: Body Fluid Mononuclear 91.2 %; Body Fluid Polymorphonuclear 8.8 %; Body Fluid WBC 182 /CUMM
[2024-03-05 09:02] LABS: Body Fluid Second Tech EM
== END ==
LOC: RADI 06:57
PROVIDERS: ATTENDING PHYSICIAN Internal Medicine Cardiovascular Disease; FAMILY PHYSICIAN Internal Medicine Geriatric Medicine
DX: R18.8 Other ascites (principal)
CPT/HCPCS: 49083; 89051

== ENCOUNTER 2024-03-07 08:43 | Outpatient (RCR) | payer MEDICARE, OTHER, SELFPAY ==
[2024-02-07 09:35] VITALS: BP 127/66
[2024-02-07] MEDS: BUMEX 66 MG IV (09:43)
[2024-02-07 10:34] LABS: % Basophils 0.4 % (0-2); % Eosinophils 8.6 % (0-6); % Immature Granulocytes 0.3 % (0-0.5); % Lymphocytes 13.4 % (20.5-51.1); % Monocytes 8.5 % (1.7-9.3); % Neutrophils 68.8 % (42.2-75.2); Absolute Eosinophils 0.6 10^3/uL (0-0.7); Absolute Monocytes 0.6 10^3/uL (0.1-0.6); Absolute Neutrophils 5.1 10^3/uL (1.4-6.5); Hematocrit 32.8 % (39.0-52.0); Hemoglobin 10.6 g/dL (13.0-18.0); Mean Corp Hgb Conc. 32.3 g/dL (33.0-37.0); Mean Corpuscular Hgb 29.4 pg (27.0-31.0); Mean Corpuscular Volume 90.9 fL (80.0-94.0); Mean Platelet Volume 9.4 fL (7.4-10.4); Platelet Count 270 10^3/uL (130-400); Red Blood Cell Count 3.61 10^6/uL (4.70-6.10); Red Cell Dist. Width 16.6 % (11.5-14.5); White Blood Cell Count 7.5 10^3/uL (4.8-10.8)
[2024-02-07 11:26] LABS: ALT (SGPT) 42 U/L (0-50); AST (SGOT) 38 U/L (17-59); Albumin 3.1 g/dl (3.5-5.0); Alkaline Phosphatase 98 U/L (38-126); Blood Urea Nitrogen 88 mg/dl (9-20); Calcium 8.9 mg/dl (8.4-10.2); Carbon Dioxide 29 mmol/L (22-30); Chloride 95 mmol/L (98-107); Glucose 271 mg/dl (70-99); Magnesium 2.2 mg/dl (1.6-2.3); Potassium 3.8 mmol/L (3.5-5.1); Sodium 132 mmol/L (135-145); Total Bilirubin 0.3 mg/dl (0.2-1.3); Total Protein 5.3 g/dl (6.3-8.2); Uric Acid 5.9 mg/dl (3.5-8.5); eGFR 29.25
[2024-02-13 09:34] VITALS: BP 118/84
[2024-02-13] MEDS: BUMEX 66 MG IV (09:41)
[2024-02-15 09:00] VITALS: BP 114/62
[2024-02-15] MEDS: BUMEX 66 MG IV (09:30)
[2024-02-15 11:14] LABS: Blood Urea Nitrogen 94 mg/dl (9-20); Calcium 8.8 mg/dl (8.4-10.2); Carbon Dioxide 29 mmol/L (22-30); Chloride 98 mmol/L (98-107); Glucose 157 mg/dl (70-99); Magnesium 2.3 mg/dl (1.6-2.3); Potassium 3.9 mmol/L (3.5-5.1); Sodium 137 mmol/L (135-145); eGFR 22.15
[2024-02-20 09:00] VITALS: BP 113/66
[2024-02-20] MEDS: BUMEX 66 MG IV (09:10)
[2024-02-20 11:11] LABS: Blood Urea Nitrogen 86 mg/dl (9-20); Calcium 9.1 mg/dl (8.4-10.2); Carbon Dioxide 32 mmol/L (22-30); Chloride 94 mmol/L (98-107); Glucose 138 mg/dl (70-99); Magnesium 2.5 mg/dl (1.6-2.3); Potassium 4.4 mmol/L (3.5-5.1); Sodium 133 mmol/L (135-145); eGFR 27.79
[2024-02-22 08:35] VITALS: BP 113/63
[2024-02-22] MEDS: BUMEX 66 MG IV (08:51)
[2024-02-27] MEDS: BUMEX 66 MG IV (09:34)
[2024-02-27 09:55] VITALS: BP 112/61
[2024-02-29 09:05] VITALS: BP 109/66
[2024-02-29] MEDS: BUMEX 66 MG IV (09:26)
[2024-02-29 12:01] LABS: Blood Urea Nitrogen 97 mg/dl (9-20); Calcium 8.8 mg/dl (8.4-10.2); Carbon Dioxide 25 mmol/L (22-30); Chloride 99 mmol/L (98-107); Glucose 162 mg/dl (70-99); Magnesium 2.2 mg/dl (1.6-2.3); Sodium 135 mmol/L (135-145); eGFR 26.47
[2024-03-04 09:15] VITALS: BP 104/69
[2024-03-04] MEDS: BUMEX 66 MG IV (09:39)
[2024-03-07] MEDS: BUMEX 66 MG IV (09:23)
[2024-03-07 09:38] VITALS: BP 102/61
[2024-03-07 10:27] LABS: % Basophils 0.6 % (0-2); % Eosinophils 7.6 % (0-6); % Immature Granulocytes 0.1 % (0-0.5); % Lymphocytes 9.5 % (20.5-51.1); % Neutrophils 74.2 % (42.2-75.2); Absolute Basophils 0.1 10^3/uL (0-0.2); Absolute Eosinophils 0.7 10^3/uL (0-0.7); Absolute Lymphocytes 0.8 10^3/uL (1.2-3.4); Absolute Monocytes 0.7 10^3/uL (0.1-0.6); Absolute Neutrophils 6.4 10^3/uL (1.4-6.5); Hemoglobin 10.9 g/dL (13.0-18.0); Mean Corpuscular Hgb 29.7 pg (27.0-31.0); Mean Corpuscular Volume 89.9 fL (80.0-94.0); Mean Platelet Volume 9.4 fL (7.4-10.4); Platelet Count 234 10^3/uL (130-400); Red Blood Cell Count 3.67 10^6/uL (4.70-6.10); White Blood Cell Count 8.6 10^3/uL (4.8-10.8)
[2024-03-07 11:54] LABS: ALT (SGPT) 46 U/L (0-50); AST (SGOT) 41 U/L (17-59); Albumin 3.1 g/dl (3.5-5.0); Alkaline Phosphatase 94 U/L (38-126); Blood Urea Nitrogen 102 mg/dl (9-20); Calcium 8.9 mg/dl (8.4-10.2); Carbon Dioxide 27 mmol/L (22-30); Chloride 96 mmol/L (98-107); Glucose 140 mg/dl (70-99); Magnesium 2.5 mg/dl (1.6-2.3); Potassium 4.3 mmol/L (3.5-5.1); Sodium 133 mmol/L (135-145); Total Bilirubin 0.7 mg/dl (0.2-1.3); Total Protein 5.2 g/dl (6.3-8.2); eGFR 27.79
== END 2024-03-07 23:59 | disposition home or self-care (01) ==
LOC: OID 08:43
PROVIDERS: Internal Medicine Rheumatology; ATTENDING PHYSICIAN Internal Medicine Cardiovascular Disease; FAMILY PHYSICIAN Internal Medicine Geriatric Medicine
DX: R18.8 Other ascites (principal); I50.22 Chronic systolic (congestive) heart failure; Z92.89 Personal history of other medical treatment
CPT/HCPCS: 36415; 49083; 80048; 80053; 83735; 84550; 85025; 89051; 96365

== ENCOUNTER → 2024-03-12 06:49 | Outpatient (REF) | payer MEDICARE, OTHER, SELFPAY ==
[2024-03-12 07:23] VITALS: BP 111/67; BP_SYST 71
[2024-03-12 08:05] VITALS: BP 102/60; BP_SYST 70
[2024-03-12 08:07] VITALS: BP 102/60
[2024-03-12 09:44] LABS: Body Fluid Mononuclear 94.9 %; Body Fluid Polymorphonuclear 5.1 %; Body Fluid WBC 176 /CUMM
[2024-03-12 10:14] LABS: Body Fluid Second Tech ASW
== END ==
LOC: RADI 06:49
PROVIDERS: ATTENDING PHYSICIAN Internal Medicine Cardiovascular Disease; FAMILY PHYSICIAN Internal Medicine Geriatric Medicine
DX: R18.8 Other ascites (principal)
CPT/HCPCS: 49083; 89051

== ENCOUNTER → 2024-03-21 07:30 | Outpatient (REF) | payer MEDICARE, OTHER, SELFPAY ==
[2024-03-21 08:00] VITALS: BP 115/64; BP_SYST 70
[2024-03-21 08:50] VITALS: BP 108/55
[2024-03-21 11:42] LABS: Body Fluid Mononuclear 85.7 %; Body Fluid Polymorphonuclear 14.3 %; Body Fluid WBC 140 /CUMM
[2024-03-21 12:10] LABS: Body Fluid Second Tech HB
== END ==
LOC: RADI 07:30
PROVIDERS: ATTENDING PHYSICIAN Internal Medicine Cardiovascular Disease; FAMILY PHYSICIAN Internal Medicine Geriatric Medicine
DX: R18.8 Other ascites (principal)
CPT/HCPCS: 49083; 89051

== ENCOUNTER → 2024-03-26 07:14 | Outpatient (REF) | payer MEDICARE, OTHER, SELFPAY ==
[2024-03-26 07:25] VITALS: BP 127/69; BP_SYST 76
[2024-03-26 08:04] VITALS: BP 112/63; BP_SYST 70
[2024-03-26 08:10] VITALS: BP 112/63
[2024-03-26 09:54] LABS: Body Fluid Mononuclear 90.6 %; Body Fluid Polymorphonuclear 9.4 %; Body Fluid WBC 170 /CUMM
[2024-03-26 10:18] LABS: Body Fluid Second Tech CMB
== END ==
LOC: RADI 07:14
PROVIDERS: ATTENDING PHYSICIAN Internal Medicine Cardiovascular Disease; FAMILY PHYSICIAN Internal Medicine Geriatric Medicine
DX: R18.8 Other ascites (principal)
CPT/HCPCS: 49083; 89051

== ENCOUNTER → 2024-04-04 06:47 | Outpatient (REF) | payer MEDICARE, OTHER, SELFPAY ==
[2024-04-04 07:14] VITALS: BP 121/67; BP_SYST 76
[2024-04-04 07:52] VITALS: BP 116/64; BP_SYST 70
[2024-04-04 07:59] VITALS: BP 116/64
[2024-04-04 08:59] LABS: Body Fluid Mononuclear 80.5 %; Body Fluid Polymorphonuclear 19.5 %; Body Fluid WBC 174 /CUMM
[2024-04-04 09:00] LABS: Body Fluid Second Tech HB
== END ==
LOC: RADI 06:47
PROVIDERS: ATTENDING PHYSICIAN Internal Medicine Cardiovascular Disease; FAMILY PHYSICIAN Internal Medicine Geriatric Medicine
DX: R18.8 Other ascites (principal)
CPT/HCPCS: 49083; 89051

== ENCOUNTER 2024-04-04 08:24 | Outpatient (RCR) | payer MEDICARE, OTHER, SELFPAY ==
[2024-03-12 08:55] VITALS: BP 108/58
[2024-03-12] MEDS: BUMEX 66 MG IV (09:11)
[2024-03-21] MEDS: BUMEX 66 MG IV (09:24)
[2024-03-21 09:29] VITALS: BP 114/73
[2024-03-21 11:11] LABS: Blood Urea Nitrogen 98 mg/dl (9-20); Calcium 8.6 mg/dl (8.4-10.2); Carbon Dioxide 23 mmol/L (22-30); Chloride 100 mmol/L (98-107); Glucose 207 mg/dl (70-99); Magnesium 2.3 mg/dl (1.6-2.3); Potassium 3.7 mmol/L (3.5-5.1); Sodium 134 mmol/L (135-145); eGFR 26.47
[2024-03-25 08:45] VITALS: BP 115/63
[2024-03-25] MEDS: BUMEX 66 MG IV (09:00)
[2024-03-28] MEDS: BUMEX 66 MG IV (09:45)
[2024-03-28 09:50] VITALS: BP 107/70
[2024-03-28 11:39] LABS: Blood Urea Nitrogen 98 mg/dl (9-20); Calcium 8.6 mg/dl (8.4-10.2); Carbon Dioxide 27 mmol/L (22-30); Chloride 97 mmol/L (98-107); Glucose 228 mg/dl (70-99); Magnesium 2.3 mg/dl (1.6-2.3); Potassium 3.9 mmol/L (3.5-5.1); Sodium 132 mmol/L (135-145); eGFR 27.79
[2024-04-04 08:45] VITALS: BP 112/63
[2024-04-04] MEDS: BUMEX 66 MG IV (08:56)
[2024-04-04 10:55] LABS: % Basophils 0.4 % (0-2); % Eosinophils 4.2 % (0-6); % Immature Granulocytes 0.4 % (0-0.5); % Monocytes 7.9 % (1.7-9.3); % Neutrophils 77.1 % (42.2-75.2); Absolute Eosinophils 0.3 10^3/uL (0-0.7); Absolute Lymphocytes 0.7 10^3/uL (1.2-3.4); Absolute Monocytes 0.6 10^3/uL (0.1-0.6); Absolute Neutrophils 5.5 10^3/uL (1.4-6.5); Hematocrit 33.1 % (39.0-52.0); Hemoglobin 11.2 g/dL (13.0-18.0); Mean Corp Hgb Conc. 33.8 g/dL (33.0-37.0); Mean Corpuscular Hgb 29.2 pg (27.0-31.0); Mean Corpuscular Volume 86.4 fL (80.0-94.0); Mean Platelet Volume 9.8 fL (7.4-10.4); Nucleated Red Blood Cells % 0 % (-); Platelet Count 245 10^3/uL (130-400); Red Blood Cell Count 3.83 10^6/uL (4.70-6.10); Red Cell Dist. Width 16.8 % (11.5-14.5); White Blood Cell Count 7.2 10^3/uL (4.8-10.8)
[2024-04-04 11:11] LABS: APTT 29.2 Sec (23.4-35.0)
[2024-04-04 11:13] LABS: Blood Urea Nitrogen 103 mg/dl (9-20); Calcium 8.1 mg/dl (8.4-10.2); Carbon Dioxide 22 mmol/L (22-30); Chloride 97 mmol/L (98-107); Glucose 244 mg/dl (70-99); Magnesium 2.2 mg/dl (1.6-2.3); Sodium 128 mmol/L (135-145); eGFR 30.85
[2024-04-04 11:23] LABS: INR 1.23; PT 15.8 Sec (11.4-14.6)
== END 2024-04-04 23:59 | disposition home or self-care (01) ==
LOC: OID 08:24
PROVIDERS: ATTENDING PHYSICIAN Internal Medicine Cardiovascular Disease; FAMILY PHYSICIAN Internal Medicine Geriatric Medicine
DX: R18.8 Other ascites (principal); I50.22 Chronic systolic (congestive) heart failure; Z92.89 Personal history of other medical treatment
CPT/HCPCS: 36415; 49083; 80048; 83735; 85025; 85610; 85730; 89051; 96365

== ENCOUNTER → 2024-04-08 06:54 | Outpatient (REF) | payer MEDICARE, OTHER, SELFPAY ==
[2024-04-08 07:23] VITALS: BP 115/64; BP_SYST 75
[2024-04-08 07:55] VITALS: BP 115/59
[2024-04-08 08:58] LABS: Body Fluid Mononuclear 87.6 %; Body Fluid Polymorphonuclear 12.4 %; Body Fluid WBC 250 /CUMM
[2024-04-08 09:07] LABS: Body Fluid Second Tech EM
== END ==
LOC: RADI 06:54
PROVIDERS: ATTENDING PHYSICIAN Internal Medicine Cardiovascular Disease; FAMILY PHYSICIAN Internal Medicine Geriatric Medicine
DX: R18.8 Other ascites (principal)
CPT/HCPCS: 49083; 89051

== ENCOUNTER → 2024-04-16 06:58 | Outpatient (REF) | payer MEDICARE, OTHER, SELFPAY ==
[2024-04-16 07:20] VITALS: BP 112/67; BP_SYST 75
[2024-04-16 08:03] VITALS: BP 116/62; BP_SYST 70
[2024-04-16 08:09] VITALS: BP 116/62
[2024-04-16 09:36] LABS: Body Fluid WBC 312 /CUMM
[2024-04-16 10:01] LABS: Body Fluid Second Tech CF
== END ==
LOC: RADI 06:58
PROVIDERS: ATTENDING PHYSICIAN Internal Medicine Cardiovascular Disease
DX: R18.8 Other ascites (principal)
CPT/HCPCS: 49083; 89051

== ENCOUNTER → 2024-04-23 06:53 | Outpatient (REF) | payer MEDICARE, OTHER, SELFPAY ==
[2024-04-23 07:15] VITALS: BP 107/61; BP_SYST 72
[2024-04-23 08:09] VITALS: BP 114/66; BP_SYST 71
[2024-04-23 08:19] VITALS: BP 114/66
[2024-04-23 09:05] LABS: Body Fluid Mononuclear 87.4 %; Body Fluid Polymorphonuclear 12.6 %; Body Fluid WBC 167 /CUMM
[2024-04-23 09:29] LABS: Body Fluid Second Tech AMA
== END ==
LOC: RADI 06:53
PROVIDERS: ATTENDING PHYSICIAN Internal Medicine Cardiovascular Disease
DX: R18.8 Other ascites (principal)
CPT/HCPCS: 49083; 89051

== ENCOUNTER → 2024-04-30 06:52 | Outpatient (REF) | payer MEDICARE, OTHER, SELFPAY ==
[2024-04-30 08:15] VITALS: BP 112/64
[2024-04-30 08:35] VITALS: BP 111/64; BP_SYST 73
[2024-04-30 09:29] LABS: Body Fluid Mononuclear 93.8 %; Body Fluid Polymorphonuclear 6.2 %; Body Fluid WBC 241 /CUMM
[2024-04-30 09:36] LABS: Body Fluid Second Tech AMA
== END ==
LOC: RADI 06:52
PROVIDERS: ATTENDING PHYSICIAN Internal Medicine Cardiovascular Disease; FAMILY PHYSICIAN Internal Medicine Geriatric Medicine
DX: R18.8 Other ascites (principal)
CPT/HCPCS: 49083; 89051

== ENCOUNTER 2024-05-02 09:06 | Outpatient (RCR) | payer MEDICARE, OTHER, SELFPAY ==
[2024-04-08] MEDS: BUMEX 66 MG IV (09:06)
[2024-04-08 09:13] VITALS: BP 106/58
[2024-04-08 11:02] LABS: Blood Urea Nitrogen 111 mg/dl (9-20); Carbon Dioxide 33 mmol/L (22-30); Chloride 92 mmol/L (98-107); Glucose 268 mg/dl (70-99); Magnesium 2.1 mg/dl (1.6-2.3); Potassium 3.4 mmol/L (3.5-5.1); Sodium 131 mmol/L (135-145); eGFR 29.25
[2024-04-11] MEDS: BUMEX 66 MG IV (09:43)
[2024-04-11 09:48] VITALS: BP 106/63
[2024-04-16 08:41] VITALS: BP 112/66
[2024-04-16] MEDS: BUMEX 66 MG IV (08:51)
[2024-04-18 13:15] VITALS: BP 116/61
[2024-04-18] MEDS: BUMEX 66 MG IV (13:15)
[2024-04-18 15:06] LABS: Blood Urea Nitrogen 120 mg/dl (9-20); Calcium 8.8 mg/dl (8.4-10.2); Carbon Dioxide 24 mmol/L (22-30); Chloride 96 mmol/L (98-107); Glucose 289 mg/dl (70-99); Potassium 3.9 mmol/L (3.5-5.1); Sodium 131 mmol/L (135-145); eGFR 32.62
[2024-04-25] MEDS: BUMEX 66 MG IV (09:16)
[2024-04-25 09:18] VITALS: BP 104/57
[2024-04-25 10:07] LABS: % Basophils 0.4 % (0-2); % Eosinophils 6.9 % (0-6); % Immature Granulocytes 0.3 % (0-0.5); % Lymphocytes 13.9 % (20.5-51.1); % Monocytes 9.4 % (1.7-9.3); % Neutrophils 69.1 % (42.2-75.2); Absolute Eosinophils 0.5 10^3/uL (0-0.7); Absolute Lymphocytes 0.9 10^3/uL (1.2-3.4); Absolute Monocytes 0.6 10^3/uL (0.1-0.6); Absolute Neutrophils 4.6 10^3/uL (1.4-6.5); Hematocrit 32.8 % (39.0-52.0); Hemoglobin 10.9 g/dL (13.0-18.0); Mean Corp Hgb Conc. 33.2 g/dL (33.0-37.0); Mean Corpuscular Hgb 29.2 pg (27.0-31.0); Mean Corpuscular Volume 87.9 fL (80.0-94.0); Mean Platelet Volume 9.3 fL (7.4-10.4); Platelet Count 239 10^3/uL (130-400); Red Blood Cell Count 3.73 10^6/uL (4.70-6.10); Red Cell Dist. Width 16.9 % (11.5-14.5); White Blood Cell Count 6.7 10^3/uL (4.8-10.8)
[2024-04-25 11:20] LABS: Blood Urea Nitrogen 109 mg/dl (9-20); Calcium 8.8 mg/dl (8.4-10.2); Carbon Dioxide 29 mmol/L (22-30); Chloride 96 mmol/L (98-107); Glucose 273 mg/dl (70-99); Sodium 131 mmol/L (135-145); eGFR 34.59
[2024-04-30 08:47] VITALS: BP 115/64
[2024-04-30] MEDS: BUMEX 66 MG IV (08:49)
[2024-05-02 09:15] VITALS: BP 115/58
[2024-05-02] MEDS: BUMEX 66 MG IV (09:37)
[2024-05-02 10:11] LABS: % Basophils 0.5 % (0-2); % Eosinophils 6.2 % (0-6); % Immature Granulocytes 0.2 % (0-0.5); % Lymphocytes 11.5 % (20.5-51.1); % Monocytes 8.7 % (1.7-9.3); % Neutrophils 72.9 % (42.2-75.2); Absolute Eosinophils 0.5 10^3/uL (0-0.7); Absolute Monocytes 0.7 10^3/uL (0.1-0.6); Hematocrit 30.1 % (39.0-52.0); Hemoglobin 10.1 g/dL (13.0-18.0); Mean Corp Hgb Conc. 33.6 g/dL (33.0-37.0); Mean Corpuscular Hgb 29.5 pg (27.0-31.0); Mean Platelet Volume 9.1 fL (7.4-10.4); Platelet Count 226 10^3/uL (130-400); Red Blood Cell Count 3.42 10^6/uL (4.70-6.10); Red Cell Dist. Width 16.6 % (11.5-14.5); White Blood Cell Count 8.3 10^3/uL (4.8-10.8)
[2024-05-02 11:17] LABS: Calcium 8.6 mg/dl (8.4-10.2); Carbon Dioxide 29 mmol/L (22-30); Chloride 96 mmol/L (98-107); Glucose 295 mg/dl (70-99); Magnesium 2.2 mg/dl (1.6-2.3); Potassium 4.2 mmol/L (3.5-5.1); Sodium 132 mmol/L (135-145); eGFR 32.62
[2024-05-02 11:24] LABS: Blood Urea Nitrogen 124 mg/dl (9-20)
== END 2024-05-05 08:17 | disposition home or self-care (01) ==
LOC: OID 09:06
PROVIDERS: ATTENDING PHYSICIAN Internal Medicine Cardiovascular Disease; FAMILY PHYSICIAN Internal Medicine Geriatric Medicine
DX: R18.8 Other ascites (principal); I50.22 Chronic systolic (congestive) heart failure
CPT/HCPCS: 36415; 49083; 80048; 83735; 85025; 89051; 96365

== ENCOUNTER → 2024-05-07 07:08 | Outpatient (REF) | payer MEDICARE, OTHER, SELFPAY ==
[2024-05-07 07:30] VITALS: BP 116/65; BP_SYST 70
[2024-05-07 08:12] VITALS: BP 119/64; BP_SYST 71
[2024-05-07 08:21] VITALS: BP 119/64
[2024-05-07 10:30] LABS: Body Fluid Mononuclear 92.4 %; Body Fluid Polymorphonuclear 7.6 %; Body Fluid WBC 226 /CUMM
[2024-05-07 10:31] LABS: Body Fluid Second Tech EF
== END ==
LOC: RADI 07:08
PROVIDERS: ATTENDING PHYSICIAN Internal Medicine Cardiovascular Disease; FAMILY PHYSICIAN Internal Medicine Geriatric Medicine
DX: R18.8 Other ascites (principal)
CPT/HCPCS: 49083; 89051

== ENCOUNTER → 2024-05-14 07:00 | Outpatient (REF) | payer MEDICARE, OTHER, SELFPAY ==
[2024-05-14 07:20] VITALS: BP 119/68; BP_SYST 74
[2024-05-14 07:52] VITALS: BP 114/65; BP_SYST 71
[2024-05-14 08:02] VITALS: BP 114/65
[2024-05-14 09:21] LABS: Body Fluid WBC 175 /CUMM
[2024-05-14 09:22] LABS: Body Fluid Mononuclear 93.7 %; Body Fluid Polymorphonuclear 6.3 %
[2024-05-14 09:24] LABS: Body Fluid Second Tech EM
== END ==
LOC: RADI 07:00
PROVIDERS: ATTENDING PHYSICIAN Internal Medicine Cardiovascular Disease; FAMILY PHYSICIAN Internal Medicine Geriatric Medicine
DX: R18.8 Other ascites (principal)
CPT/HCPCS: 49083; 89051

== ENCOUNTER → 2024-05-21 06:53 | Outpatient (REF) | payer MEDICARE, OTHER, SELFPAY ==
[2024-05-21 07:51] VITALS: BP 118/71; BP_SYST 80
[2024-05-21 08:20] VITALS: BP 111/62
[2024-05-21 09:32] LABS: Body Fluid Mononuclear 89.8 %; Body Fluid Polymorphonuclear 10.2 %; Body Fluid WBC 255 /CUMM
[2024-05-21 09:47] LABS: Body Fluid Second Tech AMA
== END ==
LOC: RADI 06:53
PROVIDERS: ATTENDING PHYSICIAN Internal Medicine Cardiovascular Disease; FAMILY PHYSICIAN Internal Medicine Geriatric Medicine
DX: R18.8 Other ascites (principal)
CPT/HCPCS: 49083; 89051

== ENCOUNTER → 2024-05-28 06:56 | Outpatient (REF) | payer MEDICARE, OTHER, SELFPAY ==
[2024-05-28 07:25] VITALS: BP 122/65; BP_SYST 73
[2024-05-28 07:57] VITALS: BP 117/64; BP_SYST 71
[2024-05-28 08:13] VITALS: BP 117/64
[2024-05-28 08:45] LABS: Body Fluid Polymorphonuclear 64.9 %; Body Fluid WBC 2007 /CUMM
[2024-05-28 08:46] LABS: Body Fluid Mononuclear 35.1 %
[2024-05-28 08:47] LABS: Body Fluid Second Tech HB
== END ==
LOC: RADI 06:56
PROVIDERS: ATTENDING PHYSICIAN Internal Medicine Cardiovascular Disease; FAMILY PHYSICIAN Internal Medicine Geriatric Medicine
DX: R18.8 Other ascites (principal)
CPT/HCPCS: 49083; 89051

== ENCOUNTER → 2024-06-03 06:51 | Outpatient (REF) | payer MEDICARE, OTHER, SELFPAY ==
[2024-06-03 07:25] VITALS: BP 113/66; BP_SYST 74
[2024-06-03 08:02] VITALS: BP 115/64; BP_SYST 71
[2024-06-03 08:14] VITALS: BP 115/64
[2024-06-03 08:47] LABS: Body Fluid Mononuclear 75.7 %; Body Fluid WBC 534 /CUMM
[2024-06-03 08:50] LABS: Body Fluid Polymorphonuclear 24.3 %
[2024-06-03 08:51] LABS: Body Fluid Second Tech CMB
== END ==
LOC: RADI 06:51
PROVIDERS: ATTENDING PHYSICIAN Internal Medicine Cardiovascular Disease; FAMILY PHYSICIAN Internal Medicine Geriatric Medicine
DX: R18.8 Other ascites (principal)
CPT/HCPCS: 49083; 89051

== ENCOUNTER 2024-06-03 08:42 | Outpatient (RCR) | payer MEDICARE, OTHER, SELFPAY ==
[2024-05-07] MEDS: BUMEX 66 MG IV (09:24)
[2024-05-07 09:35] VITALS: BP 106/62
[2024-05-09] MEDS: BUMEX 66 MG IV (09:38)
[2024-05-09 09:54] VITALS: BP 95/57
[2024-05-09 10:30] LABS: % Basophils 0.4 % (0-2); % Eosinophils 5.9 % (0-6); % Immature Granulocytes 0.1 % (0-0.5); % Lymphocytes 11.9 % (20.5-51.1); % Monocytes 8.7 % (1.7-9.3); Absolute Eosinophils 0.4 10^3/uL (0-0.7); Absolute Lymphocytes 0.9 10^3/uL (1.2-3.4); Absolute Monocytes 0.6 10^3/uL (0.1-0.6); Absolute Neutrophils 5.3 10^3/uL (1.4-6.5); Hemoglobin 10.1 g/dL (13.0-18.0); Mean Corp Hgb Conc. 33.7 g/dL (33.0-37.0); Mean Corpuscular Hgb 29.6 pg (27.0-31.0); Mean Platelet Volume 9.7 fL (7.4-10.4); Platelet Count 231 10^3/uL (130-400); Red Blood Cell Count 3.41 10^6/uL (4.70-6.10); White Blood Cell Count 7.3 10^3/uL (4.8-10.8)
[2024-05-09 15:12] LABS: Blood Urea Nitrogen 120 mg/dl (9-20); Calcium 8.5 mg/dl (8.4-10.2); Carbon Dioxide 27 mmol/L (22-30); Chloride 95 mmol/L (98-107); Glucose 324 mg/dl (70-99); Magnesium 2.3 mg/dl (1.6-2.3); Sodium 130 mmol/L (135-145); eGFR 32.62
[2024-05-14 08:47] VITALS: BP 98/60
[2024-05-14] MEDS: BUMEX 66 MG IV (08:49)
[2024-05-16 09:15] VITALS: BP 100/55
[2024-05-16] MEDS: BUMEX 66 MG IV (09:35)
[2024-05-16 11:06] LABS: % Basophils 0.3 % (0-2); % Eosinophils 2.4 % (0-6); % Immature Granulocytes 0.4 % (0-0.5); % Lymphocytes 9.5 % (20.5-51.1); % Monocytes 11.2 % (1.7-9.3); % Neutrophils 76.2 % (42.2-75.2); Absolute Eosinophils 0.2 10^3/uL (0-0.7); Absolute Lymphocytes 0.7 10^3/uL (1.2-3.4); Absolute Monocytes 0.8 10^3/uL (0.1-0.6); Absolute Neutrophils 5.3 10^3/uL (1.4-6.5); Hematocrit 31.9 % (39.0-52.0); Hemoglobin 10.6 g/dL (13.0-18.0); Mean Corp Hgb Conc. 33.2 g/dL (33.0-37.0); Mean Corpuscular Hgb 29.7 pg (27.0-31.0); Mean Corpuscular Volume 89.4 fL (80.0-94.0); Mean Platelet Volume 9.7 fL (7.4-10.4); Platelet Count 233 10^3/uL (130-400); Red Blood Cell Count 3.57 10^6/uL (4.70-6.10); Red Cell Dist. Width 17.7 % (11.5-14.5)
[2024-05-16 11:19] LABS: Blood Urea Nitrogen 109 mg/dl (9-20); Calcium 8.6 mg/dl (8.4-10.2); Carbon Dioxide 27 mmol/L (22-30); Chloride 98 mmol/L (98-107); Glucose 230 mg/dl (70-99); Magnesium 2.5 mg/dl (1.6-2.3); Potassium 3.8 mmol/L (3.5-5.1); Sodium 133 mmol/L (135-145); eGFR 27.79
[2024-05-21] MEDS: BUMEX 66 MG IV (09:01)
[2024-05-21 09:05] VITALS: BP 107/57
[2024-05-21 09:55] LABS: % Basophils 0.1 % (0-2); % Eosinophils 4.6 % (0-6); % Immature Granulocytes 0.7 % (0-0.5); % Lymphocytes 9.2 % (20.5-51.1); % Monocytes 6.9 % (1.7-9.3); % Neutrophils 78.5 % (42.2-75.2); Absolute Eosinophils 0.5 10^3/uL (0-0.7); Absolute Immature Granulocytes 0.1 10^3/uL (0-0.05); Absolute Lymphocytes 0.9 10^3/uL (1.2-3.4); Absolute Monocytes 0.7 10^3/uL (0.1-0.6); Absolute Neutrophils 7.7 10^3/uL (1.4-6.5); Hematocrit 31.9 % (39.0-52.0); Hemoglobin 10.5 g/dL (13.0-18.0); Mean Corp Hgb Conc. 32.9 g/dL (33.0-37.0); Mean Corpuscular Hgb 29.7 pg (27.0-31.0); Mean Corpuscular Volume 90.1 fL (80.0-94.0); Mean Platelet Volume 9.6 fL (7.4-10.4); Platelet Count 247 10^3/uL (130-400); Red Blood Cell Count 3.54 10^6/uL (4.70-6.10); Red Cell Dist. Width 18.2 % (11.5-14.5); White Blood Cell Count 9.9 10^3/uL (4.8-10.8)
[2024-05-21 11:26] LABS: Blood Urea Nitrogen 110 mg/dl (9-20); Calcium 8.5 mg/dl (8.4-10.2); Carbon Dioxide 25 mmol/L (22-30); Chloride 101 mmol/L (98-107); Glucose 226 mg/dl (70-99); Magnesium 2.6 mg/dl (1.6-2.3); Potassium 4.1 mmol/L (3.5-5.1); Sodium 136 mmol/L (135-145); eGFR 30.85
[2024-05-23] MEDS: BUMEX 66 MG IV (09:43)
[2024-05-23 09:47] VITALS: BP 110/76
[2024-05-28 09:00] VITALS: BP 108/56
[2024-05-28] MEDS: BUMEX 66 MG IV (09:06)
[2024-05-30 09:15] VITALS: BP 101/62
[2024-05-30] MEDS: BUMEX 66 MG IV (09:22)
[2024-05-30 10:11] LABS: % Basophils 0.4 % (0-2); % Eosinophils 4.4 % (0-6); % Immature Granulocytes 0.3 % (0-0.5); % Lymphocytes 10.1 % (20.5-51.1); % Monocytes 8.9 % (1.7-9.3); % Neutrophils 75.9 % (42.2-75.2); Absolute Eosinophils 0.3 10^3/uL (0-0.7); Absolute Lymphocytes 0.8 10^3/uL (1.2-3.4); Absolute Monocytes 0.7 10^3/uL (0.1-0.6); Absolute Neutrophils 5.7 10^3/uL (1.4-6.5); Hematocrit 31.1 % (39.0-52.0); Hemoglobin 10.5 g/dL (13.0-18.0); Mean Corp Hgb Conc. 33.8 g/dL (33.0-37.0); Mean Corpuscular Hgb 30.8 pg (27.0-31.0); Mean Corpuscular Volume 91.2 fL (80.0-94.0); Mean Platelet Volume 9.6 fL (7.4-10.4); Platelet Count 205 10^3/uL (130-400); Red Blood Cell Count 3.41 10^6/uL (4.70-6.10); Red Cell Dist. Width 18.1 % (11.5-14.5); White Blood Cell Count 7.4 10^3/uL (4.8-10.8)
[2024-05-30 12:04] LABS: Blood Urea Nitrogen 110 mg/dl (9-20); Calcium 8.7 mg/dl (8.4-10.2); Carbon Dioxide 26 mmol/L (22-30); Chloride 95 mmol/L (98-107); Glucose 317 mg/dl (70-99); Magnesium 2.1 mg/dl (1.6-2.3); Potassium 3.9 mmol/L (3.5-5.1); Sodium 132 mmol/L (135-145); eGFR 29.25
[2024-06-03 09:05] VITALS: BP 99/60
[2024-06-03] MEDS: BUMEX 66 MG IV (09:28)
== END 2024-06-04 09:41 | disposition home or self-care (01) ==
LOC: OID 08:42
PROVIDERS: ATTENDING PHYSICIAN Internal Medicine Cardiovascular Disease; FAMILY PHYSICIAN Internal Medicine Geriatric Medicine
DX: R18.8 Other ascites (principal); I50.22 Chronic systolic (congestive) heart failure
CPT/HCPCS: 36415; 49083; 80048; 83735; 85025; 89051; 96365

== ENCOUNTER → 2024-06-11 06:59 | Outpatient (REF) | payer MEDICARE, OTHER, SELFPAY ==
[2024-06-11 07:22] VITALS: BP 114/56; BP_SYST 51
[2024-06-11 08:10] VITALS: BP 118/57; BP_SYST 51
[2024-06-11 08:12] VITALS: BP 118/57
[2024-06-11 10:35] LABS: Body Fluid Mononuclear 89.2 %; Body Fluid Polymorphonuclear 10.8 %; Body Fluid WBC 251 /CUMM
[2024-06-11 10:38] LABS: Body Fluid Second Tech ASW
== END ==
LOC: RADI 06:59
PROVIDERS: ATTENDING PHYSICIAN Internal Medicine Cardiovascular Disease; FAMILY PHYSICIAN Internal Medicine Geriatric Medicine
DX: R18.8 Other ascites (principal)
CPT/HCPCS: 49083; 89051

== ENCOUNTER → 2024-06-18 06:41 | Outpatient (REF) | payer MEDICARE, OTHER, SELFPAY ==
[2024-06-18 07:20] VITALS: BP 119/52; BP_SYST 56
[2024-06-18 07:55] VITALS: BP 119/55; BP_SYST 49
[2024-06-18 08:15] VITALS: BP 119/55
[2024-06-18 08:53] LABS: Body Fluid Mononuclear 90.9 %; Body Fluid Polymorphonuclear 9.1 %; Body Fluid WBC 229 /CUMM
[2024-06-18 08:54] LABS: Body Fluid Second Tech US
== END ==
LOC: RADI 06:41
PROVIDERS: ATTENDING PHYSICIAN Internal Medicine Cardiovascular Disease; FAMILY PHYSICIAN Internal Medicine Geriatric Medicine
DX: R18.8 Other ascites (principal)
CPT/HCPCS: 49083; 89051

== ENCOUNTER 2024-06-24 14:02 | Outpatient (RCR) | payer MEDICARE, OTHER, SELFPAY ==
[2024-06-20 14:19] LABS: Glucose - Point of Care 140 mg/dl (70-99)
[2024-06-24 11:18] LABS: Glucose - Point of Care 385 mg/dl (70-99)
[2024-06-24 11:36] LABS: Glucose - Point of Care 384 mg/dl (70-99)
[2024-06-24 11:47] LABS: Glucose - Point of Care 375 mg/dl (70-99)
== END 2024-06-24 23:59 | disposition home or self-care (01) ==
LOC: CRHB 14:02
PROVIDERS: ATTENDING PHYSICIAN Internal Medicine Cardiovascular Disease
DX: I50.22 Chronic systolic (congestive) heart failure (principal); Z95.0 Presence of cardiac pacemaker
CPT/HCPCS: 82962; 93798; G0422; G0423

== ENCOUNTER → 2024-06-25 07:04 | Outpatient (REF) | payer MEDICARE, OTHER, SELFPAY ==
[2024-06-25 07:20] VITALS: BP 136/54; BP_SYST 59
[2024-06-25 07:22] VITALS: BMI 27.3
[2024-06-25 08:00] VITALS: BP 134/53
[2024-06-25 08:55] LABS: Body Fluid Mononuclear 77.9 %; Body Fluid Polymorphonuclear 22.1 %; Body Fluid WBC 330 /CUMM
[2024-06-25 08:59] LABS: Body Fluid Second Tech US
== END ==
LOC: RADI 07:04
PROVIDERS: ATTENDING PHYSICIAN Internal Medicine Cardiovascular Disease
DX: R18.8 Other ascites (principal)
CPT/HCPCS: 49083; 89051

== ENCOUNTER → 2024-06-25 08:30 | Outpatient (RCR) | payer MEDICARE, OTHER, SELFPAY ==
[2024-06-06] MEDS: BUMEX 66 MG IV (09:30)
[2024-06-06 09:33] VITALS: BP 106/59
[2024-06-06 11:10] LABS: % Basophils 0.3 % (0-2); % Eosinophils 2.3 % (0-6); % Immature Granulocytes 0.4 % (0-0.5); % Lymphocytes 10.6 % (20.5-51.1); % Monocytes 8.7 % (1.7-9.3); % Neutrophils 77.7 % (42.2-75.2); Absolute Eosinophils 0.2 10^3/uL (0-0.7); Absolute Lymphocytes 0.8 10^3/uL (1.2-3.4); Absolute Monocytes 0.7 10^3/uL (0.1-0.6); Hematocrit 33.6 % (39.0-52.0); Hemoglobin 10.9 g/dL (13.0-18.0); Mean Corp Hgb Conc. 32.4 g/dL (33.0-37.0); Mean Corpuscular Hgb 30.5 pg (27.0-31.0); Mean Corpuscular Volume 94.1 fL (80.0-94.0); Mean Platelet Volume 10.2 fL (7.4-10.4); Nucleated Red Blood Cells % 0 % (-); Platelet Count 228 10^3/uL (130-400); Red Blood Cell Count 3.57 10^6/uL (4.70-6.10); Red Cell Dist. Width 18.2 % (11.5-14.5); White Blood Cell Count 7.7 10^3/uL (4.8-10.8)
[2024-06-06 11:37] LABS: ALT (SGPT) 46 U/L (0-50); AST (SGOT) 33 U/L (17-59); Albumin 2.8 g/dl (3.5-5.0); Alkaline Phosphatase 99 U/L (38-126); Blood Urea Nitrogen 113 mg/dl (9-20); Calcium 8.4 mg/dl (8.4-10.2); Carbon Dioxide 22 mmol/L (22-30); Chloride 99 mmol/L (98-107); Glucose 274 mg/dl (70-99); Magnesium 2.3 mg/dl (1.6-2.3); Potassium 4.9 mmol/L (3.5-5.1); Sodium 131 mmol/L (135-145); Total Bilirubin 0.6 mg/dl (0.2-1.3); Total Protein 4.9 g/dl (6.3-8.2); eGFR 24.13
[2024-06-11] MEDS: BUMEX 66 MG IV (08:49)
[2024-06-11 08:51] VITALS: BP 125/50
[2024-06-13 09:18] VITALS: BP 140/53
[2024-06-13] MEDS: BUMEX 66 MG IV (09:25)
[2024-06-13 10:23] LABS: % Basophils 0.3 % (0-2); % Immature Granulocytes 0.4 % (0-0.5); % Lymphocytes 9.9 % (20.5-51.1); % Monocytes 9.8 % (1.7-9.3); % Neutrophils 76.6 % (42.2-75.2); Absolute Eosinophils 0.2 10^3/uL (0-0.7); Absolute Lymphocytes 0.7 10^3/uL (1.2-3.4); Absolute Monocytes 0.7 10^3/uL (0.1-0.6); Absolute Neutrophils 5.6 10^3/uL (1.4-6.5); Hematocrit 30.2 % (39.0-52.0); Hemoglobin 10.1 g/dL (13.0-18.0); Mean Corp Hgb Conc. 33.4 g/dL (33.0-37.0); Mean Corpuscular Hgb 31.5 pg (27.0-31.0); Mean Corpuscular Volume 94.1 fL (80.0-94.0); Mean Platelet Volume 9.3 fL (7.4-10.4); Platelet Count 220 10^3/uL (130-400); Red Blood Cell Count 3.21 10^6/uL (4.70-6.10); Red Cell Dist. Width 17.6 % (11.5-14.5); White Blood Cell Count 7.4 10^3/uL (4.8-10.8)
[2024-06-13 11:10] LABS: Blood Urea Nitrogen 99 mg/dl (9-20); Calcium 8.4 mg/dl (8.4-10.2); Carbon Dioxide 25 mmol/L (22-30); Chloride 98 mmol/L (98-107); Glucose 433 mg/dl (70-99); Potassium 4.7 mmol/L (3.5-5.1); Sodium 131 mmol/L (135-145); eGFR 30.85
[2024-06-18 08:45] VITALS: BP 122/52
[2024-06-18] MEDS: BUMEX 66 MG IV (08:57)
[2024-06-20 09:12] VITALS: BP 114/47
[2024-06-20] MEDS: BUMEX 66 MG IV (09:15)
[2024-06-20 10:04] VITALS: BP 117/49
[2024-06-20 10:04] LABS: % Basophils 0.5 % (0-2); % Eosinophils 5.5 % (0-6); % Immature Granulocytes 0.4 % (0-0.5); % Lymphocytes 9.1 % (20.5-51.1); % Monocytes 6.4 % (1.7-9.3); % Neutrophils 78.1 % (42.2-75.2); Absolute Eosinophils 0.4 10^3/uL (0-0.7); Absolute Lymphocytes 0.7 10^3/uL (1.2-3.4); Absolute Monocytes 0.5 10^3/uL (0.1-0.6); Hematocrit 31.5 % (39.0-52.0); Hemoglobin 10.3 g/dL (13.0-18.0); Mean Corp Hgb Conc. 32.7 g/dL (33.0-37.0); Mean Corpuscular Hgb 31.2 pg (27.0-31.0); Mean Corpuscular Volume 95.5 fL (80.0-94.0); Mean Platelet Volume 9.5 fL (7.4-10.4); Platelet Count 207 10^3/uL (130-400); Red Cell Dist. Width 17.7 % (11.5-14.5); White Blood Cell Count 7.7 10^3/uL (4.8-10.8)
[2024-06-20 10:35] LABS: Blood Urea Nitrogen 119 mg/dl (9-20); Calcium 8.1 mg/dl (8.4-10.2); Carbon Dioxide 22 mmol/L (22-30); Chloride 103 mmol/L (98-107); Glucose 318 mg/dl (70-99); HDL Cholesterol 27 mg/dl; LDL Cholesterol, Calculated 23 mg/dl; Sodium 132 mmol/L (135-145); Total Cholesterol 76 mg/dl (50-199); Triglyceride 131 mg/dl (10-149); Very Low Density Lipoprotein 26 mg/dl (0-30); eGFR 27.79
[2024-06-20 10:45] LABS: Free T4 1.24 ng/dl (0.78-2.19); Vitamin D, 25-OH*** 21.8 ng/mL (30-80)
[2024-06-20 16:14] LABS: TSH 9.65 uIU/ml (0.47-4.68)
[2024-06-25 08:38] VITALS: BP 136/51
[2024-06-25] MEDS: BUMEX 66 MG IV (08:54)
== END ==
LOC: OID 08:30
PROVIDERS: ATTENDING PHYSICIAN Internal Medicine Cardiovascular Disease; OTHER PHYSICIAN Internal Medicine Geriatric Medicine
DX: R18.8 Other ascites (principal); I50.22 Chronic systolic (congestive) heart failure
CPT/HCPCS: 36415; 49083; 80048; 80053; 80061; 82306; 82962; 83735; 84439; 84443; 85025; 89051; 93798; 96365; G0422

== ENCOUNTER 2024-06-25 22:47 | Inpatient (IN) | payer MEDICARE, OTHER, SELFPAY ==
[2024-06-25] VITALS (30 sets, daily range): BP systolic 116–149; BP diastolic 31–67; BMI 27.6
[2024-06-25] MEDS: LEVOPHED 250 IV (20:47)
[2024-06-25] MEDS: NORCURON 10 MG IV (20:54)
[2024-06-25] MEDS: DIPRIVAN 10 MG IV (20:54)
[2024-06-25] MEDS: DIPRIVAN 100 IV (20:54)
[2024-06-25 20:55] LABS: % Basophils 0.2 % (0-2); % Eosinophils 0.1 % (0-6); % Immature Granulocytes 1.1 % (0-0.5); % Lymphocytes 9.9 % (20.5-51.1); % Monocytes 3.3 % (1.7-9.3); % Neutrophils 85.4 % (42.2-75.2); Absolute Immature Granulocytes 0.2 10^3/uL (0-0.05); Absolute Lymphocytes 1.9 10^3/uL (1.2-3.4); Absolute Monocytes 0.6 10^3/uL (0.1-0.6); Hematocrit 28.3 % (39.0-52.0); Hemoglobin 9.5 g/dL (13.0-18.0); Mean Corp Hgb Conc. 33.6 g/dL (33.0-37.0); Mean Corpuscular Hgb 31.8 pg (27.0-31.0); Mean Corpuscular Volume 94.6 fL (80.0-94.0); Mean Platelet Volume 10.2 fL (7.4-10.4); Nucleated Red Blood Cells % 0 % (-); Platelet Count 219 10^3/uL (130-400); Red Blood Cell Count 2.99 10^6/uL (4.70-6.10); Red Cell Dist. Width 17.6 % (11.5-14.5); White Blood Cell Count 18.7 10^3/uL (4.8-10.8)
[2024-06-25 21:05] LABS: INR 1.59; PT 19.4 Sec (11.4-14.6)
[2024-06-25 21:15] LABS: AST (SGOT) 270 U/L (17-59); Albumin 3.4 g/dl (3.5-5.0); Alkaline Phosphatase 133 U/L (38-126); Calcium 8.3 mg/dl (8.4-10.2); Carbon Dioxide 19 mmol/L (22-30); Chloride 100 mmol/L (98-107); Estimated Creatinine Clearance 23 ml/min; Glucose 298 mg/dl (70-99); Potassium 3.8 mmol/L (3.5-5.1); Sodium 135 mmol/L (135-145); Total Bilirubin 0.8 mg/dl (0.2-1.3); Total Protein 5.6 g/dl (6.3-8.2); eGFR 26.47
[2024-06-25 21:15] LABS: B.E. -6.5 mmol/L; HCO3 20.2 mmol/L (21-28); O2 Saturation % 98.8 % (94-98); PCO2 44 mmHg (35-48); PO2 291 mmHg (83-108); pH 7.27 (7.35-7.45)
[2024-06-25 21:27] LABS: Troponin I 0.091 ng/ml
[2024-06-25 21:28] LABS: ALT (SGPT) 165 U/L (0-50)
[2024-06-25 21:30] LABS: Blood Urea Nitrogen 129 mg/dl (9-20)
--- NOTE | 2024-06-25 21:45 | ED.GENMED ---
History of Present Illness
General
Chief Complaint: Cardiac Symptoms
Source: patient
Exam Limitations: none
Time Seen by Provider: 06/25/24 21:02
Nursing documentation reviewed up to this point in time: agreed with
History of Present Illness
History of Present Illness:
Patient with history of significant cardiac disease, ascites requiring frequent paracentesis, recent cardiac ablation secondary to atrial fibrillation with his existing pacemaker 'turned off', presents to ED after unwitnessed arrest at home, shortly
prior to arrival. Per paramedics, patient was sitting in his chair upstairs, when his heard noise from downstairs. When she went upstairs, patient had fallen out of his chair and lying on the floor unresponsive. 911 was called immediately.
When medics arrived at scene, patient was found to be unresponsive and ventricular fibrillation rhythm. Patient was immediately shocked and patient went into PEA rhythm. CPR continued with 1 dose epinephrine given with muslim of pulse.
Patient however, remained persistently bradycardic in the 40s, requiring medics to start external pacing. Patient was intubated at scene for airway protection. In transit to ED, medics report 1 additional episode of unresponsiveness/arrest,
requiring 1 minute of CPR with 1 additional dose of epinephrine. No further information available at this time.
Past History
Past History
ED Past Medical History: Arrthythmia, Asthma, Cancer, CHF, HTN, Hypercholesterolemia and NIDDM
ED Past Surgical History: Cardiac and Other
Social History
Tobacco: Former smoker
Alcohol: None
Drug: None
Personal:
Living: with family
Family History
Family History: Diabetes
Review of Systems
Review of Systems
Allergies reviewed?: Yes
Unable to obtain full review of systems at this time due to: intubated
All Other Systems: Not applicable
Phy Exam
Physical Exam
Physical Exam:
Physical Exam
General: ill appearing, intubated. hypothermic
Head: nc/at
Neck: supple. no jvd.
Heart: s1/s2 regular rate and rhythm
Lungs: being bagged actively with equal breath sounds
Abdomen: normal bowel sounds. ascites noted
Neuro: unresponsive, intubated.
Skin: no rash
Extremities: no edema
Course
Orders/Labs/Results
Orders:
Orders
06/25/24 Dinner
NPO
Allow oral meds: No
Allow clear liquids: No
06/25/24 20:41
Chest X-ray Portable [CR Chest Portable - 1 View] Urgent
Comment:
Reason For Exam: ET tube placement
Reason Study Needs to be Portable: Patient Unstable
06/25/24 20:43
Electrocardiogram (*1) Urgent
Reason for Study: Chest Pain
CT Cervical Spine W/o Iv Contr Urgent
Comment:
Reason For Exam: fall, unresponsive
CT Head W/o Iv Contrast Urgent
Comment:
Reason For Exam: fall, unresponsive
Cardiac Monitoring- Treatment ONCE
EKG- Treatment ONCE
IV Insert/Care/Rem.- Treatment PRN
06/25/24 20:46
Complete Blood Count/With Diff Urgent
Comprehensive Metabolic Panel Urgent
Prothrombin Time Urgent
Troponin I Urgent
06/25/24 20:54
Propofol [Diprivan] 10 mg IV NOW STA
06/25/24 21:10
ABG [Arterial Blood Gas] Urgent
%Oxygen/Room Air: intubated
06/25/24 21:59
Vecuronium [place] [Norcuron] 10 mg IV NOW STA
06/25/24 22:00
NORepinephrine 4 MG/250 ML [Levophed] 4 mg in 250 ml IV PER PROTOCOL
Initial dose in mcg/min, then titrate:: 5
Titrate to keep:: Other
Titrate to keep other:: HR>60
Titrate by mcg/min:: 1-2 mcg/min
Frequency of titrations (minutes):: 5
Maximum dose in ICU in mcg/min:: 30
Maximum dose in IMU in mcg/min:: 8
Maximum dose in IVU in mcg/min:: 4
Begin to taper infusion when:: Remained at goal for 4hrs
Taper by mcg/min:: 1-2 mcg/min
Frequency of taper (minutes) if patient maintains goal:: 30
Taper to off?: Yes
If infusion off & no longer maintaining goal:: Contact Provider
Propofol 1,000,000 Mcg/100 ml [Diprivan] 1,000,000 mcg in 100 ml IV NOW
Indication:: Light Sedation
Begin Infusion:: Now
Goal:: RASS 0 to -2
Maximum dose in mcg/kg/min:: 50
Initial dose based on RASS:: Yes
If RASS is:: +1 or pt hemodynamically unstable (SBP < 90mmHg), initiate at 10 mcg/kg/min
If RASS is:: +2, initiate at 20 mcg/kg/min
If RASS is:: greater than or equal to +3, initiate at 30 mcg/kg/min
Titration Instructions:: Titrate by 5-10 mcg/kg/min every 5 minutes until RASS 0 to -2 achieved.
Taper Instructions:: If RASS is at or below goal for 4 consecutive hours decrease infusion by
Taper Instructions:: 5-10 mcg/kg/min every 2 hours to off.
Over-sedation Instructions:: If CPOT 0-2 (at goal) AND RASS -3 to -5 (below goal) decrease sedative by
Over-sedation Instructions:: 50% first. If pain score remains at goal and RASS remains below goal in
Over-sedation Instructions:: 1 hour, decrease opioid infusion by 50%.
Notify provider:: immediately if patient exhibits signs/symptoms of propofol-related
Notify provider:: infusion syndrome.
Additional Instructions:: Patient MUST be mechanically ventilated and MUST receive analgesia.
06/25/24 22:03
Admit/Transfer Patient As Directed
Co-Sign Provider:
Level of Care: Inpatient admission
Assign to:: ICU
Physician / Group: Catalina Tate
Diagnosis: cardiac arrest, nonischemic myocardial injury
Reason for Hospitalization: cardiac arrest, nonischemic myocardial injury
Expected length of stay greater than two midnights?: Yes
ELOS- Estimated Length of Stay in days: 3
I certify the patient meets the requirements for IP care: Yes
PRN Pain Medication Management As Directed
May give lesser potent ordered pain med per pt: Yes
preference::
Protocol:: Medication orders for pain may be administered in a
manner that supports deferring to patient preference
when the pt is:
- Requesting an ordered lesser potent pain medication.
Least to most potent pain medications are defined
as: acetaminophen < NSAID < tramadol < opioids
(morphine, oxycodone, hydromorphone).
- Requesting a lesser dose of the same medication IF
ORDERED.
- Requesting a less intrusive route of administration
if both routes are prescribed by the provider (PO <
IV).
06/25/24 22:12
Code Status As Directed
Resuscitation Status: Limited DNR
Limited DNR: -No CPR
06/25/24 22:41
Complete Blood Count/With Diff Urgent
Comment: upon arrival to ICU (if not done in ED or in last 24 hours)
Comprehensive Metabolic Panel Urgent
Comment: upon arrival to ICU (if not done in ED or in last 24 hours)
Magnesium Urgent
Comment: upon arrival to ICU (if not done in ED or in last 24 hours)
Phosphorus Urgent
Comment: upon arrival to ICU (if not done in ED or in last 24 hours)
Protime/PTT Urgent
Comment: upon arrival to ICU (if not done in ED or in last 24 hours)
Triglycerides Routine
Comment: baseline levels with propofol infusion
06/25/24 23:00
Flush (0.9% Sodium Chloride) [Flush (Nss)] See Dose Instructions IV PER PROTOCOL
06/25/24 23:14
Dextrose 50%-Water [Dextrose 50% Syringe] 12.5 grams IV [id number] PRN
Glucagon [GlucaGen] 1 mg IM PRN PRN
06/25/24 23:14
Electrocardiogram (*1) Urgent
Reason for Study: Other
Other Reason for Exam: baseline ICU
Comment: upon arrival to ICU (if not done in ED or in last 24 hours)
CARDIOLOGY CONSULT Routine
Consulting Provider: Daxa Jorge
Was physician already notified: Yes
Construction Secretary Consult Urgent
Consulting Provider: Cal Onofre
Was physician already notified: Yes
Activity As Directed
Activity Level: Out of Bed-Early Mobility
Bedside Glucose Monitoring As Directed
Frequency: AC&HS
Additional Instructions:: Change to q6h if pt on TPN, tube feeding or not eating
Bedside Glucose Monitoring-ONCE As Directed
Comment: upon arrival to ICU
Hamilton Catheter [Catheter- Indwelling] As Directed
Reason for insertion: I&O's Critical Care
Assess insertion reason daily.Remove if no longer applicable: Yes
Intake/ Output As Directed
Frequency: Per unit guidelines
Notify MD As Directed
Notify physician if: While in ICU level of care:
glucose greater than or equal to 180 mg/dL once, contact provider to initiate Critical
Care Glycemic Protocol Target Range 140-180 mg/dL.
Pneumatic Compression Sleeves As Directed
Type: Knee high
Vital Signs As Directed
Frequency: Per unit guidelines
Weight As Directed
Frequency: Daily
Comment: height and weight upon arrival to ICU.
DX Deep Vein Thrombosis Video Routine
06/26/24 00:00
Albuterol [ProAIR HFA INHALER] 2 puff INH R Q4
06/26/24 07:30
Insulin Aspart Corrective Low [Novolog Flexpen-Low Resistance] See Protocol SC AC
06/26/24 08:00
Amiodarone [Pacerone] 200 mg PO DAILY
Apixaban [Eliquis] 5 mg PO BID
Pantoprazole [Protonix IV] 40 mg IV DAILY
Polyethylene Glycol Powder [Miralax] 17 grams TUBE DAILY
06/26/24 22:00
Aspirin Low Dose EC [Aspir Low (Enteric Coated)] 81 mg PO HS
Atorvastatin [Lipitor] 40 mg PO HS
Insulin Glargine Lantus [Lantus] 0 units Subcutaneous Insulin Syringe [Syringe-Insulin] 0 unit SC HS
Abnormal Lab Results
06/25/24 06/25/24 06/25/24
20:46 21:10 22:41
WBC 18.7 H 10^3/uL 29.8 H 10^3/uL
(4.8-10.8) (4.8-10.8)
RBC 2.99 L 10^6/uL 4.00 L 10^6/uL
(4.70-6.10) (4.70-6.10)
Hgb 9.5 L g/dL 12.5 L D g/dL
(13.0-18.0) (13.0-18.0)
Hct 28.3 L % 37.2 L %
(39.0-52.0) (39.0-52.0)
MCV 94.6 H fL
(80.0-94.0)
MCH 31.8 H pg 31.3 H pg
(27.0-31.0) (27.0-31.0)
RDW 17.6 H % 17.5 H %
(11.5-14.5) (11.5-14.5)
Abs Immat Gran (auto) 0.2 H 10^3/uL 0.3 H 10^3/uL
(0-0.05) (0-0.05)
Absolute Neuts (auto) 16.0 H 10^3/uL 27.7 H 10^3/uL
(1.4-6.5) (1.4-6.5)
Absolute Lymphs (auto) 0.6 L 10^3/uL
(1.2-3.4)
Absolute Monos (auto) 1.0 H 10^3/uL
(0.1-0.6)
Immature Gran % 1.1 H % 1.0 H %
(0-0.5) (0-0.5)
Neutrophils % 85.4 H % 93.3 H %
(42.2-75.2) (42.2-75.2)
Lymphocytes % 9.9 L % 2.1 L %
(20.5-51.1) (20.5-51.1)
PT 19.4 H Sec 19.8 H Sec
(11.4-14.6) (11.4-14.6)
pH 7.27 L
(7.35-7.45)
pO2 291 H mmHg
(83-108)
HCO3 20.2 L mmol/L
(21-28)
ABG O2 Sat (Measured) 98.8 H %
(94-98)
Sodium 134 L mmol/L
(135-145)
Carbon Dioxide 19 L mmol/L
(22-30)
BUN 129 H* mg/dl 135 H* mg/dl
(9-20) (9-20)
Creatinine 2.5 H mg/dL 2.5 H mg/dL
(0.7-1.3) (0.7-1.3)
Glucose 298 H mg/dl 358 H mg/dl
(70-99) (70-99)
Calcium 8.3 L mg/dl
(8.4-10.2)
Phosphorus 6.2 H mg/dl
(2.5-4.5)
Total Bilirubin 1.7 H mg/dl
(0.2-1.3)
AST 270 H U/L 921 H* U/L
(17-59) (17-59)
ALT 165 H U/L 547 H* U/L
(0-50) (0-50)
Alkaline Phosphatase 133 H U/L 212 H U/L
(38-126) (38-126)
Troponin I 0.091 H* ng/ml
Total Protein 5.6 L g/dl 5.9 L g/dl
(6.3-8.2) (6.3-8.2)
Albumin 3.4 L g/dl
(3.5-5.0)
06/25/24 22:41
06/25/24 22:41
Vital Signs
Initial and Last Documented VS:
Initial Vital Signs
Temp Pulse Resp BP Pulse Ox
96.4 F L 57 12 117/56 100
06/25/24 20:45 06/25/24 20:45 06/25/24 20:45 06/25/24 20:45 06/25/24 20:45
Last Documented Vital Signs
Temp Pulse Resp BP Pulse Ox
101 F H 80 19 145/67 99
06/25/24 22:37 06/26/24 02:15 06/26/24 02:15 06/25/24 23:10 06/26/24 02:15
MDM/Problems Addressed
MDM/Problems Addressed:
Patient evaluated immediately upon arrival in ED. Patient started on Levophed infusion prior to taking external pacing off. Patient's heart rate remains greater than 60 bpm on Levophed infusion, which will be completed.
ET tube adjusted based on initial chest x-ray.
Pacemaker interrogated - one episode of v-tach reported without any other events, per [employer] rep
Discussed with on-call cardiology, Dr. Jorge, who does not feel that pacemaker needs to be reprogrammed, as long as Levophed infusion is maintaining his heart rate.
Discussed with on-call potato chip sorter, , who agrees with admission to ICU tonight. Will recommend light cooling protocol.
Discussed with patient's spouse and family at bedside.
Significant leukocytosis noted, without any obvious evidence of focal infection. Possible reactive leukocytosis. Will withhold antibiotics at this time.
Critical care statement: A total of 60 minutes of critical care time was provided for this patient. This includes management of unstable vital signs, evaluation of the patient at bedside, reviewing the patient's pertinent medical records, discussion
with consultants, review of old EKGs and review of pertinent medical records. This time with separate from time utilized to perform the aforementioned documented procedures
*Critical Care Note
Total Time (30-74mins, 75-104mins- exclusive of procedures): 60 min
ED Attending Note
-
Portions of this chart may have been created with voice recognition software.� Occasional wrong word or��sound alike� substitutions may have occurred due to the inherent limitations of voice recognition software.
Discharge Plan
Departure
Patient Disposition: Admit
Date of Disposition: 06/25/24
Time of Disposition: 22:04
Admit to: ICU
Presentation/result/management discussed w/ accepting MD/DO: Hospitalist
Discharge Problem:
Cardiac arrest with ventricular fibrillation
Interventions
Interventions:
*Risk Screen - Suicide Last Done: 06/25/24 20:45
*General Assessment Last Done: 06/25/24 20:45
*Neglect/Abuse Screening Last Done: 06/25/24 20:45
*ED- Fall Risk Assessment Last Done: 06/25/24 23:37
*ED COVID-19 Vaccine History Last Done: 06/25/24 20:45
*Nursing Disposition Last Done: 06/25/24 22:52
ED- Pulmonary Assessment Last Done: 06/25/24 21:15
ED- Cardiac Assessment Last Done: 06/25/24 21:15
Discharge Date and Time
Discharge Date/Time: 06/25/24 23:37
--- NOTE | 2024-06-25 22:32 | HPS.HSE ---
Addendum entered and electronically signed by Catalina Tate MD 06/25/24 22:47:
Patient with temperature of 37.7 �F. Likely secondary to bradycardia. Like cooling protocol if necessary.
Original Note:
Family Physician
-
Family Physician: Cole Garner
Chief Complaint
-
cardiac arrest
History of Present Illness
73-year-old male past medical history of paroxysmal atrial fibrillation status post watchman, nonischemic cardiomyopathy/chronic HFrEF, severe pulmonary hypertension, chronic ascites, CKD 5, type 2 diabetes, obesity, CAD, hypertension,
gastrointestinal stromal tumor status post resection in 2021, asthma/COPD, chronic anemia, gout, presenting with [id number] cardiac arrest.
Patient recently had cardiac ablation for atrial fibrillation at [facility] last month. During the procedure he had short duration cardiac arrest due to a jet that was subsequently turned off during the procedure. CPR was not necessary. He
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
Patient had been suffering with congestive heart failure for several years with refractory ascites requiring paracentesis every week and Bumex infusion twice a week.
Today patient was in his normal state of health although he had a headache and was feeling off in the morning. He did not have any chest pain or shortness of breath today.
His went away to do something and heard a thud and he had become unconscious. She turned him over and he was breathing agonally. She called EMS who arrived within 5 to 10 minutes. He was intubated. He was started on propofol drip. Initial
rhythm was ventricular fibrillation and patient received a shock. This rhythm afterwards was PEA and he received 1 epinephrine. CPR was performed. Patient was noted to be bradycardic to 40s, Paramedics were not aware this pacemaker was set to 30
and he was temporarily paced en route here.
states that patient would have wanted to be DNR at this point.
Patient was recently having controlled blood sugars and his Lantus was increased from 10 to 20 units.
He does not smoke or drink alcohol.
Every elder male family member in his family had heart disease.
Medical History
Past Medical History
Past Medical History: Reports Other (paroxysmal atrial fibrillation status post watchman, nonischemic cardiomyopathy/chronic HFrEF, severe pulmonary hypertension, chronic ascites, CKD 5, type 2 diabetes, obesity, CAD, hypertension, gastrointestinal
stromal tumor status post resection in 2021, asthma/COPD, chronic anemia, gout,)
Past Surgical History: Reports Other (pacemaker, ablation )
Social History
Tobacco: Non-smoker
Alcohol: None
Drug: None
Family History
Family History: Not pertinent
Allergies / Home Medications
Allergies reflects when Allergies were last updated in [facility].
Home Medications with original date entered in [facility]
Allergy/Medication List:
Allergies
Allergy/AdvReac Type Severity Reaction Status Date / Time
adhesive tape Allergy Unknown Verified 06/25/24 20:42
baclofen Allergy comatose Verified 06/25/24 20:42
and
sleepwalking
strawberry Allergy swelling Verified 06/25/24 20:42
from head
to toe
Home Medications
atorvastatin 40 mg tablet 40 mg PO HS High cholesterol 01/12/20
torsemide 20 mg tablet 100 mg PO BID Fluid retention/Swelling 10/25/20
hydralazine 50 mg tablet 50 mg PO TID Blood Pressure 08/15/22
pantoprazole 40 mg tablet,delayed release 40 mg PO DAILY Gastrointestinal Issue 08/15/22
allopurinol 100 mg tablet 100 mg PO DAILY Gout 05/04/23
aspirin 81 mg tablet,delayed release 81 mg PO HS Blood Clot Prevention/Tx 05/25/23
isosorbide dinitrate 10 mg tablet 10 mg PO TID Heart Disease/Condition 12/19/23
dapagliflozin propanediol 5 mg tablet (Farxiga) 10 mg PO .QHS 01/18/24
insulin glargine 100 unit/mL subcutaneous cartridge 20 unit SC .QPM 01/28/24
apixaban 5 mg tablet (Eliquis) 5 mg PO BID 04/11/24
albuterol sulfate 90 mcg/actuation aerosol inhaler 2 puff inhalation Q4H wheezing 06/25/24
amiodarone 200 mg tablet 200 mg PO DAILY 06/25/24
bumetanide 0.25 mg/mL injection solution 4 mg IV ORDERED RATE 06/25/24
ferrous sulfate 325 mg (65 mg iron) tablet 325 mg PO DAILY 06/25/24
insulin lispro 100 unit/mL subcutaneous pen 6 unit SC QACDINNER 06/25/24
melatonin 5 mg tablet 5 mg PO HS PRN insomnia 06/25/24
metolazone 2.5 mg tablet 2.5 mg PO DAILY 06/25/24
multivitamin 1 tab PO DAILY 06/25/24
potassium chloride 20 mEq tablet,extended release 20 meq PO BID 06/25/24
Review of Systems
-
History Source: Patient
A 12 point ROS was completed and negative except as noted: Yes
Constitutional: Reports No Symptoms
EENT: Reports No Symptoms
Respiratory: Reports See HPI
Cardiac: Reports See HPI
Abdomen/GI: Reports No Symptoms
: Reports No Symptoms
Musculoskeletal: Reports No Symptoms
Skin: Reports No Symptoms
Neurological: Reports No Symptoms
Endocrine: Reports No Symptoms
Hematologic/Lymphatic: Reports No Symptoms
Psych: Reports No Symptoms
Physical Exam
Vital Signs
Vital Signs
Temp Pulse Resp BP Pulse Ox
37.7 F L 74 14 133/59 99
06/25/24 21:09 06/25/24 22:30 06/25/24 22:30 06/25/24 22:25 06/25/24 21:57
Physical Exam
General: Well Developed, Well Nourished and No Apparent Distress
HEENT: NormoCephalic, Moist mucous membranes and Atraumatic
Respiratory: Clear
Cardiac: S1/S2 and Regular Rhythm; No Murmur or Rub
GI: Soft, Non Tender, Non Distended and Normal Bowel Sounds; No Organomegaly
Rectal: Deferred by Provider
Musculoskeletal: No Clubbing, No Cyanosis and No Edema
Skin: No Rash
Neuro: Nonfocal/grossly intact
Laboratory Results
-
Laboratory Results
PT 19.4 Sec (11.4-14.6) H 06/25/24 20:46
INR 1.59 06/25/24 20:46
pH 7.27 (7.35-7.45) L 06/25/24 21:10
pCO2 44 mmHg (35-48) 06/25/24 21:10
pO2 291 mmHg (83-108) H 06/25/24 21:10
HCO3 20.2 mmol/L (21-28) L 06/25/24 21:10
Total Bilirubin 0.8 mg/dl (0.2-1.3) 06/25/24 20:46
AST 270 U/L (17-59) H 06/25/24 20:46
ALT 165 U/L (0-50) H 06/25/24 20:46
Alkaline Phosphatase 133 U/L (38-126) H 06/25/24 20:46
Troponin I 0.091 ng/ml H* 06/25/24 20:46
Data Reviewed
-
Lab Data: Labs Reviewed by me
Old Records: Reviewed
Impression/Plan
-
IMPRESSION:
PLAN:
# Cardiac arrest secondary to V-fib arrest secondary to underlying HFrEF/nonischemic cardiomyopathy/pacemaker syndrome
- Patient intubated on propofol drip
- On Levophed drip
- Family Assistant recommended light cooling
- CT head, cervical spine no acute abnormality
- IV Protonix 40 daily
# Bradycardia
- Appears to have improved
# Transaminitis likely secondary to shock liver
- Continue to monitor
# Nonischemic myocardial injury
- Troponin of 0.091
-EKG shows sinus tachycardia with second degree AV block Mobitz type I
- Trend troponins
# Hyperglycemia
# Type 2 diabetes
-Blood sugar 298
- Continue 10 units of Lantus, although recently increased to 20
- Insulin sliding scale
Paroxysmal atrial fibrillation status post Watchman
- Continue Eliquis
Nonischemic cardiomyopathy/chronic HFrEF with recurrent ascites
- Receives paracentesis every 2 weeks
- Receives Bumex infusion 2 times a week
- Hold diuretics, isosorbide mononitrate
CAD
- Continue aspirin, statin
Severe pulmonary hypertension
Essential hypertension
- Hold amlodipine, hydralazine
Chronic ascites
CKD 4
- Renal function at baseline
Obesity
Gastrointestinal stromal tumor status post resection in 2021
Asthma/COPD
Chronic anemia
- Hemoglobin stable 9.5
Gout
- Continue allopurinol
DNR moving forward
DVT prophylaxis�Eliquis
N.p.o.
--- NOTE | 2024-06-25 22:50 | EDRN ---
Pt.'s core temperature rising per temp. sensing greg, care team aware, dr. alonso and dr. georges currently discussing possibly initiating cooling methods, report given to ICU at this time, STRIPE MATCHER made aware of temperature and aware that s
discussing plan of care.
[2024-06-25 22:58] LABS: Hematocrit 37.2 % (39.0-52.0); Hemoglobin 12.5 g/dL (13.0-18.0); Mean Corp Hgb Conc. 33.6 g/dL (33.0-37.0); Mean Corpuscular Hgb 31.3 pg (27.0-31.0); Mean Platelet Volume 10.2 fL (7.4-10.4); Platelet Count 333 10^3/uL (130-400); Red Cell Dist. Width 17.5 % (11.5-14.5); White Blood Cell Count 29.8 10^3/uL (4.8-10.8)
[2024-06-25 23:02] LABS: INR 1.62; PT 19.8 Sec (11.4-14.6)
[2024-06-25 23:03] LABS: APTT 33.1 Sec (23.4-35.0)
[2024-06-25 23:07] LABS: ALT (SGPT) 547 U/L (0-50); Albumin 3.5 g/dl (3.5-5.0); Alkaline Phosphatase 212 U/L (38-126); Calcium 8.5 mg/dl (8.4-10.2); Carbon Dioxide 22 mmol/L (22-30); Chloride 99 mmol/L (98-107); Estimated Creatinine Clearance 23 ml/min; Glucose 358 mg/dl (70-99); Magnesium 2.2 mg/dl (1.6-2.3); Phosphorus 6.2 mg/dl (2.5-4.5); Potassium 4.2 mmol/L (3.5-5.1); Sodium 134 mmol/L (135-145); Total Bilirubin 1.7 mg/dl (0.2-1.3); Total Protein 5.9 g/dl (6.3-8.2); Triglycerides 118 mg/dl (10-149); eGFR 26.47
[2024-06-25 23:14] LABS: % Basophils 0.2 % (0-2); % Lymphocytes 2.1 % (20.5-51.1); % Monocytes 3.4 % (1.7-9.3); % Neutrophils 93.3 % (42.2-75.2); Absolute Basophils 0.1 10^3/uL (0-0.2); Absolute Immature Granulocytes 0.3 10^3/uL (0-0.05); Absolute Lymphocytes 0.6 10^3/uL (1.2-3.4); Absolute Neutrophils 27.7 10^3/uL (1.4-6.5); Nucleated Red Blood Cells % 0 % (-)
[2024-06-25 23:16] LABS: AST (SGOT) 921 U/L (17-59); Blood Urea Nitrogen 135 mg/dl (9-20)
[2024-06-25 23:31] LABS: Glucose - Point of Care 409 mg/dl (70-99)
[2024-06-26] MEDS: CORDARONE 103 MG IV (00:07)
--- NOTE | 2024-06-26 00:13 | W.PN.UPDATE ---
Update Note
Progress Note Update
ARTERIAL LINE (A-Line) PLACEMENT
Date: 06/25/24
Time: 2345
Indication: Hemodynamic monitoring, emergent (consent implied)
A time-out was completed verifying correct patient, procedure, site, positioning, and special equipment if applicable. Nilton�s test was performed to ensure adequate perfusion. The patient�s right wrist was prepped and draped in sterile fashion.
A�20G Arrow arterial line was introduced into the radial artery. The catheter was threaded over the guide wire and the needle was removed with appropriate pulsatile�blood return. The catheter was secured with a sterile dressing applied. Perfusion to
the extremity distal to the point of catheter insertion was checked and found to be adequate.
Estimated Blood Loss: <5cc
The patient tolerated the procedure well and there were no complications.
[2024-06-26] MEDS: ProAIR HFA INHALER 2 PUFF INH (00:17)
[2024-06-26] MEDS: CORDARONE 518 MG IV ×2 (00:25→22:56)
[2024-06-26 00:35] LABS: HCO3 23.1 mmol/L (21-28); O2 Saturation % 98.9 % (94-98); PCO2 40 mmHg (35-48); PO2 135 mmHg (83-108); pH 7.37 (7.35-7.45)
[2024-06-26 00:37] LABS: O2 Therapy VENT
[2024-06-26] MEDS: SUBLIMAZE 75 MCG IV (00:40)
[2024-06-26 00:41] LABS: Hematocrit 36.1 % (39.0-52.0); Hemoglobin 12.3 g/dL (13.0-18.0); Mean Corp Hgb Conc. 34.1 g/dL (33.0-37.0); Mean Corpuscular Hgb 31.6 pg (27.0-31.0); Mean Corpuscular Volume 92.8 fL (80.0-94.0); Mean Platelet Volume 10.2 fL (7.4-10.4); Platelet Count 302 10^3/uL (130-400); Red Blood Cell Count 3.89 10^6/uL (4.70-6.10); Red Cell Dist. Width 17.4 % (11.5-14.5); White Blood Cell Count 29.2 10^3/uL (4.8-10.8)
[2024-06-26 00:48] LABS: Triglycerides 95 mg/dl (10-149)
[2024-06-26 00:51] LABS: Calcium 8.3 mg/dl (8.4-10.2); Carbon Dioxide 23 mmol/L (22-30); Chloride 99 mmol/L (98-107); Estimated Creatinine Clearance 21 ml/min; Glucose 429 mg/dl (70-99); Magnesium 2.2 mg/dl (1.6-2.3); Potassium 3.7 mmol/L (3.5-5.1); Sodium 134 mmol/L (135-145); eGFR 24.13
[2024-06-26] MEDS: SUBLIMAZE 100 IV (00:52)
[2024-06-26] MEDS: UNASYN IV ×2 (00:58→12:33)
[2024-06-26 01:01] LABS: Blood Urea Nitrogen 136 mg/dl (9-20)
[2024-06-26 01:04] LABS: Urine Albumin 2+ (Neg - Trace); Urine Bilirubin Negative (Negative); Urine Character Cloudy (Clear); Urine Color Yellow; Urine Glucose 2+ (Negative); Urine Ketone Negative (Negative); Urine Leukocyte Negative (Negative); Urine Nitrite Negative (Negative); Urine Occult Blood 2+ (Negative); Urine Specific Gravity 1.025 (<1.030); Urine Urobilinogen Negative (Neg - 1+)
[2024-06-26 01:19] LABS: Urine Squamous Cell 0-2 /LPF (Few)
[2024-06-26 01:20] LABS: Urine White Cell 30-40 /HPF (0-5)
[2024-06-26 01:21] LABS: Urine Bacteria Moderate (Negative)
[2024-06-26] MEDS: NOVOLIN R 100 UNITS IV (01:35)
[2024-06-26] MEDS: NOVOLIN R INSULIN INFUSION 100 IV ×2 (01:38→16:29)
[2024-06-26] MEDS: FLEXBUMIN 100 IV (01:51)
--- NOTE | 2024-06-26 03:00 | PTCARENOTE ---
rec`d pt at 1900 intubated and sedated. sedation added. right radial a line placed. fent prop, amio bolus and gtt, insulin, levo gtts. glycemic protocol. + cough, 7.5 ETT. vent settings a/c 14/450/40%/5 of peep. POX 99%. coarse lung sounds. [place]
sump hooked to CALLUM. greg. PIVS flushed and patent. left leg IO flushed and patent. restraints. family at bedside. safe environment maintained.
[2024-06-26 03:02] VITALS: BMI 27.6
[2024-06-26 03:06] LABS: Glucose - Point of Care 406 mg/dl (70-99)
[2024-06-26 03:28] LABS: B.E. -3.7 mmol/L; HCO3 20.6 mmol/L (21-28); O2 Saturation % 98.9 % (94-98); PCO2 34 mmHg (35-48); PO2 174 mmHg (83-108); pH 7.39 (7.35-7.45)
[2024-06-26] MEDS: LEVOPHED 250 IV (03:31)
[2024-06-26 03:51] LABS: Albumin 3.6 g/dl (3.5-5.0); Magnesium 2.2 mg/dl (1.6-2.3)
[2024-06-26 03:53] LABS: Lactic Acid 5.3 mmol/L (0.7-2.0)
[2024-06-26 04:04] LABS: Glucose - Point of Care 404 mg/dl (70-99)
[2024-06-26] MEDS: ProAIR HFA INHALER 4 PUFF INH ×5 (04:25→19:54)
[2024-06-26 04:46] LABS: Calcium 8.8 mg/dl (8.4-10.2); Carbon Dioxide 22 mmol/L (22-30); Chloride 100 mmol/L (98-107); Estimated Creatinine Clearance 20 ml/min; Glucose 342 mg/dl (70-99); Potassium 3.1 mmol/L (3.5-5.1); Sodium 137 mmol/L (135-145); eGFR 22.15
[2024-06-26 04:56] LABS: Blood Urea Nitrogen 136 mg/dl (9-20)
[2024-06-26] MEDS: KCL ELIXIR 40 MEQ TUBE (05:16)
[2024-06-26] MEDS: KCL 270 MEQ IV (05:36)
[2024-06-26 05:56] VITALS: BMI 28.1
[2024-06-26 06:04] LABS: Glucose - Point of Care 338 mg/dl (70-99)
[2024-06-26 06:58] LABS: Glucose - Point of Care 289 mg/dl (70-99)
[2024-06-26] MEDS: PACERONE TUBE (08:00)
--- NOTE | 2024-06-26 08:00 | PTCARENOTE ---
Assumed care of patient...pt rec'd intubated and sedated. Pupils 2/sluggish. No corneal reflex noted. No upper arm movements. LE's w/ myoclonic jerking. Wrist restraints on. No cough. Weak delayed gag reflex. No purposeful movements. S1 S2
reg w/ NSR/PVC's/BBC on monitor. DP/PT's by doppler. Trace generalized edema. Heels elevated on pillows. Wound care consulted for left foot wounds. #7.5 ETT 26cm right lip...current vent settings: 14/450/+5/40%...sats 99-100%. Lungs clear but
diminished in bases. Suctoned for scant arreola secretions via ETT. Abdomen distended...hypo NS. OG -> LIWS...flushed q4h and prn w/ 30mls of tap water. Hamilton draining yellow urine. Skin pale in color...wound care consulted. Left barbosa IO w/
amiodarone gtt infusing. 20P RAC w/ fentanyl, diprivan and levophed infusing. 22P LW w/ krider infusing. 20P LAC w/ insulin gtt infusing. VS documented. Q1H accuchecks per protocol. Family at bedside and updated.
[2024-06-26 08:02] LABS: Glucose - Point of Care 235 mg/dl (70-99)
[2024-06-26] MEDS: NSS (PRESERVATIVE FREE) 10 ML IV (08:08)
[2024-06-26] MEDS: ELIQUIS 5 MG TUBE (08:08)
[2024-06-26] MEDS: MIRALAX 17 GRAMS TUBE (08:08)
[2024-06-26] MEDS: PROTONIX IV 40 MG IV (08:08)
--- NOTE | 2024-06-26 08:09 | CON.CAR ---
Consultation
Consultation Request
Date/Time Consultation Requested: 06/26/2024
Date/Time Consultation Performed: 06/26/2024
Requesting Provider: Hospitalist
Performing Provider: Dr. Aguirre
Reason for Consultation: [id number]-rn-[id number] arrest
Medical History
-
History of Present Illness:
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 Basilia Delacruz
73-year-old male with complex medical history noted below. Patient presented with unwitnessed arrest. Apparently patient had a recent A-fib ablation and also had a pacemaker rate set at 35.(Note suggests he may have been lowered due to symptoms
related to pacing. ) Apparently patient was sitting upstairs in the chair and then heard a noise from downstairs patient had fallen out of chair onto the floor 911 called when paramedics arrived apparently patient unresponsive and VF and
patient shocked and went to PEA CPR continued 1 dose of epi with yazidi of pulse patient remained bradycardic in 40s. External pacing initiated patient intubated in transit reportedly 1 additional episode of unresponsiveness/arrest requiring 1
minute of CPR and 1 additional dose of epinephrine. Patient no vented in ICU on low-dose Levophed.
Reviewed issues with patient's he had a CardioMEMS implanted has been on the anticoagulation and then had an A-fib ablation 2 weeks ago apparently he had a brief arrest during the procedure that they were told was related to putting him on jet
ventilator apparently did not require CPR but they were able to get back pulse and blood pressure. Full details not available. Patient eventually discharged to home and was back at his baseline in general fatigued at baseline and he goes for
paracentesis once a week. Apparently pacemaker was adjusted so that based rate was low. I think there was a question of whether the pacemaker was contributing to dyssynchrony or wider QRS or maybe even reduction in left ventricular function. Full
details of why the rate was reduced not clear. Patient had also been taking propranolol on a as needed basis for tremor but was recently discontinued. He has been on amiodarone for a long period of time. Patient had not been reporting any
symptoms yesterday and then he had the event noted above.
Note suggest had stated that patient wanted to be DNR at this point. Currently intubated and now no plans for additional CPR or aggressive measures per critical care attending who is having further discussions with family regarding level of
care.
Past medical history of heart failure reduced ejection fraction ejection fraction 30%
Pulmonary hypertension
CKD
Atrial fibrillation not on anticoagulation due to recurrent GI bleed
Watchman device
Amiodarone use
CAD with history of coronary stenting
Pacemaker
Diabetes
VIRGILIO
Hypertension
Anemia
Just tumor
Ascites with routine paracentesis
History of GI bleed
Right heart catheterization 10/05/2023 PA pressure 74/29 PCWP 30 cardiac index 2.8
Echocardiogram 10/04/2023 ejection fraction 30 to 35% dilated RV mild aortic regurgitation moderate to severe pulmonary hypertension with PA pressure of 60 to 65 mmHg mild aortic regurgitation mild mitral regurgitation
ECG 06/25/2024 appears to show sinus tachycardia with atrial rate close to 100 bpm with periods of secondary AV block
Allergies / Home Medications
Allergy/AdvReac Type Severity Reaction Status Date / Time
adhesive tape Allergy Unknown Verified 06/25/24 20:42
baclofen Allergy comatose Verified 06/25/24 20:42
and
sleepwalking
strawberry Allergy swelling Verified 06/25/24 20:42
from head
to toe
�Medication �Instructions �Recorded �Confirmed �Type
atorvastatin 40 mg tablet 40 mg PO HS High cholesterol 01/12/20 06/25/24 History
torsemide 20 mg tablet 100 mg PO BID Fluid 10/25/20 06/25/24 History
retention/Swelling
hydralazine 50 mg tablet 50 mg PO TID Blood Pressure 08/15/22 06/25/24 History
pantoprazole 40 mg tablet,delayed 40 mg PO DAILY Gastrointestinal 08/15/22 06/25/24 History
release Issue
allopurinol 100 mg tablet 100 mg PO DAILY Gout 05/04/23 06/25/24 History
aspirin 81 mg tablet,delayed 81 mg PO HS Blood Clot 05/25/23 06/25/24 History
release Prevention/Tx
isosorbide dinitrate 10 mg tablet 10 mg PO TID Heart 12/19/23 06/25/24 History
Disease/Condition
dapagliflozin propanediol 5 mg 10 mg PO .QHS 01/18/24 06/25/24 History
tablet (Farxiga)
insulin glargine 100 unit/mL 20 unit SC .QPM 01/28/24 06/25/24 History
subcutaneous cartridge
apixaban 5 mg tablet (Eliquis) 5 mg PO BID 04/11/24 06/25/24 History
albuterol sulfate 90 mcg/actuation 2 puff inhalation Q4H wheezing 06/25/24 06/25/24 History
aerosol inhaler
amiodarone 200 mg tablet 200 mg PO DAILY 06/25/24 06/25/24 History
bumetanide 0.25 mg/mL injection 4 mg IV ORDERED RATE 06/25/24 06/25/24 History
solution
ferrous sulfate 325 mg (65 mg 325 mg PO DAILY 06/25/24 06/25/24 History
iron) tablet
insulin lispro 100 unit/mL 6 unit SC QACDINNER 06/25/24 06/25/24 History
subcutaneous pen
melatonin 5 mg tablet 5 mg PO HS PRN insomnia 06/25/24 06/25/24 History
metolazone 2.5 mg tablet 2.5 mg PO DAILY 06/25/24 06/25/24 History
multivitamin 1 tab PO DAILY 06/25/24 06/25/24 History
potassium chloride 20 mEq 20 meq PO BID 06/25/24 06/25/24 History
tablet,extended release
Physical Exam
Vital Signs
Temp Pulse Resp BP Pulse Ox
98.1 F 80 16 145/67 99
06/26/24 07:36 06/26/24 07:56 06/26/24 07:56 06/25/24 23:10 06/26/24 07:57
Lab Results
06/26/24 00:20
Troponin I 4.250 ng/ml H* D 06/26/24 04:15
Physical Exam
General: Intubated and Other (Occasional brief jerking movement)
HEENT: Normocephalic
Respiratory: Other (Coarse vented breath sounds no wheezes or rhonchi)
Cardiac: Regular Rhythm
GI: Soft and Other (Distended. No masses detected)
Musculoskeletal: No Edema
Skin: Warm
Neuro: Other
Impression / Plan
-
Cardiac arrest.
Reported VF requiring 1 shock followed by PEA which then responded to epinephrine
- Continue amiodarone IV
- Further review of pacer settings with EP.
-Echo
.
Pacemaker. Patient with pacemaker/[employer] without ICD
.
Elevated troponin. Patient with underlying CAD and is now postarrest. Troponin up to 4.2 coronary artery disease/history of coronary stenting
-Continue supportive treatment
- Serial troponins
- Echo
- ASA
.
Afib - reported recent ablation
- on Eliquis
- reported recetntablation
Watchman
.
JEFFERSON. Acute on chronic creatinine up to 2.9 baseline appears to be 2.5. Monitor closely postarrest
.
Fever. Temp 101. Patient with arrest. Lactic acidosis. Elevated white count. Although some of these findings can be postarrest Possible sepsis a consideration
- abx
- blood cultures
.
History of ascites. Routine paracentesis weekly
--- NOTE | 2024-06-26 08:10 | CON.INTV ---
Consultation
Consultation Request
Date/Time Consultation Requested: 06/26/2024
Date/Time Consultation Performed: 06/26/2024
Medical History
-
Chief Complaint: Cardiac arrest
History of Present Illness:
73-year-old male with a past medical history of atrial fibrillation s/p cardiac ablation in May 2024, s/p Watchman, pacemaker, HFrEF, severe pulmonary hypertension, CAD, IDDM, CKD stage V, chronic abdominal ascites requiring bi weekly paracentesis
and biweekly bumex infusion, hypertension, hyperlipidemia, COPD/asthma, VIRGILIO on CPAP who presented to the emergency room due to unwitnessed cardiac arrest.
Patient was in usual state of health until the morning of 06/25/2024 when reports that he was having headaches and felt particularly fatigued. He took Tylenol and took a nap with improvement in headache, however he remained feeling fatigued.
states that she saw him and he was pale. She went downstairs and heard a thud and when she came back upstairs the patient was unresponsive, gasping for air. She turned him on his side and he continued to gasp but seemed as if to be breathing.
EMS was called. states that she attempted CPR, however she did is not sure that she was compressing deep enough and did not perform CPR continuously. EMS arrived in 4 to 5 minutes after being called and patient was found to have ventricular
tachycardia for which she was shocked and then went into PEA. He received CPR and epinephrine and ROSC was achieved, however he remained bradycardic into the 40s and was externally paced and intubated in the field. While in transit to the
emergency department he had 1 additional episode of cardiac arrest requiring 1 minute of CPR and 1 dose of epi with ROSC.
Of note, during patient's cardiac ablation in May 2024 he went into cardiac arrest which was presumed to be a consequence of jet ventilator and he did not require CPR. Recently pacemaker was adjusted and rate was decreased to 35 for presumptive
dyssynchrony, though details are limited. Per , patient was not experiencing any cardiac symptoms prior to the event. His baseline is fatigued.
While in the ED he was placed on deep sedation with propofol, requiring pressors Levophed/vasopressin, amnio drip, and insulin drip. CT head and cervical spine were done which showed no acute abnormality. Troponins were elevated and trended
without peak thus far. UA was done which was suggestive for infection, culture sent. Blood cultures drawn, began on IV Unasyn. Tmax of 101 �F. Lactate was 5.3, significant transaminitis, leukocytosis 29.2. VBG showed acidemia 7.27, PCO2 44, PO2
291.
Currently patient is intubated, vent settings RR 14, tidal volume 450, PEEP 5, FiO2 40%, saturating 99%. He was taken off propofol, fentanyl drip at 8 AM. He is currently on 3 mcg of levo, insulin drip, amnio drip at 0.5. He was reportedly having
myoclonus overnight, which worsened with reduction in sedation. Family was bedside where additional history was obtained as above.
Past Medical History
Past Medical History: Arrhythmias (Paroxysmal A-fib), Asthma, CAD, CHF, COPD, HTN, Hypercholesterolemia, IDDM and Other (CKD stage V, VIRGILIO on CPAP, pulmonary hypertension, history of GI bleed, history of gout)
Past Surgical History: Cardiac (Cardiac stenting in 2014, cardiac ablation in May 2024) and Other (Gastrointestinal stromal tumor removal September 20, 2021, umbilical hernia repair 2009, current biweekly paracentesis since 2022)
Social History
Tobacco: Former Smoker
Drug: None
Personal:
Living: With Family
Family History
Family History: Reviewed & Not Pertinent
Allergies / Home Medications
Allergies
Allergy/AdvReac Type Severity Reaction Status Date / Time
adhesive tape Allergy Unknown Verified 06/25/24 20:42
baclofen Allergy comatose Verified 06/25/24 20:42
and
sleepwalking
strawberry Allergy swelling Verified 06/25/24 20:42
from head
to toe
Home Medications
�Medication �Instructions �Recorded �Confirmed �Last Taken �Type
atorvastatin 40 mg tablet 40 mg PO HS High cholesterol 1206/25/24 06/24/24 History
torsemide 20 mg tablet 100 mg PO BID Fluid 10/25/20 06/25/24 06/25/24 History
retention/Swelling
hydralazine 50 mg tablet 50 mg PO TID Blood Pressure 08/15/22 06/25/24 06/25/24 History
pantoprazole 40 mg tablet,delayed 40 mg PO DAILY Gastrointestinal 08/15/22 06/25/24 06/25/24 History
release Issue
allopurinol 100 mg tablet 100 mg PO DAILY Gout 05/04/23 06/25/24 06/25/24 History
aspirin 81 mg tablet,delayed 81 mg PO HS Blood Clot 05/25/23 06/25/24 06/24/24 History
release Prevention/Tx
isosorbide dinitrate 10 mg tablet 10 mg PO TID Heart 12/19/23 06/25/24 06/25/24 History
Disease/Condition
dapagliflozin propanediol 5 mg 10 mg PO .QHS 01/18/24 06/25/24 06/24/24 History
tablet (Farxiga)
insulin glargine 100 unit/mL 20 unit SC .QPM 01/28/24 06/25/24 06/24/24 History
subcutaneous cartridge
apixaban 5 mg tablet (Eliquis) 5 mg PO BID 04/11/24 06/25/24 06/25/24 History
albuterol sulfate 90 mcg/actuation 2 puff inhalation Q4H wheezing 06/25/24 06/25/24 Unknown History
aerosol inhaler
amiodarone 200 mg tablet 200 mg PO DAILY 06/25/24 06/25/24 Unknown History
bumetanide 0.25 mg/mL injection 4 mg IV ORDERED RATE 06/25/24 06/25/24 Unknown History
solution
ferrous sulfate 325 mg (65 mg 325 mg PO DAILY 06/25/24 06/25/24 Unknown History
iron) tablet
insulin lispro 100 unit/mL 6 unit SC QACDINNER 06/25/24 06/25/24 Unknown History
subcutaneous pen
melatonin 5 mg tablet 5 mg PO HS PRN insomnia 06/25/24 06/25/24 Unknown History
metolazone 2.5 mg tablet 2.5 mg PO DAILY 06/25/24 06/25/24 Unknown History
multivitamin 1 tab PO DAILY 06/25/24 06/25/24 Unknown History
potassium chloride 20 mEq 20 meq PO BID 06/25/24 06/25/24 Unknown History
tablet,extended release
Review of Systems
-
Unable to Obtain full review of systems at this time due to: Patient Intubation
History Source: Family
Constitutional: Fatigue
Vitals / Labs / Diagnostic Testing
Vital Signs
Temp Pulse Resp BP Pulse Ox
98.1 F 80 16 145/67 99
06/26/24 07:36 06/26/24 07:56 06/26/24 07:56 06/25/24 23:10 06/26/24 07:57
Lab Data
06/26/24 00:20
Laboratory Results
06/25/24 06/25/24 06/25/24
20:46 21:10 22:41
PT 19.4 H 19.8 H
INR 1.59 1.62
APTT 33.1
pH 7.27 L
pCO2 44
pO2 291 H
HCO3 20.2 L
O2 Delivery Level
06/26/24 06/26/24
00:20 03:20
PT
INR
APTT
pH 7.37 7.39
pCO2 40 34 L
pO2 135 H 174 H
HCO3 23.1 20.6 L
O2 Delivery Level Vent
Diagnostic Testing:
Physical Exam
-
HEENT: Normocephalic, Anicteric and Moist Mucous Membranes
Cardiovascular: S1/S2, Irregular Rhythm, Murmur (None) and Peripheral Edema (Trace)
Respiratory: Other (Mechanical breath sounds bilaterally)
GI: Soft, Non Distended and Non Tender
Neurology: Other (Sedated, bilaterally, intermittent myoclonus, significantly delayed gag reflex)
Skin: Warm and Dry
General: Other (Intubated, unresponsive)
Assessment
-
ASSESSMENT
73 year old male with significant cardiac history, CKD Stage V, HFrEF requiring recurrent paracentesis who presented to ED following multiple cardiac arrests
#Cardiac Arrest secondary to reported V-fib arrest/PEA
#Bradycardia
#Transaminitis/shock liver
#Myocardial injury, likely ischemic
#A-fib
#CKD
#Insulin-dependent diabetes mellitus
#Chronic HFrEF
#Recurrent ascites
#Coronary artery disease
#Pulmonary hypertension
#Essential hypertension
#Hyperlipidemia
#COPD
#Asthma
#History of recent ablation May 2024
#H/O of Watchman procedure
PLAN
Cardiac arrest secondary to V-fib arrest/PEA
- Suspect cause is ACS given elevated troponins (0.053 - 0.091 - 4.520) and significant h/o CAD requiring stents
- elevated lactate 5.3
- Unwitnessed cardiac arrest, several minutes without CPR, secondary arrest en route to hospital, currently intubated
- Head CT done showed no acute intracranial abnormality
- Persistent/worsening myoclonus with reduction in sedation, absent corneal reflex, sluggish pupillary reflex
- Off sedation propofol/fentanyl since 8Am -- will continue to observe neurological status over the next 24 hours
- On pressure support with levophed -- will wean as able
- cooling protocol initiated
- heparin ggt
- cardiology consulted -- Echo pending
- C discussions had with family at bedside. Explained that prognosis is poor given signs of significant anoxic brain injury and overall clinical picture, however it is too soon to know for sure. Family expressed patient's desire to be DNR at this
time, however we will observe his clinical course for the next 24 hours which will inform their decision moving forward on aggressive care measures/GOC.
Fever
Leukocytosis
- CXR findings suggestive of possible airspace disease
- UA + for bacteria, WBCs -- UCx sent, will observe results
- concern for aspiration given cardiac arrest with CXR findings
- Blood cultures drawn, results pending
- started on Unasyn
- c/t monitor CBC and temperature curve
Intubation 2/2 Cardiac Arrest
- Vent settings RR 14, TV 450, PEEP 5, 40% FiO2, saturating 99%
- target %sat of >90%
- wean vent as able; patient currently showing signs of spontaneous breath initiation
JEFFERSON on CKD Stage V, likely secondary to hypoperfusion
- Loop Cutter 2.9, BUN 136, K 3.1, baseline thread singer unclear at this time
- K repleted
- Hamilton placed, patient making urine
Transaminitis/shock liver
- AST/ALT 921/547
- will c/t monitor CMP
Bradycardia
Pacemaker
- pace maker interrogated, rate previously set to 35 -- now changed to 60
- Bradycardia resolved
- Cardiology following
Paroxysmal Atrial Fibrillation s/p ablation 05/2024
S/p watchman procedure
- on PO Amio at home
- currently on Amio ggt
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
IDDM
- POC glucose checks 200-400s
- on insulin ggt
- target euglycemia 140-180s
DVT PPx - heprarin ggt
Stress ulcer PPx - Protonix IV
Code Status - DNR
--- NOTE | 2024-06-26 08:39 | W.PN.HOSP.TC ---
Addendum entered and electronically signed by Oswald Cheney MD 06/27/24 14:57:
CKD 4 ( no change in documentation)
Addendum entered and electronically signed by Oswald Cheney MD 06/27/24 14:55:
Aspiration Pneumonia
Original Note:
Today's Communication/Plan
-
Mechanical ventilation. Heparin drip. IV antibiotics.
Assessment / Plan
Assessment / Plan
Physical exam:
General: Acutely ill
HEENT: ETT in place. Normocephalic, Atraumatic and Moist Mucous Membranes
Respiratory: No crackles; Negative Wheezes, Rales or Rhonchi
Cardiac: Regular Rhythm and S1/S2
GI: Soft, Nontender and distended
Musculoskeletal: No Clubbing, No Cyanosis and No Edema
Neuro: Sedated on the vent
A/P:
# Cardiac arrest --> reported V-fib arrest requiring 1 shock followed by PEA and then responded to CPR and epinephrine (1 dose):
- Patient remains on mechanical ventilation
-On amiodarone drip
- On Levophed and vasopressin drip
-On propofol and fentanyl drip
- [facility] Scientist recommended light cooling
- CT head, cervical spine no acute abnormality
- IV Protonix 40 daily
-Plan for echocardiogram
- Discussed with family at bedside today
# Bradycardia:
- EP interrogated device and PPM was reprogrammed to VVIR 60 bpm.
#Septic shock:
- Broad-spectrum antibiotics with IV Unasyn
- Pressors
- Lactic acid 5.3--> 3.1
#Elevated troponin:
-Elevated troponin in the setting of underlying CAD and postcardiac arrest
-On heparin drip
-Serial troponin
-Aspirin
-Echocardiogram
- Troponin of 0.091--> peaked to 4.25
-EKG shows sinus tachycardia with second degree AV block Mobitz type I
- Trend troponins
-Cardiology consult
# Transaminitis likely secondary to shock liver
- Continue to monitor
# Hyperglycemia
# Type 2 diabetes
-Currently on glycemic protocol
-Blood sugar latest is 123
- Hemoglobin A1c 8.5
Paroxysmal atrial fibrillation status post Watchman
- On heparin drip
-Hold Eliquis
- Recent ablation
- On interrogation by EP patient in AFL with 2:1 AV conduction
Nonischemic cardiomyopathy/chronic HFrEF with recurrent ascites
- Receives paracentesis every 2 weeks
- Receives Bumex infusion 2 times a week
- Hold diuretics, isosorbide mononitrate
CAD
- Continue aspirin and statin
Severe pulmonary hypertension
Essential hypertension
- Hold amlodipine, hydralazine due to hypotension
Chronic ascites
- Serial paracentesis as required
CKD 4
- Renal function with creatinine of 3 today
Obesity
Gastrointestinal stromal tumor status post resection in 2021
Chronic anemia
- Hemoglobin 12.3 this morning
DVT prophylaxis�heparin drip
CODE STATUS-DNR
Total Critical Care Time__45___ minutes. I was immediately available to the patient and staff. I personally examined, reviewed labs, diagnostic images/reports, interpretations, treatment plans, discussed patient care with other providers and
family or caregivers (if patient is unable to make decisions), entered orders as appropriate and documented the medical record.
Anticipated Discharge: > 48 hours
Subjective/Interval History
-
Date of Service: June 26, 2024
Patient on the ventilator. Tmax 101 Fahrenheit last night.
Objective Data
-
Labs:
Laboratory Results
06/25/24 06/25/24 06/25/24
20:46 21:10 22:41
WBC 18.7 H 29.8 H
Hgb 9.5 L 12.5 L D
Hct 28.3 L 37.2 L
Plt Count 219 333 D
PT 19.4 H 19.8 H
INR 1.59 1.62
APTT 33.1
HCO3 20.2 L
Sodium 135 134 L
Potassium 3.8 4.2
Chloride 100 99
Carbon Dioxide 19 L 22
BUN 129 H* 135 H*
Creatinine 2.5 H 2.5 H
Glucose 298 H 358 H
Calcium 8.3 L 8.5
Total Bilirubin 0.8 1.7 H
AST 270 H 921 H*
ALT 165 H 547 H*
Alkaline Phosphatase 133 H 212 H
06/26/24 06/26/24 06/26/24
00:10 00:20 03:20
WBC 29.2 H
Hgb 12.3 L
Hct 36.1 L
Plt Count 302
PT
INR
APTT
HCO3 23.1 20.6 L
Sodium 134 L
Potassium 3.7
Chloride 99
Carbon Dioxide 23
BUN 136 H*
Creatinine 2.7 H
Glucose Cancelled 429 H
Calcium 8.3 L
Total Bilirubin
AST
ALT
Alkaline Phosphatase
06/26/24 06/26/24
04:15 10:00
WBC
Hgb
Hct
Plt Count
PT
INR
APTT
HCO3
Sodium 137 Pending
Potassium 3.1 L Pending
Chloride 100 Pending
Carbon Dioxide 22 Pending
BUN 136 H* Pending
Creatinine 2.9 H Pending
Glucose 342 H Pending
Calcium 8.8 Pending
Total Bilirubin
AST
ALT
Alkaline Phosphatase
Vital Signs:
Vital Signs
Temp Pulse Resp BP Pulse Ox
98.1 F 80 16 145/67 99
06/26/24 07:36 06/26/24 07:56 06/26/24 07:56 06/25/24 23:10 06/26/24 07:57
I&O
06/25/24 06/26/24 06/27/24
06:59 06:59 06:59
Intake Total 652.1 / 652.1
Output Total 320 / 320
Balance 332.1 / 332.1
--- NOTE | 2024-06-26 09:00 | WOUNDNOTE ---
L FOOT (LATERAL FOREFOOT)
--- NOTE | 2024-06-26 09:00 | WOUNDNOTE ---
L PLANTAR 1ST MTH
--- NOTE | 2024-06-26 09:00 | WOUNDNOTE ---
[facility] RN note: Patient admitted with cardiac arrest.
See H&P for complete history.
PMH: a fib (Eliquis), Watchman, CM, HF, severe pulmonary edema, ascites, CKD5, DM, CAD, HTN, gastrointestinal tumor removal, asthma/COPD, anemia, gout, recent cardiac ablation at [facility] last month.
Wound Location and type/assessment: Patient admitted with: L lateral forefoot diabetic ulcer full thickness to subcutaneous layer or deeper, pink with yellow fibrin. L plantar 1st MTH diabetic ulcer to subcutaneous layer, pink with some callus.
+Pedal pulses heard via portable Doppler. stated he is followed by a vault teller in [place] who manages his wounds and that he has offloading orthotics for his shoes at home.
Appetite: currently intubated.
Pressure redistribution devices in place: Centrella Max air bed. Patient cannot turn self in bed. Heels off bed with pillow.
Plan: Dressing changed on his L foot. Patient turned to L semi side lying position with help from ZENON Schofield and ZENON Saab. Heels off bed with pillow and air chair cushion.
Will confirm orders with Dr. Cheney and discussed with ZENON Schofield.
Care plan to be updated and will follow as needed. Patient to follow up with his vault teller.
Note to case management requested for discharge: VN if goes home.
Recommend follow up at wound care center upon discharge if needed.
[2024-06-26 09:06] LABS: Glucose - Point of Care 204 mg/dl (70-99)
[2024-06-26 09:17] LABS: Glycohemoglobin (HgbA1c) 8.5 % (4.0-5.6)
[2024-06-26 10:14] LABS: Glucose - Point of Care 176 mg/dl (70-99)
--- NOTE | 2024-06-26 10:25 | CHAP ---
Sidney Margaret received Sacrament of the Sick from his [place] section leader and machine setter[facility] on [facility].
--- NOTE | 2024-06-26 10:28 | W.CARD.DEVCH ---
Cardiac Device Check
-
Device: Pacemaker
Filter Press Tender Head: [employer]
The patient's device was interrogated personally. The device had normal function. No abnormalities seen.
The PPM was programed for DDI 35 bpm and had gone into atrial flutter with mode switched. He was severely bradycardiac overnight. Currently he is in AFL with 2:1 AV conduction.
The PPM was reprogrammed to VVIR 60 bpm.
[2024-06-26 10:34] VITALS: BMI 28.1
[2024-06-26 10:42] LABS: Lactic Acid 3.1 mmol/L (0.7-2.0)
[2024-06-26 11:06] LABS: Glucose - Point of Care 129 mg/dl (70-99)
--- NOTE | 2024-06-26 11:14 | PN.DE.MGMTRT ---
Insulin Management
- -
06/26/2024 Diabetes management Consult
Patient admitted 06/25 s/p unwitnessed cardiac arrest at home. PMH chronic ascites, CKD 5, CAD,afib with recent ablation @ [facility], asthma, CA, CHF, Pulmonary HTN, gout, CHL diabetes. Prior to admission was taking farxiga 10 mg @ HS and lantus 20
units PM. A1C 8.5%, cr 2.9, eGFR 22.15.
Patient is intubated on ventilator, unable to participate in discussion regarding diabetes, family @ bedside supportive. reports patient was sitting upstairs, she left briefly, heard a thud then found patient with agonal breaths, called 911.
Patient is currently on glycemic protocol insulin infusion requiring up to 10 units of insulin per hour. Discussed with nurse, will continue insulin infusion at this time. Will follow for readiness to transition to subcutaneous inulin.
Diabetes History
- -
Type of Diabetes: 2 requiring insulin
Pre-Admission Diabetes Regimen
06/25/24 06/25/24 06/26/24
20:46 22:41 00:20
Creatinine 2.5 H 2.5 H 2.7 H
06/26/24
04:15
Creatinine 2.9 H
Lab Results
Hemoglobin A1c 8.5 % (4.0-5.6) H 06/26/24 00:20
Insulin Pump Settings
IP Diabetes Regimen
06/25/24 06/25/24 06/25/24
20:46 22:41 23:31
Glucose 298 H 358 H
POC Glucose 409 H
06/26/24 06/26/24 06/26/24
00:10 00:20 03:03
Glucose Cancelled 429 H
POC Glucose 406 H
06/26/24 06/26/24 06/26/24
04:02 04:15 06:03
Glucose 342 H
POC Glucose 404 H 338 H
05/06/26/24 06/26/24
06:56 08:00 09:04
Glucose
POC Glucose 289 H 235 H 204 H
06/26/24 06/26/24
10:12 11:05
Glucose
POC Glucose 176 H 129 H
Patient Education
[2024-06-26 11:24] LABS: Calcium 9.4 mg/dl (8.4-10.2); Carbon Dioxide 24 mmol/L (22-30); Chloride 104 mmol/L (98-107); Estimated Creatinine Clearance 19 ml/min; Glucose 145 mg/dl (70-99); Potassium 3.9 mmol/L (3.5-5.1); Sodium 140 mmol/L (135-145); eGFR 21.26
[2024-06-26] MEDS: HEPARIN 25000 UNITS/250 ML IV (11:36)
[2024-06-26 11:43] LABS: Blood Urea Nitrogen 134 mg/dl (9-20)
--- NOTE | 2024-06-26 11:52 | OR.RPT ---
Operative Report
Operative Report
Right IJ Central Line placement
Indication: Shock, need central access for pressor support.
Consent obtained from: Patient's and daughters at bedside.
Time-out was performed and patient was placed in Trendelenburg position. Ultrasound was used to assess patency of Right IJ vein. Under sterile conditions area was cleaned with chlorhexidine and then a full body drape was placed. 2 mL of local
anesthesia with lidocaine was injected. Under real-time ultrasound guidance, long axis view, the needle was inserted and vein was punctured, once blood was aspirated, syringe was removed and guidewire was advanced which did not meet any resistance.
Subsequently needle was withdrawn and guidewire was left in place. Ultrasound was used again to confirm presence of guidewire inside the vein lumen. A small georgina was placed at the skin and a dilator was advanced to about 50% of its length.
Dilator was removed and central venous catheter was advanced over guidewire and subsequently guidewire was removed. All 3 ports were capped and they were easy to flush and were withdrawing blood without any resistance. Central line was sutured to
the skin and dressing was applied.
Ultrasound of the lungs was performed and good lung sliding was obtained. Patient stayed hemodynamically stable through the procedure.
Complications: None
Blood loss: <1ml
Time spent: 25 min
Date of service: 06/26/2024
--- NOTE | 2024-06-26 12:00 | PTCARENOTE ---
RIJ TLC inserted by . XRay done to confirm placement. Pt remains intubated....off sedation and levophed gtt. Pt reassessed...no major changes. DNR bracelet added to left wrist. Family updated and emotional support provided. Will
continue to monitor.
[2024-06-26 12:03] LABS: Glucose - Point of Care 123 mg/dl (70-99)
[2024-06-26 14:02] LABS: Glucose - Point of Care 116 mg/dl (70-99)
[2024-06-26 14:21] LABS: Hematocrit 33.3 % (39.0-52.0); Hemoglobin 11.5 g/dL (13.0-18.0); Mean Corp Hgb Conc. 34.5 g/dL (33.0-37.0); Mean Corpuscular Hgb 31.5 pg (27.0-31.0); Mean Corpuscular Volume 91.2 fL (80.0-94.0); Mean Platelet Volume 10.2 fL (7.4-10.4); Platelet Count 204 10^3/uL (130-400); Red Blood Cell Count 3.65 10^6/uL (4.70-6.10); Red Cell Dist. Width 17.6 % (11.5-14.5); White Blood Cell Count 18.6 10^3/uL (4.8-10.8)
[2024-06-26 14:30] LABS: Lactic Acid 1.7 mmol/L (0.7-2.0)
--- NOTE | 2024-06-26 14:40 | CM ---
Intubated, IV/AB, heparin. CM approached room to initiate initial assessment. Family in room crying, looking distraught. RN advised that MD had just spoken with family about goals of care. Initial assessment deferred. Extended family have been
visiting. Per RN, family considering comfort measures. Discharge POC: TBD. Will follow.
--- NOTE | 2024-06-26 16:00 | PTCARENOTE ---
No major changes in physical assessment. Heparin gtt initiated per MD orders. Remains on insulin and amiodarone gtts. Will continue to monitor closely.
[2024-06-26 16:02] LABS: Glucose - Point of Care 122 mg/dl (70-99)
[2024-06-26 18:12] LABS: Glucose - Point of Care 91 mg/dl (70-99)
[2024-06-26 18:35] LABS: APTT 81.8 Sec (23.4-35.0)
[2024-06-26 18:57] LABS: Glucose - Point of Care 94 mg/dl (70-99)
[2024-06-26 20:01] LABS: Glucose - Point of Care 105 mg/dl (70-99)
[2024-06-26 21:04] LABS: Glucose - Point of Care 121 mg/dl (70-99)
--- NOTE | 2024-06-26 21:06 | PTCARENOTE ---
Assumed care of pt at 1900. Received pt intubated, #7.5 ETT 25cm at lip, AC 14/450/40/5, pt overbreathing at a rate of 16-18. Rhythm on monitor has varied, SR with PVCs, AFib, other times difficult to tell what rhythm as RR is consistent but LA is
varied but 1:1 with QRS and no dropped beats. Rate has been in the 60s. Pt on Heparin and Amiodarone drips. Critical care glycemic protocol ongoing, insulin drip is currently off with Q1 hour blood glucose checks. Physical assessment as documented
in nursing shift assessment flowsheet. Pt has been unresponsive except for moving his mouth during mouth care and occasional eye fluttering. Family intermittently at bedside.
[2024-06-26] MEDS: LIPITOR 40 MG TUBE (21:37)
[2024-06-26] MEDS: LOW STRENGTH ASPIRIN 81 MG TUBE (21:38)
[2024-06-26 22:04] LABS: Glucose - Point of Care 125 mg/dl (70-99)
[2024-06-27 00:01] LABS: Glucose - Point of Care 142 mg/dl (70-99)
[2024-06-27] MEDS: ProAIR HFA INHALER 4 PUFF INH ×3 (00:03→08:00)
[2024-06-27] MEDS: UNASYN IV (00:13)
[2024-06-27 01:08] LABS: APTT 150.3 Sec (23.4-35.0)
--- NOTE | 2024-06-27 01:11 | PTCARENOTE ---
Assessment unchanged. Remains on same vent settings and same infusions--insulin remains off, now Q2 hour blood glucose checks per glycemic protocol. R IJ TLC dressing changed due to bleeding at site causing dressing to start to come off. Pt's
daughter in room, staying the night.
[2024-06-27 01:57] LABS: Glucose - Point of Care 173 mg/dl (70-99)
--- NOTE | 2024-06-27 03:35 | PTCARENOTE ---
Pt has been bleeding from his central line site, dressing was changed around 0100 and pt continues to bleed to the point where it is leaking out of the dressing and onto his gown/linens. NGT output is red-tinged as well. Discussed with Matt Choi,
FILLING SEPARATOR, he stated to hold heparin drip for now, added PT/INR to AM labs which are being drawn at this time.
[2024-06-27 03:55] LABS: B.E. -3.5 mmol/L; HCO3 19.9 mmol/L (21-28); O2 Saturation % 98.8 % (94-98); PCO2 30 mmHg (35-48); PO2 143 mmHg (83-108); pH 7.43 (7.35-7.45)
[2024-06-27 04:15] LABS: Glucose - Point of Care 225 mg/dl (70-99)
[2024-06-27 04:20] LABS: % Basophils 0.2 % (0-2); % Immature Granulocytes 0.6 % (0-0.5); % Lymphocytes 1.9 % (20.5-51.1); % Monocytes 3.7 % (1.7-9.3); % Neutrophils 93.6 % (42.2-75.2); Absolute Immature Granulocytes 0.1 10^3/uL (0-0.05); Absolute Lymphocytes 0.3 10^3/uL (1.2-3.4); Absolute Monocytes 0.6 10^3/uL (0.1-0.6); Absolute Neutrophils 16.1 10^3/uL (1.4-6.5); Hematocrit 33.3 % (39.0-52.0); Hemoglobin 11.2 g/dL (13.0-18.0); Mean Corp Hgb Conc. 33.6 g/dL (33.0-37.0); Mean Corpuscular Hgb 31.1 pg (27.0-31.0); Mean Corpuscular Volume 92.5 fL (80.0-94.0); Mean Platelet Volume 11.1 fL (7.4-10.4); Nucleated Red Blood Cells % 0 % (-); Platelet Count 206 10^3/uL (130-400); Red Cell Dist. Width 17.9 % (11.5-14.5); White Blood Cell Count 17.2 10^3/uL (4.8-10.8)
[2024-06-27 04:24] LABS: Fibrinogen 601 MG/DL (199-459); PT 29.9 Sec (11.4-14.6)
--- NOTE | 2024-06-27 04:39 | PTCARENOTE ---
Assessment unchanged. Heparin on hold. Insulin drip restarted per CC glycemic protocol. CHG cloth bath done and linens changed at around 0315
[2024-06-27 04:56] LABS: Albumin 3.3 g/dl (3.5-5.0); Alkaline Phosphatase 175 U/L (38-126); Calcium 9.2 mg/dl (8.4-10.2); Carbon Dioxide 20 mmol/L (22-30); Chloride 106 mmol/L (98-107); Direct Bilirubin 2.1 mg/dl (0.0-0.4); Estimated Creatinine Clearance 16 ml/min; Glucose 189 mg/dl (70-99); Potassium 4.3 mmol/L (3.5-5.1); Sodium 139 mmol/L (135-145); Total Bilirubin 2.6 mg/dl (0.2-1.3); Total Protein 5.5 g/dl (6.3-8.2); eGFR 17.67
[2024-06-27 05:07] LABS: Glucose - Point of Care 201 mg/dl (70-99)
[2024-06-27 05:10] LABS: Blood Urea Nitrogen 143 mg/dl (9-20)
[2024-06-27] MEDS: SUBLIMAZE 50 MCG IV ×2 (05:14→11:12)
[2024-06-27 05:26] LABS: ALT (SGPT) 4319 U/L (0-50); AST (SGOT) 5385 U/L (17-59)
[2024-06-27 05:58] VITALS: BMI 25.6
[2024-06-27 06:21] LABS: Glucose - Point of Care 184 mg/dl (70-99)
[2024-06-27 08:13] LABS: Glucose - Point of Care 137 mg/dl (70-99)
[2024-06-27] MEDS: NSS (PRESERVATIVE FREE) 10 ML IV (08:38)
[2024-06-27] MEDS: PACERONE 200 MG TUBE (08:38)
[2024-06-27] MEDS: PROTONIX IV 40 MG IV (08:38)
[2024-06-27] MEDS: MIRALAX TUBE (08:38)
[2024-06-27 09:12] LABS: Glucose - Point of Care 79 mg/dl (70-99)
--- NOTE | 2024-06-27 09:27 | W.PN.CD ---
Today's Communication / Plan
-
Pacemaker settings were adjusted yesterday so patient had VVIR at 60
Rhythm stable overnight
Patient remains on low-dose pressors. Wean as tolerated
Echo
Continue to assess mental status/anoxic brain injury. Patient being followed by neurology.
Impression / Plan
-
Cardiac arrest.
Reported VF requiring 1 shock followed by PEA which then responded to epinephrine
echo
.
Pacemaker. Patient with pacemaker/[employer] without ICD
- Device interrogated device functioning appropriately was set at DDI 35. Patient was severely bradycardic and now reprogrammed to VVIR 60
.
Elevated troponin. Patient with underlying CAD and is now postarrest. Likely type II NJ secondary to hypotension/arrest. Of note patient also with CKD troponin up to 4.2 coronary artery disease/history of coronary stenting
-Continue supportive treatment
- Echo
- ASA
.
Afib - reported recent ablation
- on heparin. Previously on Eliquis prior to admission
- reported ablation 2 weeks prior to admission
Watchman
.
Mental status - post arrest
-continue to assess post arrest. Assessing degree of anoxic injury
.
JEFFERSON. Acute on chronic creatinine
.
Fever. Temp 101. day of admit . Now 99
- abx per primary team
- blood cultures
.
Elevated LFTs. Consistent with shock liver
.
History of ascites. Routine paracentesis weekly
Physical Exam
Vital Signs/Labs
Vital Signs
Temp Pulse Resp BP Pulse Ox
99.1 F 77 19 145/67 96
06/27/24 08:00 06/27/24 08:00 06/27/24 08:00 06/25/24 23:10 06/27/24 08:43
06/26/24 06/27/24 06/28/24
06:59 06:59 06:59
Actual Weight 76.5 kg 69.8 kg
06/27/24 03:40
06/27/24 03:40
PT 29.9 Sec (11.4-14.6) H 06/27/24 03:40
INR 2.80 06/27/24 03:40
APTT 150.3 Sec (23.4-35.0) H* 06/27/24 00:25
Magnesium 2.2 mg/dl (1.6-2.3) 06/26/24 03:20
Triglycerides 95 mg/dl (10-149) 06/26/24 00:20
LAB Results
06/25/24 06/26/24 06/26/24
20:46 04:15 10:18
Troponin I 0.091 H* 4.250 H* D 4.120 H*
Physical Exam
Constitutional: No acute distress and Other (vented)
Cardiovascular: Rhythm & rate is regular
Respiratory: Other (Coarse vented breath sounds)
GI: Soft
Other: Other (no edema)
Data Reviewed
-
Date of Service: June 27, 2024
Medical Decision Making: Reviewed Test Results
[2024-06-27] MEDS: SANTYL OINTMENT 1 APPLIC TOPICAL (10:00)
[2024-06-27 10:09] LABS: Glucose - Point of Care 169 mg/dl (70-99)
--- NOTE | 2024-06-27 10:17 | PN.DE.MGMTRT ---
Insulin Management
- -
06/27/2024 Diabetes management follow up
Patient admitted 06/25 s/p unwitnessed cardiac arrest at home. reports patient was sitting upstairs, she left briefly, heard a thud then found patient with agonal breaths, called 911.
PMH chronic ascites, CKD 5, CAD,afib with recent ablation @ [facility], asthma, CA, CHF, Pulmonary HTN, gout, CHL diabetes. Prior to admission was taking Farxiga 10 mg @ HS and Lantus 20 units PM. A1C 8.5%, cr 2.9, eGFR 22.15.
Patient is intubated on ventilator, unable to participate in discussion regarding diabetes, family @ bedside supportive.
Patient remains on glycemic protocol insulin infusion requiring up to 6 units of insulin per hour. Discussed with nurse, will continue insulin infusion at this time. Will cont to follow, though family is in discussion of transitioning to comfort
care.
Diabetes History
- -
Type of Diabetes: 2 requiring insulin
Pre-Admission Diabetes Regimen
06/26/24 06/27/24
10:18 03:40
Creatinine 3.0 H 3.5 H
Lab Results
Hemoglobin A1c 8.5 % (4.0-5.6) H 06/26/24 00:20
Insulin Pump Settings
IP Diabetes Regimen
06/26/24 06/26/24 06/26/24
10:18 11:05 12:01
Glucose 145 H
POC Glucose 129 H 123 H
06/26/24 06/26/24 06/26/24
13:59 16:01 18:10
Glucose
POC Glucose 116 H 122 H 91
06/26/24 06/26/24 06/26/24
18:56 20:00 21:02
Glucose
POC Glucose 94 105 H 121 H
06/26/24 06/27/24 06/27/24
22:03 00:00 01:56
Glucose
POC Glucose 125 H 142 H 173 H
06/27/24 06/27/24 06/27/24
03:40 04:13 05:05
Glucose 189 H
POC Glucose 225 H 201 H
06/27/24 06/27/24 06/27/24
06:10 08:01 09:01
Glucose
POC Glucose 184 H 137 H 79
06/27/24
09:58
Glucose
POC Glucose 169 H
Patient Education
--- NOTE | 2024-06-27 11:04 | W.PN.INTV ---
Addendum entered and electronically signed by Ariel Lopez MD, Resident 07/01/24 08:17:
Patient had Vfib Arrest/PEA prior to admission resulting in Anoxic Brain injury and multiorgan failure
Original Note:
Today's Communication / Plan
Recommendations
GOC discussion with family at bedside; given patient's clinical picture and significant anoxic brain injury with probable progression to multisystem organ failure, family is amenable to withdrawing support and pursuing comfort care. Will coordinate
with family for extubation and wean off supportive medications. Comfort care medications will be ordered.
Assessment
-
ASSESSMENT
73 year old male with significant cardiac history, CKD Stage V, HFrEF requiring recurrent paracentesis who presented to ED following multiple cardiac arrests
#Cardiac Arrest secondary to reported V-fib arrest/PEA
#Bradycardia
#Transaminitis/shock liver
#Myocardial injury, likely ischemic
#A-fib
#CKD
#Insulin-dependent diabetes mellitus
#Chronic HFrEF
#Recurrent ascites
#Coronary artery disease
#Pulmonary hypertension
#Essential hypertension
#Hyperlipidemia
#COPD
#Asthma
#History of recent ablation May 2024
#H/O of Watchman procedure
PLAN
V-fib arrest/PEA
- Suspect cause is ACS given elevated troponins (0.053 - 0.091 - 4.520) and significant h/o CAD requiring stents, elevated lactate 5.3
- Unwitnessed cardiac arrest, several minutes without CPR, secondary arrest en route to hospital, currently intubated
- Head CT done showed no acute intracranial abnormality
- myoclonus, absent corneal reflex, sluggish pupillary reflex BL, absent gag reflex
- 24 hours off sedation without any meaningful improvement in neurological status
- Still requiring pressure support with levophed -- will wean as able
- Follow-up cooling protocol
- Off heparin ggt
- cardiology consulted -- Echo pending
Fever
Leukocytosis
- CXR findings suggestive of possible airspace disease
- UA + for bacteria, WBCs --reflex UCx mixed hanna/probable contamination
- concern for aspiration given cardiac arrest with CXR findings
- Blood cultures drawn, no growth x 24 hours
- WBC count downtrending
- on Unasyn
- c/t monitor CBC and temperature curve
Intubation 2/2 Cardiac Arrest
- Vent settings RR 14, TV 450, PEEP 5, 40% FiO2, saturating 96% -- Vent settings unchanged today
- target %sat of >90%
- wean vent as able; patient currently showing signs of spontaneous breath initiation
JEFFERSON on CKD Stage V, likely secondary to hypoperfusion
- Accounts Payable Representative 2.9, BUN 136, K 3.1, baseline scrap preparation supervisor unclear at this time
- K repleted
- Hamilton placed, oliguria with worsening creatinine of 3.5
Transaminitis/shock liver
- Worsening transaminitis with AST and ALT into the 4000/5000s
- will c/t monitor CMP
Bradycardia
Pacemaker
- pace maker interrogated, rate previously set to 35 -- now changed to 60
- Bradycardia resolved
- Cardiology following
Paroxysmal Atrial Fibrillation s/p ablation 05/2024
S/p watchman procedure
- on PO Amio at home
- currently on Amio ggt
- OAC TABBER with Eliquis, will transition to heparin for presumed ACS w/o bolus as patient received AM Eliquis dose
IDDM
- POC glucose checks 200-400s
- on insulin ggt
- target euglycemia 140-180s
DVT PPx - heprarin ggt
Stress ulcer PPx - Protonix IV
Code Status - DNR
Subjective Dataa
Subjective Data
Date of Service:
Date of Service: June 27, 2024
Chief Complaint: Research Soil Scientist Follow Up
Subjective:
Overnight patient had episode of bleeding from Central line and some blood in NG tube, heparin was stopped. He continues to have myoclonus, without purposeful movements despite nearly 24 hours off sedation. He had some increased belly breathing and
signs of distress for which he was given one push of IV fentanyl. He is currently on 4mcg of Levophed, 0.5 of Amio. Vent settings are 14/450/5/40% saturating >96%. He is making minimal urine ~34cc/hr.
Review of Systems
General: Unobtainable - Pat Unresp
Objective Data
Data Reviewed
Vital Signs / I&O / Oxygen:
Vital Signs
Temp Pulse Resp BP Pulse Ox
99.1 F 80 20 145/67 96
06/27/24 08:00 06/27/24 10:00 06/27/24 10:00 06/25/24 23:10 06/27/24 10:00
Intake and Output
06/26/24 06/27/24 06/28/24
06:59 06:59 06:59
Intake Total 652.1 / 703.4 1016.3 / 1054.0 141.8 / 141.8
Output Total 320 / 350 1194 / 1194 70 / 70
Balance 332.1 / 353.4 -177.7 / -140.0 71.8 / 71.8
SaO2 [A/C] 40
SaO2 96
Physical Exam
General: Comfortable and T Max (99.7)
HEENT: Normocephalic, Anicteric, Moist Mucous Membranes and Other (Intubated)
Cardiovascular: S1-S2, Regular Rhythm, Murmur (None) and Peripheral Edema (Trace)
Respiratory: Non-Labored Respirations and Other (Mechanical breath sounds bilaterally)
GI: Soft, Non Distended, Non Tender and Normal Bowel Sounds
Neurology: Unresponsive and Other (Sluggish pupillary reflex bilaterally, absent bilateral corneal reflexes, no withdrawal from pain, intermittent myoclonus of the left lower extremity, absent gag reflex; slight worsening from yesterday)
Skin: Warm and Dry
Labs/Micro/Reports
Lab Data
06/27/24 03:40
06/27/24 03:40
Laboratory Results
06/26/24 06/26/24 06/26/24
10:48 17:54 18:14
PT
INR
APTT Cancelled Cancelled 81.8 H
pH
pCO2
pO2
HCO3
O2 Delivery Level
06/27/24 06/27/24
00:25 03:40
PT 29.9 H
INR 2.80
APTT 150.3 H*
pH 7.43
pCO2 30 L
pO2 143 H
HCO3 19.9 L
O2 Delivery Level
Microbiology
06/26/24 00:31 Urine Urine Culture - Final
06/26/24 00:28 Blood/Venous Blood Culture - Preliminary
No Growth in 24 hours- Final report to follow
06/26/24 00:23 Blood/Venous Blood Culture - Preliminary
No Growth in 24 hours- Final report to follow
[2024-06-27] MEDS: HALDOL 1 MG IV (11:10)
[2024-06-27] MEDS: ROBINUL 0.2 MG IV (11:12)
--- NOTE | 2024-06-27 11:32 | RESPNOTE ---
1130--Extubated at this time, as per family request to make patient comfort care only. RN and family bedside during extubation
--- NOTE | 2024-06-27 12:01 | PTCARENOTE ---
Pt made comfort care by family. 1120 all gtts off. Extubated to RA at 1130.
[2024-06-27] MEDS: DILAUDID 2 MG IV (12:10)
--- NOTE | 2024-06-27 12:16 | W.DCSUMMARY ---
Discharge Summary
Discharge Data
Date of Admission: 06/25/24
Date of Discharge: 06/27/24
-
Pending Results: No
Hospital Course
Patient is 73 years old male with history of A-fib status post ablation and Watchman and pacemaker, CHF, pulmonary hypertension, CAD, diabetes mellitus, CKD, ascites hypertension, hyperlipidemia, COPD/asthma, VIRGILIO, presented to the hospital with
unwitnessed cardiac arrest. There is report that he went into V-fib and has been shocked and ROSC. He was on mechanical ventilation in ICU and was given antiarrhythmics, anticoagulation per ACS protocol, antibiotics, pressors, and so on. Despite
best treatment patient continued to deteriorate and went into multiorgan failure. After discussion with family they decided on going on comfort care and he was terminally extubated today on 06/27/2024.
Discharge Plan
-
Patient Disposition:
Date/Time
Date/Time: 06/27/24 12:05
Discharge Date and Time
Discharge Date/Time: 06/27/24 12:05
Print Language: FRENCH
--- NOTE | 2024-06-27 12:32 | PTCARENOTE ---
Pt passes at 1205. Hospitalist notified and to bedside pronounced .
--- NOTE | 2024-06-27 12:46 | W.PN.DEATH ---
Pronouncement of
-
Called to see patient to pronounce.
No spontaneous heart tones or respirations noted.
Patient not responsive to verbal stimuli.
Patient is pronounced .
Time of : 12:05
Date of : 06/27/24
Cause of : cardiac arrest with ventricular fibrillation
Family Notified: Yes
--- NOTE | 2024-06-27 14:19 | PN.CDI ---
CDI
- -
CDI:
Physician Documentation Request
Admit Date: 06/25/24 22:47
Dear Doctor Shravan,
Please review the following and provide your response in the progress notes.
Clinical Indicators:
Pt admitted with out of hospital cardiac arrest 2/2 ventricular fibrillation/intubated in septic shock
There is potentially conflicting documentation in the record regarding the stage of CKD .
Documented per H&P & photoflash powder mixer consult , ,' CKD 5..'
Cardiology consult, ' Acute on chronic creatinine up to 2.9 baseline appears to be 2.5.'
Progress note 06/26 ,' CKD 4...'
Documented per past visit H&P 12/19/23, ' CKD V SCr = 2.8 seems close to baseline...'
Due to potentially conflicting documentation please clarify the stage of CKD:
CKD 5
CKD 4 ( no change in documentation)
Other (Please specify)
Stages of Chronic Kidney Disease*
Level Description GFR
G1 Normal or High >90
G2 Mildly decreased 60-89
G3a Mildly to moderately decreased 45-59
G3b Moderately to severely decreased 30-44
G4 Severely decreased 15-29
G5 Kidney failure <15
*Source: Kidney Disease: Improving Global Outcomes (KDIGO) 2012
Use of terms such as suspected, likely, concern for, or probable (associated with a specific diagnosis that is being evaluated, monitored, or treated as if it exists) are acceptable and can be coded in the inpatient setting, when documented at the
time of discharge.
Thank you,
Janette Jacob RN
CDI Specialist
[place] [facility]
Please use your independent medical judgment in providing your response.
--- NOTE | 2024-06-27 14:30 | PN.CDI ---
CDI
- -
CDI:
Physician Documentation Request
Admit Date: 06/25/24 22:47
Dear Doctor Shravan,
Please review the following and provide your response in the progress notes.
Clinical Indicators:
Pt admitted with out of hospital cardiac arrest 2/2 ventricular fibrillation/intubated in septic shock
Progress note 06/26, ' Septic shock: Broad-spectrum antibiotics with IV Unasyn Pressors
Patient Service Rep consult,' Fever Leukocytosis CXR findings suggestive of possible airspace disease...concern for aspiration given cardiac arrest with CXR findings...'
Please provide in your notes the suspected infection /source of sepsis :
Aspiration Pneumonia
Pneumonia
Other source of infection ( Please specify)
Use of terms such as suspected, likely, concern for, or probable (associated with a specific diagnosis that is being evaluated, monitored, or treated as if it exists) are acceptable and can be coded in the inpatient setting, when documented at the
time of discharge.
Thank you,
Janette Jacob RN
CDI Specialist
[place] [facility]
Please use your independent medical judgment in providing your response.
--- NOTE | 2024-06-27 14:39 | PN.CDI ---
CDI
- -
CDI:
Physician Documentation Request
Admit Date: 06/25/24 22:47
Dear Doctor,
Please review the following and provide your response in the progress notes.
Clinical Indicators:
Pt admitted with out of hospital cardiac arrest 2/2 ventricular fibrillation/intubated in septic shock
Sexologist progress note 06/27, ' JEFFERSON on CKD Stage V, likely secondary to hypoperfusion...- Hamilton placed, oliguria with worsening creatinine of 3.5..'
Please provide a diagnosis for the above findings:
JEFFERSON with ATN
JEFFERSON only
Other ( please specify)
Use of terms such as suspected, likely, concern for, or probable (associated with a specific diagnosis that is being evaluated, monitored, or treated as if it exists) are acceptable and can be coded in the inpatient setting, when documented at the
time of discharge.
Thank you,
Janette Jacob RN
CDI Specialist
[place] [facility]
Please use your independent medical judgment in providing your response.
*Source: Kidney Disease: Improving Global Outcomes (KDIGO) 2012
--- NOTE | 2024-06-27 14:39 | CM ---
Patient at 12:05PM on this date.
--- NOTE | 2024-06-27 14:51 | PN.CDI ---
CDI
- -
CDI:
Physician Documentation Request
Admit Date: 06/25/24 22:47
Dear Doctor ,
Please review the following and provide your response in the progress notes.
Clinical Indicators:
Pt admitted with out of hospital cardiac arrest 2/2 ventricular fibrillation/intubated in septic shock
Bus Repair Supervisor consult, ' . Explained that prognosis is poor given signs of significant anoxic brain injury and overall clinical picture...'
Bus Repair Supervisor progress note 06/27,' Very dilated pupil, very sluggish response noted only on the right side to flashlight. Absent corneal reflex. Absent gag reflex today . Patient is breathing above the ventilator set rate. Myoclonic jerks
noted....Patient off sedation for 24 hours now, no change in mental status continues to have poor reflexes including absent corneal and gag. Very sluggish pupillary reflex on the right, otherwise breathing above the vent with intermittent myoclonic
jerks....24 hours off sedation without any meaningful improvement in neurological status...'
Please provide a diagnosis for the above findings:
Brain
Coma
Anoxic Brain injury only
Other ( please specify)
Use of terms such as suspected, likely, concern for, or probable (associated with a specific diagnosis that is being evaluated, monitored, or treated as if it exists) are acceptable and can be coded in the inpatient setting, when documented at the
time of discharge.
Thank you,
Janette Jacob RN
CDI Specialist
[place] [facility]
Please use your independent medical judgment in providing your response.
== END 2024-06-27 12:05 | disposition expired | DRG 871 ==
LOC: ICU 22:47
PROVIDERS: Internal Medicine Cardiovascular Disease; Nurse Practitioner Family; Nurse Practitioner Primary Care; ADMITTING PHYSICIAN Hospitalist; ATTENDING PHYSICIAN Hospitalist; CONSULT PHYSICIAN Internal Medicine; EMERGENCY PHYSICIAN Emergency Medicine; FAMILY PHYSICIAN Internal Medicine Geriatric Medicine; OTHER PHYSICIAN Internal Medicine Cardiovascular Disease
PROC: B543ZZA Ultrasonography of Right Jugular Veins, Guidance (ICD-10-PCS; 2024-06-26)
PROC: 5A1935Z Respiratory Ventilation, Less than 24 Consecutive Hours (ICD-10-PCS; 2024-06-26)
PROC: 4B02XSZ Measurement of Cardiac Pacemaker, External Approach (ICD-10-PCS; 2024-06-26)
PROC: 05HM33Z Insertion of Infusion Device into Right Internal Jugular Vein, Percutaneous Approach (ICD-10-PCS; 2024-06-26)
DX: A41.9 Sepsis, unspecified organism (principal); I21.A1 Myocardial infarction type 2; J18.9 Pneumonia, unspecified organism; J69.0 Pneumonitis due to inhalation of food and vomit; K72.00 Acute and subacute hepatic failure without coma; R65.21 Severe sepsis with septic shock; I13.2 Hypertensive heart and chronic kidney disease with heart failure and with stage 5 chronic kidney disease, or end stage renal disease; I50.22 Chronic systolic (congestive) heart failure; N18.5 Chronic kidney disease, stage 5; R18.8 Other ascites; I42.8 Other cardiomyopathies; E87.20 Acidosis, unspecified; I47.20 Ventricular tachycardia, unspecified; I5A Non-ischemic myocardial injury (non-traumatic); N17.9 Acute kidney failure, unspecified; G93.1 Anoxic brain damage, not elsewhere classified; I46.2 Cardiac arrest due to underlying cardiac condition; Z95.5 Presence of coronary angioplasty implant and graft; Z95.818 Presence of other cardiac implants and grafts; Z91.048 Other nonmedicinal substance allergy status; G47.33 Obstructive sleep apnea (adult) (pediatric); I25.10 Atherosclerotic heart disease of native coronary artery without angina pectoris; E11.22 Type 2 diabetes mellitus with diabetic chronic kidney disease; E78.00 Pure hypercholesterolemia, unspecified; I27.20 Pulmonary hypertension, unspecified; I48.0 Paroxysmal atrial fibrillation; I49.01 Ventricular fibrillation; E66.9 Obesity, unspecified; Z68.25 Body mass index [BMI] 25.0-25.9, adult; J44.89 Other specified chronic obstructive pulmonary disease; D63.1 Anemia in chronic kidney disease; Z66 Do not resuscitate; Z87.891 Personal history of nicotine dependence; Z79.82 Long term (current) use of aspirin; Z79.4 Long term (current) use of insulin; Z79.01 Long term (current) use of anticoagulants; Z79.899 Other long term (current) drug therapy; Z85.831 Personal history of malignant neoplasm of soft tissue; W07.XXXA Fall from chair, initial encounter; D72.829 Elevated white blood cell count, unspecified; E11.65 Type 2 diabetes mellitus with hyperglycemia; G25.3 Myoclonus; I44.1 Atrioventricular block, second degree
CPT/HCPCS: 49083; 70450; 71045; 72125; 80048; 80053; 81003; 81015; 82040; 82248; 82805; 82962; 83036; 83605; 83735; 84100; 84478; 84484; 85025; 85027; 85384; 85610; 85730; 87040; 87086; 89051; 93005; 94002; 94003; 94640; 96365; 96374; 96375; 96376; 99291; G0422; G0423; P9047